=== PATIENT | male | born 1940 | race Caucasian/White ===

== ENCOUNTER 2024-12-21 12:54 | Inpatient (IN) | payer MEDICARE, OTHER, SELFPAY ==
[2024-12-21] VITALS (22 sets, daily range): BP systolic 89–130; BP diastolic 51–101; BMI 32.2
--- NOTE | 2024-12-21 08:53 | ED.GENMED ---
History of Present Illness
General
Chief Complaint: Abnormal Lab Value
Source: patient and ambulance crew
Time Seen by Provider: 12/21/24 08:51
History of Present Illness
History of Present Illness:
83yoM with a history of coronary artery disease, atrial fibrillation, CHF with last EF 45 to 50%, hypertension, hyperlipidemia, type 2 diabetes, dementia, and COPD presenting via EMS for evaluation of abnormal outpatient labs. Patient is a resident
at [facility] he had routine blood work done yesterday and was found to have a transaminitis. Labs revealed an AST of 528, ALT 373, alk phos 405, and total bilirubin of 2.36. There was also a leukocytosis present with a white count of 15.8.
Due to his lab abnormalities, he was sent to the emergency department. Patient has no complaints at this time and denies any abdominal pain. Remainder of history is limited due to underlying dementia. He was hospitalized in 2021 for a similar
issue. Ultrasound showed intrahepatic biliary dilatation at that time and he underwent EUS which was negative for choledocholithiasis. Transaminitis was thought to be due to a passed CBD stone.
Past History
Past History
ED Past Medical History: Arrthythmia (Atrial fib), CAD, HTN, Hypercholesterolemia, IDDM and Other (COVID positive 2 weeks ago, PVD,)
ED Past Surgical History: None
Social History
Tobacco: Former smoker
Alcohol: Occasional
Personal:
Living: halfway ([facility])
Phy Exam
General Physical Exam
General Presentation: well appearing and no apparent distress
General Skin: warm, dry and pale
General Habitus: elderly
General Mental: angry
ENT Exam
ENT Exam: normocephalic
Cardiovascular Exam
Cardiovascular Exam: tachycardia
Pulmonary Exam
Pulmonary Exam: no respiratory distress, no rales, no crackles, no wheezing and decreased breath sounds
Gastrointestinal Exam
Gastrointestinal Exam: non tender, soft and non distended
Neurological Exam
Neurological Exam: alert
Skin Exam
Skin Exam: warm/dry
Psychiatric Exam
Psychiatric Exam: agitated
Course
Orders/Labs/Results
Orders:
Orders
12/21/24 08:51
Cardiac Monitoring- Treatment ONCE
US Abdomen Complete/Upper Urgent
Comment:
Reason For Exam: transaminitis
12/21/24 08:52
Electrocardiogram (*1) Urgent
Reason for Study: Other
Other Reason for Exam: tachycardia
EKG- Treatment ONCE
12/21/24 08:58
Basic Metabolic Panel Urgent
COVID-19 Antigen Urgent
Source: Nasal Swab
Complete Blood Count/With Diff Urgent
Hepatitis A IgM Antibody Urgent
Hepatitis B Core Ab, IgM Urgent
Hepatitis B Surface Antibody Urgent
Hepatitis B Surface Antigen Urgent
Hepatitis C Antibody Urgent
LFT [Ckwig-Ubaj-Yypapdn] Urgent
Lipase Urgent
Monotest Urgent
Prothrombin Time Urgent
Tylenol [Acetaminophen] Urgent
Influenza A+B Rapid Molecular Urgent
JB Source: Nasal Swab
Specimen Description:
12/21/24 09:26
0.9% Sodium Chloride 500 ml [Nss] 500 ml IV BOLUS
12/21/24 09:28
CR Chest Portable - 1 View Urgent
Comment:
Reason For Exam: hypoxia
Reason Study Needs to be Portable: Unable to Transport
12/21/24 09:54
Lactate Level [Lactic Acid] Urgent
Blood Culture Q30M
JB Source: Blood/Venous
Specimen Description:
12/21/24 10:15
Piperacillin/Tazo 4.5 Gram [Zosyn] 4.5 gram in 100 ml IV NOW
12/21/24 10:29
Blood Culture Q30M
JB Source: Blood/Venous
Specimen Description:
12/21/24 12:10
GASTROINTESTINAL CONSULT Routine
Consulting Provider: Rafa Mark
Was physician already notified: Yes
Reason for consult: elevated LFT
12/21/24 12:11
MRI Abdomen [MR Abdomen With Contrast] Routine
Comment:
Reason For Exam: with MRCP, LFT elevation
Recent pill cam endoscopy?: No
0.9% Sodium Chloride 500 ml [Nss] 500 ml IV BOLUS
12/21/24 13:00
Lactic Acid Urgent
Abnormal Lab Results
12/21/24 12/21/24
08:58 09:54
WBC 22.9 H 10^3/uL
(4.8-10.8)
RBC 4.68 L 10^6/uL
(4.70-6.10)
MCHC 30.7 L g/dL
(33.0-37.0)
RDW 14.6 H %
(11.5-14.5)
MPV 10.6 H fL
(7.4-10.4)
Abs Immat Gran (auto) 0.2 H 10^3/uL
(0-0.05)
Absolute Neuts (auto) 20.8 H 10^3/uL
(1.4-6.5)
Absolute Lymphs (auto) 0.9 L 10^3/uL
(1.2-3.4)
Absolute Monos (auto) 0.9 H 10^3/uL
(0.1-0.6)
Immature Gran % 1.0 H %
(0-0.5)
Neutrophils % 90.7 H %
(42.2-75.2)
Lymphocytes % 4.0 L %
(20.5-51.1)
PT 16.1 H Sec
(11.4-14.6)
Sodium 147 H mmol/L
(135-145)
BUN 31 H mg/dl
(9-20)
Glucose 205 H mg/dl
(70-99)
Lactic Acid 2.2 H mmol/L
(0.7-2.0)
Total Bilirubin 4.6 H mg/dl
(0.2-1.3)
Direct Bilirubin 3.5 H mg/dl
(0.0-0.4)
AST 249 H U/L
(17-59)
ALT 342 H U/L
(0-50)
Alkaline Phosphatase 383 H U/L
(38-126)
Albumin 3.3 L g/dl
(3.5-5.0)
Acetaminophen < 10 L ug/ml
(10-30)
12/21/24 08:58
12/21/24 08:58
Vital Signs
Initial and Last Documented VS:
Initial Vital Signs
Pulse Resp Pulse Ox
138 20 95
12/21/24 08:47 12/21/24 08:47 12/21/24 08:47
Last Documented Vital Signs
Temp Pulse Resp BP Pulse Ox
98.2 F 108 27 113/62 95
12/21/24 08:53 12/21/24 10:30 12/21/24 10:30 12/21/24 10:30 12/21/24 10:15
MDM/Problems Addressed
Differential Diagnosis Includes:
83yoM here with elevated LFTs on outpatient labs. Hx of dementia so history is limited but he denies any complaints. Chart reviewed, patient admitted in 2021 for similar issue which was thought to be a passed CBD stone. HR in the 130s on arrival, BP
stable. Abdominal exam is limited due to patient cooperation but no obvious tenderness elicited. Differential diagnosis includes but is not limited to: cholelithiasis, choledocholithiasis, cholangitis, hepatitis
Initial ED plan: Check abdominal labs, coags, hepatitis panel, Tylenol level, monospot, EKG, and upper abdominal ultrasound.
*EKG
Interpreted by ED Provider?: Yes
EKG Intrepretation Date: 12/21/24
Heart Rate: 122
Rate: tachycardiac
Rhythm: a-fib
QRS Pattern: normal QRS
Ischemia: T-wave inversion (lateral leads)
*Critical Care Note
Total Time (30-74mins, 75-104mins- exclusive of procedures): Not Applicable
Update Note
Update Note:
Labs reveal a leukocytosis with a white count of 22 with a left shift. Lactate 2.2. AST 249, ALT 342, and total bilirubin 4.6. Lipase within normal limits. Patient became hypoxic to 88% during ED stay and was placed on 2 L nasal cannula. Upper
abdominal ultrasound shows fatty infiltration and cholelithiasis. No imaging findings of cholecystitis. Patient meeting SIRS criteria and IV Zosyn ordered. He was admitted for further evaluation and management.
ED Attending Note
-
Portions of this chart may have been created with voice recognition software.� Occasional wrong word or��sound alike� substitutions may have occurred due to the inherent limitations of voice recognition software.
Discharge Plan
Departure
Patient Disposition: Admit
Date of Disposition: 12/21/24
Time of Disposition: 11:27
Presentation/result/management discussed w/ accepting MD/DO: Hospitalist
Discharge Problem:
Transaminitis, SIRS (systemic inflammatory response syndrome)
Prescriptions:
No Action
metformin 1,000 MG tablet
1,000 mg PO QPM
docusate sodium 100 MG capsule
200 mg PO DAILY
acetaminophen 325 MG tablet
650 mg PO Q4HPRN PRN (Reason: mild pain/temp>100)
lovastatin 40 MG tablet
40 mg PO DAILY
tamsulosin 0.4 MG capsule
0.4 mg PO DAILY
gabapentin 300 MG capsule
300 mg PO DAILY
sertraline 50 MG tablet
100 mg PO DAILY
finasteride 5 MG tablet
5 mg PO DAILY
magnesium oxide 400 MG tablet
400 mg PO BID
dapagliflozin propanediol [Farxiga] 10 MG tablet
10 mg PO DAILY
bisacodyl [Dulcolax (bisacodyl)] 5 mg Tablet,Delayed Release (Dr/Ec)
5 mg PO DAILYPRN PRN (Reason: constipation)
glipizide 5 mg Tablet
15 mg PO DAILY
furosemide 40 mg Tablet
40 mg PO DAILY Qty: 30 0RF
lisinopril 5 mg Tablet
5 mg PO DAILY Qty: 30 0RF
apixaban 5 mg Tablet
5 mg PO BID
metoprolol tartrate 50 mg Tablet
50 mg PO BID
ondansetron HCl [Zofran] 4 mg Tablet
4 mg PO Q6HPRN PRN (Reason: nausea)
nystatin-triamcinolone 100,000-0.1 unit/g-% Cream
1 applic TOPICAL BID
insulin lispro [Admelog SoloStar U-100 Insulin] 100 unit/mL Insulin Pen
3 sliding scale dose SC AC
Rx Instructions:
201-250=5unit, 251-300=7unit
insulin glargine [Basaglar KwikPen U-100 Insulin] 100 unit/mL (3 mL) Insulin Pen
7 unit SC DAILY
insulin glargine [Basaglar KwikPen U-100 Insulin] 100 unit/mL (3 mL) Insulin Pen
20 unit SC HS
white petrolatum [Hydrophor] 42 % ointment
1 applic topical DAILY
Referrals:
Tl Purdy MD [Family Provider] -
Interventions
Interventions:
*Risk Screen - Suicide Last Done: 12/21/24 09:30
*General Assessment Last Done: 12/21/24 09:30
*Neglect/Abuse Screening Last Done: 12/21/24 09:30
*ED COVID-19 Vaccine History Last Done: 12/21/24 09:30
Discharge Date and Time
Print Language: MOHAWK
[2024-12-21 09:16] LABS: Hematocrit 42.7 % (39.0-52.0); Hemoglobin 13.1 g/dL (13.0-18.0); Mean Corp Hgb Conc. 30.7 g/dL (33.0-37.0); Mean Corpuscular Volume 91.2 fL (80.0-94.0); Mean Platelet Volume 10.6 fL (7.4-10.4); Platelet Count 227 10^3/uL (130-400); Red Blood Cell Count 4.68 10^6/uL (4.70-6.10); Red Cell Dist. Width 14.6 % (11.5-14.5); White Blood Cell Count 22.9 10^3/uL (4.8-10.8)
[2024-12-21 09:23] LABS: INR 1.26; PT 16.1 Sec (11.4-14.6)
[2024-12-21 09:26] LABS: AST (SGOT) 249 U/L (17-59); Acetaminophen < 10 ug/ml (10-30); Albumin 3.3 g/dl (3.5-5.0); Alkaline Phosphatase 383 U/L (38-126); Blood Urea Nitrogen 31 mg/dl (9-20); Calcium 9.5 mg/dl (8.4-10.2); Carbon Dioxide 27 mmol/L (22-30); Chloride 105 mmol/L (98-107); Direct Bilirubin 3.5 mg/dl (0.0-0.4); Glucose 205 mg/dl (70-99); Potassium 4.4 mmol/L (3.5-5.1); Sodium 147 mmol/L (135-145); Total Bilirubin 4.6 mg/dl (0.2-1.3); Total Protein 6.9 g/dl (6.3-8.2); eGFR 53.84
[2024-12-21 09:34] LABS: ALT (SGPT) 342 U/L (0-50)
[2024-12-21 09:39] LABS: COVID-19 Antigen Negative (Negative)
[2024-12-21 09:50] LABS: Monotest Negative (Negative)
[2024-12-21] MEDS: NSS 500 IV ×2 (09:55→13:26)
[2024-12-21 10:08] LABS: % Basophils 0.2 % (0-2); % Monocytes 4.1 % (1.7-9.3); % Neutrophils 90.7 % (42.2-75.2); Absolute Immature Granulocytes 0.2 10^3/uL (0-0.05); Absolute Lymphocytes 0.9 10^3/uL (1.2-3.4); Absolute Monocytes 0.9 10^3/uL (0.1-0.6); Absolute Neutrophils 20.8 10^3/uL (1.4-6.5); Nucleated Red Blood Cells % 0 % (-)
[2024-12-21 10:31] LABS: Lactic Acid 2.2 mmol/L (0.7-2.0)
[2024-12-21 11:03] LABS: Lipase 101 U/L (23-300)
[2024-12-21] MEDS: ZOSYN 100 IV (11:11)
[2024-12-21 12:07] LABS: Hepatitis B Surface Antigen Negative (Negative)
[2024-12-21 12:11] LABS: Hepatitis A IgM Antibody Negative (Negative); Hepatitis B Core Ab, IgM Negative (Negative)
[2024-12-21 12:24] LABS: Hepatitis B Surface Antibody Positive; Hepatitis C Antibody Negative (Negative)
--- NOTE | 2024-12-21 12:31 | CON.GI ---
Addendum entered and electronically signed by Rafa Mark DO 12/21/24 17:59:
I saw and examined the patient.
The RATTLING MACHINE TENDER's note was reviewed and I agree with the note.
Comment: Mr Viveros is an 83 y.o male with a past medical history as detailed below who presented to the ED with abnormal LFTs. Patient is a limited historian during my interview. Found to meet sepsis criteria and elevated LFTs with AST 249, ALT
342, alk phos 383 along with T Bili 4.6, D Bili 3.5 and lipase 101. Initial US was limited but was unrevealing for any intrahepatic or extrahepatic biliary ductal dilatation with CBD of [address] imaging later revealed concern for acute emphysematous
cholecystitis with gallbladder perforation with adjacent inflammatory stranding without any fluid collection. Otherwise, there was no biliary ductal dilatation. On exam patient has tenderness in the RUQ along with both guarding and rebound
tenderness concerning for perforated viscus. Suspect patient's elevated LFTs in setting of sepsis secondary from emphysematous cholecystitis with pneumoperitoneum around the liver concerning for a contained gallbladder perforation rather than
biliary obstruction based on his imaging. Would defer any further plans for an MRI/MRCP at this time especially based on his CT findings. Surgery previously evaluated and per extensive discussions with patient and family declining further surgical
intervention. At this juncture, patient remains at high risk for clinical decompensation as declining any further surgical intervention. In the meantime, would continue empiric IV antibiotics and would continue further GOC discussions with both
primary team and family along with potentially Palliative care this admission.
Discussed with both patient's family and primary internal medicine team.
Original Note:
Consultation
-
Date/Time Consultation Requested: 12/21/24 1215
Date/Time Consultation Performed: 12/21/24 1230
Requesting Provider: Yan Gonzales MD
Performing Provider: LENORA Lin, Rafa Mark DO
Reason for Consultation: increased LFT's
Medical History
Chief Complaint / HPI
Chief Complaint: Abnormal labs
History of Present Illness:
Pt is an 83yo with hx of A. fib on Eliquis, CHF EF 45-50 %, CAD, HTN, hyperlipidemia, PVD, COPD, NIDDM, likely vascular dementia bedbound, DVT, prior UTI, noted on routine labs completed and noted with abnormal LFT's and sent to ER. On admission
was noted with WBC 22,900, hbg 13, Na 147, creat 1.3, glucose 205, lactate 2.2, bili 4.6, D bili 3.5, AST 249, ALT 342, alk phos 383 and lipase 101. He completed US abdomen with Significantly limited results with cooperation. Increased hepatic
echogenicity most likely related to fatty infiltration. Cholelithiasis. No sonographic findings suspicious for acute cholecystitis. Pt was seen in 2021 with similar symptoms and elevated lipase at that time with possible passed stone. Patient is a
poor historian all history obtained from chart review and I did attempt to use [place] field service technician poultry with some confusion in responses.
In review with family pt was noted with a few day noted decreased appetite. He was taking his medication without difficulty which was abnormal for patient as he usually resists taking mediation. He was also complaining of right sided pain with
noted jaundice. He has some limited history but with field service technician poultry denies dysphagia, GERD, abdominal pain, nausea, vomiting, diarrhea, constipation or rectal bleeding. No hx EGD in past and last colonoscopy years ago daughter did not recall any
abnormal findings.
Past Medical History
Past Medical History: Arrhythmias (A. fib), CHF, COPD, HTN, Hypercholesterolemia, NIDDM, [place] and Other (DVT on Eliquis, collarbone fx with medical mangement )
Past Surgical History: Orthopedic (THR, ankle surgery)
Social History
Tobacco: Former Smoker (quit age 58 )
Alcohol: Former (social ETOH )
Drug: None
Living: Long-Term
Employment: Retired
Family History
Family History: Other (no family hx liver issues )
Allergies / Home Medications
Allergy/AdvReac Type Severity Reaction Status Date / Time
No Known Allergies Allergy Verified 12/21/24 08:50
�Medication �Instructions �Recorded
docusate sodium 100 mg capsule 200 mg PO DAILY Constipation 06/27/20
metformin 1,000 mg tablet 1,000 mg PO QPM Diabetes 06/27/20
acetaminophen 325 mg tablet 650 mg PO Q4HPRN PRN mild 09/08/20
pain/temp>100
finasteride 5 mg tablet 5 mg PO DAILY Urinary issue 09/08/20
gabapentin 300 mg capsule 300 mg PO DAILY Pain 09/08/20
lovastatin 40 mg tablet 40 mg PO DAILY High cholesterol 09/08/20
magnesium oxide 400 mg PO BID Supplement 09/08/20
sertraline 50 mg tablet 100 mg PO DAILY Mental 09/08/20
Health/Anxiety
tamsulosin 0.4 mg capsule 0.4 mg PO DAILY Urinary issue 09/08/20
dapagliflozin propanediol 10 mg 10 mg PO DAILY Diabetes/Heart 02/08/22
tablet (Farxiga) Failure
bisacodyl 5 mg tablet,delayed 5 mg PO DAILYPRN PRN constipation 07/27/22
release (Dulcolax (bisacodyl))
glipizide 5 mg tablet 15 mg PO DAILY Diabetes 07/27/22
furosemide 40 mg tablet 40 mg PO DAILY #30 tabs 08/05/22
lisinopril 5 mg tablet 5 mg PO DAILY #30 tabs 08/05/22
apixaban 5 mg tablet 5 mg PO BID Blood clot 08/26/22
prevention/tx
metoprolol tartrate 50 mg tablet 50 mg PO BID Blood Pressure 09/29/23
insulin glargine 100 unit/mL (3 7 unit SC DAILY 12/21/24
mL) subcutaneous pen (Basaglar
KwikPen U-100 Insulin)
insulin glargine 100 unit/mL (3 20 unit SC HS 12/21/24
mL) subcutaneous pen (Basaglar
KwikPen U-100 Insulin)
insulin lispro 100 unit/mL 3 sliding scale dose SC AC 12/21/24
subcutaneous pen (Admelog SoloStar
U-100 Insulin lispro)
nystatin-triamcinolone 100,000 1 applic topical BID groin,penis 12/21/24
unit/g-0.1 % topical cream
ondansetron HCl 4 mg tablet 4 mg PO Q6HPRN PRN nausea 12/21/24
white petrolatum 42 % topical 1 applic topical DAILY dry skin 12/21/24
ointment (Hydrophor)
Review of Systems
-
Unable to obtain full review of systems at this time due to: Language Barrier
History Source: Patient and Family
Constitutional: Reports No Symptoms
EENT: Reports No Symptoms
Respiratory: Reports No Symptoms
Cardiac: Reports No Symptoms
Abdomen/GI: Reports Abdominal Pain and Other (decreased appetite )
: Reports No Symptoms
Skin: Reports Other (change in skin color )
Neurological: Reports Weakness
Endocrine: Reports No Symptoms
Hematologic/Lymphatic: Reports No Symptoms
Vital Signs
Temp Pulse Resp BP Pulse Ox
98.2 F 108 27 113/62 95
12/21/24 08:53 12/21/24 10:30 12/21/24 10:30 12/21/24 10:30 12/21/24 10:15
Physical Exam
Exam
General: Well Developed, Well Nourished and Other (sleepy but arousable )
HEENT: Other (jaundice )
Respiratory: Clear
Cardiac: Other (tachy)
GI: Soft, Non Distended and Tender (diffuse mid abdomen )
Musculoskeletal: No Clubbing and No Cyanosis
Skin: Warm and Dry
Neuro: Other (awakens to voice -- confusion with use of field service technician poultry )
Psych: Calm
Results
WBC 22.9 10^3/uL (4.8-10.8) H 12/21/24 08:58
Hgb 13.1 g/dL (13.0-18.0) 04/18/25 08:58
Hct 42.7 % (39.0-52.0) 12/21/24 08:58
MCV 91.2 fL (80.0-94.0) 12/21/24 08:58
Plt Count 227 10^3/uL (130-400) 12/21/24 08:58
Absolute Neuts (auto) 20.8 10^3/uL (1.4-6.5) H 12/21/24 08:58
PT 16.1 Sec (11.4-14.6) H 12/21/24 08:58
INR 1.26 12/21/24 08:58
Sodium 147 mmol/L (135-145) H 12/21/24 08:58
Potassium 4.4 mmol/L (3.5-5.1) 12/21/24 08:58
Chloride 105 mmol/L (98-107) 12/21/24 08:58
Carbon Dioxide 27 mmol/L (22-30) 12/21/24 08:58
BUN 31 mg/dl (9-20) H 12/21/24 08:58
Creatinine 1.3 mg/dL (0.7-1.3) 12/21/24 08:58
Calcium 9.5 mg/dl (8.4-10.2) 12/21/24 08:58
Total Bilirubin 4.6 mg/dl (0.2-1.3) H 12/21/24 08:58
AST 249 U/L (17-59) H 12/21/24 08:58
ALT 342 U/L (0-50) H 12/21/24 08:58
Alkaline Phosphatase 383 U/L (38-126) H 12/21/24 08:58
Lipase 101 U/L (23-300) 12/21/24 08:58
Hepatitis A IgM Ab Negative (Negative) 12/21/24 08:58
Hep Bs Antibody Positive 12/21/24 08:58
Hep B Core IgM Ab Negative (Negative) 12/21/24 08:58
Hepatitis C Antibody Negative (Negative) 12/21/24 08:58
Diagnostic Image Results:
12/21/24 US Abdomen Complete/Upper
IMPRESSION: Significantly limited as above. Increased hepatic echogenicity most likely related to fatty infiltration. Cholelithiasis. No sonographic findings suspicious for acute cholecystitis.
12/21/24 CXR
IMPRESSION: Limited as above. Very low lung volumes. Left basilar opacification, probable combination of small effusion and adjacent atelectasis/consolidation.
Prior GI Procedures:
EGD: none per family
Colonoscopy: ? in past years ago
Assessment / Plan
-
Pt is an 83yo with hx of A. fib on Eliquis, CHF EF 45-50 %, CAD, HTN, hyperlipidemia, PVD, COPD, NIDDM, likely vascular dementia bedbound, DVT, prior UTI, noted on routine labs completed and noted with abnormal LFT's and sent to ER. On admission
was noted with WBC 22,900, hbg 13, Na 147, creat 1.3, glucose 205, lactate 2.2, bili 4.6, D bili 3.5, AST 249, ALT 342, alk phos 383 and lipase 101. He completed US abdomen with significantly limited results with cooperation. Increased hepatic
echogenicity most likely related to fatty infiltration. Cholelithiasis. No sonographic findings suspicious for acute cholecystitis. Pt was seen in 2021 with similar symptoms and elevated lipase at that time with possible passed stone. Patient is a
poor historian all history obtained from chart review and I did attempt to use [place] field service technician poultry with some confusion in responses. In review with family pt was noted with a few day noted decreased appetite. He was taking his medication without
difficulty which was abnormal for patient as he usually resists taking mediation. He was also complaining of right sided pain with noted jaundice. No hx EGD in past and last colonoscopy years ago daughter did not recall any abnormal findings.
-increased LFT's
-abdominal pain on exam with recent decreased appetite, jaundice prior to admission
-hypotension/tachycardia/leukocytosis with concern for sepsis
-hypernatremia
-hx UTI in 09/2023
-admission 2021 with pancreatitis ? gallstone related
-afib on Eliquis prior to admission
other med problems:
-CHF
-CAD
-HTN
-hyperlipidemia
-COPD
-NIDDM
-vascular dementia
-hx DVT
-fatty liver
-DNR
PLAN:
etiology of symptoms with concern for underlying infectious- biliary, urinary vs other as noted with hypotension/tachycardia/leukocytosis
agree with CT and MRI
cont abx
cont NPO for now
await cx data-- CXR stable -- urine and blood cx pending
trend LFTs
I updated daughter on plan
use of [place] field service technician poultry with some limited help with dementia
-
-
Thank you for consultation and allowing me to participate in the patient's care. Please call the concrete worker GI physician during the after hours with any questions or concerns.
--- NOTE | 2024-12-21 12:42 | HPS.HSE ---
Family Physician
-
Family Physician: Tl Purdy MD
Chief Complaint
-
abnormal LFT
History of Present Illness
83yo M albanian speaking, with PMHx of HFmrEF, DM, neuropathy, HTN, HLD, BPH, anxiety, dementia, chronic ambulatory deficiency brought from [facility] with abnormal labs, found leukocytosis with transaminitis and elevated direct bilirubinemia.
Himself has no complains, however has diffusely tender abdomen on bedside ssessmnt.
Similar presentation in 2021, at that time with neg EUS and contributed to passing the stone
Medical History
Past Medical History
Past Medical History: Reports Other
Additional Past Medical History:
See above
Past Surgical History: Reports None
Social History
Unable to obtain full social history at this time due to: Dementia
Tobacco: Former Smoker
Family History
Family History: Not pertinent
Allergies / Home Medications
Allergies reflects when Allergies were last updated in [facility].
Home Medications with original date entered in [facility]
Allergy/Medication List:
Allergies
Allergy/AdvReac Type Severity Reaction Status Date / Time
No Known Allergies Allergy Verified 12/21/24 08:50
Home Medications
docusate sodium 100 mg capsule 200 mg PO DAILY Constipation 06/27/20
metformin 1,000 mg tablet 1,000 mg PO QPM Diabetes 06/27/20
acetaminophen 325 mg tablet 650 mg PO Q4HPRN PRN mild pain/temp>100 09/08/20
finasteride 5 mg tablet 5 mg PO DAILY Urinary issue 09/08/20
gabapentin 300 mg capsule 300 mg PO DAILY Pain 09/08/20
lovastatin 40 mg tablet 40 mg PO DAILY High cholesterol 09/08/20
magnesium oxide 400 mg PO BID Supplement 09/08/20
sertraline 50 mg tablet 100 mg PO DAILY Mental Health/Anxiety 09/08/20
tamsulosin 0.4 mg capsule 0.4 mg PO DAILY Urinary issue 09/08/20
dapagliflozin propanediol 10 mg tablet (Farxiga) 10 mg PO DAILY Diabetes/Heart Failure 02/08/22
bisacodyl 5 mg tablet,delayed release (Dulcolax (bisacodyl)) 5 mg PO DAILYPRN PRN constipation 07/27/22
glipizide 5 mg tablet 15 mg PO DAILY Diabetes 07/27/22
furosemide 40 mg tablet 40 mg PO DAILY #30 tabs 08/05/22
lisinopril 5 mg tablet 5 mg PO DAILY #30 tabs 08/05/22
apixaban 5 mg tablet 5 mg PO BID Blood clot prevention/tx 08/26/22
metoprolol tartrate 50 mg tablet 50 mg PO BID Blood Pressure 09/29/23
insulin glargine 100 unit/mL (3 mL) subcutaneous pen (Basaglar KwikPen U-100 Insulin) 7 unit SC DAILY 12/21/24
insulin glargine 100 unit/mL (3 mL) subcutaneous pen (Basaglar KwikPen U-100 Insulin) 20 unit SC HS 12/21/24
insulin lispro 100 unit/mL subcutaneous pen (Admelog SoloStar U-100 Insulin lispro) 3 sliding scale dose SC AC 12/21/24
nystatin-triamcinolone 100,000 unit/g-0.1 % topical cream 1 applic topical BID groin,penis 12/21/24
ondansetron HCl 4 mg tablet 4 mg PO Q6HPRN PRN nausea 12/21/24
white petrolatum 42 % topical ointment (Hydrophor) 1 applic topical DAILY dry skin 12/21/24
Review of Systems
-
Unable to obtain full review of systems at this time due to: Dementia
History Source: Patient
A 12 point ROS was completed and negative except as noted: Yes
Physical Exam
Vital Signs
Vital Signs
Temp Pulse Resp BP Pulse Ox
98.2 F 108 27 113/62 95
12/21/24 08:53 12/21/24 10:30 12/21/24 10:30 12/21/24 10:30 12/21/24 10:15
Physical Exam
General: Comfortable and Conversant; No Respiratory Distress
HEENT: NormoCephalic, Anicteric and Moist mucous membranes
Respiratory: Clear; No Wheezes, Rhonchi or Crackles
Cardiac: S1/S2 and Regular Rhythm; No Peripheral Edema
GI: Soft, Non Distended and Tender
Musculoskeletal: No Clubbing, No Cyanosis and No Edema
Skin: Warm
Neuro: Awake and Alert; No AO x 3
Psych: Calm and Apparent Dementia
Laboratory Results
-
12/21/24 08:58
12/21/24 08:58
Laboratory Results
PT 16.1 Sec (11.4-14.6) H 12/21/24 08:58
INR 1.26 12/21/24 08:58
Lactic Acid 2.2 mmol/L (0.7-2.0) H 12/21/24 09:54
Total Bilirubin 4.6 mg/dl (0.2-1.3) H 12/21/24 08:58
AST 249 U/L (17-59) H 12/21/24 08:58
ALT 342 U/L (0-50) H 12/21/24 08:58
Alkaline Phosphatase 383 U/L (38-126) H 12/21/24 08:58
Lipase 101 U/L (23-300) 12/21/24 08:58
Impression/Plan
-
A/P:
#Transaminitis
#Direct bilirubinemia
#Leukocytosis
cannot exclude cholangitis
US RUQ without definite cholecystitis or choledocholithiasis sign
Chest XR without pneumonia
complete w/u with UA
BCx pending
Zosyn
Follow LFT
GI consult
CT and/pelvis and MRCP
Lipase WNL
#Hypernatremia
possible dehydration
IVF gentle to avoid fluid overload
hold Lasix
#DM type 2 with neuropathy
Insulin SS, Accuchecks, DM diet when able
Hold basal/bolus while NPO
#Chronic HFpEF
#Essential HTN
#BPH
#Anxiety
#Dementia, Unspecified
#HLD
#Afib, paroxysmal
cont home meds
Hold Eliquis in the case if procedure needed
#GOC
POLST form DNR/DNI with limited intervention, IVF and Abx acceptable
DVT ppx Lovenox
DNR/DNI as per POLST form
I have spent at least 78min reviewing chart, test results, communication with consultants and providing direct patient care
[2024-12-21] MEDS: MERREM 500 MG IV ×2 (15:59→23:01)
[2024-12-21] MEDS: STERILE WATER FOR INJECTION 10 ML IV ×2 (15:59→23:02)
--- NOTE | 2024-12-21 16:58 | CON.GS ---
Consultation
-
Date/Time Consultation Performed: 12/21/24 1630
Reason for Consultation: Cholecystitis
Medical History
-
Chief Complaint: Abnormal laboratory testing
History of Present Illness:
Patient is an 83-year-old male brought in from [facility] for emergency department evaluation secondary to abnormal liver function profile testing and laboratory values.
Patient has underlying dementia and does not provide accurate history. Appears as though he has had decreased appetite and change in typical behavior and right sided abdominal pain. His daughter is at bedside. Patient is a limited DNR with
request for no aggressive measures of care. Patient daughter states that he has essentially been bedbound since 2019 and living in every point since then. He is typically quite combative and resistant with this care.
During my evaluation patient seems to be oriented to being at the hospital. When I told him I was the surgeon he said go away. Anytime I began to mention surgery he adamantly said no and did not wish to speak further about it.
Past Medical History
Past Medical History: Other (His medical history is notable for A-fib on Eliquis, history of CHF with reduced ejection fraction, CAD, hypertension, hyperlipidemia, PVD, COPD, DM, DVT, prior UTI, dementia, ambulatory dysfunction.)
Past Surgical History: Orthopedic
Social History
Tobacco: Former Smoker
Alcohol: Former
Living: Custodial
Family History
Family History: Unable to Obtain
Allergies / Home Medications
Allergy/AdvReac Type Severity Reaction Status Date / Time
No Known Allergies Allergy Verified 12/21/24 08:50
�Medication �Instructions �Recorded �Confirmed �Type
docusate sodium 100 mg capsule 200 mg PO DAILY Constipation 06/27/20 12/21/24 History
metformin 1,000 mg tablet 1,000 mg PO QPM Diabetes 06/27/20 12/21/24 History
acetaminophen 325 mg tablet 650 mg PO Q4HPRN PRN mild 09/08/20 12/21/24 History
pain/temp>100
finasteride 5 mg tablet 5 mg PO DAILY Urinary issue 09/08/20 12/21/24 History
gabapentin 300 mg capsule 300 mg PO DAILY Pain 09/08/20 12/21/24 History
lovastatin 40 mg tablet 40 mg PO DAILY High cholesterol 09/08/20 12/21/24 History
magnesium oxide 400 mg PO BID Supplement 09/08/20 12/21/24 History
sertraline 50 mg tablet 100 mg PO DAILY Mental 09/08/20 12/21/24 History
Health/Anxiety
tamsulosin 0.4 mg capsule 0.4 mg PO DAILY Urinary issue 09/08/20 12/21/24 History
dapagliflozin propanediol 10 mg 10 mg PO DAILY Diabetes/Heart 02/08/22 12/21/24 History
tablet (Farxiga) Failure
bisacodyl 5 mg tablet,delayed 5 mg PO DAILYPRN PRN constipation 07/27/22 12/21/24 History
release (Dulcolax (bisacodyl))
glipizide 5 mg tablet 15 mg PO DAILY Diabetes 07/27/22 12/21/24 History
furosemide 40 mg tablet 40 mg PO DAILY #30 tabs 08/05/22 12/21/24 Rx
lisinopril 5 mg tablet 5 mg PO DAILY #30 tabs 08/05/22 12/21/24 Rx
apixaban 5 mg tablet 5 mg PO BID Blood clot 08/26/22 12/21/24 History
prevention/tx
metoprolol tartrate 50 mg tablet 50 mg PO BID Blood Pressure 09/29/23 12/21/24 History
insulin glargine 100 unit/mL (3 7 unit SC DAILY 12/21/24 12/21/24 History
mL) subcutaneous pen (Basaglar
KwikPen U-100 Insulin)
insulin glargine 100 unit/mL (3 20 unit SC HS 12/21/24 12/21/24 History
mL) subcutaneous pen (Basaglar
KwikPen U-100 Insulin)
insulin lispro 100 unit/mL 3 sliding scale dose SC AC 12/21/24 12/21/24 History
subcutaneous pen (Admelog SoloStar
U-100 Insulin lispro)
nystatin-triamcinolone 100,000 1 applic topical BID groin,penis 12/21/24 12/21/24 History
unit/g-0.1 % topical cream
ondansetron HCl 4 mg tablet 4 mg PO Q6HPRN PRN nausea 12/21/24 12/21/24 History
white petrolatum 42 % topical 1 applic topical DAILY dry skin 12/21/24 12/21/24 History
ointment (Hydrophor)
Review of Systems
-
Unable to obtain full review of systems at this time due to: Dementia
History Source: Patient
A 10 point review of systems was completed, and was negative except as per HPI.
Physical Exam
Vital Signs
Temp Pulse Resp BP Pulse Ox
98.2 F 128 22 89/56 96
12/21/24 08:53 12/21/24 15:45 12/21/24 15:30 12/21/24 15:45 12/21/24 15:45
12/20/24 12/21/24 12/22/24
06:59 06:59 06:59
Actual Weight 104.1 kg
Lab Results
12/21/24 08:58
12/21/24 08:58
WBC 22.9 10^3/uL (4.8-10.8) H 12/21/24 08:58
Hgb 13.1 g/dL (13.0-18.0) 12/21/24 08:58
Hct 42.7 % (39.0-52.0) 12/21/24 08:58
Plt Count 227 10^3/uL (130-400) 12/21/24 08:58
Abs Immat Gran (auto) 0.2 10^3/uL (0-0.05) H 12/21/24 08:58
Neutrophils % 90.7 % (42.2-75.2) H 12/21/24 08:58
Physical Exam
General: Other (Chronically ill-appearing, bedbound)
HEENT: Scleral Icterus
Respiratory: Non Labored Respirations
Cardiac: Irregular Rhythm
GI: Soft and Tender (Tenderness palpation localized in the right upper quadrant with rebound and guarding)
Neuro: Oriented (To self)
Psych: Agitated
Data Reviewed
-
CT Scan: Image Personally Visualized and interpreted, Report Reviewed by me, Discussed with Physician, Discussed with Patient and Discussed with Family
Assessment / Plan
-
Assessment/Plan: 83-year-old male with probable gangrenous/emphysematous calculus cholecystitis with resultant contained gallbladder perforation but some small areas of pneumoperitoneum around the liver capsule. Secondary sepsis, elevated LFTs and
leukocytosis
[employer] NSQUIP risk calculator for cholecystectomy performed.
Risk factors include age 83, male, dependent functional status, emergent surgery, ASA class IV, sepsis, diabetes, hypertension, BMI, immobility, cognitive status at baseline with dementia.
30-day mortality risk 24.2%
Serious complication 38.6%
Any complication 33.1%
Readmission 13.7%
Return to the OR 6.4%
Functional decline 97.5%
Postoperative delirium 53.2%
Predicted length of hospital stay 9 days
I reviewed with the patient's daughter as well as her friend via phone call who is a medical concrete pourer treatment options. I recommended either prompt surgical intervention for source control with a cholecystectomy the high probability of need for
open surgery with above outline complication risks versus the alternative being a palliative approach with antibiotics and understanding unlikelihood of complete response to therapy, subsequent recurrence risk of cholecystitis and transition to a
hospice care.
Recommended against percutaneous drainage as patient unlikely to tolerate drainage tube with his dementia and baseline behavior/combativeness and that this would also not be definitive care long-term therefore prolonging suffering. I also
recommended against initiating antibiotics and then deciding in a few days if/when there is further decline to proceed with surgery as the surgical risk for poor outcome would be even higher than the stated/reviewed risk factors above at this moment.
Although the patient does have dementia, patient clearly stated to myself on multiple occasions that he does not want surgery and he seems to be oriented to self, being in the hospital and in the presence of his daughter. Medical records from
[facility] states that he is a limited DNR and would not want heroic measures which given the high risk for complications, prolonged hospital stay and further functional decline I would consider surgery in this situation very high risk and more
heroic in nature.
Reviewed with patient's daughter on 2 separate occasions and with her friend the medical concrete pourer via phone call. Patient's daughter was in agreement with foregoing surgery but does want to continue with antibiotic therapy and medical care upon
admission.
Updated Dr. Gonzales who was also present at bedside during my second conversation with the patient's daughter.
--- NOTE | 2024-12-21 18:20 | PTCARENOTE ---
Pt arrived from ED, was a thread puller from stretcher to bed. While this RN was reviewing orders, this RN noticed the order for pt to be transferred to IVU from ED, not 3 west. This RN immediately notified charge nurse, reached out to wet room supervisor and on
call attending. Transfer to the IMU in progress. Pt placed on transfer monitor while awaiting bed in IMU. Bed currently being cleaned.
[2024-12-21] MEDS: LOVENOX 40 MG SC (20:49)
[2024-12-21] MEDS: LOPRESSOR 50 MG PO (20:58)
[2024-12-21] MEDS: D5LR 500 IV (21:08)
--- NOTE | 2024-12-21 22:43 | PTCARENOTE ---
Pt arrived to unit via bed. This RN received verbal report from ARMANDO Hurst. Pt aaox2 (oriented to self and place). Pt became agitated, combative and repeatedly attempted to remove telemetry leads and gown. BLU Felder notified and Rx received for
restraints. CHG wipe completed. afib on monitor. 97% on 2L NC. Pt now resting in bed with restraints intact, which pt is tolerating well, and bed alarm on.
[2024-12-21 23:04] LABS: Glucose - Point of Care 145 mg/dl (70-99)
[2024-12-22] VITALS (13 sets, daily range): BP systolic 97–157; BP diastolic 52–81; BMI 32.2
--- NOTE | 2024-12-22 01:24 | PTCARENOTE ---
No 1000 mL bags are available at this time for pt's rx'd D5Lr. Only 500 mL bags available. Notified BLU Felder and had Rx changed in NOV.
[2024-12-22 05:11] LABS: % Basophils 0.1 % (0-2); % Eosinophils 0.2 % (0-6); % Immature Granulocytes 0.5 % (0-0.5); % Monocytes 3.5 % (1.7-9.3); % Neutrophils 90.7 % (42.2-75.2); Absolute Immature Granulocytes 0.1 10^3/uL (0-0.05); Absolute Lymphocytes 0.8 10^3/uL (1.2-3.4); Absolute Monocytes 0.6 10^3/uL (0.1-0.6); Hematocrit 37.5 % (39.0-52.0); Hemoglobin 11.2 g/dL (13.0-18.0); Mean Corp Hgb Conc. 29.9 g/dL (33.0-37.0); Mean Corpuscular Hgb 27.3 pg (27.0-31.0); Mean Corpuscular Volume 91.2 fL (80.0-94.0); Mean Platelet Volume 10.4 fL (7.4-10.4); Nucleated Red Blood Cells % 0 % (-); Platelet Count 187 10^3/uL (130-400); Red Blood Cell Count 4.11 10^6/uL (4.70-6.10); Red Cell Dist. Width 14.7 % (11.5-14.5); White Blood Cell Count 16.5 10^3/uL (4.8-10.8)
[2024-12-22 05:50] LABS: ALT (SGPT) 177 U/L (0-50); AST (SGOT) 53 U/L (17-59); Albumin 2.8 g/dl (3.5-5.0); Alkaline Phosphatase 240 U/L (38-126); Blood Urea Nitrogen 31 mg/dl (9-20); Calcium 8.7 mg/dl (8.4-10.2); Carbon Dioxide 26 mmol/L (22-30); Chloride 111 mmol/L (98-107); Estimated Creatinine Clearance 59 ml/min; Glucose 155 mg/dl (70-99); Potassium 4.3 mmol/L (3.5-5.1); Sodium 148 mmol/L (135-145); Total Bilirubin 1.5 mg/dl (0.2-1.3); eGFR > 60.00
[2024-12-22] MEDS: D5LR 500 IV (05:50)
[2024-12-22 06:00] LABS: Glucose - Point of Care 121 mg/dl (70-99)
--- NOTE | 2024-12-22 07:30 | CON.ID ---
Consultation
-
Date/Time Consultation Requested: 12/22/2024 0638
Date/Time Consultation Performed: 12/22/2024 0731
Requesting Provider: Dr. Gonzales
Performing Provider: Dr. Yanez
Reason for Consultation: Emphysematous cholecystitis
Chief Complaint / Past History
Chief Complaint
Elevated white count
History of Present Illness
Ray Viveros is an 83-year-old man being evaluated in regards to leukocytosis and emphysematous cholecystitis. The vast majority of history is obtained from chart review as the patient could only provide limited information secondary to
dementia.
The patient is known to the Infectious Diseases service, having been seen in late September 2024 for group B strep bacteremia. According to reviewed notes, he was sent to the ER on 12/21 after outpatient labs were found to be abnormal, including
elevated LFTs and bilirubin, along with a leukocytosis of 15.8.
Workup in the ER revealed a leukocytosis of 22.9K. Abdominal ultrasound was limited and findings, but a CT of the abdomen revealed acute emphysematous cholecystitis with gallbladder rupture and small foci of gas within the anterior abdomen.
At the present time, the patient denies any fevers or chills. He denies any abdominal pain. No further history is available from him at this time.
Past History
Additional Past Medical History:
Diabetes mellitus
Dementia
Hypertension
A-fib
CAD
Heart failure with reduced EF
PVD
BPH
correction resident
Past Surgical History: None
Allergy History:
No Known Allergies Allergy (Verified 12/21/24 08:50)
Medications Reviewed: Yes
Current Antibiotics:
meropemem 500 mg iv q8h
Social History
Tobacco: Former Smoker
Alcohol: None
Drug: None
Personal:
Living: [facility]
Employment: Not Employed
Family History
Family History: Not Pertinent
Review of Systems
Vital Signs
Temp Pulse Resp BP Pulse Ox
97.6 F 79 24 111/66 96
12/22/24 02:33 12/22/24 06:00 12/22/24 06:00 12/22/24 06:00 12/22/24 06:00
Physical Exam
Physical Exam
Constitutional: No Acute Distress, Comfortable, Chronically Ill and Non-toxic
Head: Normocephalic
Eyes: Pupils Equal, Pupils Round, No Conjunctival Hemorrhage and Sclera Anicteric
Oral: No Thrush
Cardiovascular: Regular Rate and S1/S2; Negative S3/S4 or Murmur
Pulmonary: Clear; Negative Wheezes, Rales or Rhonchi
Gastrointestinal: Soft, Non Tender, Non Distended, Normal Bowel Sounds, No Rebound, No Guarding and Other (No appreciable Nascimento sign.)
Genito-Urinary: Negative Mcdonald, Suprapubic Tenderness or CVA Tenderness
Extremities: Venous Insufficiency (Bilateral lower extremities); Negative Edema, Cyanosis or Erythema
Neurological: Awake and Alert
Psychological: Calm
.
Lab / Diagnostic Study Results
12/22/24 04:56
12/22/24 04:56
Abs Immat Gran (auto) 0.1 10^3/uL (0-0.05) H 12/22/24 04:56
Absolute Neuts (auto) 15.0 10^3/uL (1.4-6.5) H 12/22/24 04:56
Absolute Lymphs (auto) 0.8 10^3/uL (1.2-3.4) L 12/22/24 04:56
Absolute Monos (auto) 0.6 10^3/uL (0.1-0.6) 12/22/24 04:56
Absolute Basos (auto) 0.0 10^3/uL (0-0.2) 12/22/24 04:56
Immature Gran % 0.5 % (0-0.5) 12/22/24 04:56
Neutrophils % 90.7 % (42.2-75.2) H 12/22/24 04:56
Lymphocytes % 5.0 % (20.5-51.1) L 12/22/24 04:56
Monocytes % 3.5 % (1.7-9.3) 12/22/24 04:56
Eosinophils % 0.2 % (0-6) 12/22/24 04:56
Basophils % 0.1 % (0-2) 12/22/24 04:56
PT 16.1 Sec (11.4-14.6) H 12/21/24 08:58
INR 1.26 12/21/24 08:58
Lactic Acid 1.0 mmol/L (0.7-2.0) 12/21/24 13:28
Microbiology Results
Micro:
12/21/24 23:00 MRSA Screen - Pending
Nose
12/21/24 10:29 Blood Culture - Pending
Blood/Venous
12/21/24 09:54 Blood Culture - Pending
Blood/Venous
12/21/24 08:58 Influenza Types A & B (CARRIE) - Final
Nasal Swab Negative for Influenza A & B, NAAT
Negative results must be combined with clinical observations
and patient history.
Nucleic Acid Amplification test (NAAT)performed on the
[employer] platform.
Imaging:
12/21/2024 CT abdomen/pelvis with IV contrast: Acute emphysematous cholecystitis with gallbladder rupture noted. Associated small foci of gas within the anterior abdomen. Trace bilateral pleural effusions noted. Splenomegaly seen. Marked urinary
bladder wall thickening suggesting neurogenic bladder. Please see full dictation for additional detail. Film personally viewed.
12/21/24 CXR (1 view): Low lung volumes noted. Left basilar opacification which may be a combination of small effusion and adjacent atelectasis.
12/21/2024 Abdominal ultrasound: Limited exam secondary to patient's inability to remain motionless and inability to cooperate with positioning. Liver is normal in size. No focal hepatic lesion. Gallbladder appears contracted with multiple
shadowing calculi and lumen. Please see full dictation for additional detail.
Assessment / Plan
Acute emphysematous cholecystitis with rupture
Leukocytosis
Hyponatremia
Hyperbilirubinemia
Transaminitis
Diabetes mellitus
Dementia
Hypertension
A-fib
CAD
Heart failure with reduced EF
PVD
BPH
Recommendations:
Continue with antibiotics, but would change meropenem to Zosyn as patient is without history more resistant bacteria.
Await further decisions regarding possible surgery versus a more palliative approach.
Follow white count and temperature curve.
Free water replacement.
Trend LFTs and bilirubin
Follow pending blood cultures.
--- NOTE | 2024-12-22 08:02 | W.PN.GI.CBS2 ---
Addendum entered and electronically signed by Rafa Mark DO 12/22/24 12:01:
I saw and examined the patient.
The ELECTROENCEPHALOGRAPHIC TECHNICIAN's note was reviewed and I agree with the note.
Comment: Patient remains on IV abx with improved leukocytosis and remains HD-stable without further episodes of hypotension. Repeat labs demonstrating improving LFTs and likely in setting of sepsis secondary from emphysematous cholecystitis with
gallbladder rupture along with concern for pneumoperitoneum around the liver concerning for a contained gallbladder perforation. No other concern for biliary obstruction based on his imaging. Would still defer any further plans for an MRI/MRCP at
this time especially based on his CT findings. Surgery previously evaluated and per extensive discussions with patient and family declining further surgical intervention. Patient still remains at high risk for clinical decompensation. In the
meantime, favor ongoing IV antibiotics as per ID and appreciate surgical recommendations. Recommend ongoing further GOC discussions with both primary team and family along with potentially Palliative care this admission. See rest of care as outlined
below.
GI team will sign-off. Please recontact with any questions or concerns.
Original Note:
Today's Communication / Plan
-
etiology of symptoms with concern for perforated GB with acute emphysematous cholecystitis
CT as noted
pt with some improvement today with improved WBC's, no further tachycardia or hypotension but still with abdominal pain on exam
s/p surgical eval appreciate input and review with family
cont abx
cont NPO for now - diet per surgery
await cx data-- CXR stable -- urine and blood cx pending
LFt's trending down
family updated 12/21 by GI and surgical team
Assessment / Plan
-
Pt is an 83yo with hx of A. fib on Eliquis, CHF EF 45-50 %, CAD, HTN, hyperlipidemia, PVD, COPD, NIDDM, likely vascular dementia bedbound, DVT, prior UTI, noted on routine labs completed and noted with abnormal LFT's and sent to ER. On admission
was noted with WBC 22,900, hbg 13, Na 147, creat 1.3, glucose 205, lactate 2.2, bili 4.6, D bili 3.5, AST 249, ALT 342, alk phos 383 and lipase 101. He completed US abdomen with significantly limited results with cooperation. Increased hepatic
echogenicity most likely related to fatty infiltration. Cholelithiasis. No sonographic findings suspicious for acute cholecystitis. Pt was seen in 2021 with similar symptoms and elevated lipase at that time with possible passed stone. Patient is a
poor historian all history obtained from chart review and I did attempt to use [place] Islander combination building inspector with some confusion in responses. In review with family pt was noted with a few day noted decreased appetite. He was taking his medication without
difficulty which was abnormal for patient as he usually resists taking mediation. He was also complaining of right sided pain with noted jaundice.
No hx EGD in past and last colonoscopy years ago daughter did not recall any abnormal findings.
12/21/24 CT A/p
1. Acute emphysematous cholecystitis with gallbladder rupture as detailed above. Associated small foci of gas within the anterior abdomen. No extraluminal fluid collection is identified.
2. Trace bilateral pleural effusions with adjacent atelectasis.
3. Splenomegaly.
4. Marked urinary bladder wall thickening suggesting neurogenic bladder or chronic outlet obstruction. As above, ovoid fluid-filled structure along the posterior wall of the urinary bladder measuring up to 4.6 cm in diameter, question large
diverticulum. Findings could be further evaluated with follow-up ultrasound
-CT concern for Acute emphysematous cholecystitis with gallbladder rupture
-abdominal pain on exam with recent decreased appetite, jaundice prior to admission
-hypotension/tachycardia/leukocytosis with concern for sepsis on admission
- Marked urinary bladder wall thickening suggesting neurogenic bladder or chronic outlet obstruction
-increased LFT's
-hypernatremia
-hx UTI in 09/2023
-admission 2021 with pancreatitis ? gallstone related
-afib on Eliquis prior to admission
other med problems:
-CHF
-CAD
-HTN
-hyperlipidemia
-COPD
-NIDDM
-vascular dementia
-hx DVT
-fatty liver
-DNR
PLAN:
etiology of symptoms with concern for perforated GB with acute emphysematous cholecystitis
CT as noted
pt with some improvement today with improved WBC's, no further tachycardia or hypotension but still with abdominal pain on exam
s/p surgical eval appreciate input and review with family
cont abx
cont NPO for now - diet per surgery
await cx data-- CXR stable -- urine and blood cx pending
LFt's trending down
family updated 12/21 by GI and surgical team
Subjective
Subjective
Date of Service: December 22, 2024
Pt remains confused with some indonesian and gabonese words, NPO no stools
Objective
Data Reviewed
Laboratory Data:
Laboratory Results
12/22/24 04:56
12/22/24 04:56
Laboratory Results
PT 16.1 Sec (11.4-14.6) H 12/21/24 08:58
INR 1.26 12/21/24 08:58
Total Bilirubin 1.5 mg/dl (0.2-1.3) H D 12/22/24 04:56
AST 53 U/L (17-59) 12/22/24 04:56
ALT 177 U/L (0-50) H 12/22/24 04:56
Alkaline Phosphatase 240 U/L (38-126) H 12/22/24 04:56
Lipase 101 U/L (23-300) 12/21/24 08:58
Vital Signs and I&O:
Vital Signs
Temp Pulse Resp BP Pulse Ox
97.6 F 79 24 111/66 96
12/22/24 02:33 12/22/24 06:00 12/22/24 06:00 12/22/24 06:00 12/22/24 06:00
I&O
12/21/24 12/22/24 12/23/24
06:59 06:59 06:59
Intake Total 600 / 600
Balance 600 / 600
Physical Exam
Physical Exam
HEENT: Other (minimal jaundice )
Cardiology: Normal Sinus Rhythm
Pulmonary: Clear
GI: Soft, Non Distended and Tender (mid abdominal pain)
Extremities: No Edema
Neuro: Other (confused with hx dementia )
[2024-12-22] MEDS: LOPRESSOR PO (08:26)
[2024-12-22] MEDS: ZESTRIL PO (08:26)
[2024-12-22] MEDS: MERREM IV (08:27)
[2024-12-22] MEDS: STERILE WATER FOR INJECTION IV (08:28)
--- NOTE | 2024-12-22 08:38 | PTCARENOTE ---
Pt extremely agitated and uncooperative with care. Pt screaming and fighting with staff. Refused all PO meds. B/L soft wrist restraints and bed alarm remain in place for safety.
[2024-12-22 09:03] LABS: Glycohemoglobin (HgbA1c) 6.6 % (4.0-5.6)
[2024-12-22] MEDS: ZOSYN 50 IV ×3 (11:12→23:18)
[2024-12-22 12:09] LABS: Glucose - Point of Care 111 mg/dl (70-99)
[2024-12-22] MEDS: NOVOLOG FLEXPEN SC ×2 (12:11→17:05)
--- NOTE | 2024-12-22 12:27 | PTCARENOTE ---
Pt's assessment as documented. Aox2, very agitated with care. Screaming when touched and attempting to hit and scratch staff. Pt much calmer when left alone. Restraints remain in place, see intervention. IVF infusing as ordered. Remains NPO.
Incontinent, bhakti care completed. Daughter updated via phone, safe environment maintained.
--- NOTE | 2024-12-22 12:40 | W.PN.HOSP.TC ---
Today's Communication/Plan
-
increase IVF
cont Abx as per ID and as per wishes from daughter
Assessment / Plan
Assessment / Plan
83yo M togolese speaking, with PMHx of HFmrEF, DM, neuropathy, HTN, HLD, BPH, anxiety, dementia, chronic ambulatory deficiency brought from [facility] with abnormal labs, found leukocytosis with transaminitis and elevated direct bilirubinemia.
Found emphysematous cholecystitis with gall bladder rupture. Due to high risk for open abdominal surgery - daughter declined surgical intervention. As per gen Sx - biliary drain will be futile and patient with dementia will not be compliant with it.
Recommended hospice care, but daughter still wants to continue medical mgmt with Abx
A/P:#
#gangrenous/emphysematous calculus cholecystitis with resultant contained gallbladder perforation
ID consult: Zosyn, however unclear endpoint without medical mgmt
Bcx NTD
GEnSx evaluated - family wants non-invasive mgmt
#Marked urinary bladder wall thickening suggesting neurogenic bladder or chronic outlet obstruction. As above, ovoid fluid-filled structure along the posterior wall of the urinary bladder measuring up to 4.6 cm in diameter, question large
diverticulum
watch for retention
Mcdonald as needed
#GOC
continue attempting to re-discuss that hospice appropriate: patient with significant dementia, comorbidities, SNF resident, high risk of readmission or due to current presentation, no clear endpoint for duration of Abx.
Palliative consult
POLST form DNR/DNI with limited intervention, IVF and Abx acceptable
#Hypernatremia
2/2 dehydration
IVF
hold Lasix
CLD
#DM type 2 with neuropathy
Insulin SS, Accuchecks, DM diet when able
Hold basal/bolus while NPO
#Chronic HFpEF
#Essential HTN
#BPH
#Anxiety
#Dementia, Unspecified
#HLD
#Afib, paroxysmal
cont home meds
Hold Eliquis
DVT ppx Lovenox
DNR/DNI as per POLST form
I have spent at least 58min reviewing chart, test results, communication with consultants, family and providing direct patient care
Anticipated Discharge: > 48 hours
Subjective/Interval History
-
Date of Service: December 22, 2024
Objective Data
-
Labs:
Laboratory Results
12/22/24
04:56
WBC 16.5 H
Hgb 11.2 L
Hct 37.5 L
Plt Count 187
Sodium 148 H
Potassium 4.3
Chloride 111 H
Carbon Dioxide 26
BUN 31 H
Creatinine 1.1
Glucose 155 H
Calcium 8.7
Total Bilirubin 1.5 H D
AST 53
ALT 177 H
Alkaline Phosphatase 240 H
Vital Signs:
Vital Signs
Temp Pulse Resp BP Pulse Ox
97.9 F 76 21 120/67 96
12/22/24 07:42 12/22/24 10:00 12/22/24 10:00 12/22/24 10:00 12/22/24 11:29
I&O
12/21/24 12/22/24 12/23/24
06:59 06:59 06:59
Intake Total 600 / 600
Balance 600 / 600
Review of Systems
-
Unable to obtain full review of systems at this time due to: Dementia
History Source: Patient
Physical Exam
-
General: No Apparent Distress
Respiratory: Clear to Auscultation
Cardiac: Regular Rhythm
GI: Tender
Musculoskeletal: No Clubbing, No Cyanosis and No Edema
Neuro: Awake and Alert; Negative AO x 3
Psych: Apparent Dementia
[2024-12-22] MEDS: D5W 1000 IV (12:57)
[2024-12-22] MEDS: D5LR IV (13:03)
--- NOTE | 2024-12-22 15:18 | CM ---
CM following re: discharge planning.
Reviewed pt's chart, met with pt.
Pt is an 83 year old male, admitted with primary dx of Transaminitis. PMH includes: HFmrEF, DM, neuropathy, HTN, HLD, BPH, anxiety, dementia, chronic ambulatory deficiency
Pt is not a great historian due to Dementia. Pt is a computer terminal operator care resident at [facility], has supportive daughter Sanjana. Pt requires total care at baseline at [facility]. On Medicaid 15 day bed hold.
D/C plan: return back to [facility] for a usp care when medically stable.
CM will follow with discharge plan updates as hospitalization progresses
[2024-12-22] MEDS: LOVENOX 40 MG SC (17:35)
[2024-12-22 18:38] LABS: Glucose - Point of Care 110 mg/dl (70-99)
[2024-12-22] MEDS: LOPRESSOR 50 MG PO (23:20)
[2024-12-22] MEDS: NOVOLOG FLEXPEN 3 UNITS SC (23:28)
[2024-12-22 23:29] LABS: Glucose - Point of Care 124 mg/dl (70-99)
[2024-12-23] VITALS (12 sets, daily range): BP systolic 103–140; BP diastolic 47–98; BMI 31.8
[2024-12-23] MEDS: D5W 1000 IV ×2 (01:48→15:07)
[2024-12-23] MEDS: ZOSYN 50 IV ×4 (03:34→21:21)
[2024-12-23 04:51] LABS: % Basophils 0.3 % (0-2); % Eosinophils 1.8 % (0-6); % Immature Granulocytes 0.4 % (0-0.5); % Lymphocytes 10.1 % (20.5-51.1); % Monocytes 5.4 % (1.7-9.3); Absolute Eosinophils 0.3 10^3/uL (0-0.7); Absolute Immature Granulocytes 0.1 10^3/uL (0-0.05); Absolute Lymphocytes 1.4 10^3/uL (1.2-3.4); Absolute Monocytes 0.7 10^3/uL (0.1-0.6); Absolute Neutrophils 11.1 10^3/uL (1.4-6.5); Hematocrit 36.8 % (39.0-52.0); Hemoglobin 10.9 g/dL (13.0-18.0); Mean Corp Hgb Conc. 29.6 g/dL (33.0-37.0); Mean Corpuscular Hgb 27.8 pg (27.0-31.0); Mean Corpuscular Volume 93.9 fL (80.0-94.0); Mean Platelet Volume 10.5 fL (7.4-10.4); Nucleated Red Blood Cells % 0 % (-); Platelet Count 183 10^3/uL (130-400); Red Blood Cell Count 3.92 10^6/uL (4.70-6.10); Red Cell Dist. Width 14.8 % (11.5-14.5); White Blood Cell Count 13.6 10^3/uL (4.8-10.8)
[2024-12-23 05:16] LABS: ALT (SGPT) 110 U/L (0-50); AST (SGOT) 23 U/L (17-59); Albumin 2.6 g/dl (3.5-5.0); Alkaline Phosphatase 207 U/L (38-126); Blood Urea Nitrogen 24 mg/dl (9-20); Calcium 8.9 mg/dl (8.4-10.2); Carbon Dioxide 28 mmol/L (22-30); Chloride 110 mmol/L (98-107); Estimated Creatinine Clearance 64 ml/min; Glucose 118 mg/dl (70-99); Potassium 4.3 mmol/L (3.5-5.1); Sodium 148 mmol/L (135-145); Total Protein 5.5 g/dl (6.3-8.2); eGFR > 60.00
[2024-12-23] MEDS: NOVOLOG FLEXPEN 3 UNITS SC ×2 (05:45→12:53)
[2024-12-23 05:58] LABS: Glucose - Point of Care 109 mg/dl (70-99)
--- NOTE | 2024-12-23 06:04 | PTCARENOTE ---
Pt aaox2. afib on monitor. 98% on 2L. D5W infusing @ 85 mL/hr. Restraints in place (see worklist). Pt aggressive overnight and repeatedly attempted to hit and kick staff during all care. When alone patient rests calmly in bed. Pt resting in bed with
bed alarm on.
[2024-12-23] MEDS: ZESTRIL PO ×2 (07:31→07:40)
[2024-12-23] MEDS: LOPRESSOR PO ×3 (07:32→19:32)
--- NOTE | 2024-12-23 08:35 | W.PN.ID1 ---
Date of Service
Date of Service: December 23, 2024
Today's Communication
Continue Zosyn.
Assessment / Plan
Acute emphysematous cholecystitis with rupture
Leukocytosis
Hyponatremia
Hyperbilirubinemia
Transaminitis
Diabetes mellitus
Dementia
Hypertension
A-fib
CAD
Heart failure with reduced EF
PVD
BPH
Recommendations:
Continue with Zosyn.
Family declining surgery at this time.
Follow white count and temperature curve.
Free water replacement.
Trend LFTs and bilirubin
Follow pending blood cultures.
Await further discussions with family regarding goals of care.
����������������������������������������������������������
Subjective / Review of Systems
Review of Systems: No Fever and No Chills
Vital Signs / Physical Exam
Vital Signs
Vital Signs
Temp Pulse Resp BP Pulse Ox
97.5 F 60 20 129/56 99
12/23/24 02:11 12/23/24 06:00 12/23/24 06:00 12/23/24 04:00 12/23/24 06:00
Physical Exam
Constitutional: No Acute Distress, Comfortable, Chronically Ill and Non-toxic
Cardiovascular: S1/S2; Negative S3/S4
Pulmonary: Non Labored
Gastrointestinal: Soft, Non Distended, Normal Bowel Sounds, No Rebound, No Guarding and Other (No Nascimento sign.)
Genito-Urinary: Negative Suprapubic Tenderness or CVA Tenderness
Extremities: Venous Insufficiency; Negative Edema, Cyanosis or Erythema
Skin: Warm and Dry; Negative Rash or Jaundice
Psychological: Calm
Objective Data
Lab Data
Lab Results
12/23/24 04:29
12/23/24 04:29
PT 16.1 Sec (11.4-14.6) H 12/21/24 08:58
INR 1.26 12/21/24 08:58
Estimated Creat Clear 64 ml/min 12/23/24 04:29
Lactic Acid 1.0 mmol/L (0.7-2.0) 12/21/24 13:28
Total Bilirubin 1.0 mg/dl (0.2-1.3) 12/23/24 04:29
AST 23 U/L (17-59) 12/23/24 04:29
ALT 110 U/L (0-50) H 12/23/24 04:29
Alkaline Phosphatase 207 U/L (38-126) H 12/23/24 04:29
Most recent labs reviewed.
Micro Results:
12/21/24 23:00 MRSA Screen - Final
Nose No Methicillin Resistant Staphylococcus aureus isolated.
12/21/24 10:29 Blood Culture - Preliminary
Blood/Venous No Growth in 24 hours- Final report to follow
12/21/24 09:54 Blood Culture - Preliminary
Blood/Venous No Growth in 24 hours- Final report to follow
12/21/24 08:58 Influenza Types A & B (CARRIE) - Final
Nasal Swab Negative for Influenza A & B, NAAT
Negative results must be combined with clinical observations
and patient history.
Nucleic Acid Amplification test (NAAT)performed on the
[employer] platform.
Imaging:
12/21/2024 CT abdomen/pelvis with IV contrast: Acute emphysematous cholecystitis with gallbladder rupture noted. Associated small foci of gas within the anterior abdomen. Trace bilateral pleural effusions noted. Splenomegaly seen. Marked urinary
bladder wall thickening suggesting neurogenic bladder. Please see full dictation for additional detail. Film personally viewed.
12/21/24 CXR (1 view): Low lung volumes noted. Left basilar opacification which may be a combination of small effusion and adjacent atelectasis.
12/21/2024 Abdominal ultrasound: Limited exam secondary to patient's inability to remain motionless and inability to cooperate with positioning. Liver is normal in size. No focal hepatic lesion. Gallbladder appears contracted with multiple
shadowing calculi and lumen. Please see full dictation for additional detail.
Care Review
Plan reviewed with: Physician (Hospitalist)
--- NOTE | 2024-12-23 08:47 | W.PN.HOSP.TC ---
Today's Communication/Plan
-
Increase IVF - D5W
follow labs
cont Zosyn
start Eliquis since daughter still confirms that she will decline surgery
Assessment / Plan
Assessment / Plan
83yo M bruneian speaking, with PMHx of HFmrEF, DM, neuropathy, HTN, HLD, BPH, anxiety, dementia, chronic ambulatory deficiency brought from [facility] with abnormal labs, found leukocytosis with transaminitis and elevated direct bilirubinemia.
Found emphysematous cholecystitis with gall bladder rupture. Due to high risk for open abdominal surgery - daughter declined surgical intervention. As per gen Sx - biliary drain will be futile and patient with dementia will not be compliant with it.
Recommended hospice care, but daughter still wants to continue medical mgmt with Abx
A/P:#
#gangrenous/emphysematous calculus cholecystitis with resultant contained gallbladder perforation
ID consult: Pete, however unclear endpoint without surgical mgmt. Will probably target 10 days of Abx therapy
Bcx NTD
GEnSx evaluated - family wants non-invasive mgmt
#Marked urinary bladder wall thickening suggesting neurogenic bladder or chronic outlet obstruction. As above, ovoid fluid-filled structure along the posterior wall of the urinary bladder measuring up to 4.6 cm in diameter, question large
diverticulum
watch for retention
Mcdonald as needed
#GOC
continue attempting to re-discuss that hospice appropriate: patient with significant dementia, comorbidities, SNF resident, high risk of readmission or due to current presentation, no clear endpoint for duration of Abx.
Palliative consult
POLST form DNR/DNI with limited intervention, IVF and Abx acceptable
#Hypernatremia
2/2 dehydration
IVF
hold Lasix
CLD
#DM type 2 with neuropathy
Insulin SS, Accuchecks, DM diet when able
Hold basal/bolus while NPO
#Chronic HFpEF
#Essential HTN
#BPH
#Anxiety
#Dementia, Unspecified
#HLD
#Afib, paroxysmal
cont home meds
DVT ppx Lovenox
DNR/DNI as per POLST form
I have spent at least 38min reviewing chart, test results, communication with consultants, family and providing direct patient care
Anticipated Discharge: > 48 hours
Subjective/Interval History
-
Date of Service: December 23, 2024
Objective Data
-
Labs:
Laboratory Results
12/23/24
04:29
WBC 13.6 H
Hgb 10.9 L
Hct 36.8 L
Plt Count 183
Sodium 148 H
Potassium 4.3
Chloride 110 H
Carbon Dioxide 28
BUN 24 H
Creatinine 1.0
Glucose 118 H
Calcium 8.9
Total Bilirubin 1.0
AST 23
ALT 110 H
Alkaline Phosphatase 207 H
Vital Signs:
Vital Signs
Temp Pulse Resp BP Pulse Ox
97.5 F 60 20 129/56 99
12/23/24 02:11 12/23/24 06:00 12/23/24 06:00 12/23/24 04:00 12/23/24 06:00
I&O
12/22/24 12/23/24 12/24/24
06:59 06:59 06:59
Intake Total 600 / 600 1070 / 1070
Balance 600 / 600 1070 / 1070
Review of Systems
-
Unable to obtain full review of systems at this time due to: Dementia
Physical Exam
-
General: No Apparent Distress
HEENT: Normocephalic
Respiratory: Clear to Auscultation
GI: Soft, Nondistended and Tender
Skin: Warm
Neuro: Awake and Alert; Negative Slurred Speech or Facial Droop
Psych: Calm and Apparent Dementia
--- NOTE | 2024-12-23 11:53 | PTOTSP ---
Speech Pathology Evaluation
83M, [place] Islander speaking, with admission from [facility] for abnormal labs - found leukocytosis with transaminitis and elevated direct bilirubinemia. Dementia hx.
Impression:
Mild to moderate oropharyngeal dysphagia characterized by slow mastication of regular solids (re: edentulous status) and SaO2 dropping to 88% w/ trials of regular solids.
Recommend:
1. Trial minced and moist (IDDSI 5), thin liquids (IDDSI 0) - if overt s/s of aspiration, make NPO and await speech re-evaluation
2. Meds whole vs crushed in puree
3. Strategies: Full feeding assistance and supervision, small bites, slow rate
4. LABORATORY WORKER service to follow closely re: to assess tolerance of current diet level and upgrade as able
[2024-12-23 12:03] LABS: Glucose - Point of Care 93 mg/dl (70-99)
[2024-12-23 17:28] LABS: Glucose - Point of Care 113 mg/dl (70-99)
[2024-12-23] MEDS: NOVOLOG FLEXPEN SC ×2 (17:33→19:42)
--- NOTE | 2024-12-23 17:53 | PTCARENOTE ---
assessment as charted. pt denies abd pain. tolerating po fluids. very agitated with physical care. heart rate up to 150 when very agitated but returns to normal rate when he calms down. refused all po meds.
[2024-12-23] MEDS: ELIQUIS 5 MG PO (19:41)
[2024-12-23 21:27] LABS: Glucose - Point of Care 109 mg/dl (70-99)
--- NOTE | 2024-12-23 22:20 | PTCARENOTE ---
Addendum entered by Laureen Lambert RN 12/23/24 22:23:
lamination technician provider ordered iv metoprolol dose.
Original Note:
Patient refusing PO metoprolol x 2 days per NOV and heart rate sustaining in the 140s. BP 106/64 map 76. call center nurse provider made aware.
[2024-12-23] MEDS: LOPRESSOR 5 MG IV (22:30)
[2024-12-24] VITALS (15 sets, daily range): BP systolic 90–135; BP diastolic 41–99; BMI 32.6
[2024-12-24] MEDS: ZOSYN 50 IV ×4 (03:24→21:01)
[2024-12-24 05:03] LABS: % Basophils 0.4 % (0-2); % Eosinophils 1.6 % (0-6); % Immature Granulocytes 0.6 % (0-0.5); % Lymphocytes 12.2 % (20.5-51.1); % Neutrophils 78.2 % (42.2-75.2); Absolute Eosinophils 0.2 10^3/uL (0-0.7); Absolute Immature Granulocytes 0.1 10^3/uL (0-0.05); Absolute Lymphocytes 1.4 10^3/uL (1.2-3.4); Absolute Monocytes 0.8 10^3/uL (0.1-0.6); Absolute Neutrophils 8.8 10^3/uL (1.4-6.5); Hematocrit 38.5 % (39.0-52.0); Hemoglobin 11.8 g/dL (13.0-18.0); Mean Corp Hgb Conc. 30.6 g/dL (33.0-37.0); Mean Corpuscular Hgb 27.8 pg (27.0-31.0); Mean Corpuscular Volume 90.6 fL (80.0-94.0); Mean Platelet Volume 10.1 fL (7.4-10.4); Nucleated Red Blood Cells % 0 % (-); Platelet Count 209 10^3/uL (130-400); Red Blood Cell Count 4.25 10^6/uL (4.70-6.10); Red Cell Dist. Width 14.6 % (11.5-14.5); White Blood Cell Count 11.3 10^3/uL (4.8-10.8)
--- NOTE | 2024-12-24 05:11 | PTCARENOTE ---
Patient agitated with any care overnight. Refuses turns and attempts to slap staff at times. Occasional soft BPs with patient laying on his side- refuses to reposition or lay on back to get more accurate BP.
[2024-12-24 05:29] LABS: ALT (SGPT) 69 U/L (0-50); AST (SGOT) 18 U/L (17-59); Albumin 2.8 g/dl (3.5-5.0); Alkaline Phosphatase 190 U/L (38-126); Blood Urea Nitrogen 20 mg/dl (9-20); Calcium 8.4 mg/dl (8.4-10.2); Carbon Dioxide 25 mmol/L (22-30); Chloride 103 mmol/L (98-107); Estimated Creatinine Clearance 71 ml/min; Glucose 179 mg/dl (70-99); Sodium 140 mmol/L (135-145); Total Bilirubin 1.1 mg/dl (0.2-1.3); Total Protein 5.9 g/dl (6.3-8.2); eGFR > 60.00
[2024-12-24 05:35] LABS: Potassium 3.8 mmol/L (3.5-5.1)
--- NOTE | 2024-12-24 07:59 | W.PN.HOSP.TC ---
Today's Communication/Plan
-
See plan
Assessment / Plan
Assessment / Plan
Physical Exam
General: No Apparent Distress
HEENT: Normocephalic
Respiratory: Clear to Auscultation Bilaterally
GI: Soft, Nondistended and Tender. Positive bowel sounds.
Skin: Warm. Dry.
Neuro: Awake and Alert
Psych: Calm and Apparent Dementia
Assessment/Plan
83yo M jamaican speaking, with PMHx of HFmrEF, DM, neuropathy, HTN, HLD, BPH, anxiety, dementia, chronic ambulatory deficiency brought from [facility] with abnormal labs, found leukocytosis with transaminitis and elevated direct bilirubinemia.
Found emphysematous cholecystitis with gall bladder rupture. Due to high risk for open abdominal surgery - daughter declined surgical intervention. As per gen Sx - biliary drain will be futile and patient with dementia will not be compliant with it.
Recommended hospice care, but daughter still wants to continue medical mgmt with Abx
#gangrenous/emphysematous calculus cholecystitis with resultant contained gallbladder perforation
ID consult: Jnenien, however unclear endpoint without surgical mgmt. Will probably target 10 to 14 days of Abx therapy
Bcx NTD
GEnSx evaluated - family wants non-invasive mgmt
#Marked urinary bladder wall thickening suggesting neurogenic bladder or chronic outlet obstruction. As above, ovoid fluid-filled structure along the posterior wall of the urinary bladder measuring up to 4.6 cm in diameter, question large
diverticulum
watch for retention
Mcdonald as needed
#GOC
continue attempting to re-discuss that hospice appropriate: patient with significant dementia, comorbidities, SNF resident, high risk of readmission or due to current presentation, no clear endpoint for duration of Abx.
Palliative consulted by previous hospitalist Dr. Gonzales
POLST form DNR/DNI with limited intervention, IVF and Abx acceptable
#Hypernatremia
2/2 dehydration
IVF with D5W previously given
hold Lasix
CLD
#DM type 2 with neuropathy
Insulin SS, Accuchecks, DM diet when able
Premeal Insilin
#Chronic HFpEF
#Essential HTN
#BPH
#Anxiety
#Dementia, Unspecified
#HLD
#Afib, paroxysmal
continue home medications
DVT ppx Lovenox
DNR/DNI as per POLST form
Anticipated Discharge: 24 - 48 hours
Subjective/Interval History
-
Date of Service: December 24, 2024
Patient was seen and examined. He denied feeling fever, chest pain, abdominal pain or any other symptoms or complaints.
Objective Data
-
Labs:
Laboratory Results
12/24/24
04:56
WBC 11.3 H
Hgb 11.8 L
Hct 38.5 L
Plt Count 209
Sodium 140 D
Potassium 3.8
Chloride 103
Carbon Dioxide 25
BUN 20
Creatinine 0.9
Glucose 179 H
Calcium 8.4
Total Bilirubin 1.1
AST 18
ALT 69 H
Alkaline Phosphatase 190 H
Vital Signs:
Vital Signs
Temp Pulse Resp BP Pulse Ox
98.6 F 100 24 113/90 95
12/24/24 03:36 12/24/24 05:06 12/24/24 05:06 12/24/24 05:06 12/24/24 05:06
I&O
12/23/24 12/24/24 12/25/24
06:59 06:59 06:59
Intake Total 1070 / 1070 1480 / 1480
Balance 1070 / 1070 1480 / 1480
--- NOTE | 2024-12-24 08:12 | PTCARENOTE ---
Patient received from shift stacker. Patient resting comfortably in bed. AAO, VSS. No events noted overnight. No complaints of pain at this time. Patient was in restraints this AM, patient did not seem agitated or aggressive and restraints were
removed. No fluids via IV. No testing scheduled at this time. Call north in reach.
[2024-12-24 08:23] LABS: Glucose - Point of Care 155 mg/dl (70-99)
[2024-12-24] MEDS: NOVOLOG FLEXPEN 3 UNITS SC ×3 (08:59→17:45)
[2024-12-24] MEDS: NOVOLOG FLEXPEN-LOW RESISTANCE 1 UNITS SC (09:00)
[2024-12-24] MEDS: LOPRESSOR PO ×2 (09:09→20:04)
[2024-12-24] MEDS: ELIQUIS PO ×2 (09:09→20:04)
[2024-12-24] MEDS: ZESTRIL PO (09:10)
--- NOTE | 2024-12-24 09:41 | W.PN.ID1 ---
Date of Service
Date of Service: December 24, 2024
Today's Communication
Continue antibiotics. See below�
Assessment / Plan
Acute emphysematous cholecystitis with rupture
Leukocytosis
Hyponatremia
Hyperbilirubinemia
Transaminitis
Diabetes mellitus
Dementia
Hypertension
A-fib
CAD
Heart failure with reduced EF
PVD
BPH
Recommendations:
Family declining surgery at this time.
Continue with Zosyn. Antibiotic course is somewhat unclear at this time, but would recommend a 10 to 14-day course.
Follow white count and temperature curve. White count noted to be improving.
Follow pending blood cultures; NGTD
����������������������������������������������������������
Chief Complaint
-: Leukocytosis and Other (Perforated gallbladder.)
Subjective / Review of Systems
Patient seen and examined. Denies abdominal discomfort. Denies nausea.
Review of Systems: No Fever and No Chills
Vital Signs / Physical Exam
Vital Signs
Vital Signs
Temp Pulse Resp BP Pulse Ox
98.1 F 100 24 113/90 95
12/24/24 08:07 12/24/24 05:06 12/24/24 05:06 12/24/24 05:06 12/24/24 05:06
Physical Exam
Constitutional: No Acute Distress, Comfortable, Chronically Ill and Non-toxic
Cardiovascular: S1/S2; Negative S3/S4
Pulmonary: Non Labored
Gastrointestinal: Soft, Non Distended, Normal Bowel Sounds, No Rebound, No Guarding and Other (No Nascimento sign.)
Genito-Urinary: Negative Suprapubic Tenderness or CVA Tenderness
Extremities: Venous Insufficiency; Negative Edema, Cyanosis or Erythema
Skin: Warm and Dry; Negative Rash or Jaundice
Neurological: Awake and Alert
Psychological: Calm
Objective Data
Lab Data
Lab Results
12/24/24 04:56
12/24/24 04:56
PT 16.1 Sec (11.4-14.6) H 12/21/24 08:58
INR 1.26 12/21/24 08:58
Estimated Creat Clear 71 ml/min 12/24/24 04:56
Lactic Acid 1.0 mmol/L (0.7-2.0) 12/21/24 13:28
Total Bilirubin 1.1 mg/dl (0.2-1.3) 12/24/24 04:56
AST 18 U/L (17-59) 12/24/24 04:56
ALT 69 U/L (0-50) H 12/24/24 04:56
Alkaline Phosphatase 190 U/L (38-126) H 12/24/24 04:56
Most recent labs reviewed.
Micro Results:
12/21/24 10:29 Blood Culture - Preliminary
Blood/Venous No Growth in 48 hours- Final report to follow
12/21/24 09:54 Blood Culture - Preliminary
Blood/Venous No Growth in 48 hours- Final report to follow
12/21/24 23:00 MRSA Screen - Final
Nose No Methicillin Resistant Staphylococcus aureus isolated.
12/21/24 08:58 Influenza Types A & B ([facility]) - Final
Nasal Swab Negative for Influenza A & B, NAAT
Negative results must be combined with clinical observations
and patient history.
Nucleic Acid Amplification test (NAAT)performed on the
[employer] platform.
Imaging:
12/21/2024 CT abdomen/pelvis with IV contrast: Acute emphysematous cholecystitis with gallbladder rupture noted. Associated small foci of gas within the anterior abdomen. Trace bilateral pleural effusions noted. Splenomegaly seen. Marked urinary
bladder wall thickening suggesting neurogenic bladder. Please see full dictation for additional detail. Film personally viewed.
12/21/24 CXR (1 view): Low lung volumes noted. Left basilar opacification which may be a combination of small effusion and adjacent atelectasis.
12/21/2024 Abdominal ultrasound: Limited exam secondary to patient's inability to remain motionless and inability to cooperate with positioning. Liver is normal in size. No focal hepatic lesion. Gallbladder appears contracted with multiple
shadowing calculi and lumen. Please see full dictation for additional detail.
[2024-12-24] MEDS: ELIQUIS 5 MG PO (10:39)
[2024-12-24] MEDS: ZESTRIL 5 MG PO (10:39)
[2024-12-24] MEDS: LOPRESSOR 50 MG PO (10:39)
[2024-12-24 12:00] LABS: Glucose - Point of Care 122 mg/dl (70-99)
[2024-12-24] MEDS: LOPRESSOR 5 MG IV ×2 (12:44→20:13)
[2024-12-24] MEDS: NOVOLOG FLEXPEN-LOW RESISTANCE SC ×2 (12:44→16:18)
--- NOTE | 2024-12-24 13:35 | W.CON.PAL ---
Consultation
-
Date/Time Consultation Requested: 12/23/24
Date/Time Consultation Performed: 12/24/24
Performing Provider: Dr. Harley
Reason for Consult: Goals of Care Discussion
Primary Diagnosis: Acute cholecystitis
Reason for Admission
Illness Course/HPI
Ray is a 83 y/o male with hx of vascular dementia, HFrEF, CAD, admitted to hospital with abnormal labs, concering for acute cholecystitis with perforation. family declined surgical intervention, patient currently being treated with antibioitics.
chart reviewed.
Over last 24 hours WBC has been improving, no fever today. he denies pain and is asking when he will get to go home.
Spoke with daughter. She affirmed code status of DNR, and declining surgery, but would want to give antibiotics time to work. at this time not interested in hospice care, however if deteriorates would want to discuss further at that time
Functional Status
Deepndant for all care, lives at SNF.
Goals of Care Discussion
Patient Goals
Patient's daughter is MDM. At this time goals are treatment oriented with conservative medical management. DNR. Take one day at a time.
Pain & Symptom Assessment
-
Patient denied all symptoms when asked. able to converse with me.
Objective Data
-
Objective Data:
Vital Signs
Temp Pulse Resp BP Pulse Ox
98.4 F 150 31 122/99 92
12/24/24 11:23 12/24/24 12:44 12/24/24 12:00 12/24/24 12:44 12/24/24 12:00
Laboratory Results
12/24/24 04:56
12/24/24 04:56
PT 16.1 Sec (11.4-14.6) H 12/21/24 08:58
INR 1.26 12/21/24 08:58
Hemoglobin A1c 6.6 % (4.0-5.6) H 12/21/24 08:58
Total Protein 5.9 g/dl (6.3-8.2) L 12/24/24 04:56
Albumin 2.8 g/dl (3.5-5.0) L 12/24/24 04:56
Palliative Performance Scale
Palliative Performance Scale:
PPS Level Ambulation Activity & Evidence of Disease Self Care Intake Conscious Level
100% Full Normal Activity & Work; Full Intake Full
No Evidence of Disease
90% Full Normal Activity & Work; Full Normal Full
Some Evidence of Disease
80% Full Normal Activity with Effort Full Normal or Full
Some Evidence of Disease Reduced
70% Reduced Unable Normal Job/Work Full Normal or Full
Significant Disease Reduced
60% Reduced Unable Hobby/Housework Occasional Normal or Full or Confusion
Significant Disease Assistance Reduced
50% Mainly Sit/Lie Unable to do Any Work Considerable Normal or Full or Confusion
Extensive Disease Assistance Req'd Reduced
40% Mainly in Bed Unable to do Most Activity Mainly Assistance Normal or Full or Drowsy;
Extensive Disease Reduced +/- Confusion
30% Totally Bed Unable to do Any Activity Total Care Normal or Full or Drowsy;
Bound Extensive Disease Reduced +/- Confusion
20% Totally Bed Bound Unable to do Any Activity Total Care Minimal to Full or Drowsy;
Extensive Disease Sips +/- Confusion
10% Totally Bed Bound Unable to do Any Activity Total Care Mouth Care Drowsy or Coma;
Extensive Disease Only +/- Confusion
0%
PPS Score Level:
Palliative Performance Score Response
Palliative Performance Score Response: 40%
Physical Exam
-
General: Well Developed, Well Nourished and No Apparent Distress
Neuro: Awake
Psych: Calm
Assessment / Plan
-
Assessment/Plan:
Goals of care: continue conservative medical management, as WBC improving. Reassess if worsening condition. code status dnr. .
total floor time chart review, discussion with patient, daughter 45 min
[2024-12-24 16:22] LABS: Glucose - Point of Care 133 mg/dl (70-99)
--- NOTE | 2024-12-24 19:36 | PTCARENOTE ---
Addendum entered by Lala Crain 12/24/24 20:19:
IV lopressor given per NOV.
Original Note:
Pt refused HS medications. Pt states that His doctor has not prescribed these medications. Education provided. Pt states that 'our' doctor prescribed these medications, not 'his' doctor. Education attempted on rationale for medication
administration, pt continues to politely decline. ANIMAL TRAINER notified.
[2024-12-24 22:43] LABS: Glucose - Point of Care 203 mg/dl (70-99)
[2024-12-25] VITALS (14 sets, daily range): BP systolic 96–139; BP diastolic 51–97; BMI 32.5
[2024-12-25] MEDS: LOPRESSOR 5 MG IV ×2 (01:45→20:33)
[2024-12-25] MEDS: ZOSYN 50 IV ×4 (03:29→21:09)
[2024-12-25 06:02] LABS: % Basophils 0.5 % (0-2); % Eosinophils 1.9 % (0-6); % Immature Granulocytes 0.5 % (0-0.5); % Monocytes 7.7 % (1.7-9.3); % Neutrophils 80.4 % (42.2-75.2); Absolute Basophils 0.1 10^3/uL (0-0.2); Absolute Eosinophils 0.2 10^3/uL (0-0.7); Absolute Immature Granulocytes 0.1 10^3/uL (0-0.05); Absolute Lymphocytes 0.9 10^3/uL (1.2-3.4); Absolute Monocytes 0.8 10^3/uL (0.1-0.6); Absolute Neutrophils 8.3 10^3/uL (1.4-6.5); Hematocrit 35.3 % (39.0-52.0); Hemoglobin 11.1 g/dL (13.0-18.0); Mean Corp Hgb Conc. 31.4 g/dL (33.0-37.0); Mean Corpuscular Volume 89.1 fL (80.0-94.0); Mean Platelet Volume 10.3 fL (7.4-10.4); Nucleated Red Blood Cells % 0 % (-); Platelet Count 206 10^3/uL (130-400); Red Blood Cell Count 3.96 10^6/uL (4.70-6.10); Red Cell Dist. Width 14.6 % (11.5-14.5); White Blood Cell Count 10.4 10^3/uL (4.8-10.8)
[2024-12-25 06:30] LABS: ALT (SGPT) 52 U/L (0-50); AST (SGOT) 18 U/L (17-59); Albumin 2.6 g/dl (3.5-5.0); Alkaline Phosphatase 150 U/L (38-126); Blood Urea Nitrogen 21 mg/dl (9-20); Calcium 8.1 mg/dl (8.4-10.2); Carbon Dioxide 25 mmol/L (22-30); Chloride 106 mmol/L (98-107); Estimated Creatinine Clearance 71 ml/min; Glucose 180 mg/dl (70-99); Magnesium 1.8 mg/dl (1.6-2.3); Sodium 140 mmol/L (135-145); Total Protein 5.6 g/dl (6.3-8.2); eGFR > 60.00
--- NOTE | 2024-12-25 07:55 | W.PN.HOSP.TC ---
Today's Communication/Plan
-
Continue to encourage patient to take his oral medications
Continue antibiotics
Assessment / Plan
Assessment / Plan
Physical Exam
General: No Apparent Distress
HEENT: Normocephalic
Respiratory: Clear to Auscultation Bilaterally
Cardio: S1 and S2. RRR.
GI: Soft, Nondistended and Tender. Positive bowel sounds.
Skin: Warm. Dry.
Neuro: Awake and Alert
Psych: Calm and Apparent Dementia
Assessment/Plan
83 y/o male, Eritrean speaking, with PMHx of HFmrEF, DM, neuropathy, HTN, HLD, BPH, anxiety, dementia, chronic ambulatory deficiency who was brought from [facility] with abnormal labs, found to have leukocytosis with transaminitis and elevated
direct bilirubinemia. Found to have emphysematous cholecystitis with gallbladder rupture. Due to high risk for open abdominal surgery - daughter declined surgical intervention. As per general surgery - biliary drain would be futile and patient with
dementia will not be compliant with the drain. Dr. Gonzales recommended hospice care, but patient's daughter still wants to continue medical mgmt with antibiotics.
#Gangrenous/emphysematous calculus cholecystitis with resultant contained gallbladder perforation
ID consult: Pete, however unclear endpoint without surgical mgmt. Will probably target 10 to 14 days of Abx therapy
Leukocytosis resolved which is reassuring
Bcx NTD
GEnSx evaluated - family wants non-invasive mgmt
#Marked urinary bladder wall thickening suggesting neurogenic bladder or chronic outlet obstruction. As above, ovoid fluid-filled structure along the posterior wall of the urinary bladder measuring up to 4.6 cm in diameter,
question large diverticulum
watch for retention
Bladder Scans protocol
Follow-up with urology outpatient
#Goals of Care Discussion
Continue attempting to re-discuss that hospice appropriate: patient with significant dementia, comorbidities, SNF resident, high risk of readmission or due to current presentation, no clear endpoint for duration of Abx.
Palliative on-call provider consulted by previous hospitalist Dr. Gonzales
POLST form DNR/DNI with limited intervention, IVF and Abx acceptable
#Hypernatremia - RESOLVED
2/2 dehydration
IVF with D5W previously given
hold Lasix
CLD
#DM type 2 with neuropathy
Insulin SS, Accuchecks, DM diet when able
Premeal Insilin
#Chronic HFpEF
#Essential HTN
#BPH
#Anxiety
#Dementia, Unspecified
#HLD
#Afib, paroxysmal
continue home medications
DVT ppx Eliquis
DNR/DNI as per POLST form
Anticipated Discharge: > 48 hours
Subjective/Interval History
-
Date of Service: December 25, 2024
Patient was seen and examined. Overnight, he was noted to have refused his Eliquis and PO Lopressor. He received as needed intravenous beta dora for tachycardia.
Objective Data
-
Labs:
Laboratory Results
12/25/24
05:50
WBC 10.4
Hgb 11.1 L
Hct 35.3 L
Plt Count 206
Sodium 140
Potassium 4.0
Chloride 106
Carbon Dioxide 25
BUN 21 H
Creatinine 0.9
Glucose 180 H
Calcium 8.1 L
Total Bilirubin 1.0
AST 18
ALT 52 H
Alkaline Phosphatase 150 H
Vital Signs:
Vital Signs
Temp Pulse Resp BP Pulse Ox
98.3 F 93 26 112/80 93
12/25/24 05:09 12/25/24 06:00 12/25/24 06:00 12/25/24 06:00 12/25/24 06:00
I&O
12/24/24 12/25/24 12/26/24
06:59 06:59 06:59
Intake Total 1480 / 1480
Balance 1480 / 1480
--- NOTE | 2024-12-25 08:52 | W.PN.ID1 ---
Date of Service
Date of Service: December 25, 2024
Today's Communication
Continue antibiotics. See below�
Assessment / Plan
Acute emphysematous cholecystitis with perforation
Leukocytosis
Hyponatremia
Hyperbilirubinemia
Transaminitis
Diabetes mellitus
Dementia
Hypertension
A-fib
CAD
Heart failure with reduced EF
PVD
BPH
Recommendations:
Patient and family previously declined surgery.
Blood cultures remain negative.
Continue with Zosyn. Antibiotic course is somewhat unclear at this time, but would recommend a 10 to 14-day course. Normalization of white count encouraging.
If continues to remain stable, may be able to transition to an oral regimen to complete course.
Follow white count and temperature curve.
����������������������������������������������������������
Chief Complaint
-: Leukocytosis and Other (Perforated gallbladder.)
Subjective / Review of Systems
Review of Systems: No Fever
Vital Signs / Physical Exam
Vital Signs
Vital Signs
Temp Pulse Resp BP Pulse Ox
98.3 F 93 26 112/80 93
12/25/24 05:09 12/25/24 06:00 12/25/24 06:00 12/25/24 06:00 12/25/24 06:00
Physical Exam
Constitutional: No Acute Distress, Comfortable, Chronically Ill and Non-toxic
Cardiovascular: Irregular Rate and S1/S2; Negative S3/S4
Pulmonary: Non Labored
Gastrointestinal: Soft, Non Distended, Normal Bowel Sounds and Other (No Nascimento sign.)
Extremities: Venous Insufficiency; Negative Edema, Cyanosis or Erythema
Skin: Warm and Dry; Negative Rash or Jaundice
Neurological: Other (Resting comfortably.)
Psychological: Calm
Objective Data
Lab Data
Lab Results
12/25/24 05:50
12/25/24 05:50
PT 16.1 Sec (11.4-14.6) H 12/21/24 08:58
INR 1.26 12/21/24 08:58
Estimated Creat Clear 71 ml/min 12/25/24 05:50
Lactic Acid 1.0 mmol/L (0.7-2.0) 12/21/24 13:28
Total Bilirubin 1.0 mg/dl (0.2-1.3) 12/25/24 05:50
AST 18 U/L (17-59) 12/25/24 05:50
ALT 52 U/L (0-50) H 12/25/24 05:50
Alkaline Phosphatase 150 U/L (38-126) H 12/25/24 05:50
Most recent labs reviewed.
Micro Results:
12/21/24 10:29 Blood Culture - Preliminary
Blood/Venous No Growth in 72 hours- Final report to follow
12/21/24 09:54 Blood Culture - Preliminary
Blood/Venous No Growth in 72 hours- Final report to follow
12/21/24 23:00 MRSA Screen - Final
Nose No Methicillin Resistant Staphylococcus aureus isolated.
12/21/24 08:58 Influenza Types A & B ([facility]) - Final
Nasal Swab Negative for Influenza A & B, NAAT
Negative results must be combined with clinical observations
and patient history.
Nucleic Acid Amplification test (NAAT)performed on the
[employer] / [employer] platform.
Imaging:
12/21/2024 CT abdomen/pelvis with IV contrast: Acute emphysematous cholecystitis with gallbladder rupture noted. Associated small foci of gas within the anterior abdomen. Trace bilateral pleural effusions noted. Splenomegaly seen. Marked urinary
bladder wall thickening suggesting neurogenic bladder. Please see full dictation for additional detail. Film personally viewed.
12/21/24 CXR (1 view): Low lung volumes noted. Left basilar opacification which may be a combination of small effusion and adjacent atelectasis.
12/21/2024 Abdominal ultrasound: Limited exam secondary to patient's inability to remain motionless and inability to cooperate with positioning. Liver is normal in size. No focal hepatic lesion. Gallbladder appears contracted with multiple
shadowing calculi and lumen. Please see full dictation for additional detail.
[2024-12-25 09:07] LABS: Glucose - Point of Care 174 mg/dl (70-99)
[2024-12-25] MEDS: NOVOLOG FLEXPEN 3 UNITS SC ×3 (10:20→18:01)
[2024-12-25] MEDS: NOVOLOG FLEXPEN-LOW RESISTANCE 1 UNITS SC ×3 (10:20→18:00)
[2024-12-25] MEDS: ELIQUIS PO ×3 (10:22→20:29)
[2024-12-25] MEDS: LOPRESSOR PO ×2 (10:33→20:29)
[2024-12-25] MEDS: ZESTRIL PO (10:34)
[2024-12-25 12:50] LABS: Glucose - Point of Care 174 mg/dl (70-99)
--- NOTE | 2024-12-25 13:33 | CM ---
Israeli speaking patient from [facility] with Hx dementia with Dx gangrenous/emphysematous calculus cholecystitis with resultant contained gallbladder perforation. Ongoing GOC discussion per MD. Palliative Care Consulted. Room air.
Receiving IV Abx. ST - Dysphagia diet.
CM continuing to follow.
Plan return to [facility] when medically ready.
[2024-12-25 18:11] LABS: Glucose - Point of Care 170 mg/dl (70-99)
--- NOTE | 2024-12-25 21:30 | PTCARENOTE ---
Pt continues to refuse oral medications. IV lopressor given per NOV. Unable to perform ordered bladder scan d/t pt refusal/combativeness. Pt calm at rest, but uncooperative/agitated with care. VSS at this time. Bed alarm in place for pt safety.
[2024-12-25 21:36] LABS: Glucose - Point of Care 169 mg/dl (70-99)
[2024-12-26] VITALS (12 sets, daily range): BP systolic 102–150; BP diastolic 60–99; BMI 33.0
[2024-12-26] MEDS: ZOSYN 50 IV ×4 (03:18→23:03)
[2024-12-26 08:37] LABS: Glucose - Point of Care 195 mg/dl (70-99)
[2024-12-26 08:57] LABS: % Basophils 0.4 % (0-2); % Eosinophils 2.5 % (0-6); % Immature Granulocytes 0.4 % (0-0.5); % Lymphocytes 13.9 % (20.5-51.1); % Monocytes 7.1 % (1.7-9.3); % Neutrophils 75.7 % (42.2-75.2); Absolute Eosinophils 0.2 10^3/uL (0-0.7); Absolute Lymphocytes 1.2 10^3/uL (1.2-3.4); Absolute Monocytes 0.6 10^3/uL (0.1-0.6); Absolute Neutrophils 6.8 10^3/uL (1.4-6.5); Hematocrit 37.8 % (39.0-52.0); Hemoglobin 11.5 g/dL (13.0-18.0); Mean Corp Hgb Conc. 30.4 g/dL (33.0-37.0); Mean Corpuscular Hgb 27.5 pg (27.0-31.0); Mean Corpuscular Volume 90.4 fL (80.0-94.0); Mean Platelet Volume 10.3 fL (7.4-10.4); Nucleated Red Blood Cells % 0 % (-); Platelet Count 193 10^3/uL (130-400); Red Blood Cell Count 4.18 10^6/uL (4.70-6.10); Red Cell Dist. Width 14.6 % (11.5-14.5); White Blood Cell Count 8.9 10^3/uL (4.8-10.8)
[2024-12-26] MEDS: LOPRESSOR PO (09:10)
[2024-12-26] MEDS: ELIQUIS PO (09:10)
[2024-12-26] MEDS: ZESTRIL PO (09:11)
[2024-12-26 09:14] LABS: ALT (SGPT) 44 U/L (0-50); AST (SGOT) 23 U/L (17-59); Albumin 2.6 g/dl (3.5-5.0); Alkaline Phosphatase 137 U/L (38-126); Blood Urea Nitrogen 19 mg/dl (9-20); Calcium 8.5 mg/dl (8.4-10.2); Carbon Dioxide 30 mmol/L (22-30); Chloride 105 mmol/L (98-107); Estimated Creatinine Clearance 71 ml/min; Glucose 166 mg/dl (70-99); Potassium 3.9 mmol/L (3.5-5.1); Sodium 142 mmol/L (135-145); Total Bilirubin 0.8 mg/dl (0.2-1.3); Total Protein 5.5 g/dl (6.3-8.2); eGFR > 60.00
[2024-12-26] MEDS: NOVOLOG FLEXPEN 3 UNITS SC ×3 (09:44→17:58)
[2024-12-26] MEDS: NOVOLOG FLEXPEN-LOW RESISTANCE 1 UNITS SC (09:44)
--- NOTE | 2024-12-26 10:14 | PN.CDI ---
CDI
- -
CDI:
Physician Documentation Request
Admit Date: 12/21/24 12:54
Dear Doctor Lurdes,
Please review the following and provide your response in the progress notes.
Clinical Indicators:
PN, 12/25
#Gangrenous/emphysematous calculus cholecystitis
#...with resultant contained gallbladder perforation
#ID consult: Pete, however unclear endpoint without surgical mgmt.
#...Will probably target 10 to 14 days of Abx therapy
Based on the above and your clinical assessment, please clarify the appropriate diagnosis, if significant, that supports the above abnormalities and additional evaluation, monitoring and/or treatment rendered:
Localized Peritonitis
Generalized Peritonitis
Perforated Peritonitis
Other(please specify)
Use of terms such as suspected, likely, concern for, or probable (associated with a specific diagnosis that is being evaluated, monitored, or treated as if it exists) are acceptable and can be coded in the inpatient setting, when documented at the
time of discharge.
Thank you,
Daphnie Schultz RN BSN CCDS
CDI Specialist
Please contact via tiger text
Please use your independent medical judgment in providing your response.
--- NOTE | 2024-12-26 10:23 | W.PN.ID1 ---
Date of Service
Date of Service: December 26, 2024
Today's Communication
Continue abx.
Assessment / Plan
Acute emphysematous cholecystitis with perforation
Leukocytosis
Hyponatremia
Hyperbilirubinemia
Transaminitis
Diabetes mellitus
Dementia
Hypertension
A-fib
CAD
Heart failure with reduced EF
PVD
BPH
Recommendations:
Patient and family previously declined surgery.
Blood cultures remain negative.
Continue with Zosyn (d#6). Antibiotic course is somewhat undefined, but would recommend a 10 to 14-day course. Normalization of white count encouraging.
If continues to remain stable, may be able to transition to an oral regimen to complete course.
Follow white count and temperature curve.
����������������������������������������������������������
Chief Complaint
-: Leukocytosis and Other (Perforated gallbladder.)
Subjective / Review of Systems
Review of Systems: No Fever and No Chills
Vital Signs / Physical Exam
Vital Signs
Vital Signs
Temp Pulse Resp BP Pulse Ox
98.2 F 75 19 122/72 94
12/26/24 07:50 12/26/24 08:00 12/26/24 08:00 12/26/24 08:00 12/26/24 09:28
Physical Exam
Constitutional: No Acute Distress, Comfortable, Chronically Ill and Non-toxic
Cardiovascular: Irregular Rate and S1/S2; Negative S3/S4
Pulmonary: Non Labored
Gastrointestinal: Soft, Non Distended, Normal Bowel Sounds and Other (No Nascimento sign.)
Extremities: Venous Insufficiency; Negative Edema, Cyanosis or Erythema
Skin: Warm and Dry; Negative Rash or Jaundice
Neurological: Other (Resting comfortably.)
Psychological: Calm
Objective Data
Lab Data
Lab Results
12/26/24 08:33
12/26/24 08:33
PT 16.1 Sec (11.4-14.6) H 12/21/24 08:58
INR 1.26 12/21/24 08:58
Estimated Creat Clear 71 ml/min 12/26/24 08:33
Lactic Acid 1.0 mmol/L (0.7-2.0) 12/21/24 13:28
Total Bilirubin 0.8 mg/dl (0.2-1.3) 12/26/24 08:33
AST 23 U/L (17-59) 12/26/24 08:33
ALT 44 U/L (0-50) 12/26/24 08:33
Alkaline Phosphatase 137 U/L (38-126) H 12/26/24 08:33
Most recent labs reviewed.
Micro Results:
12/21/24 09:54 Blood Culture - Final
Blood/Venous No Growth - Final Report
12/21/24 10:29 Blood Culture - Preliminary
Blood/Venous No Growth in 4 days- Final report to follow
12/21/24 23:00 MRSA Screen - Final
Nose No Methicillin Resistant Staphylococcus aureus isolated.
12/21/24 08:58 Influenza Types A & B ([facility]) - Final
Nasal Swab Negative for Influenza A & B, NAAT
Negative results must be combined with clinical observations
and patient history.
Nucleic Acid Amplification test (NAAT)performed on the
[employer] platform.
Imaging:
12/21/2024 CT abdomen/pelvis with IV contrast: Acute emphysematous cholecystitis with gallbladder rupture noted. Associated small foci of gas within the anterior abdomen. Trace bilateral pleural effusions noted. Splenomegaly seen. Marked urinary
bladder wall thickening suggesting neurogenic bladder. Please see full dictation for additional detail. Film personally viewed.
12/21/24 CXR (1 view): Low lung volumes noted. Left basilar opacification which may be a combination of small effusion and adjacent atelectasis.
12/21/2024 Abdominal ultrasound: Limited exam secondary to patient's inability to remain motionless and inability to cooperate with positioning. Liver is normal in size. No focal hepatic lesion. Gallbladder appears contracted with multiple
shadowing calculi and lumen. Please see full dictation for additional detail.
--- NOTE | 2024-12-26 11:11 | W.PN.HOSP.TC ---
Today's Communication/Plan
-
Today, I spoke to patient's daughter Sanjana multiple times, and answered all her questions and concerns. Sanjana said she understands the consequences (e.g. no antibiotics, no Lopressor) if patient does not agree to have another IV line placed.
Patient today was noted to be very aggressive towards IV nurse when attempt was made at IV line placement, but patient calmed down at rest/when alone. Patient's daughter Sanjana said she will come this evening to help with another attempt at IV line
insertion.
Assessment / Plan
Assessment / Plan
Physical Exam
General: No Apparent Distress
HEENT: Normocephalic
Respiratory: Clear to Auscultation Bilaterally
Cardio: S1 and S2. RRR.
GI: Soft, Nondistended and Tender. Positive bowel sounds.
Skin: Warm. Dry.
Neuro: Awake and Alert
Psych: Calm and Apparent Dementia
Assessment/Plan
83 y/o male, Maldivian speaking, with PMHx of HFmrEF, DM, neuropathy, HTN, HLD, BPH, anxiety, dementia, chronic ambulatory deficiency who was brought from [facility] with abnormal labs, found to have leukocytosis with transaminitis and elevated
direct bilirubinemia. Found to have emphysematous cholecystitis with gallbladder rupture. Due to high risk for open abdominal surgery - daughter declined surgical intervention. As per general surgery - biliary drain would be futile and patient with
dementia will not be compliant with the drain. Dr. Gonzales recommended hospice care, but patient's daughter still wants to continue medical mgmt with antibiotics.
#Gangrenous/emphysematous calculus cholecystitis with resultant contained gallbladder perforation
#Localized Peritonitis
ID consult: Pete, however unclear endpoint without surgical mgmt. Will probably target 10 to 14 days of Abx therapy
Leukocytosis resolved which is reassuring
Bcx NTD
GEnSx evaluated - family wants non-invasive mgmt
Patient's IV line infiltrated today -- and patient refused another IV line placement (see IV team nurse note) -- I discussed this extensively with patient's daughter Sanjana -- and she said she will come this evening to help with another attempt at
IV line insertion
#Marked urinary bladder wall thickening suggesting neurogenic bladder or chronic outlet obstruction. As above, ovoid fluid-filled structure along the posterior wall of the urinary bladder measuring up to 4.6 cm in diameter,
question large diverticulum
watch for retention
Bladder Scans protocol
Follow-up with urology outpatient
#Goals of Care Discussion
Continue attempting to re-discuss that hospice appropriate: patient with significant dementia, comorbidities, SNF resident, high risk of readmission or due to current presentation, no clear endpoint for duration of Abx.
Palliative on-call provider consulted by previous hospitalist Dr. Gonzales
POLST form DNR/DNI with limited intervention, IVF and Abx acceptable
#Hypernatremia - RESOLVED
2/2 dehydration
IVF with D5W previously given
hold Lasix
CLD
#DM type 2 with neuropathy
Insulin SS, Accuchecks, DM diet when able
Premeal Insilin
#Chronic HFpEF
#Essential HTN
#BPH
#Anxiety
#Dementia, Unspecified
#HLD
#Afib, paroxysmal
-Patient is refusing Eliquis (and refusing all PO medications). Given patient's agitation, Heparin Drip will be a significant issue, nurse confirmed this to me on 12/26/24. Started therapeutic Lovenox (okay to do this for A-Fib stroke prophylaxis --
I discussed this with cardiology, magazine writer and pharmacist as a curbside question)
-Patient is refusing IV so unable to give scheduled or PRN IV beta dora at this time. Patient also refusing his PO Lopressor.
DVT ppx Lovenox (patient refusing Eliquis)
DNR/DNI as per POLST form
Today, I spoke to patient's daughter Sanjana multiple times, and answered all her questions and concerns. Sanjana said she understands the consequences (e.g. no antibiotics, no Lopressor) if patient does not agree to have another IV line placed.
Patient noted to be aggressive towards IV nurse when attempt was made at IV line placement, but not aggressive at rest. Patient's daughter Sanjana said she will come this evening to help with another attempt at IV line insertion.
Total time spent today on patient's care including extensive discussions with nurse, IV nurse, patient's daughter, documentation, chart review and placing orders was greater than 75 minutes.
Anticipated Discharge: > 48 hours
Subjective/Interval History
-
Date of Service: December 26, 2024
Patient was seen and examined. He continued to refuse his oral medications, later in the day his IV line infiltrated, and he continued to refuse further IV line insertion.
Objective Data
-
Labs:
Laboratory Results
12/26/24
08:33
WBC 8.9
Hgb 11.5 L
Hct 37.8 L
Plt Count 193
Sodium 142
Potassium 3.9
Chloride 105
Carbon Dioxide 30
BUN 19
Creatinine 0.9
Glucose 166 H
Calcium 8.5
Total Bilirubin 0.8
AST 23
ALT 44
Alkaline Phosphatase 137 H
Vital Signs:
Vital Signs
Temp Pulse Resp BP Pulse Ox
98.2 F 75 19 122/72 94
12/26/24 07:50 12/26/24 08:00 12/26/24 08:00 12/26/24 08:00 12/26/24 09:28
I&O
12/25/24 12/26/24 12/27/24
06:59 06:59 06:59
Intake Total 280 / 280
Balance 280 / 280
--- NOTE | 2024-12-26 11:12 | PTCARENOTE ---
Assumed care of patient at beginning of this shift from previous RN. Patient awake and cooperative with accu check, blood drawn and insulin administration but refuses po meds. Ox1; confused. SR w/ 1st degree HB, PACs and pAfib. See worklist for full
assessment and vital signs.
--- NOTE | 2024-12-26 12:14 | PTCARENOTE ---
Patient ordered IV heparin infusion with PTT and CBC drawn first. Dr Chatman made aware CBC was already completed this morning. The one IV patient does have is now infiltrated. VAT RN notified that patient will now need Heparin infusion, IV
lopressor and IVAB. Patient incontinent of large amount of stool. He was very combative when cleaning him: attempted to hit, punch and grab staff's arms despite explaining steps prior to doing care. Unsuccessful at reorienting patient. Dr Chatman
made aware; will attempt new IV line placement when patient is calm.
[2024-12-26 12:19] LABS: Glucose - Point of Care 225 mg/dl (70-99)
--- NOTE | 2024-12-26 12:49 | VATNOTE ---
Called by PCN to assess IV site, pt states 'I don't want this' and pt made several attempts to hit this RN and successfully scratched this RN. Unable to assess for new IV site safely. Discussed with PCN, does not feel safe for RN or pt to start IV
in these conditions. PCN to contact MD, will continue to follow.
--- NOTE | 2024-12-26 13:05 | PTCARENOTE ---
VAT RN up to attempt IV placement and patient's R arm one leaking. Patient combative, hitting and scratched VAT RN. She was unable to place IV d/t patient's disposition. HR went to the 160s briefly then broke. Patient has no IV access at this time.
Dr Chatman made aware via TT. He stated he will be up to see patient.
[2024-12-26] MEDS: NOVOLOG FLEXPEN-LOW RESISTANCE 2 UNITS SC (13:29)
--- NOTE | 2024-12-26 13:49 | VATNOTE ---
Informed by PCN that MD had spoken with pt's daughter and pt had agreed to have an IV placed. Pt states he wants to get better but also states no blood and no needles. This RN educated pt about the need for an IV and pt seemed agreeable to IV start.
Attempted IV start but pt would stay still for procedure and grabbed this RN's arm. This RN attempted to educate patient about treatment and condition again, pt screams at this RN 'SHUT UP, JUST SHUT UP! I DON'T WANT TO HEAR YOUR VOICE!' Started
cleaning pt's hand to make a second attempt, pt dug his finger nail into this RN's finger IV start attempt aborted. PCN and notified.
[2024-12-26] MEDS: LOPRESSOR IV (14:02)
[2024-12-26] MEDS: LOVENOX 100 MG SC (15:48)
[2024-12-26] MEDS: ZOSYN IV (15:50)
--- NOTE | 2024-12-26 16:18 | PTCARENOTE ---
VAT RN notified that Dr Chatman spoke with patient at approx 13:19 and patient agreeable for IV insertion and that Dr Chatman would be in room during procedure and have daughter on speaker at that time. RAJAN RN went in room to do IV insertion but
Dr Chatman not in room at that time as he was on a phone call and this nurse was in another room assisting another nurse. RAJAN RN reported that patient yelled and attempted to hit/pinch her so she was unable to place IV. Dr Chatman was notifying
daughter that IV not able to be placed.
Patient's daughter called this RN approximately 20mins ago and stated she would be willing to come up to sit with patient while IV is placed, but it will take her 45mins to get here. This nurse spoke with VAT RN who stated to contact her when
daughter arrives and she will attempt another IV site. This nurse just spoke with daughter who stated it will take her about 1/2 hour to get here; will text VAT RN when she arrives.
[2024-12-26 17:57] LABS: Glucose - Point of Care 143 mg/dl (70-99)
[2024-12-26] MEDS: NOVOLOG FLEXPEN-LOW RESISTANCE SC (17:58)
[2024-12-26] MEDS: LOPRESSOR 2.5 MG IV ×2 (17:58→23:02)
--- NOTE | 2024-12-26 18:11 | PTCARENOTE ---
IV placed successfully by VAT RN. Patient given IV lopressor and IVAB as ordered. Daughter remains at bedside.
[2024-12-26 22:46] LABS: Glucose - Point of Care 185 mg/dl (70-99)
[2024-12-27] VITALS (12 sets, daily range): BP systolic 124–160; BP diastolic 75–119; BMI 33.4
--- NOTE | 2024-12-27 03:25 | DOWNTIME ---
There was a [employer] Client Frame Stripper Downtime on 12/27/2024 from 0200 to 12/28/2023 at 0318 . Downtime documentation of patient's care, including medication administrations, has been reconciled in the electronic record per guidelines. Refer to the
patient's paper chart under the miscellaneous tab to see printed paper medication records and downtime forms.
[2024-12-27] MEDS: LOVENOX SC ×2 (04:32→04:34)
[2024-12-27] MEDS: ZOSYN 50 IV ×4 (04:32→21:00)
[2024-12-27] MEDS: LOPRESSOR 2.5 MG IV ×4 (05:49→23:00)
[2024-12-27 06:02] LABS: % Basophils 0.5 % (0-2); % Eosinophils 2.8 % (0-6); % Immature Granulocytes 0.6 % (0-0.5); % Lymphocytes 16.1 % (20.5-51.1); % Monocytes 6.1 % (1.7-9.3); % Neutrophils 73.9 % (42.2-75.2); Absolute Eosinophils 0.2 10^3/uL (0-0.7); Absolute Immature Granulocytes 0.1 10^3/uL (0-0.05); Absolute Lymphocytes 1.4 10^3/uL (1.2-3.4); Absolute Monocytes 0.5 10^3/uL (0.1-0.6); Absolute Neutrophils 6.4 10^3/uL (1.4-6.5); Hematocrit 36.8 % (39.0-52.0); Hemoglobin 11.3 g/dL (13.0-18.0); Mean Corp Hgb Conc. 30.7 g/dL (33.0-37.0); Mean Corpuscular Hgb 27.8 pg (27.0-31.0); Mean Corpuscular Volume 90.4 fL (80.0-94.0); Mean Platelet Volume 10.3 fL (7.4-10.4); Nucleated Red Blood Cells % 0 % (-); Platelet Count 197 10^3/uL (130-400); Red Blood Cell Count 4.07 10^6/uL (4.70-6.10); Red Cell Dist. Width 14.6 % (11.5-14.5); White Blood Cell Count 8.7 10^3/uL (4.8-10.8)
[2024-12-27 06:14] LABS: ALT (SGPT) 42 U/L (0-50); AST (SGOT) 26 U/L (17-59); Albumin 2.8 g/dl (3.5-5.0); Alkaline Phosphatase 145 U/L (38-126); Blood Urea Nitrogen 17 mg/dl (9-20); Calcium 8.4 mg/dl (8.4-10.2); Carbon Dioxide 28 mmol/L (22-30); Chloride 107 mmol/L (98-107); Estimated Creatinine Clearance 72 ml/min; Glucose 187 mg/dl (70-99); Potassium 4.3 mmol/L (3.5-5.1); Sodium 144 mmol/L (135-145); Total Bilirubin 0.8 mg/dl (0.2-1.3); Total Protein 5.7 g/dl (6.3-8.2); eGFR > 60.00
--- NOTE | 2024-12-27 06:40 | PTCARENOTE ---
Received pt at change of shift. Pt only oriented to self; pleasant this shift. Refused SQ lovenox. No events noted overnight. Call north within reach.
--- NOTE | 2024-12-27 07:57 | PN.CDI ---
CDI
- -
CDI:
Physician Documentation Request
Admit Date: 12/21/24 12:54
Dear Doctor Lurdes,
Please review the following and provide your response in the progress notes.
The purpose of this query is to ensure the accuracy of the conditions reported for your patient.
Clinical Indicators:
Surgical consult, 12/21
#...probable gangrenous/emphysematous calculus cholecystitis
#...with resultant contained gallbladder perforation
#...but some small areas of pneumoperitoneum around the liver capsule.
#...Secondary sepsis, elevated LFTs and leukocytosis
GI Consult, 12/21
#HEENT: Other (jaundice )
#...-hypotension/tachycardia/leukocytosis with concern for sepsis
Laboratory Tests
12/21/24 12/22/24
08:58 04:56
WBC 22.9 H 16.5 H
Selected Entries
12/21/24
08:47 12/21/24
08:48 12/21/24
08:49
Pulse 138 132
Blood pressure 99/56
12/21/24
08:51
Pulse
Blood pressure 99/56
Laboratory Tests
12/21/24 12/21/24
08:58 09:54
Lactic Acid 2.2 H
Total Bilirubin 4.6 H
Direct Bilirubin 3.5 H
Based on the above information and the recognized standard SIRS criteria, please clarify if sepsis is still an accurate diagnosis, and reflective of the patient�s condition, to ensure quality of the medical record.
Please clarify in the Progress Notes:
Sepsis is/was present and is a clinical diagnosis based on (please include this additional support in the medical record)
After study sepsis has been ruled out
Localized Infection Only, Without Systemic Illness
- indicate the site/source, such as UTI, pneumonia etc.
Other(please specify)
Recognized standard criteria for this condition and other associated definitions:
Sepsis
-Systemic manifestations of infection, with 2 or more SIRS criteria which include:
-Fever > 100.9 F or hypothermia < 96.8��F
-Leukocytosis WBC > 12,000 or leukopenia, WBC < 4,000, or > 10% bands
-Tachycardia- > 90 beats/minute
-Tachypnea- RR > 20 breaths/minute or PaCO2 < 32mmHg
Source: Merck Manual 2013
-Documentation should include the known or suspected organism, and the underlying infection, such as UTI or pneumonia
Severe Sepsis
-Sepsis with associated acute organ dysfunction, such as renal or respiratory failure
-Documentation should indicate the association between the sepsis and the organ dysfunction
Use of terms such as suspected, likely, concern for, or probable (associated with a specific diagnosis that is being evaluated, monitored, or treated as if it exists) are acceptable and can be coded in the inpatient setting, when documented at the
time of discharge.
Thank you,
Daphnie Schultz RN BSN CCDS
CDI Specialist
Please contact via tiger text
Please use your independent medical judgment in providing your response.
[2024-12-27 08:15] LABS: Glucose - Point of Care 152 mg/dl (70-99)
[2024-12-27] MEDS: NOVOLOG FLEXPEN 3 UNITS SC ×3 (09:10→18:21)
[2024-12-27] MEDS: NOVOLOG FLEXPEN-LOW RESISTANCE 1 UNITS SC ×3 (09:11→18:21)
[2024-12-27] MEDS: ZESTRIL PO ×2 (09:12→10:02)
--- NOTE | 2024-12-27 10:30 | PTOTSP ---
Speech Language Pathology
Pt seen for dysphagia tx. Pt had just finished oatmeal from breakfast tray, but did not eat other minced/moist items on tray. Suspect dislike of modified diet. On regular solids/thin liquids at baseline. Seen with P.O. trials of regular solids
and thin liquids. Adequate mastication, bolus formation, and A-P transit noted with no oral residue. No overt signs of aspiration.
Recommend:
(1) Upgrade to regular solids/thin liquids (baseline diet)
(2) General aspiration precautions
(3) Meds as tolerated
(4) BOW TACKER to follow, likely briefly
--- NOTE | 2024-12-27 11:17 | W.PN.PAL2 ---
Today's Communication
-
Patient seen for follow up. appears comfortable. WBC has normalized. afebrile. he has been refusing oral medications - does have IV for antibiotics at this time. recent issues with agitation noted. diet liberalized today per RN, adn patient eating
food, this may improve compliance. At this time patient appears stable with respect to his acute infection.
Goals: conservative medical management. Family not yet in agreement in hospice philosophy and would want continuation of abx, no surgical intervention.
Objective Data
-
Objective Data:
Vital Signs
Temp Pulse Resp BP Pulse Ox
98.5 F 86 23 124/87 94
12/27/24 07:36 12/27/24 10:00 12/27/24 10:00 12/27/24 10:00 12/27/24 10:00
Laboratory Results
12/27/24 05:47
12/27/24 05:47
PT 16.1 Sec (11.4-14.6) H 12/21/24 08:58
INR 1.26 12/21/24 08:58
APTT Cancelled 12/26/24 11:26
Hemoglobin A1c 6.6 % (4.0-5.6) H 12/21/24 08:58
Total Protein 5.7 g/dl (6.3-8.2) L 12/27/24 05:47
Albumin 2.8 g/dl (3.5-5.0) L 12/27/24 05:47
Palliative Performance Scale
Palliative Performance Scale:
PPS Level Ambulation Activity & Evidence of Disease Self Care Intake Conscious Level
100% Full Normal Activity & Work; Full Intake Full
No Evidence of Disease
90% Full Normal Activity & Work; Full Normal Full
Some Evidence of Disease
80% Full Normal Activity with Effort Full Normal or Full
Some Evidence of Disease Reduced
70% Reduced Unable Normal Job/Work Full Normal or Full
Significant Disease Reduced
60% Reduced Unable Hobby/Housework Occasional Normal or Full or Confusion
Significant Disease Assistance Reduced
50% Mainly Sit/Lie Unable to do Any Work Considerable Normal or Full or Confusion
Extensive Disease Assistance Req'd Reduced
40% Mainly in Bed Unable to do Most Activity Mainly Assistance Normal or Full or Drowsy;
Extensive Disease Reduced +/- Confusion
30% Totally Bed Unable to do Any Activity Total Care Normal or Full or Drowsy;
Bound Extensive Disease Reduced +/- Confusion
20% Totally Bed Bound Unable to do Any Activity Total Care Minimal to Full or Drowsy;
Extensive Disease Sips +/- Confusion
10% Totally Bed Bound Unable to do Any Activity Total Care Mouth Care Drowsy or Coma;
Extensive Disease Only +/- Confusion
0%
PPS Score Level:
[2024-12-27 12:19] LABS: Glucose - Point of Care 183 mg/dl (70-99)
--- NOTE | 2024-12-27 13:25 | W.PN.ID1 ---
Date of Service
Date of Service: December 27, 2024
Today's Communication
Continue antibiotics. See below�
Assessment / Plan
Acute emphysematous cholecystitis with perforation
Leukocytosis
Hyponatremia
Hyperbilirubinemia
Transaminitis
Diabetes mellitus
Dementia
Hypertension
A-fib
CAD
Heart failure with reduced EF
PVD
BPH
Recommendations:
Patient and family previously declined surgery.
Blood cultures remain negative. Normalization of white count encouraging.
Continue with Zosyn (d#7). Antibiotic course is somewhat undefined, but would recommend a 10 to 14-day course. At discharge, can transition to oral Augmentin to complete a total of 14 days of antibiotics.
����������������������������������������������������������
Chief Complaint
-: Leukocytosis and Other (Perforated gallbladder.)
Subjective / Review of Systems
Review of Systems: No Fever, No Chills and No Abdominal Pain
Vital Signs / Physical Exam
Vital Signs
Vital Signs
Temp Pulse Resp BP Pulse Ox
97.8 F 86 23 124/87 94
12/27/24 11:30 12/27/24 10:00 12/27/24 10:00 12/27/24 10:00 12/27/24 10:00
Physical Exam
Constitutional: No Acute Distress, Comfortable, Chronically Ill and Non-toxic
Cardiovascular: Irregular Rate and S1/S2; Negative S3/S4
Pulmonary: Non Labored
Gastrointestinal: Soft, Non Distended, Normal Bowel Sounds, No Rebound and No Guarding
Extremities: Venous Insufficiency; Negative Edema, Cyanosis or Erythema
Skin: Warm and Dry; Negative Rash or Jaundice
Psychological: Calm
Objective Data
Lab Data
Lab Results
12/27/24 05:47
12/27/24 05:47
PT 16.1 Sec (11.4-14.6) H 12/21/24 08:58
INR 1.26 12/21/24 08:58
APTT Cancelled 12/26/24 11:26
Estimated Creat Clear 72 ml/min 12/27/24 05:47
Lactic Acid 1.0 mmol/L (0.7-2.0) 12/21/24 13:28
Total Bilirubin 0.8 mg/dl (0.2-1.3) 12/27/24 05:47
AST 26 U/L (17-59) 12/27/24 05:47
ALT 42 U/L (0-50) 12/27/24 05:47
Alkaline Phosphatase 145 U/L (38-126) H 12/27/24 05:47
Most recent labs reviewed.
Micro Results:
12/21/24 10:29 Blood Culture - Final
Blood/Venous No Growth - Final Report
12/21/24 09:54 Blood Culture - Final
Blood/Venous No Growth - Final Report
12/21/24 23:00 MRSA Screen - Final
Nose No Methicillin Resistant Staphylococcus aureus isolated.
12/21/24 08:58 Influenza Types A & B ([facility]) - Final
Nasal Swab Negative for Influenza A & B, NAAT
Negative results must be combined with clinical observations
and patient history.
Nucleic Acid Amplification test (NAAT)performed on the
[employer] platform.
Imaging:
12/21/2024 CT abdomen/pelvis with IV contrast: Acute emphysematous cholecystitis with gallbladder rupture noted. Associated small foci of gas within the anterior abdomen. Trace bilateral pleural effusions noted. Splenomegaly seen. Marked urinary
bladder wall thickening suggesting neurogenic bladder. Please see full dictation for additional detail. Film personally viewed.
12/21/24 CXR (1 view): Low lung volumes noted. Left basilar opacification which may be a combination of small effusion and adjacent atelectasis.
12/21/2024 Abdominal ultrasound: Limited exam secondary to patient's inability to remain motionless and inability to cooperate with positioning. Liver is normal in size. No focal hepatic lesion. Gallbladder appears contracted with multiple
shadowing calculi and lumen. Please see full dictation for additional detail.
--- NOTE | 2024-12-27 13:52 | W.PN.HOSP.TC ---
Today's Communication/Plan
-
Continue IV antibiotics
Patient refusing PO meds
Assessment / Plan
Assessment / Plan
Physical Exam
General: No Apparent Distress
HEENT: Normocephalic
Respiratory: Clear to Auscultation Bilaterally
Cardio: S1 and S2. RRR.
GI: Soft, Nondistended and Tender. Positive bowel sounds.
Skin: Warm. Dry.
Neuro: Awake and Alert
Psych: Calm and Apparent Dementia
Assessment/Plan
83 y/o male, [place]uran speaking, with PMHx of HFmrEF, DM, neuropathy, HTN, HLD, BPH, anxiety, dementia, chronic ambulatory deficiency who was brought from [facility] with abnormal labs, found to have leukocytosis with transaminitis and elevated
direct bilirubinemia. Found to have emphysematous cholecystitis with gallbladder rupture. Due to high risk for open abdominal surgery - daughter declined surgical intervention. As per general surgery - biliary drain would be futile and patient with
dementia will not be compliant with the drain. Dr. Gonzales recommended hospice care, but patient's daughter still wants to continue medical mgmt with antibiotics.
#Gangrenous/emphysematous calculus cholecystitis with resultant contained gallbladder perforation
#Localized Peritonitis
#Severe Sepsis, POA based on lactic acidosis (hypoperfusion, hypotension), leukocytosis, tachycardia
ID consult: Zosyn, however unclear endpoint without surgical mgmt. Will probably target 10 to 14 days of Abx therapy
Leukocytosis resolved which is reassuring
Bcx NTD
GEnSx evaluated - family wants non-invasive mgmt
Patient's IV line infiltrated on 12/26/24 -- he initially resisted to get another IV line but after his daughter Sanjana came in, he agreed to another IV line which was successfully placed on 12/27/24
Patient continues to refuse PO medications
#Marked urinary bladder wall thickening suggesting neurogenic bladder or chronic outlet obstruction. As above, ovoid fluid-filled structure along the posterior wall of the urinary bladder measuring up to 4.6 cm in diameter,
question large diverticulum
watch for retention
Bladder Scans protocol
Follow-up with urology outpatient
#Goals of Care Discussion
Continue attempting to re-discuss that hospice appropriate: patient with significant dementia, comorbidities, SNF resident, high risk of readmission or due to current presentation, no clear endpoint for duration of Abx.
Palliative on-call provider consulted by previous hospitalist Dr. Gonzales
POLST form DNR/DNI with limited intervention, IVF and Abx acceptable
#Hypernatremia - RESOLVED
2/2 dehydration
IVF with D5W previously given
hold Lasix
CLD
#DM type 2 with neuropathy
Insulin SS, Accuchecks, DM diet when able
Premeal Insilin
#Chronic HFpEF
#Essential HTN
#BPH
#Anxiety
#Dementia, Unspecified
#HLD
#Afib, paroxysmal
-Patient is refusing Eliquis (and refusing all PO medications). Given patient's agitation, Heparin Drip will be a significant issue, nurse confirmed this to me on 12/26/24. Started therapeutic Lovenox (okay to do this for A-Fib stroke prophylaxis --
on 12/26/24, I discussed this with cardiology, psychiatric technician and pharmacist as a curbside question, and they were all in agreement with therapeutic Lovenox for the purpose of A-Fib stroke prophylaxis)
-Patient refsuing PO Lopressor
-IV beta dora ordered
DVT ppx Lovenox (patient refusing Eliquis)
DNR/DNI as per POLST form
On 12/26/24, I spoke to patient's daughter Sanjana multiple times, and answered all her questions and concerns.
Anticipated Discharge: > 48 hours
Subjective/Interval History
-
Date of Service: December 27, 2024
Patient was seen and examined. He denied any symptoms or complaints.
Objective Data
-
Labs:
Laboratory Results
12/27/24
05:47
WBC 8.7
Hgb 11.3 L
Hct 36.8 L
Plt Count 197
Sodium 144
Potassium 4.3
Chloride 107
Carbon Dioxide 28
BUN 17
Creatinine 0.9
Glucose 187 H
Calcium 8.4
Total Bilirubin 0.8
AST 26
ALT 42
Alkaline Phosphatase 145 H
Vital Signs:
Vital Signs
Temp Pulse Resp BP Pulse Ox
97.8 F 86 23 124/87 94
12/27/24 11:30 12/27/24 10:00 12/27/24 10:00 12/27/24 10:00 12/27/24 10:00
I&O
12/26/24 12/27/24 12/28/24
06:59 06:59 06:59
Intake Total 280 / 280 820 / 820
Balance 280 / 280 820 / 820
--- NOTE | 2024-12-27 17:10 | PTCARENOTE ---
Patient oriented to self, requiring frequent reorienting. At times is uncooperative and combative. VSS. Patient happy to have advanced diet. Still refusing PO meds despite thorough explanation, MD aware. Update given to daughter Sanjana. Will
continue to closely monitor.
[2024-12-27] MEDS: LOVENOX 100 MG SC (17:25)
[2024-12-27 18:04] LABS: Glucose - Point of Care 168 mg/dl (70-99)
[2024-12-27 23:24] LABS: Glucose - Point of Care 144 mg/dl (70-99)
[2024-12-28] VITALS (15 sets, daily range): BP systolic 91–159; BP diastolic 54–143
--- NOTE | 2024-12-28 02:08 | PTCARENOTE ---
Pt continues with confusion, uncooperative with care and combative with any invasive care including hygiene. Refuses to be turned at times, favors L side, blanchable redness present on L hip. KVO maintained through R FA IV. Scheduled medications
given IV per NOV. Care ongoing, although limited by patient refusal and agitation.
[2024-12-28] MEDS: ZOSYN 50 IV ×4 (03:00→21:17)
[2024-12-28] MEDS: LOVENOX 100 MG SC ×2 (05:05→17:17)
[2024-12-28] MEDS: LOPRESSOR 2.5 MG IV ×4 (05:06→23:02)
--- NOTE | 2024-12-28 05:15 | PTCARENOTE ---
Pt agitated/combative with AM care, lab draw. Pt attempting to hit and kick staff. Incontinence care unable to be performed at this time. Will allow pt to calm down and reattempt care shortly.
[2024-12-28 05:29] LABS: % Basophils 0.7 % (0-2); % Eosinophils 2.8 % (0-6); % Immature Granulocytes 0.7 % (0-0.5); % Lymphocytes 21.5 % (20.5-51.1); % Monocytes 8.5 % (1.7-9.3); % Neutrophils 65.8 % (42.2-75.2); Absolute Basophils 0.1 10^3/uL (0-0.2); Absolute Eosinophils 0.2 10^3/uL (0-0.7); Absolute Immature Granulocytes 0.1 10^3/uL (0-0.05); Absolute Lymphocytes 1.6 10^3/uL (1.2-3.4); Absolute Monocytes 0.6 10^3/uL (0.1-0.6); Absolute Neutrophils 4.9 10^3/uL (1.4-6.5); Hematocrit 35.3 % (39.0-52.0); Mean Corp Hgb Conc. 31.2 g/dL (33.0-37.0); Mean Corpuscular Hgb 27.6 pg (27.0-31.0); Mean Corpuscular Volume 88.5 fL (80.0-94.0); Mean Platelet Volume 9.8 fL (7.4-10.4); Nucleated Red Blood Cells % 0 % (-); Platelet Count 191 10^3/uL (130-400); Red Blood Cell Count 3.99 10^6/uL (4.70-6.10); Red Cell Dist. Width 14.6 % (11.5-14.5); White Blood Cell Count 7.4 10^3/uL (4.8-10.8)
[2024-12-28 05:55] LABS: ALT (SGPT) 33 U/L (0-50); AST (SGOT) 23 U/L (17-59); Albumin 2.7 g/dl (3.5-5.0); Alkaline Phosphatase 123 U/L (38-126); Blood Urea Nitrogen 12 mg/dl (9-20); Calcium 8.8 mg/dl (8.4-10.2); Carbon Dioxide 28 mmol/L (22-30); Chloride 108 mmol/L (98-107); Estimated Creatinine Clearance 65 ml/min; Glucose 177 mg/dl (70-99); Potassium 4.8 mmol/L (3.5-5.1); Sodium 145 mmol/L (135-145); Total Bilirubin 0.7 mg/dl (0.2-1.3); Total Protein 5.4 g/dl (6.3-8.2); eGFR > 60.00
[2024-12-28 08:24] LABS: Glucose - Point of Care 155 mg/dl (70-99)
[2024-12-28] MEDS: NOVOLOG FLEXPEN 3 UNITS SC ×3 (08:56→17:41)
[2024-12-28] MEDS: NOVOLOG FLEXPEN-LOW RESISTANCE 1 UNITS SC (08:56)
[2024-12-28] MEDS: ZESTRIL PO (08:57)
--- NOTE | 2024-12-28 10:09 | CM ---
Patient still exhibiting agitation. Care is ongoing.
Plan: Case management will continue to follow and assist with discharge planning. Back to [facility] when patient is stable.
--- NOTE | 2024-12-28 10:26 | PTCARENOTE ---
Patient oriented to self, pleasant until needing to be changed or stuck. Reorientation and education on care plan ongoing. Tolerating advanced diet. VSS. Tachy at times but nonsustaining, aware. Patient still refusing PO meds but accepting SQ and
IV meds, MD aware. Daughter to visit today. Continuing to closely monitor.
--- NOTE | 2024-12-28 10:48 | W.PN.ID1 ---
Date of Service
Date of Service: December 28, 2024
Today's Communication
Continue abx.
Assessment / Plan
Acute emphysematous cholecystitis with perforation
Leukocytosis
- improved
Hyponatremia
Hyperbilirubinemia
Transaminitis
Diabetes mellitus
Dementia
Hypertension
A-fib
CAD
Heart failure with reduced EF
PVD
BPH
Recommendations:
Patient and family previously declined cholecystectomy.
Blood cultures remain negative. Normalization of white count encouraging.
Although antibiotic course is somewhat undefined, would recommend a 14-day course.
Continue with Zosyn (d#8).
At discharge, can transition to oral Augmentin to complete course.
����������������������������������������������������������
Chief Complaint
-: Leukocytosis and Other (Perforated gallbladder.)
Subjective / Review of Systems
Review of Systems: No Fever and No Chills
Vital Signs / Physical Exam
Vital Signs
Vital Signs
Temp Pulse Resp BP Pulse Ox
98.2 F 84 24 137/85 95
12/28/24 07:05 12/28/24 10:00 12/28/24 10:00 12/28/24 10:00 12/28/24 08:00
Physical Exam
Constitutional: No Acute Distress, Comfortable, Chronically Ill and Non-toxic
Cardiovascular: Irregular Rate and S1/S2; Negative S3/S4
Pulmonary: Non Labored
Gastrointestinal: Soft, Non Distended, Normal Bowel Sounds, No Rebound and No Guarding
Extremities: Venous Insufficiency; Negative Edema, Cyanosis or Erythema
Skin: Warm and Dry; Negative Rash or Jaundice
Psychological: Calm
Objective Data
Lab Data
Lab Results
12/28/24 05:08
12/28/24 05:08
PT 16.1 Sec (11.4-14.6) H 12/21/24 08:58
INR 1.26 12/21/24 08:58
APTT Cancelled 12/26/24 11:26
Estimated Creat Clear 65 ml/min 12/28/24 05:08
Lactic Acid 1.0 mmol/L (0.7-2.0) 12/21/24 13:28
Total Bilirubin 0.7 mg/dl (0.2-1.3) 12/28/24 05:08
AST 23 U/L (17-59) 12/28/24 05:08
ALT 33 U/L (0-50) 12/28/24 05:08
Alkaline Phosphatase 123 U/L (38-126) 12/28/24 05:08
Most recent labs reviewed.
Micro Results:
12/21/24 10:29 Blood Culture - Final
Blood/Venous No Growth - Final Report
12/21/24 09:54 Blood Culture - Final
Blood/Venous No Growth - Final Report
12/21/24 23:00 MRSA Screen - Final
Nose No Methicillin Resistant Staphylococcus aureus isolated.
12/21/24 08:58 Influenza Types A & B ([facility]) - Final
Nasal Swab Negative for Influenza A & B, NAAT
Negative results must be combined with clinical observations
and patient history.
Nucleic Acid Amplification test (NAAT)performed on the
[employer] platform.
Imaging:
12/21/2024 CT abdomen/pelvis with IV contrast: Acute emphysematous cholecystitis with gallbladder rupture noted. Associated small foci of gas within the anterior abdomen. Trace bilateral pleural effusions noted. Splenomegaly seen. Marked urinary
bladder wall thickening suggesting neurogenic bladder. Please see full dictation for additional detail. Film personally viewed.
12/21/24 CXR (1 view): Low lung volumes noted. Left basilar opacification which may be a combination of small effusion and adjacent atelectasis.
12/21/2024 Abdominal ultrasound: Limited exam secondary to patient's inability to remain motionless and inability to cooperate with positioning. Liver is normal in size. No focal hepatic lesion. Gallbladder appears contracted with multiple
shadowing calculi and lumen. Please see full dictation for additional detail.
[2024-12-28] MEDS: NOVOLOG FLEXPEN-LOW RESISTANCE 2 UNITS SC (12:36)
[2024-12-28 12:49] LABS: Glucose - Point of Care 223 mg/dl (70-99)
--- NOTE | 2024-12-28 15:03 | W.PN.HOSP.TC ---
Today's Communication/Plan
-
Patient refuses oral medications, this has been issue outpatient as well, therefore will need to continue IV Zosyn here for now
Transfer to tele
Assessment / Plan
Assessment / Plan
Physical Exam
General: No Apparent Distress
HEENT: Normocephalic
Respiratory: Clear to Auscultation Bilaterally
Cardio: S1 and S2. RRR.
GI: Soft, Nondistended and Tender. Positive bowel sounds.
Skin: Warm. Dry.
Neuro: Awake and Alert
Psych: Calm and Apparent Dementia
Assessment/Plan
83 y/o male, Cape Verdean speaking, with PMHx of HFmrEF, DM, neuropathy, HTN, HLD, BPH, anxiety, dementia, chronic ambulatory deficiency who was brought from [facility] with abnormal labs, found to have leukocytosis with transaminitis and elevated
direct bilirubinemia. Found to have emphysematous cholecystitis with gallbladder rupture. Due to high risk for open abdominal surgery - daughter declined surgical intervention. As per general surgery - biliary drain would be futile and patient with
dementia will not be compliant with the drain. Dr. Gonzales recommended hospice care, but patient's daughter still wants to continue medical mgmt with antibiotics.
#Gangrenous/emphysematous calculus cholecystitis with resultant contained gallbladder perforation
#Localized Peritonitis
#Severe Sepsis, POA based on lactic acidosis (hypoperfusion, hypotension), leukocytosis, tachycardia
ID consult: Zosyn, however unclear endpoint without surgical mgmt. Will probably target 10 to 14 days of Abx therapy
Leukocytosis resolved which is reassuring
Bcx NTD
GEnSx evaluated - family wants non-invasive mgmt
Patient's IV line infiltrated on 12/26/24 -- he initially resisted to get another IV line but after his daughter Sanjana came in, he agreed to another IV line which was successfully placed on 12/27/24
Patient continues to refuse PO medications (and this has also been an issue outpatient as well per patient's daughter Sanjana)
#Marked urinary bladder wall thickening suggesting neurogenic bladder or chronic outlet obstruction. As above, ovoid fluid-filled structure along the posterior wall of the urinary bladder measuring up to 4.6 cm in diameter,
question large diverticulum
watch for retention
Bladder Scans protocol
Follow-up with urology outpatient
#Goals of Care Discussion
Continue attempting to re-discuss that hospice appropriate: patient with significant dementia, comorbidities, SNF resident, high risk of readmission or due to current presentation, no clear endpoint for duration of Abx.
Palliative on-call provider consulted by previous hospitalist Dr. Gonzales
POLST form DNR/DNI with limited intervention, IVF and Abx acceptable
#Hypernatremia - RESOLVED
2/2 dehydration
IVF with D5W previously given
hold Lasix
CLD
#DM type 2 with neuropathy
Insulin SS, Accuchecks, DM diet when able
Premeal Insilin
#Chronic HFpEF
#Essential HTN
#BPH
#Anxiety
#Dementia, Unspecified
#HLD
#Afib, paroxysmal
-Patient is refusing Eliquis (and refusing all PO medications). Given patient's agitation, Heparin Drip will be a significant issue, nurse confirmed this to me on 12/26/24. Started therapeutic Lovenox (okay to do this for A-Fib
stroke prophylaxis -- on 12/26/24, I discussed this with cardiology, foam rubber fabricator and pharmacist as a curbside question, and they were all in agreement with therapeutic Lovenox for the purpose of A-Fib
stroke prophylaxis)
-Patient refusing PO Lopressor so scheduled intravenous Lopressor has been ordered
DVT Prophylaixs: Therapeutic Lovenox (patient refusing Eliquis, and Heparin Drip will be difficult to do in this patient with his behavior -- as discussed with patient's nurse)
DNR/DNI as per POLST form
On 12/26/24, I spoke to patient's daughter Sanjana multiple times, and answered all her questions and concerns.
Anticipated Discharge: > 48 hours
Subjective/Interval History
-
Date of Service: December 28, 2024
Patient was seen and examined. He was eating breakfast and denied any complaints.
Objective Data
-
Labs:
Laboratory Results
12/28/24
05:08
WBC 7.4
Hgb 11.0 L
Hct 35.3 L
Plt Count 191
Sodium 145
Potassium 4.8
Chloride 108 H
Carbon Dioxide 28
BUN 12
Creatinine 1.0
Glucose 177 H
Calcium 8.8
Total Bilirubin 0.7
AST 23
ALT 33
Alkaline Phosphatase 123
Vital Signs:
Vital Signs
Temp Pulse Resp BP Pulse Ox
98.4 F 95 20 91/54 95
12/28/24 11:05 12/28/24 14:00 12/28/24 14:00 12/28/24 14:00 12/28/24 08:00
I&O
12/27/24 12/28/24 12/29/24
06:59 06:59 06:59
Intake Total 820 / 820 480 / 480
Balance 820 / 820 480 / 480
[2024-12-28] MEDS: NOVOLOG FLEXPEN-LOW RESISTANCE 3 UNITS SC (17:41)
[2024-12-28 17:52] LABS: Glucose - Point of Care 258 mg/dl (70-99)
--- NOTE | 2024-12-28 22:19 | PTCARENOTE ---
assumed care of patient. pt is oriented to self only, agitated and combative with care. screaming at staff with any care. pt refusing all PO meds and q2 turns. four staff members needed to clean patient up. pt is incontinent of bowel and bladder.
sacrum blanchable red, foam intact. bed alarm on. pt refusing accucheck for the night. covering [employer] VICE PRESIDENT aware. care ongoing but limited from patient being uncooperative with care.
[2024-12-29] VITALS (9 sets, daily range): BP systolic 110–169; BP diastolic 71–90; BMI 32.5
[2024-12-29 01:58] LABS: % Basophils 0.5 % (0-2); % Eosinophils 2.8 % (0-6); % Immature Granulocytes 0.5 % (0-0.5); % Lymphocytes 21.4 % (20.5-51.1); % Monocytes 8.6 % (1.7-9.3); % Neutrophils 66.2 % (42.2-75.2); Absolute Eosinophils 0.2 10^3/uL (0-0.7); Absolute Lymphocytes 1.8 10^3/uL (1.2-3.4); Absolute Monocytes 0.7 10^3/uL (0.1-0.6); Absolute Neutrophils 5.4 10^3/uL (1.4-6.5); Hematocrit 37.1 % (39.0-52.0); Hemoglobin 11.6 g/dL (13.0-18.0); Mean Corp Hgb Conc. 31.3 g/dL (33.0-37.0); Mean Corpuscular Hgb 27.8 pg (27.0-31.0); Mean Platelet Volume 10.1 fL (7.4-10.4); Nucleated Red Blood Cells % 0 % (-); Platelet Count 195 10^3/uL (130-400); Red Blood Cell Count 4.17 10^6/uL (4.70-6.10); Red Cell Dist. Width 14.6 % (11.5-14.5); White Blood Cell Count 8.2 10^3/uL (4.8-10.8)
[2024-12-29 02:54] LABS: ALT (SGPT) 32 U/L (0-50); AST (SGOT) 22 U/L (17-59); Albumin 2.8 g/dl (3.5-5.0); Alkaline Phosphatase 124 U/L (38-126); Blood Urea Nitrogen 15 mg/dl (9-20); Calcium 8.5 mg/dl (8.4-10.2); Carbon Dioxide 29 mmol/L (22-30); Chloride 105 mmol/L (98-107); Estimated Creatinine Clearance 81 ml/min; Glucose 262 mg/dl (70-99); Magnesium 1.9 mg/dl (1.6-2.3); Potassium 4.2 mmol/L (3.5-5.1); Sodium 140 mmol/L (135-145); Total Bilirubin 0.6 mg/dl (0.2-1.3); Total Protein 5.7 g/dl (6.3-8.2); eGFR > 60.00
[2024-12-29] MEDS: ZOSYN 50 IV ×4 (03:27→21:44)
--- NOTE | 2024-12-29 03:32 | PTCARENOTE ---
pt cooperative with care at one time. letting staff clean him up because he had a BM. at this time pt agreeing to blood work. blood work drawn early due to patient cooperating and not being combative at that time. care ongoing.
[2024-12-29] MEDS: LOVENOX 100 MG SC ×2 (05:11→17:01)
[2024-12-29] MEDS: LOPRESSOR 2.5 MG IV ×4 (05:11→23:10)
--- NOTE | 2024-12-29 07:26 | W.PN.HOSP.TC ---
Today's Communication/Plan
-
Continue IV antibiotics
Continue to monitor on telemetry
Assessment / Plan
Assessment / Plan
Physical Exam
General: No Apparent Distress
HEENT: Normocephalic
Respiratory: Clear to Auscultation Bilaterally
Cardio: S1 and S2. RRR.
GI: Soft, Nondistended and Tender. Positive bowel sounds.
Skin: Warm. Dry.
Neuro: Awake and Alert
Psych: Calm and Apparent Dementia
Assessment/Plan
83 y/o male, Cambodian speaking, with PMHx of HFmrEF, DM, neuropathy, HTN, HLD, BPH, anxiety, dementia, chronic ambulatory deficiency who was brought from [facility] with abnormal labs, found to have leukocytosis with transaminitis and elevated
direct bilirubinemia. Found to have emphysematous cholecystitis with gallbladder rupture. Due to high risk for open abdominal surgery - daughter declined surgical intervention. As per general surgery - biliary drain would be futile and patient with
dementia will not be compliant with the drain. Dr. Gonzales recommended hospice care, but patient's daughter still wants to continue medical mgmt with antibiotics.
#Gangrenous/emphysematous calculus cholecystitis with resultant contained gallbladder perforation
#Localized Peritonitis
#Severe Sepsis, POA based on lactic acidosis (hypoperfusion, hypotension), leukocytosis, tachycardia
ID consult: Zosyn, however unclear endpoint without surgical mgmt. Will probably target 10 to 14 days of Abx therapy
Leukocytosis resolved which is reassuring
Bcx NTD
GEnSx evaluated - family wants non-invasive mgmt
Patient's IV line infiltrated on 12/26/24 -- he initially resisted to get another IV line but after his daughter Sanjana came in, he agreed to another IV line which was successfully placed on 12/27/24
Patient continues to refuse PO medications (and this has also been an issue outpatient as well per patient's daughter Sanjana)
#Marked urinary bladder wall thickening suggesting neurogenic bladder or chronic outlet obstruction. As above, ovoid fluid-filled structure along the posterior wall of the urinary bladder measuring up to 4.6 cm in diameter,
question large diverticulum
watch for retention
Bladder Scans protocol
Follow-up with urology outpatient
#Goals of Care Discussion
Continue attempting to re-discuss that hospice appropriate: patient with significant dementia, comorbidities, SNF resident, high risk of readmission or due to current presentation, no clear endpoint for duration of Abx.
Palliative on-call provider consulted by previous hospitalist Dr. Gonzales
POLST form DNR/DNI with limited intervention, IVF and Abx acceptable
#Hypernatremia - RESOLVED
2/2 dehydration
IVF with D5W previously given
hold Lasix
CLD
#DM type 2 with neuropathy
Insulin SS, Accuchecks, DM diet when able
Premeal Insilin
#Chronic HFpEF
#Essential HTN
#BPH
#Anxiety
#Dementia, Unspecified
#HLD
#Afib, paroxysmal
-Patient is refusing Eliquis (and refusing all PO medications). Given patient's agitation, Heparin Drip will be a significant issue, nurse confirmed this to me on 12/26/24. Started therapeutic Lovenox (okay to do this for A-Fib
stroke prophylaxis -- on 12/26/24, I discussed this with cardiology, medical pathologist and pharmacist as a curbside question, and they were all in agreement with therapeutic Lovenox for the purpose of A-Fib
stroke prophylaxis)
-Patient refusing PO Lopressor so scheduled intravenous Lopressor has been ordered
DVT Prophylaixs: Therapeutic Lovenox (patient refusing Eliquis, and Heparin Drip will be difficult to do in this patient with his behavior -- as discussed with patient's nurse)
DNR/DNI as per POLST form
On 12/26/24, I spoke to patient's daughter Sanjana multiple times, and answered all her questions and concerns.
Anticipated Discharge: > 48 hours
Subjective/Interval History
-
Date of Service: December 29, 2024
Patient was seen and examined. He denied any new symptoms, and said he is fine.
Objective Data
-
Labs:
Laboratory Results
12/29/24
01:48
WBC 8.2
Hgb 11.6 L
Hct 37.1 L
Plt Count 195
Sodium 140
Potassium 4.2
Chloride 105
Carbon Dioxide 29
BUN 15
Creatinine 0.8
Glucose 262 H
Calcium 8.5
Total Bilirubin 0.6
AST 22
ALT 32
Alkaline Phosphatase 124
Vital Signs:
Vital Signs
Temp Pulse Resp BP Pulse Ox
97.6 F 81 21 160/78 95
12/29/24 07:00 12/29/24 04:01 12/29/24 04:01 12/29/24 04:01 12/28/24 21:23
I&O
12/28/24 12/29/24 12/30/24
06:59 06:59 06:59
Intake Total 480 / 480 460 / 460
Balance 480 / 480 460 / 460
[2024-12-29 08:22] LABS: Glucose - Point of Care 227 mg/dl (70-99)
[2024-12-29] MEDS: NOVOLOG FLEXPEN-LOW RESISTANCE 2 UNITS SC (08:43)
[2024-12-29] MEDS: NOVOLOG FLEXPEN 3 UNITS SC ×3 (08:44→17:28)
[2024-12-29] MEDS: ZESTRIL PO (08:47)
--- NOTE | 2024-12-29 08:47 | PTCARENOTE ---
pt refusing all oral meds. Only agreed to insulin because he wants to eat breakfast. Educated on importance of taking medications as ordered. Pt continued to refuse
[2024-12-29] MEDS: NOVOLOG FLEXPEN-LOW RESISTANCE 3 UNITS SC ×2 (13:25→17:27)
[2024-12-29 13:35] LABS: Glucose - Point of Care 254 mg/dl (70-99)
[2024-12-29 17:34] LABS: Glucose - Point of Care 270 mg/dl (70-99)
--- NOTE | 2024-12-29 17:38 | PTCARENOTE ---
pt repeatedly yelling 'fuck you' then mumbling other things in rwandan to this RN. Pt attempting to hit this RN and PCT multiple times throughout shift despite being told that violence isn't tolerated. Pt only agreeable to being changed when inc of
bowel and bladder, however while cleaning pt multiple attempts made by pt to hit and scratch staff.
[2024-12-29 20:37] LABS: Glucose - Point of Care 218 mg/dl (70-99)
--- NOTE | 2024-12-29 22:08 | PTCARENOTE ---
assumed care of patient, pt is oriented to self only. VSS. pt is combative with care, hitting/kicking staff. cursing at staff in Khmer/Togolese. at times patient can be agreeable to care. refusing q2t. pt is incontinent of bowel and bladder. bed
alarm on. care ongoing.
[2024-12-30] VITALS (7 sets, daily range): BP systolic 130–164; BP diastolic 61–106; BMI 32.8
[2024-12-30] MEDS: ZOSYN 50 IV ×4 (03:19→21:03)
[2024-12-30 05:08] LABS: % Basophils 0.5 % (0-2); % Immature Granulocytes 0.5 % (0-0.5); % Lymphocytes 20.5 % (20.5-51.1); % Monocytes 7.3 % (1.7-9.3); % Neutrophils 68.2 % (42.2-75.2); Absolute Eosinophils 0.2 10^3/uL (0-0.7); Absolute Lymphocytes 1.5 10^3/uL (1.2-3.4); Absolute Monocytes 0.5 10^3/uL (0.1-0.6); Absolute Neutrophils 5.1 10^3/uL (1.4-6.5); Hemoglobin 11.3 g/dL (13.0-18.0); Mean Corp Hgb Conc. 30.5 g/dL (33.0-37.0); Mean Corpuscular Hgb 27.7 pg (27.0-31.0); Mean Corpuscular Volume 90.7 fL (80.0-94.0); Mean Platelet Volume 10.2 fL (7.4-10.4); Nucleated Red Blood Cells % 0 % (-); Platelet Count 193 10^3/uL (130-400); Red Blood Cell Count 4.08 10^6/uL (4.70-6.10); Red Cell Dist. Width 14.6 % (11.5-14.5); White Blood Cell Count 7.4 10^3/uL (4.8-10.8)
[2024-12-30] MEDS: LOPRESSOR 2.5 MG IV ×3 (05:13→17:23)
[2024-12-30] MEDS: LOVENOX 100 MG SC (05:13)
[2024-12-30 05:30] LABS: ALT (SGPT) 50 U/L (0-50); AST (SGOT) 48 U/L (17-59); Albumin 2.9 g/dl (3.5-5.0); Alkaline Phosphatase 124 U/L (38-126); Blood Urea Nitrogen 11 mg/dl (9-20); Calcium 8.4 mg/dl (8.4-10.2); Carbon Dioxide 29 mmol/L (22-30); Chloride 105 mmol/L (98-107); Estimated Creatinine Clearance 80 ml/min; Glucose 208 mg/dl (70-99); Potassium 4.3 mmol/L (3.5-5.1); Sodium 142 mmol/L (135-145); Total Bilirubin 0.7 mg/dl (0.2-1.3); Total Protein 5.9 g/dl (6.3-8.2); eGFR > 60.00
[2024-12-30] MEDS: ZESTRIL PO (07:31)
[2024-12-30 07:54] LABS: Glucose - Point of Care 186 mg/dl (70-99)
[2024-12-30] MEDS: NOVOLOG FLEXPEN 3 UNITS SC ×2 (08:54→12:54)
[2024-12-30] MEDS: NOVOLOG FLEXPEN-LOW RESISTANCE 1 UNITS SC ×2 (08:55→12:54)
[2024-12-30 12:49] LABS: Glucose - Point of Care 192 mg/dl (70-99)
[2024-12-30 17:26] LABS: Glucose - Point of Care 185 mg/dl (70-99)
[2024-12-30] MEDS: NOVOLOG FLEXPEN-LOW RESISTANCE SC (17:34)
[2024-12-30] MEDS: NOVOLOG FLEXPEN SC (17:34)
[2024-12-30] MEDS: LOVENOX SC (17:35)
--- NOTE | 2024-12-30 17:49 | W.PN.HOSP.TC ---
Today's Communication/Plan
-
Continue Zosyn
Assessment / Plan
Assessment / Plan
Physical Exam
General: No Apparent Distress
HEENT: Normocephalic
Respiratory: Clear to Auscultation Bilaterally
Cardio: S1 and S2. RRR.
GI: Soft, Nondistended and Tender. Positive bowel sounds.
Skin: Warm. Dry.
Neuro: Awake and Alert
Psych: Calm and Apparent Dementia
Assessment/Plan
83 y/o male, Czech speaking, with PMHx of HFmrEF, DM, neuropathy, HTN, HLD, BPH, anxiety, dementia, chronic ambulatory deficiency who was brought from [facility] with abnormal labs, found to have leukocytosis with transaminitis and elevated
direct bilirubinemia. Found to have emphysematous cholecystitis with gallbladder rupture. Due to high risk for open abdominal surgery - daughter declined surgical intervention. As per general surgery - biliary drain would be futile and patient with
dementia will not be compliant with the drain. Dr. Gonzales recommended hospice care, but patient's daughter still wants to continue medical mgmt with antibiotics.
#Gangrenous/emphysematous calculus cholecystitis with resultant contained gallbladder perforation
#Localized Peritonitis
#Severe Sepsis, POA based on lactic acidosis (hypoperfusion, hypotension), leukocytosis, tachycardia
ID consult: Zosyn, however unclear endpoint without surgical mgmt. Will probably target 10 to 14 days of Abx therapy
Leukocytosis resolved which is reassuring
Bcx NTD
GEnSx evaluated - family wants non-invasive mgmt
Patient's IV line infiltrated on 12/26/24 -- he initially resisted to get another IV line but after his daughter Sanjana came in, he agreed to another IV line which was successfully placed on 12/27/24
Patient continues to refuse PO medications (and this has also been an issue outpatient as well per patient's daughter Sanjana)
#Marked urinary bladder wall thickening suggesting neurogenic bladder or chronic outlet obstruction. As above, ovoid fluid-filled structure along the posterior wall of the urinary bladder measuring up to 4.6 cm in diameter,
question large diverticulum
watch for retention
Bladder Scans protocol
Follow-up with urology outpatient
#Goals of Care Discussion
Continue attempting to re-discuss that hospice appropriate: patient with significant dementia, comorbidities, SNF resident, high risk of readmission or due to current presentation, no clear endpoint for duration of Abx.
Palliative on-call provider consulted by previous hospitalist Dr. Gonzales
POLST form DNR/DNI with limited intervention, IVF and Abx acceptable
#Hypernatremia - RESOLVED
2/2 dehydration
IVF with D5W previously given
hold Lasix
CLD
#DM type 2 with neuropathy
Insulin SS, Accuchecks, DM diet when able
Premeal Insilin
#Chronic HFpEF
#Essential HTN
#BPH
#Anxiety
#Dementia, Unspecified
#HLD
#Afib, paroxysmal
-Patient is refusing Eliquis (and refusing all PO medications). Given patient's agitation, Heparin Drip will be a significant issue, nurse confirmed this to me on 12/26/24. Started therapeutic Lovenox (okay to do this for A-Fib
stroke prophylaxis -- on 12/26/24, I discussed this with cardiology, manager machine and pharmacist as a curbside question, and they were all in agreement with therapeutic Lovenox for the purpose of A-Fib
stroke prophylaxis)
-Patient refusing PO Lopressor so scheduled intravenous Lopressor has been ordered
DVT Prophylaixs: Therapeutic Lovenox (patient refusing Eliquis, and Heparin Drip will be difficult to do in this patient with his behavior -- as discussed with patient's nurse)
DNR/DNI as per POLST form
On 12/26/24, I spoke to patient's daughter Sanjana multiple times, and answered all her questions and concerns.
Anticipated Discharge: > 48 hours
Subjective/Interval History
-
Date of Service: December 30, 2024
Patient was seen and examined. He denied any new symptoms or complaints.
Objective Data
-
Vital Signs:
Vital Signs
Temp Pulse Resp BP Pulse Ox
98.2 F 76 24 140/71 95
12/30/24 16:00 12/30/24 12:00 12/30/24 12:00 12/30/24 12:00 12/29/24 19:36
I&O
12/29/24 12/30/24 12/31/24
06:59 06:59 06:59
Intake Total 460 / 460 530 / 530
Balance 460 / 460 530 / 530
[2024-12-30] MEDS: LOPRESSOR 5 MG IV (20:27)
[2024-12-30 22:25] LABS: Glucose - Point of Care 280 mg/dl (70-99)
--- NOTE | 2024-12-30 23:11 | PTCARENOTE ---
Pt needing PRN Lopressor (see MAR)Pt uncooperative with care, Pt getting agitated and aggressive with care. Pt refusing Q2T swatting and yelling. redirection and therapeutic communication attempted with minimal results. Pt bed alarm on [place] in lowest
position call north within reach.
[2024-12-31] VITALS (7 sets, daily range): BP systolic 95–147; BP diastolic 68–106; BMI 33.2
[2024-12-31] MEDS: LOPRESSOR IV (01:45)
[2024-12-31] MEDS: ZOSYN 50 IV ×4 (04:31→22:28)
[2024-12-31] MEDS: LOPRESSOR 2.5 MG IV ×3 (05:31→17:38)
[2024-12-31] MEDS: LOVENOX SC ×2 (05:32→17:47)
--- NOTE | 2024-12-31 05:35 | PTCARENOTE ---
Pt refusing labs work. Pt refusing Lovenox sq. Pt agitated pushing away yelling. Morning care able to be done, Pt adamantly refusing any needles.
[2024-12-31 08:36] LABS: Glucose - Point of Care 265 mg/dl (70-99)
[2024-12-31] MEDS: ZESTRIL PO (09:12)
--- NOTE | 2024-12-31 09:15 | PTCARENOTE ---
Pt refusing labs and medications at this time.
[2024-12-31] MEDS: NOVOLOG FLEXPEN-LOW RESISTANCE SC (09:20)
[2024-12-31] MEDS: NOVOLOG FLEXPEN SC (09:20)
--- NOTE | 2024-12-31 09:21 | PTCARENOTE ---
Pt refusing insulin coverage despite education. Becoming belligerent and yelling 'I don't need it!'.
--- NOTE | 2024-12-31 10:11 | W.PN.ID1 ---
Date of Service
Date of Service: December 31, 2024
Today's Communication
Continue current course of Zosyn.
Assessment / Plan
Acute emphysematous cholecystitis with perforation
Leukocytosis
- improved
Hyponatremia
Hyperbilirubinemia
Transaminitis
Diabetes mellitus
Dementia
Hypertension
A-fib
CAD
Heart failure with reduced EF
PVD
BPH
Recommendations:
Patient and family previously declined cholecystectomy.
Blood cultures negative. White count normal.
Although antibiotic course is somewhat undefined, would recommend a 14-day course. Pt refusing oral medications.
Continue with Zosyn (d#11) for 3 more days.
����������������������������������������������������������
Chief Complaint
-: Leukocytosis and Other (Perforated gallbladder.)
Subjective / Review of Systems
Review of Systems: No Fever and No Chills
Vital Signs / Physical Exam
Vital Signs
Vital Signs
Temp Pulse Resp BP Pulse Ox
98.9 F 82 22 139/78 93
12/31/24 07:34 12/31/24 08:01 12/31/24 08:01 12/31/24 08:01 12/31/24 08:36
Physical Exam
Constitutional: No Acute Distress, Comfortable, Chronically Ill and Non-toxic
Head: Normocephalic
Cardiovascular: Irregular Rate and S1/S2; Negative S3/S4
Pulmonary: Clear and Non Labored
Gastrointestinal: Soft, Non Distended, Normal Bowel Sounds, No Rebound and No Guarding
Extremities: Venous Insufficiency; Negative Edema, Cyanosis or Erythema
Skin: Warm and Dry; Negative Rash or Jaundice
Psychological: Calm
Objective Data
Lab Data
PT 16.1 Sec (11.4-14.6) H 12/21/24 08:58
INR 1.26 12/21/24 08:58
APTT Cancelled 12/26/24 11:26
Estimated Creat Clear 80 ml/min 12/30/24 04:49
Lactic Acid 1.0 mmol/L (0.7-2.0) 12/21/24 13:28
Total Bilirubin 0.7 mg/dl (0.2-1.3) 12/30/24 04:49
AST 48 U/L (17-59) 12/30/24 04:49
ALT 50 U/L (0-50) 12/30/24 04:49
Alkaline Phosphatase 124 U/L (38-126) 12/30/24 04:49
Most recent labs reviewed.
Micro Results:
12/21/24 10:29 Blood Culture - Final
Blood/Venous No Growth - Final Report
12/21/24 09:54 Blood Culture - Final
Blood/Venous No Growth - Final Report
12/21/24 23:00 MRSA Screen - Final
Nose No Methicillin Resistant Staphylococcus aureus isolated.
12/21/24 08:58 Influenza Types A & B ([facility]) - Final
Nasal Swab Negative for Influenza A & B, NAAT
Negative results must be combined with clinical observations
and patient history.
Nucleic Acid Amplification test (NAAT)performed on the
[employer] platform.
Imaging:
12/21/2024 CT abdomen/pelvis with IV contrast: Acute emphysematous cholecystitis with gallbladder rupture noted. Associated small foci of gas within the anterior abdomen. Trace bilateral pleural effusions noted. Splenomegaly seen. Marked urinary
bladder wall thickening suggesting neurogenic bladder. Please see full dictation for additional detail. Film personally viewed.
12/21/24 CXR (1 view): Low lung volumes noted. Left basilar opacification which may be a combination of small effusion and adjacent atelectasis.
12/21/2024 Abdominal ultrasound: Limited exam secondary to patient's inability to remain motionless and inability to cooperate with positioning. Liver is normal in size. No focal hepatic lesion. Gallbladder appears contracted with multiple
shadowing calculi and lumen. Please see full dictation for additional detail.
--- NOTE | 2024-12-31 10:12 | W.PN.HOSP.TC ---
Today's Communication/Plan
-
keeps declining meds, blood work and insulin
cont IV abx as per ID
Assessment / Plan
Assessment / Plan
83 y/o male, Gabonese speaking, with PMHx of HFmrEF, DM, neuropathy, HTN, HLD, BPH, anxiety, dementia, chronic ambulatory deficiency who was brought from [facility] with abnormal labs, found to have leukocytosis with transaminitis and elevated
direct bilirubinemia. Found to have emphysematous cholecystitis with gallbladder rupture. Due to high risk for open abdominal surgery - daughter declined surgical intervention. As per general surgery - biliary drain would be futile and patient with
dementia will not be compliant with the drain. Patient's daughter still wants to continue medical mgmt with antibiotics. Patient frequently declining medications, daughter aware.
A/P:
#Gangrenous/emphysematous calculus cholecystitis with resultant contained gallbladder perforation
#Localized Peritonitis
#Severe Sepsis, POA based on lactic acidosis (hypoperfusion, hypotension), leukocytosis, tachycardia
ID consult: Zosyn, however unclear endpoint without surgical mgmt. Will probably target 10 to 14 days of Abx therapy
Leukocytosis resolved which is reassuring
Bcx NTD
GEnSx evaluated - family wants non-invasive mgmt
Patient's IV line infiltrated on 12/26/24 -- he initially resisted to get another IV line but after his daughter Sanjana came in, he agreed to another IV line which was successfully placed on 12/27/24
#Marked urinary bladder wall thickening suggesting neurogenic bladder or chronic outlet obstruction. As above, ovoid fluid-filled structure along the posterior wall of the urinary bladder measuring up to 4.6 cm in diameter,
question large diverticulum
watch for retention
Bladder Scans protocol
Follow-up with urology outpatient
#Goals of Care Discussion
Continue attempting to re-discuss that hospice appropriate: patient with significant dementia, comorbidities, SNF resident, high risk of readmission or due to current presentation, no clear endpoint for duration of Abx.
Palliative consult
POLST form DNR/DNI with limited intervention, IVF and Abx acceptable
#Hypernatremia
resolved
#DM type 2 with neuropathy
Insulin SS, Accuchecks, DM diet when able
Premeal Insilin
#Chronic HFpEF
#Essential HTN
#BPH
#Anxiety
#Dementia, Unspecified
#HLD
#Afib, paroxysmal
Patient is refusing Eliquis (and refusing all PO medications).
Lovenox therapeutic
Patient refusing PO Lopressor so scheduled intravenous Lopressor has been ordered
DVT Prophylaixs: Therapeutic Lovenox
DNR/DNI as per POLST form
I have spent at least 38min reviewing chart, test results, communication with family and providing direct patient care
Anticipated Discharge: > 48 hours
Subjective/Interval History
-
Date of Service: December 31, 2024
Objective Data
-
Labs:
Laboratory Results
12/31/24
06:00
WBC Pending
Hgb Pending
Hct Pending
Plt Count Pending
Sodium Pending
Potassium Pending
Chloride Pending
Carbon Dioxide Pending
BUN Pending
Creatinine Pending
Glucose Pending
Calcium Pending
Vital Signs:
Vital Signs
Temp Pulse Resp BP Pulse Ox
98.9 F 82 22 139/78 93
12/31/24 07:34 12/31/24 08:01 12/31/24 08:01 12/31/24 08:01 12/31/24 08:36
I&O
12/30/24 12/31/24 01/01/25
06:59 06:59 06:59
Intake Total 530 / 530 340 / 340
Balance 530 / 530 340 / 340
Review of Systems
-
History Source: Patient
All other systems: Reviewed and negative
Physical Exam
-
General: Well Developed
HEENT: Normocephalic
Respiratory: Clear to Auscultation
Neuro: Awake, Alert and AO x 3
Psych: Apparent Dementia
[2024-12-31] MEDS: NOVOLOG FLEXPEN 3 UNITS SC ×2 (12:36→17:42)
[2024-12-31] MEDS: NOVOLOG FLEXPEN-LOW RESISTANCE 4 UNITS SC (12:37)
[2024-12-31 12:47] LABS: Glucose - Point of Care 323 mg/dl (70-99)
--- NOTE | 2024-12-31 16:33 | CM ---
Croatian speaking patient from [facility] with Hx dementia with Dx gangrenous/emphysematous calculus cholecystitis with resultant contained gallbladder perforation. Ongoing GOC discussion per MD. Palliative Care Consulted. Room air.
Receiving IV Abx. Per nurse; confused, agitated, combative, refusing labs and medications, yelling at times.
CM continuing to follow.
Plan return to [facility] when medically ready.
--- NOTE | 2024-12-31 16:36 | PTCARENOTE ---
Pt's assessment as documented. Aox1, very agitated and combative with care. Pt hitting this RN and PCT when providing care. Attempts at emotional support unsuccessful. Call north within reach. Bed alarm in place for safety.
[2024-12-31 17:40] LABS: Glucose - Point of Care 281 mg/dl (70-99)
[2024-12-31] MEDS: NOVOLOG FLEXPEN-LOW RESISTANCE 3 UNITS SC (17:41)
--- NOTE | 2024-12-31 17:44 | PTCARENOTE ---
Received call from lab re pending morning labs. Pt continues to refuse. Lab asking if orders can be canceled. Dr Gonzales notified via TT, no changes to orders received. Labs remain pending.
--- NOTE | 2024-12-31 17:47 | PTCARENOTE ---
Pt agreeable to insulin coverage but adamantly refusing Lovenox.
[2024-12-31 21:24] LABS: Glucose - Point of Care 307 mg/dl (70-99)
[2025-01-01] VITALS (7 sets, daily range): BP systolic 107–155; BP diastolic 72–106; BMI 33.2
[2025-01-01] MEDS: LOPRESSOR 2.5 MG IV ×4 (00:02→17:12)
[2025-01-01] MEDS: ZOSYN 50 IV ×4 (05:01→22:02)
[2025-01-01] MEDS: LOVENOX 100 MG SC ×2 (05:02→17:11)
[2025-01-01 08:19] LABS: Glucose - Point of Care 236 mg/dl (70-99)
[2025-01-01] MEDS: NOVOLOG FLEXPEN-LOW RESISTANCE 2 UNITS SC (09:28)
[2025-01-01] MEDS: ZESTRIL PO (09:31)
[2025-01-01] MEDS: NOVOLOG FLEXPEN 3 UNITS SC ×3 (09:35→17:31)
--- NOTE | 2025-01-01 12:18 | W.PN.HOSP.TC ---
Today's Communication/Plan
-
cont Abx as per ID
patient keeps declining meds - will re-discuss with daughter. Obviously risks of intermittently taking medications or declining them at all placing this patient as an appropriate candidate for hospice
Assessment / Plan
Assessment / Plan
83 y/o male, Micronesian speaking, with PMHx of HFmrEF, DM, neuropathy, HTN, HLD, BPH, anxiety, dementia, chronic ambulatory deficiency who was brought from [facility] with abnormal labs, found to have leukocytosis with transaminitis and elevated
direct bilirubinemia. Found to have emphysematous cholecystitis with gallbladder rupture. Due to high risk for open abdominal surgery - daughter declined surgical intervention. As per general surgery - biliary drain would be futile and patient with
dementia will not be compliant with the drain. Patient's daughter still wants to continue medical mgmt with antibiotics. Patient frequently declining medications, daughter aware.
A/P:
#Gangrenous/emphysematous calculus cholecystitis with resultant contained gallbladder perforation
#Localized Peritonitis
#Severe Sepsis, POA based on lactic acidosis (hypoperfusion, hypotension), leukocytosis, tachycardia
ID consult: Pete, however unclear endpoint without surgical mgmt. Will probably target 10 to 14 days of Abx therapy
Leukocytosis resolved which is reassuring
Bcx NTD
GEnSx evaluated - family wants non-invasive mgmt
Patient's IV line infiltrated on 12/26/24 -- he initially resisted to get another IV line but after his daughter Sanjana came in, he agreed to another IV line which was successfully placed on 12/27/24
#Marked urinary bladder wall thickening suggesting neurogenic bladder or chronic outlet obstruction. As above, ovoid fluid-filled structure along the posterior wall of the urinary bladder measuring up to 4.6 cm in diameter,
question large diverticulum
watch for retention
Bladder Scans protocol
Follow-up with urology outpatient
#Goals of Care Discussion
Continue attempting to re-discuss that hospice appropriate: patient with significant dementia, comorbidities, SNF resident, high risk of readmission or due to current presentation, no clear endpoint for duration of Abx.
Palliative consult
POLST form DNR/DNI with limited intervention, IVF and Abx acceptable
#Hypernatremia
resolved
#DM type 2 with neuropathy
Insulin SS, Accuchecks, DM diet when able
Premeal Insilin
#Chronic HFpEF
#Essential HTN
#BPH
#Anxiety
#Dementia, Unspecified
#HLD
#Afib, paroxysmal
Patient is refusing Eliquis (and refusing all PO medications).
Lovenox therapeutic
Patient refusing PO Lopressor so scheduled intravenous Lopressor has been ordered
DVT Prophylaixs: Therapeutic Lovenox
DNR/DNI as per POLST form
I have spent at least 38min reviewing chart, test results, communication with family and providing direct patient care
Anticipated Discharge: > 48 hours
Subjective/Interval History
-
Date of Service: January 01, 2025
Objective Data
-
Vital Signs:
Vital Signs
Temp Pulse Resp BP Pulse Ox
98.6 F 108 26 155/99 96
01/01/25 07:35 01/01/25 04:00 01/01/25 04:00 01/01/25 04:00 12/31/24 19:56
I&O
12/31/24 01/01/25 01/02/25
06:59 06:59 06:59
Intake Total 340 / 340 580 / 580
Balance 340 / 340 580 / 580
Review of Systems
-
Unable to obtain full review of systems at this time due to: Dementia
History Source: Patient
Physical Exam
-
General: No Apparent Distress
Respiratory: Clear to Auscultation
Cardiac: Regular Rhythm
GI: Soft, Nontender and Nondistended
Neuro: Awake and Alert
Psych: Calm and Apparent Dementia
[2025-01-01 12:27] LABS: Glucose - Point of Care 289 mg/dl (70-99)
--- NOTE | 2025-01-01 12:29 | W.PN.ID1 ---
Date of Service
Date of Service: January 01, 2025
Today's Communication
Continue antibiotics.
Assessment / Plan
Acute emphysematous cholecystitis with perforation
Leukocytosis
- improved
Hyponatremia
Hyperbilirubinemia
Transaminitis
Diabetes mellitus
Dementia
Hypertension
A-fib
CAD
Heart failure with reduced EF
PVD
BPH
Recommendations:
Patient and family previously declined cholecystectomy.
Blood cultures negative. White count normal.
Although antibiotic course is somewhat undefined, would recommend a 14-day course. Pt refusing oral medications.
Continue with Zosyn (d#12) for 2 more days.
����������������������������������������������������������
Chief Complaint
-: Leukocytosis and Other (Perforated gallbladder.)
Subjective / Review of Systems
Review of Systems: No Fever and No Chills
Vital Signs / Physical Exam
Vital Signs
Vital Signs
Temp Pulse Resp BP Pulse Ox
98.6 F 97 30 136/84 96
01/01/25 07:35 01/01/25 12:00 01/01/25 12:00 01/01/25 12:00 12/31/24 19:56
Physical Exam
Constitutional: No Acute Distress, Comfortable, Chronically Ill and Non-toxic
Head: Normocephalic
Cardiovascular: Irregular Rate and S1/S2; Negative S3/S4
Pulmonary: Clear and Non Labored
Gastrointestinal: Soft, Non Distended, Normal Bowel Sounds, No Rebound and No Guarding
Extremities: Edema (trace) and Venous Insufficiency (B/L LE's); Negative Cyanosis or Erythema
Skin: Warm and Dry; Negative Rash or Jaundice
Psychological: Calm
Objective Data
Lab Data
PT 16.1 Sec (11.4-14.6) H 12/21/24 08:58
INR 1.26 12/21/24 08:58
APTT Cancelled 12/26/24 11:26
Estimated Creat Clear Cancelled 12/31/24 06:00
Lactic Acid 1.0 mmol/L (0.7-2.0) 12/21/24 13:28
Total Bilirubin 0.7 mg/dl (0.2-1.3) 12/30/24 04:49
AST 48 U/L (17-59) 12/30/24 04:49
ALT 50 U/L (0-50) 12/30/24 04:49
Alkaline Phosphatase 124 U/L (38-126) 12/30/24 04:49
Most recent labs reviewed.
Micro Results:
12/21/24 10:29 Blood Culture - Final
Blood/Venous No Growth - Final Report
12/21/24 09:54 Blood Culture - Final
Blood/Venous No Growth - Final Report
12/21/24 23:00 MRSA Screen - Final
Nose No Methicillin Resistant Staphylococcus aureus isolated.
12/21/24 08:58 Influenza Types A & B ([facility]) - Final
Nasal Swab Negative for Influenza A & B, NAAT
Negative results must be combined with clinical observations
and patient history.
Nucleic Acid Amplification test (NAAT)performed on the
[employer] platform.
Imaging:
12/21/2024 CT abdomen/pelvis with IV contrast: Acute emphysematous cholecystitis with gallbladder rupture noted. Associated small foci of gas within the anterior abdomen. Trace bilateral pleural effusions noted. Splenomegaly seen. Marked urinary
bladder wall thickening suggesting neurogenic bladder. Please see full dictation for additional detail. Film personally viewed.
12/21/24 CXR (1 view): Low lung volumes noted. Left basilar opacification which may be a combination of small effusion and adjacent atelectasis.
12/21/2024 Abdominal ultrasound: Limited exam secondary to patient's inability to remain motionless and inability to cooperate with positioning. Liver is normal in size. No focal hepatic lesion. Gallbladder appears contracted with multiple
shadowing calculi and lumen. Please see full dictation for additional detail.
[2025-01-01] MEDS: NOVOLOG FLEXPEN-LOW RESISTANCE 3 UNITS SC (13:12)
[2025-01-01 17:19] LABS: Glucose - Point of Care 328 mg/dl (70-99)
[2025-01-01] MEDS: NOVOLOG FLEXPEN-LOW RESISTANCE 4 UNITS SC (17:31)
--- NOTE | 2025-01-01 18:00 | PTCARENOTE ---
Patient complete in care. Patient screams and yells when changing and repositioning. INC of bowel and bladder. MSAD on scrotum and sacrum. Yeast like rash in groin. Desenex powder and cream added to care plan. VS stable. Bed alarm on bed.
[2025-01-01] MEDS: DESENEX/MITRAZOL/ZEASORB 1 APPLIC TOPICAL (19:24)
[2025-01-01] MEDS: ANTIFUNGAL CLEAR 1 APPLIC TOPICAL (19:24)
[2025-01-01 22:15] LABS: Glucose - Point of Care 201 mg/dl (70-99)
--- NOTE | 2025-01-01 22:44 | PTCARENOTE ---
Caring for patient overnight. aaox1, forgetful & confused. SR/ST/1st degree heart block/afib on monitor. Remains RA. Q2T. IV abx. Will monitor.
[2025-01-02] VITALS (7 sets, daily range): BP systolic 116–138; BP diastolic 61–102; BMI 33.2
[2025-01-02] MEDS: LOPRESSOR 2.5 MG IV ×5 (00:22→23:34)
[2025-01-02] MEDS: ZOSYN 50 IV ×4 (05:04→21:14)
[2025-01-02] MEDS: LOVENOX 100 MG SC ×2 (05:05→17:12)
[2025-01-02 07:30] LABS: Glucose - Point of Care 245 mg/dl (70-99)
[2025-01-02] MEDS: NOVOLOG FLEXPEN-LOW RESISTANCE 2 UNITS SC (09:43)
[2025-01-02] MEDS: NOVOLOG FLEXPEN 3 UNITS SC ×3 (09:44→18:24)
--- NOTE | 2025-01-02 09:45 | W.PN.ID1 ---
Date of Service
Date of Service: January 02, 2025
Today's Communication
Continue current course of Zosyn.
Assessment / Plan
Acute emphysematous cholecystitis with perforation
Leukocytosis
- improved
Hyponatremia
Hyperbilirubinemia; improved
Transaminitis; resolved
Diabetes mellitus
Dementia
Hypertension
A-fib
CAD
Heart failure with reduced EF
PVD
BPH
Recommendations:
Patient and family previously declined cholecystectomy.
Blood cultures negative. White count normal.
Although antibiotic course is somewhat undefined, would recommend a 14-day course. Pt refused transition to oral medications.
Continue with Zosyn (d#13) for 1 more day.
����������������������������������������������������������
Chief Complaint
-: Leukocytosis and Other (Perforated gallbladder.)
Subjective / Review of Systems
Patient seen and examined. Denies specific complaints today. No fevers or chills. Denies pain.
Vital Signs / Physical Exam
Vital Signs
Vital Signs
Temp Pulse Resp BP Pulse Ox
97.8 F 131 24 138/80 94
01/02/25 07:15 01/02/25 04:00 01/02/25 04:00 01/02/25 04:00 01/01/25 12:35
Physical Exam
Constitutional: No Acute Distress, Comfortable, Chronically Ill and Non-toxic
Head: Normocephalic
Cardiovascular: Irregular Rate and S1/S2; Negative S3/S4
Pulmonary: Clear and Non Labored
Gastrointestinal: Soft, Non Distended, Normal Bowel Sounds, No Rebound and No Guarding
Extremities: Edema (trace) and Venous Insufficiency (B/L LE's); Negative Cyanosis or Erythema
Skin: Warm and Dry; Negative Rash or Jaundice
Psychological: Calm
Objective Data
Lab Data
Lab Results
01/01/25 06:00
01/01/25 06:00
PT 16.1 Sec (11.4-14.6) H 12/21/24 08:58
INR 1.26 12/21/24 08:58
APTT Cancelled 12/26/24 11:26
Estimated Creat Clear Cancelled 01/01/25 06:00
Lactic Acid 1.0 mmol/L (0.7-2.0) 12/21/24 13:28
Total Bilirubin 0.7 mg/dl (0.2-1.3) 12/30/24 04:49
AST 48 U/L (17-59) 12/30/24 04:49
ALT 50 U/L (0-50) 12/30/24 04:49
Alkaline Phosphatase 124 U/L (38-126) 12/30/24 04:49
Most recent labs reviewed.
Micro Results:
12/21/24 10:29 Blood Culture - Final
Blood/Venous No Growth - Final Report
12/21/24 09:54 Blood Culture - Final
Blood/Venous No Growth - Final Report
12/21/24 23:00 MRSA Screen - Final
Nose No Methicillin Resistant Staphylococcus aureus isolated.
12/21/24 08:58 Influenza Types A & B ([facility]) - Final
Nasal Swab Negative for Influenza A & B, NAAT
Negative results must be combined with clinical observations
and patient history.
Nucleic Acid Amplification test (NAAT)performed on the
[employer] platform.
Imaging:
12/21/2024 CT abdomen/pelvis with IV contrast: Acute emphysematous cholecystitis with gallbladder rupture noted. Associated small foci of gas within the anterior abdomen. Trace bilateral pleural effusions noted. Splenomegaly seen. Marked urinary
bladder wall thickening suggesting neurogenic bladder. Please see full dictation for additional detail. Film personally viewed.
12/21/24 CXR (1 view): Low lung volumes noted. Left basilar opacification which may be a combination of small effusion and adjacent atelectasis.
12/21/2024 Abdominal ultrasound: Limited exam secondary to patient's inability to remain motionless and inability to cooperate with positioning. Liver is normal in size. No focal hepatic lesion. Gallbladder appears contracted with multiple
shadowing calculi and lumen. Please see full dictation for additional detail.
[2025-01-02] MEDS: ZESTRIL PO (09:47)
[2025-01-02 11:59] LABS: Glucose - Point of Care 310 mg/dl (70-99)
[2025-01-02] MEDS: DESENEX/MITRAZOL/ZEASORB 1 APPLIC TOPICAL ×2 (12:11→21:14)
[2025-01-02] MEDS: ANTIFUNGAL CLEAR 1 APPLIC TOPICAL ×2 (12:11→21:14)
[2025-01-02] MEDS: NOVOLOG FLEXPEN-LOW RESISTANCE 4 UNITS SC (13:49)
[2025-01-02 17:38] LABS: Glucose - Point of Care 281 mg/dl (70-99)
[2025-01-02] MEDS: NOVOLOG FLEXPEN-LOW RESISTANCE 3 UNITS SC (18:23)
[2025-01-02 21:31] LABS: Glucose - Point of Care 170 mg/dl (70-99)
--- NOTE | 2025-01-02 22:15 | PTCARENOTE ---
Assumed care of pt from dayshift RN. Pt aaox1 to self. Pt rests calmly in bed, but quickly becomes agitated during conversation and aggressive during care. Pt incontinent of bowel and bladder, hygiene completed. antifungal cream and powder applied
to MASD on pt's groin. NSR with first degree and PACs on monitor. 94% on RA. Assessment as charted. Pt resting in bed with bed alarm on and call north in reach.
[2025-01-03] VITALS (9 sets, daily range): BP systolic 105–176; BP diastolic 56–115; BMI 32.8
[2025-01-03] MEDS: ZOSYN 50 IV ×4 (03:11→22:35)
[2025-01-03] MEDS: LOPRESSOR 2.5 MG IV ×3 (05:36→17:13)
[2025-01-03] MEDS: LOVENOX 100 MG SC ×2 (05:36→18:06)
[2025-01-03 08:07] LABS: Glucose - Point of Care 192 mg/dl (70-99)
[2025-01-03] MEDS: DESENEX/MITRAZOL/ZEASORB 1 APPLIC TOPICAL ×2 (08:23→20:25)
[2025-01-03] MEDS: ANTIFUNGAL CLEAR 1 APPLIC TOPICAL ×2 (08:23→20:25)
[2025-01-03] MEDS: NOVOLOG FLEXPEN 3 UNITS SC ×3 (08:24→18:01)
[2025-01-03] MEDS: NOVOLOG FLEXPEN-LOW RESISTANCE 1 UNITS SC (08:24)
[2025-01-03] MEDS: ZESTRIL PO (08:25)
--- NOTE | 2025-01-03 10:46 | PTCARENOTE ---
Report to receiving RN. Belongings collected from room. Transferred to [facility] via bed.
[2025-01-03 11:46] LABS: Glucose - Point of Care 277 mg/dl (70-99)
--- NOTE | 2025-01-03 12:27 | W.PN.HOSP.TC ---
Today's Communication/Plan
-
complete Abx as per ID
still will recommend hospice as patient morbidity and mortality high with recent gall bladder rupture and infection without surgical treatment
Assessment / Plan
Assessment / Plan
83 y/o male, Paraguayan speaking, with PMHx of HFmrEF, DM, neuropathy, HTN, HLD, BPH, anxiety, dementia, chronic ambulatory deficiency who was brought from [facility] with abnormal labs, found to have leukocytosis with transaminitis and elevated
direct bilirubinemia. Found to have emphysematous cholecystitis with gallbladder rupture. Due to high risk for open abdominal surgery - daughter declined surgical intervention. As per general surgery - biliary drain would be futile and patient with
dementia will not be compliant with the drain. Patient's daughter still wants to continue medical mgmt with antibiotics. Patient frequently declining medications, daughter aware.
A/P:
#Gangrenous/emphysematous calculus cholecystitis with resultant contained gallbladder perforation
#Localized Peritonitis
#Severe Sepsis, POA based on lactic acidosis (hypoperfusion, hypotension), leukocytosis, tachycardia
ID consult: Zosyn, however unclear endpoint without surgical mgmt. Will probably target 10 to 14 days of Abx therapy
Leukocytosis resolved which is reassuring
Bcx NTD
GEnSx evaluated - family wants non-invasive mgmt
Patient's IV line infiltrated on 12/26/24 -- he initially resisted to get another IV line but after his daughter Sanajna came in, he agreed to another IV line which was successfully placed on 12/27/24
#Marked urinary bladder wall thickening suggesting neurogenic bladder or chronic outlet obstruction. As above, ovoid fluid-filled structure along the posterior wall of the urinary bladder measuring up to 4.6 cm in diameter,
question large diverticulum
watch for retention
Bladder Scans protocol
Follow-up with urology outpatient
#Goals of Care Discussion
Continue attempting to re-discuss that hospice appropriate: patient with significant dementia, comorbidities, SNF resident, high risk of readmission or due to current presentation, no clear endpoint for duration of Abx.
Palliative consult
POLST form DNR/DNI with limited intervention, IVF and Abx acceptable
#Hypernatremia
resolved
#DM type 2 with neuropathy
Insulin SS, Accuchecks, DM diet when able
Premeal Insilin
#Chronic HFpEF
#Essential HTN
#BPH
#Anxiety
#Dementia, Unspecified
#HLD
#Afib, paroxysmal
Patient is refusing Eliquis (and refusing all PO medications).
Lovenox therapeutic
Patient refusing PO Lopressor so scheduled intravenous Lopressor has been ordered
DVT Prophylaixs: Therapeutic Lovenox
DNR/DNI as per POLST form
I have spent at least 38min reviewing chart, test results, communication with family and providing direct patient care
Anticipated Discharge: Within 24 hours
Subjective/Interval History
-
Date of Service: January 03, 2025
Objective Data
-
Vital Signs:
Vital Signs
Temp Pulse Resp BP Pulse Ox
98.1 F 104 16 145/86 91
01/03/25 11:12 01/03/25 11:39 01/03/25 11:12 01/03/25 11:39 01/03/25 11:12
I&O
01/02/25 01/03/25 01/04/25
06:59 06:59 06:59
Intake Total 1105 / 1105 1020 / 1020
Balance 1105 / 1105 1020 / 1020
Review of Systems
-
History Source: Patient
All other systems: Reviewed and negative
Physical Exam
-
General: No Apparent Distress
HEENT: Normocephalic
Respiratory: Clear to Auscultation
Cardiac: Regular Rhythm
GI: Soft, Nontender and Nondistended
Genito-urinary: No Costovertebral Tender
Musculoskeletal: No Clubbing, No Cyanosis and No Edema
Skin: Warm
Neuro: Awake, Alert, Oriented and AO x 3
Psych: Calm
[2025-01-03] MEDS: NOVOLOG FLEXPEN-LOW RESISTANCE 3 UNITS SC ×2 (12:47→18:02)
--- NOTE | 2025-01-03 16:21 | CM ---
Guinean speaking patient from [facility] with Hx dementia with Dx gangrenous/emphysematous calculus cholecystitis with resultant contained gallbladder perforation. Ongoing GOC discussion per MD. Palliative Care Consulted. Room air.
Receiving IV Abx. Per nurse; confused, uncooperative, combative.
Message from Dr Gonzales; patient will be medically ready for d/c tomorrow.
Spoke with Keesha, s [facility]; provided update that MD & Palliative Care have had multiple GOC discussions with family. They are able to accept the patient back tomorrow. The for report [phone], fax [phone].
Phone call to Sanjana, patient's daughter; left message requesting callback re; d/c tomorrow back to SNF.
Plan follow up with daughter tomorrow re; return to SNF.
Plan return to [facility] tomorrow by ambulance.
[2025-01-03 16:53] LABS: Glucose - Point of Care 299 mg/dl (70-99)
--- NOTE | 2025-01-03 16:57 | W.PN.ID1 ---
Date of Service
Date of Service: January 03, 2025
Today's Communication
Complete course of antibiotics today.
Assessment / Plan
Acute emphysematous cholecystitis with perforation
Leukocytosis
- improved
Hyponatremia
Hyperbilirubinemia; improved
Transaminitis; resolved
Diabetes mellitus
Dementia
Hypertension
A-fib
CAD
Heart failure with reduced EF
PVD
BPH
Recommendations:
Patient and family previously declined cholecystectomy.
Blood cultures negative. White count normal.
Completing course of Zosyn today. Thereafter, follow off of antibiotics.
����������������������������������������������������������
Chief Complaint
-: Leukocytosis and Other (Perforated gallbladder.)
Subjective / Review of Systems
Review of Systems: No Fever
Vital Signs / Physical Exam
Vital Signs
Vital Signs
Temp Pulse Resp BP Pulse Ox
98.7 F 124 18 133/68 92
01/03/25 15:43 01/03/25 15:43 01/03/25 15:43 01/03/25 15:43 01/03/25 15:43
Physical Exam
Constitutional: No Acute Distress, Comfortable, Chronically Ill and Non-toxic
Head: Normocephalic
Cardiovascular: Irregular Rate and S1/S2; Negative S3/S4
Pulmonary: Clear and Non Labored
Gastrointestinal: Soft, Non Distended, Normal Bowel Sounds, No Rebound and No Guarding
Extremities: Edema (trace) and Venous Insufficiency (B/L LE's); Negative Cyanosis or Erythema
Skin: Warm and Dry; Negative Rash or Jaundice
Psychological: Calm
Objective Data
Lab Data
Lab Results
01/01/25 06:00
01/01/25 06:00
PT 16.1 Sec (11.4-14.6) H 12/21/24 08:58
INR 1.26 12/21/24 08:58
APTT Cancelled 12/26/24 11:26
Estimated Creat Clear Cancelled 01/01/25 06:00
Lactic Acid 1.0 mmol/L (0.7-2.0) 12/21/24 13:28
Total Bilirubin 0.7 mg/dl (0.2-1.3) 12/30/24 04:49
AST 48 U/L (17-59) 12/30/24 04:49
ALT 50 U/L (0-50) 12/30/24 04:49
Alkaline Phosphatase 124 U/L (38-126) 12/30/24 04:49
Most recent labs reviewed.
Micro Results:
12/21/24 10:29 Blood Culture - Final
Blood/Venous No Growth - Final Report
12/21/24 09:54 Blood Culture - Final
Blood/Venous No Growth - Final Report
12/21/24 23:00 MRSA Screen - Final
Nose No Methicillin Resistant Staphylococcus aureus isolated.
12/21/24 08:58 Influenza Types A & B ([facility]) - Final
Nasal Swab Negative for Influenza A & B, NAAT
Negative results must be combined with clinical observations
and patient history.
Nucleic Acid Amplification test (NAAT)performed on the
[employer] platform.
Imaging:
12/21/2024 CT abdomen/pelvis with IV contrast: Acute emphysematous cholecystitis with gallbladder rupture noted. Associated small foci of gas within the anterior abdomen. Trace bilateral pleural effusions noted. Splenomegaly seen. Marked urinary
bladder wall thickening suggesting neurogenic bladder. Please see full dictation for additional detail. Film personally viewed.
12/21/24 CXR (1 view): Low lung volumes noted. Left basilar opacification which may be a combination of small effusion and adjacent atelectasis.
12/21/2024 Abdominal ultrasound: Limited exam secondary to patient's inability to remain motionless and inability to cooperate with positioning. Liver is normal in size. No focal hepatic lesion. Gallbladder appears contracted with multiple
shadowing calculi and lumen. Please see full dictation for additional detail.
[2025-01-03] MEDS: LOPRESSOR IV (18:05)
--- NOTE | 2025-01-03 20:20 | RR ---
A Rapid Response was called on this patient, please see Rapid Response form.
--- NOTE | 2025-01-03 20:20 | PTCARENOTE ---
Pt in Afib on the heart monitor HR alarming 170's-180's. Upon checking on pt, pt began dry heaving harshly. Pt carson, diaphoretic, POX 83% on RA. NRB mask applied. RT at bedside. BP high 199/126. While attempting to help pt, pt became combative,
hitting staff, pulling off oxygen mask, difficulty managing pt in this state. Rapid Response called. HR remains elevated despite 5mg IV Lopressor administration, 2nd dose 5mg IV Lopressor administered per order. VACUUM FILTER OPERATOR Arianna, able to speak fluent
Guamanian and able to effectively calm pt down enough to provide care. Pt upgraded to IMU level care. Verbal report given at bedside.
[2025-01-03] MEDS: LOPRESSOR 5 MG IV ×2 (20:23→20:53)
[2025-01-03 20:37] LABS: Glucose - Point of Care 386 mg/dl (70-99)
[2025-01-03 21:12] LABS: ALT (SGPT) 35 U/L (0-50); AST (SGOT) 17 U/L (17-59); Albumin 3.2 g/dl (3.5-5.0); Alkaline Phosphatase 107 U/L (38-126); Blood Urea Nitrogen 13 mg/dl (9-20); Calcium 9.4 mg/dl (8.4-10.2); Carbon Dioxide 25 mmol/L (22-30); Chloride 98 mmol/L (98-107); Estimated Creatinine Clearance 53 ml/min; Glucose 426 mg/dl (70-99); Sodium 137 mmol/L (135-145); Total Bilirubin 0.6 mg/dl (0.2-1.3); Total Protein 6.5 g/dl (6.3-8.2); eGFR 58.89
[2025-01-03 21:13] LABS: % Eosinophils 1.2 % (0-6); % Immature Granulocytes 0.5 % (0-0.5); % Lymphocytes 24.4 % (20.5-51.1); % Neutrophils 66.9 % (42.2-75.2); Absolute Basophils 0.2 10^3/uL (0-0.2); Absolute Eosinophils 0.2 10^3/uL (0-0.7); Absolute Immature Granulocytes 0.1 10^3/uL (0-0.05); Absolute Lymphocytes 4.4 10^3/uL (1.2-3.4); Absolute Monocytes 1.1 10^3/uL (0.1-0.6); Absolute Neutrophils 12.1 10^3/uL (1.4-6.5); Hematocrit 41.9 % (39.0-52.0); Hemoglobin 12.4 g/dL (13.0-18.0); Mean Corp Hgb Conc. 29.6 g/dL (33.0-37.0); Mean Corpuscular Hgb 27.8 pg (27.0-31.0); Mean Corpuscular Volume 93.9 fL (80.0-94.0); Nucleated Red Blood Cells % 0 % (-); Red Blood Cell Count 4.46 10^6/uL (4.70-6.10); Red Cell Dist. Width 15.9 % (11.5-14.5); White Blood Cell Count 18.1 10^3/uL (4.8-10.8)
[2025-01-03 21:18] LABS: Lactic Acid 7.2 mmol/L (0.7-2.0)
[2025-01-03 21:19] LABS: Mean Platelet Volume 10.6 fL (7.4-10.4); Platelet Count 338 10^3/uL (130-400)
[2025-01-03 21:24] LABS: Troponin I < 0.012 ng/ml
--- NOTE | 2025-01-03 21:25 | W.PN.UPDATE ---
Update Note
Progress Note Update
2029 LIABILITY CLAIMS EXAMINER called by nurse for episode of vomiting which resulted in hypoxia with pulse ox in 80s% (was on RA previously) and pt was carson colored per nurse. NRB placed on pt. Also HR to 180s and HTN 160s/110. Pt also agitated and fighting with staff
to keep oxygen on. Wrist restraints placed to prevent pulling off oxygen- which caused more agitation.
On the LIABILITY CLAIMS EXAMINER team there was a nurse who spoke bolivian and was able to converse with pt. He denied SOB or other breathing complaints. She was able to tell him that if he left oxygen alone we will take off restraints. Within a few min NRB was
transitioned to nasal cannula and pt was able to have restraints taken off. Additional iv lopressor 5mg ordered. Pt told bolivian speaking nurse he just wants to be left alone.
Due to new hypoxia and complexity of pt will transfer back to imu for closer monitoring .
[2025-01-03 21:28] LABS: NT-proBNP 13300 pg/ml
[2025-01-04] VITALS (12 sets, daily range): BP systolic 115–159; BP diastolic 61–132; BMI 33.3
[2025-01-04] MEDS: LOPRESSOR 5 MG IV ×5 (00:57→23:36)
[2025-01-04 02:46] LABS: Hematocrit 37.9 % (39.0-52.0); Hemoglobin 11.7 g/dL (13.0-18.0); Mean Corp Hgb Conc. 30.9 g/dL (33.0-37.0); Mean Corpuscular Hgb 27.5 pg (27.0-31.0); Mean Platelet Volume 10.6 fL (7.4-10.4); Platelet Count 199 10^3/uL (130-400); Red Blood Cell Count 4.26 10^6/uL (4.70-6.10); Red Cell Dist. Width 15.9 % (11.5-14.5); White Blood Cell Count 11.8 10^3/uL (4.8-10.8)
[2025-01-04 02:56] LABS: Lactic Acid 1.2 mmol/L (0.7-2.0)
--- NOTE | 2025-01-04 02:57 | PTCARENOTE ---
Pt transferred to IMU after SPRINKLER IRRIGATION EQUIPMENT MECHANIC called. Pt arrived alert & cooperative. Remained on 4LNC now weaned to 2LNC. Tried weaning to RA but sating 87% when sleeping. NSR/AFib/ST/PAC on monitor. HR jumps from 70-150's depending on activities/awake/sleeping.
BP's stable, diastolic in 100's. Afebrile. Pt remains very pale. Denies pain. Q2T when pt allows. Lopressor & ivabx given. New orders for covid/flu, awaiting results. WBC and lactic just drawn and are down compared to earlier results during rapid
response. PT sleeping comfortably. Will monitor.
[2025-01-04 02:59] LABS: COVID-19 Antigen Negative (Negative)
[2025-01-04 04:22] LABS: Glucose - Point of Care 349 mg/dl (70-99)
[2025-01-04] MEDS: LOVENOX 100 MG SC ×2 (05:26→18:31)
[2025-01-04 07:10] LABS: Glucose - Point of Care 267 mg/dl (70-99)
[2025-01-04] MEDS: NOVOLOG FLEXPEN-LOW RESISTANCE 3 UNITS SC (09:20)
[2025-01-04] MEDS: NOVOLOG FLEXPEN 3 UNITS SC ×3 (09:22→18:30)
[2025-01-04] MEDS: DESENEX/MITRAZOL/ZEASORB 1 APPLIC TOPICAL ×2 (09:23→20:34)
[2025-01-04] MEDS: ANTIFUNGAL CLEAR 1 APPLIC TOPICAL ×2 (09:23→20:33)
[2025-01-04] MEDS: LANTUS 0.07 UNITS SC (09:25)
[2025-01-04] MEDS: LASIX 40 MG IV ×2 (09:28→18:30)
[2025-01-04] MEDS: ZESTRIL PO (09:32)
--- NOTE | 2025-01-04 11:11 | W.PN.HOSP.TC ---
Today's Communication/Plan
-
Lasix and wean off O2
Assessment / Plan
Assessment / Plan
83 y/o male, Gambian speaking, with PMHx of HFmrEF, DM, neuropathy, HTN, HLD, BPH, anxiety, dementia, chronic ambulatory deficiency who was brought from [facility] with abnormal labs, found to have leukocytosis with transaminitis and elevated
direct bilirubinemia. Found to have emphysematous cholecystitis with gallbladder rupture. Due to high risk for open abdominal surgery - daughter declined surgical intervention. As per general surgery - biliary drain would be futile and patient with
dementia will not be compliant with the drain. Patient's daughter still wants to continue medical mgmt with antibiotics. Patient frequently declining medications, daughter aware.
A/P:
#Gangrenous/emphysematous calculus cholecystitis with resultant contained gallbladder perforation
#Localized Peritonitis
#Severe Sepsis, POA based on lactic acidosis (hypoperfusion, hypotension), leukocytosis, tachycardia
ID consult: Jennien, however unclear endpoint without surgical mgmt. Will probably target 10 to 14 days of Abx therapy
Leukocytosis resolved which is reassuring
Bcx NTD
GEnSx evaluated - family wants non-invasive mgmt
Patient's IV line infiltrated on 12/26/24 -- he initially resisted to get another IV line but after his daughter Sanjana came in, he agreed to another IV line which was successfully placed on 12/27/24
#Marked urinary bladder wall thickening suggesting neurogenic bladder or chronic outlet obstruction. As above, ovoid fluid-filled structure along the posterior wall of the urinary bladder measuring up to 4.6 cm in diameter,
question large diverticulum
watch for retention
Bladder Scans protocol
Follow-up with urology outpatient
#Goals of Care Discussion
Continue attempting to re-discuss that hospice appropriate: patient with significant dementia, comorbidities, SNF resident, high risk of readmission or due to current presentation, no clear endpoint for duration of Abx.
Palliative consult
POLST form DNR/DNI with limited intervention, IVF and Abx acceptable
#Hypernatremia
resolved
#DM type 2 with neuropathy
Insulin SS, Accuchecks, DM diet when able
Premeal Insulin
#acute hypoxic insufficiency 2/2 Acute on Chronic HFpEF
2/2 declining Lasix
IV lasix and wean off O2
#Essential HTN
#BPH
#Anxiety
#Dementia, Unspecified
#HLD
#Afib, paroxysmal
Patient is refusing Eliquis (and refusing all PO medications).
Lovenox therapeutic
Patient refusing PO Lopressor so scheduled intravenous Lopressor has been ordered
DVT Prophylaixs: Therapeutic Lovenox
DNR/DNI as per POLST form
I have spent at least 38min reviewing chart, test results, communication with family and providing direct patient care
Anticipated Discharge: Within 24 hours
Subjective/Interval History
-
Date of Service: January 04, 2025
Objective Data
-
Labs:
Laboratory Results
01/04/25
02:32
WBC 11.8 H
Hgb 11.7 L
Hct 37.9 L
Plt Count 199 D
Vital Signs:
Vital Signs
Temp Pulse Resp BP Pulse Ox
98.5 F 82 24 157/73 97
01/04/25 10:57 01/04/25 08:00 01/04/25 08:00 01/04/25 08:00 01/04/25 08:06
I&O
01/03/25 01/04/25 01/05/25
06:59 06:59 06:59
Intake Total 1020 / 1020 480 / 480
Balance 1020 / 1020 480 / 480
Review of Systems
-
Unable to obtain full review of systems at this time due to: Dementia
History Source: Patient
Physical Exam
-
General: No Apparent Distress
HEENT: Normocephalic
Respiratory: Clear to Auscultation
Cardiac: Regular Rhythm
GI: Soft, Nontender and Nondistended
Neuro: Awake, Alert and Oriented
Psych: Calm, Confused and Apparent Dementia
--- NOTE | 2025-01-04 11:18 | W.PN.ID1 ---
Date of Service
Date of Service: January 04, 2025
Today's Communication
Observe off antibiotics.
Assessment / Plan
Acute emphysematous cholecystitis with perforation
Leukocytosis
- improved
Hyponatremia
Hyperbilirubinemia; improved
Transaminitis; resolved
Diabetes mellitus
Dementia
Hypertension
A-fib
CAD
Heart failure with reduced EF
PVD
BPH
Recommendations:
Patient and family previously declined cholecystectomy.
Blood cultures negative. White count normal.
Patient completed 14-day course of Zosyn yesterday.
Continue to observe off antibiotics.
����������������������������������������������������������
Chief Complaint
-: Leukocytosis and Other (Perforated gallbladder.)
Subjective / Review of Systems
Patient seen and examined. Chart reviewed and events noted.
Vital Signs / Physical Exam
Vital Signs
Vital Signs
Temp Pulse Resp BP Pulse Ox
98.5 F 82 24 157/73 97
01/04/25 10:57 01/04/25 08:00 01/04/25 08:00 01/04/25 08:00 01/04/25 08:06
Physical Exam
Constitutional: No Acute Distress, Comfortable, Chronically Ill and Non-toxic
Head: Normocephalic
Cardiovascular: S1/S2; Negative S3/S4
Pulmonary: Non Labored
Gastrointestinal: Soft, Non Distended and Normal Bowel Sounds
Extremities: Edema (trace) and Venous Insufficiency (B/L LE's); Negative Cyanosis or Erythema
Skin: Warm and Dry; Negative Rash or Jaundice
Psychological: Calm
Objective Data
Lab Data
Lab Results
01/04/25 02:32
01/03/25 20:30
PT 16.1 Sec (11.4-14.6) H 12/21/24 08:58
INR 1.26 12/21/24 08:58
APTT Cancelled 12/26/24 11:26
Estimated Creat Clear 53 ml/min 01/03/25 20:30
Lactic Acid Cancelled 01/04/25 14:00
Total Bilirubin 0.6 mg/dl (0.2-1.3) 01/03/25 20:30
AST 17 U/L (17-59) 01/03/25 20:30
ALT 35 U/L (0-50) 01/03/25 20:30
Alkaline Phosphatase 107 U/L (38-126) 01/03/25 20:30
Most recent labs reviewed.
Micro Results:
01/04/25 02:32 Influenza Types A & B (CARRIE) - Final
Nasal Swab Negative for Influenza A & B, NAAT
Negative results must be combined with clinical observations
and patient history.
Nucleic Acid Amplification test (NAAT)performed on the
[employer] ID NOW platform.
12/21/24 10:29 Blood Culture - Final
Blood/Venous No Growth - Final Report
12/21/24 09:54 Blood Culture - Final
Blood/Venous No Growth - Final Report
12/21/24 23:00 MRSA Screen - Final
Nose No Methicillin Resistant Staphylococcus aureus isolated.
12/21/24 08:58 Influenza Types A & B (CARRIE) - Final
Nasal Swab Negative for Influenza A & B, NAAT
Negative results must be combined with clinical observations
and patient history.
Nucleic Acid Amplification test (NAAT)performed on the
[employer] ID NOW platform.
Imaging:
12/21/2024 CT abdomen/pelvis with IV contrast: Acute emphysematous cholecystitis with gallbladder rupture noted. Associated small foci of gas within the anterior abdomen. Trace bilateral pleural effusions noted. Splenomegaly seen. Marked urinary
bladder wall thickening suggesting neurogenic bladder. Please see full dictation for additional detail. Film personally viewed.
12/21/24 CXR (1 view): Low lung volumes noted. Left basilar opacification which may be a combination of small effusion and adjacent atelectasis.
12/21/2024 Abdominal ultrasound: Limited exam secondary to patient's inability to remain motionless and inability to cooperate with positioning. Liver is normal in size. No focal hepatic lesion. Gallbladder appears contracted with multiple
shadowing calculi and lumen. Please see full dictation for additional detail.
[2025-01-04 11:36] LABS: Glucose - Point of Care 348 mg/dl (70-99)
[2025-01-04] MEDS: NOVOLOG FLEXPEN-LOW RESISTANCE 4 UNITS SC (13:43)
[2025-01-04 17:25] LABS: Glucose - Point of Care 218 mg/dl (70-99)
[2025-01-04] MEDS: NOVOLOG FLEXPEN-HIGH RESISTANCE 4 UNITS SC (18:30)
[2025-01-04 20:46] LABS: Glucose - Point of Care 193 mg/dl (70-99)
[2025-01-04] MEDS: LANTUS 0.1 UNITS SC (22:39)
[2025-01-05] VITALS (9 sets, daily range): BP systolic 91–185; BP diastolic 50–128; BMI 32.3
--- NOTE | 2025-01-05 03:08 | PTCARENOTE ---
Received pt at change of shift. Pt oriented to self only. Remains on 1L NC with pulse ox 95-100%. Lungs diminished throughout. NSR on the monitor; ST only when being turned as pt gets agitated when being cleaned. Pt appears pale. Hygiene
provided. Refusing morning labs. Will attempt to get labs again. Resting in bed with call north in reach.
[2025-01-05] MEDS: LOPRESSOR 5 MG IV ×2 (05:35→11:47)
[2025-01-05] MEDS: LOVENOX SC ×3 (05:35→17:51)
[2025-01-05] MEDS: ZESTRIL PO (08:00)
--- NOTE | 2025-01-05 08:44 | W.PN.ID1 ---
Date of Service
Date of Service: January 05, 2025
Today's Communication
Observe off antibiotics.
Assessment / Plan
Acute emphysematous cholecystitis with perforation
- s/p 14 day course abx.
Leukocytosis
- improved
Hyponatremia
- resolved
Hyperbilirubinemia
- resolved
Transaminitis
- resolved
Diabetes mellitus
Dementia
Hypertension
A-fib
CAD
Heart failure with reduced EF
PVD
BPH
Recommendations:
Patient and family previously declined cholecystectomy.
Blood cultures negative.
Patient completed 14-day course of Zosyn.
Continue to observe off antibiotics.
����������������������������������������������������������
Chief Complaint
-: Leukocytosis and Other (Perforated gallbladder.)
Subjective / Review of Systems
Review of Systems: No Fever, No Chills and No Cough
Vital Signs / Physical Exam
Vital Signs
Vital Signs
Temp Pulse Resp BP Pulse Ox
97.6 F 85 20 172/126 96
01/05/25 07:05 01/05/25 05:35 01/05/25 02:14 01/05/25 05:35 01/04/25 23:35
Physical Exam
Constitutional: No Acute Distress, Comfortable, Chronically Ill and Non-toxic
Head: Normocephalic
Cardiovascular: S1/S2; Negative S3/S4
Pulmonary: Non Labored
Gastrointestinal: Soft, Non Distended and Normal Bowel Sounds
Extremities: Edema (trace) and Venous Insufficiency (B/L LE's); Negative Cyanosis or Erythema
Skin: Warm and Dry; Negative Rash or Jaundice
Psychological: Calm
Objective Data
Lab Data
PT 16.1 Sec (11.4-14.6) H 12/21/24 08:58
INR 1.26 12/21/24 08:58
APTT Cancelled 12/26/24 11:26
Estimated Creat Clear 53 ml/min 01/03/25 20:30
Lactic Acid Cancelled 01/04/25 14:00
Total Bilirubin 0.6 mg/dl (0.2-1.3) 01/03/25 20:30
AST 17 U/L (17-59) 01/03/25 20:30
ALT 35 U/L (0-50) 01/03/25 20:30
Alkaline Phosphatase 107 U/L (38-126) 01/03/25 20:30
Most recent labs reviewed.
Micro Results:
01/04/25 02:32 Influenza Types A & B (CARRIE) - Final
Nasal Swab Negative for Influenza A & B, NAAT
Negative results must be combined with clinical observations
and patient history.
Nucleic Acid Amplification test (NAAT)performed on the
[employer] ID NOW platform.
12/21/24 10:29 Blood Culture - Final
Blood/Venous No Growth - Final Report
12/21/24 09:54 Blood Culture - Final
Blood/Venous No Growth - Final Report
12/21/24 23:00 MRSA Screen - Final
Nose No Methicillin Resistant Staphylococcus aureus isolated.
12/21/24 08:58 Influenza Types A & B (CARRIE) - Final
Nasal Swab Negative for Influenza A & B, NAAT
Negative results must be combined with clinical observations
and patient history.
Nucleic Acid Amplification test (NAAT)performed on the
[employer] ID NOW platform.
Imaging:
12/21/2024 CT abdomen/pelvis with IV contrast: Acute emphysematous cholecystitis with gallbladder rupture noted. Associated small foci of gas within the anterior abdomen. Trace bilateral pleural effusions noted. Splenomegaly seen. Marked urinary
bladder wall thickening suggesting neurogenic bladder. Please see full dictation for additional detail. Film personally viewed.
12/21/24 CXR (1 view): Low lung volumes noted. Left basilar opacification which may be a combination of small effusion and adjacent atelectasis.
12/21/2024 Abdominal ultrasound: Limited exam secondary to patient's inability to remain motionless and inability to cooperate with positioning. Liver is normal in size. No focal hepatic lesion. Gallbladder appears contracted with multiple
shadowing calculi and lumen. Please see full dictation for additional detail.
[2025-01-05] MEDS: NOVOLOG FLEXPEN-HIGH RESISTANCE SC ×2 (09:01→17:40)
[2025-01-05] MEDS: LANTUS SC (09:01)
[2025-01-05] MEDS: NOVOLOG FLEXPEN SC ×2 (09:01→17:40)
[2025-01-05] MEDS: LASIX 40 MG IV (09:21)
[2025-01-05] MEDS: DESENEX/MITRAZOL/ZEASORB 1 APPLIC TOPICAL (09:22)
[2025-01-05] MEDS: ANTIFUNGAL CLEAR 1 APPLIC TOPICAL (09:22)
--- NOTE | 2025-01-05 09:45 | PTCARENOTE ---
pt refusing accuchecks and insulin despite being 'bribed' as pt is very food motivated. Pt attempting to hit staff when completing care that he doesn't agree with.
--- NOTE | 2025-01-05 11:31 | CM ---
Addendum entered by Cyndy Sanchez 01/05/25 13:20:
1730 transport set - updated [facility] liaison
Addendum entered by Cyndy Sanchez 01/05/25 12:45:
Left message with daughter Sanjana
Addendum entered by Cyndy Sanchez 01/05/25 12:44:
IMM explained & in chart
tt from hospitalist discharge today.
Notified [facility] liaison
transportation forms on chart
Original Note:
patient seen at bedside
[facility] referral added in [facility]
spoke with [facility] liaison
PLAN: [facility]
for report [phone]
fax [phone]
[2025-01-05] MEDS: NOVOLOG FLEXPEN-HIGH RESISTANCE 7 UNITS SC (12:00)
[2025-01-05] MEDS: NOVOLOG FLEXPEN 3 UNITS SC (12:00)
[2025-01-05 12:13] LABS: Glucose - Point of Care 263 mg/dl (70-99)
--- NOTE | 2025-01-05 12:14 | W.PN.HOSP.TC ---
Today's Communication/Plan
-
dc
Assessment / Plan
Assessment / Plan
83 y/o male, Malawian speaking, with PMHx of HFmrEF, DM, neuropathy, HTN, HLD, BPH, anxiety, dementia, chronic ambulatory deficiency who was brought from [facility] with abnormal labs, found to have leukocytosis with transaminitis and elevated
direct bilirubinemia. Found to have emphysematous cholecystitis with gallbladder rupture. Due to high risk for open abdominal surgery - daughter declined surgical intervention. As per general surgery - biliary drain would be futile and patient with
dementia will not be compliant with the drain. Patient's daughter still wants to continue medical mgmt with antibiotics. Patient frequently declining medications, daughter aware but stated that in SNF they able to persuade him to take his pills. Due
to declining of Furosemide - developed transient hypoxia resolved rapidly with IV Lasix. Medcially stable for d/c to SNF, not in distress. Due to occadsional bursts of tachycardia- reasonable to increase Metoprolol. Remains high risk for
deterioration and readmission for recurrence of gall bladder infection or complications from gall bladder rupture. Daughter agreeable with current non-invasive approach. Completed 14days Zosyn as per ID. Medicvally stable for transportation to SNF
A/P:
#Gangrenous/emphysematous calculus cholecystitis with resultant contained gallbladder perforation
#Localized Peritonitis
#Severe Sepsis, POA based on lactic acidosis (hypoperfusion, hypotension), leukocytosis, tachycardia
ID consult: Zosyn, however unclear endpoint without surgical mgmt. Will probably target 10 to 14 days of Abx therapy
Leukocytosis resolved which is reassuring
Bcx NTD
GEnSx evaluated - family wants non-invasive mgmt
Patient's IV line infiltrated on 12/26/24 -- he initially resisted to get another IV line but after his daughter Sanjana came in, he agreed to another IV line which was successfully placed on 12/27/24
#Marked urinary bladder wall thickening suggesting neurogenic bladder or chronic outlet obstruction. As above, ovoid fluid-filled structure along the posterior wall of the urinary bladder measuring up to 4.6 cm in diameter,
question large diverticulum
watch for retention
Bladder Scans protocol
Follow-up with urology outpatient
#Goals of Care Discussion
Continue attempting to re-discuss that hospice appropriate: patient with significant dementia, comorbidities, SNF resident, high risk of readmission or due to current presentation, no clear endpoint for duration of Abx.
Palliative consult
POLST form DNR/DNI with limited intervention, IVF and Abx acceptable
#Hypernatremia
resolved
#DM type 2 with neuropathy
Insulin SS, Accuchecks, DM diet when able
Premeal Insulin
#acute hypoxic insufficiency 2/2 Acute on Chronic HFpEF
2/2 declining Lasix
IV lasix and wean off O2
#Essential HTN
#BPH
#Anxiety
#Dementia, Unspecified
#HLD
#Afib, paroxysmal
Patient is refusing Eliquis (and refusing all PO medications).
Lovenox therapeutic
Patient refusing PO Lopressor so scheduled intravenous Lopressor has been ordered
DVT Prophylaixs: Therapeutic Lovenox
DNR/DNI as per POLST form
I have spent at least 38min reviewing chart, test results, communication with family and providing direct patient care
Anticipated Discharge: Today
Subjective/Interval History
-
Date of Service: January 05, 2025
Objective Data
-
Vital Signs:
Vital Signs
Temp Pulse Resp BP Pulse Ox
98.2 F 105 20 136/105 94
01/05/25 11:07 01/05/25 11:47 01/05/25 02:14 01/05/25 11:47 01/05/25 09:58
I&O
01/04/25 01/05/25 01/06/25
06:59 06:59 06:59
Intake Total 480 / 480 960 / 960
Balance 480 / 480 960 / 960
Review of Systems
-
Unable to obtain full review of systems at this time due to: Dementia
History Source: Patient
All other systems: Reviewed and negative
Physical Exam
-
General: No Apparent Distress
HEENT: Normocephalic
GI: Soft, Nontender and Nondistended
Neuro: Awake and Alert
Psych: Apparent Dementia
--- NOTE | 2025-01-05 12:20 | W.DCSUMMARY ---
Discharge Summary
Discharge Data
Date of Admission: 12/21/24
Date of Discharge: 01/05/25
-
Pending Results: No
Hospital Course
83 y/o male, Venezuelan speaking, with PMHx of HFmrEF, DM, neuropathy, HTN, HLD, BPH, anxiety, dementia, chronic ambulatory deficiency who was brought from [facility] with abnormal labs, found to have leukocytosis with transaminitis and elevated
direct bilirubinemia. Found to have emphysematous cholecystitis with gallbladder rupture. Due to high risk for open abdominal surgery - daughter declined surgical intervention. As per general surgery - biliary drain would be futile and patient with
dementia will not be compliant with the drain. Patient's daughter still wants to continue medical mgmt with antibiotics. Patient frequently declining medications abd tests, daughter aware but stated that in SNF they able to persuade him to take his
pills. Due to declining of Furosemide - developed transient hypoxia resolved rapidly with IV Lasix. Medcially stable for d/c to SNF, not in distress. Due to occadsional bursts of tachycardia- reasonable to increase Metoprolol. Remains high risk for
deterioration and readmission for recurrence of gall bladder infection or complications from gall bladder rupture. Daughter agreeable with current non-invasive approach. Completed 14days Zosyn as per ID. Medicvally stable for transportation to SNF
I have spent at least 38min reviewing chart, test results, communication with family and providing direct patient care
Patient was managed for:
#Gangrenous/emphysematous calculus cholecystitis with resultant contained gallbladder perforation
#Localized Peritonitis
#Severe Sepsis, POA based on lactic acidosis (hypoperfusion, hypotension), leukocytosis, tachycardia
#Marked urinary bladder wall thickening suggesting neurogenic bladder or chronic outlet obstruction. As above, ovoid fluid-filled structure along the posterior wall of the urinary bladder measuring up to 4.6 cm in diameter
#Goals of Care Discussion
#Hypernatremia
#DM type 2 with neuropathy
#acute hypoxic insufficiency 2/2 Acute on Chronic HFpEF
#Essential HTN
#BPH
#Anxiety
#Dementia, Unspecified
#HLD
#Afib, paroxysmal
Discharge Plan
-
Patient Disposition: Jail/SNF
Discharge Diagnosis/Procedures: Cholecystitis
Diet: Diabetic, Carb Controlled
Referrals:
Elieser Rutherford MD [Active] - in four to six weeks (ovoid fluid-filled structure along the posterior wall of the urinary bladder measuring up to 4.6 cm in diameter)
Tl Purdy MD [Family Provider] -
Prescriptions:
Continued
metformin 1,000 MG tablet
1,000 mg PO QPM
docusate sodium 100 MG capsule
200 mg PO DAILY
acetaminophen 325 MG tablet
650 mg PO Q4HPRN PRN (Reason: mild pain/temp>100)
lovastatin 40 MG tablet
40 mg PO DAILY
tamsulosin 0.4 MG capsule
0.4 mg PO DAILY
gabapentin 300 MG capsule
300 mg PO DAILY
sertraline 50 MG tablet
100 mg PO DAILY
finasteride 5 MG tablet
5 mg PO DAILY
magnesium oxide 400 MG tablet
400 mg PO BID
dapagliflozin propanediol [Farxiga] 10 MG tablet
10 mg PO DAILY
bisacodyl [Dulcolax (bisacodyl)] 5 mg Tablet,Delayed Release (Dr/Ec)
5 mg PO DAILYPRN PRN (Reason: constipation)
glipizide 5 mg Tablet
15 mg PO DAILY
lisinopril 5 mg Tablet
5 mg PO DAILY Qty: 30 0RF
apixaban 5 mg Tablet
5 mg PO BID
ondansetron HCl 4 mg Tablet
4 mg PO Q6HPRN PRN (Reason: nausea)
nystatin-triamcinolone 100,000-0.1 unit/g-% Cream
1 applic TOPICAL BID
insulin lispro [Admelog SoloStar U-100 Insulin] 100 unit/mL Insulin Pen
3 sliding scale dose SC AC
Rx Instructions:
201-250=5unit, 251-300=7unit
insulin glargine [Basaglar KwikPen U-100 Insulin] 100 unit/mL (3 mL) Insulin Pen
7 unit SC DAILY
insulin glargine [Basaglar KwikPen U-100 Insulin] 100 unit/mL (3 mL) Insulin Pen
20 unit SC HS
white petrolatum [Hydrophor] 42 % ointment
1 applic topical DAILY
furosemide 40 mg tablet
40 mg PO DAILY
Changed
metoprolol tartrate 50 mg Tablet
100 mg PO BID Qty: 0 0RF
Discharge Orders:
Discharge Patient (As Directed); Ordered 01/05/25
Ordered By: Yan Gonzales
Discharge Date and Time
Print Language: BURKINAN
[2025-01-05] MEDS: LOPRESSOR IV (17:49)
--- NOTE | 2025-01-05 18:10 | PTCARENOTE ---
attempted to give report x2 to RN at [facility]. No answer, diagram clerk attempted multiple transfers to floor RN and school crossing guard supervisor with no answer. LP school crossing guard supervisor said she would give a call back.
== END 2025-01-05 18:33 | DRG 871 ==
LOC: IMU 12:54
PROVIDERS: Hospitalist; Nurse Practitioner Family; Physician Assistant; ADMITTING PHYSICIAN Internal Medicine; CONSULT PHYSICIAN Internal Medicine Hospice and Palliative Medicine; CONSULT PHYSICIAN Internal Medicine Infectious Disease; CONSULT PHYSICIAN Student in an Organized Health Care Education/Training Program; CONSULT PHYSICIAN Surgery; EMERGENCY PHYSICIAN Emergency Medicine; FAMILY PHYSICIAN Internal Medicine
DX: A41.9 Sepsis, unspecified organism (principal); I50.33 Acute on chronic diastolic (congestive) heart failure; K65.9 Peritonitis, unspecified; E11.52 Type 2 diabetes mellitus with diabetic peripheral angiopathy with gangrene; F01.54 Vascular dementia, unspecified severity, with anxiety; E87.0 Hyperosmolality and hypernatremia; K82.A2 Perforation of gallbladder in cholecystitis; K80.00 Calculus of gallbladder with acute cholecystitis without obstruction; J98.11 Atelectasis; E87.20 Acidosis, unspecified; I11.0 Hypertensive heart disease with heart failure; E11.40 Type 2 diabetes mellitus with diabetic neuropathy, unspecified; I25.10 Atherosclerotic heart disease of native coronary artery without angina pectoris; J44.9 Chronic obstructive pulmonary disease, unspecified; E78.00 Pure hypercholesterolemia, unspecified; N40.0 Benign prostatic hyperplasia without lower urinary tract symptoms; I48.0 Paroxysmal atrial fibrillation; E86.0 Dehydration; E80.6 Other disorders of bilirubin metabolism; R09.02 Hypoxemia; R06.89 Other abnormalities of breathing; K76.0 Fatty (change of) liver, not elsewhere classified; Z66 Do not resuscitate; I25.2 Old myocardial infarction; Z87.891 Personal history of nicotine dependence; Z79.84 Long term (current) use of oral hypoglycemic drugs; Z79.01 Long term (current) use of anticoagulants; Z79.4 Long term (current) use of insulin; Z87.440 Personal history of urinary (tract) infections; Z74.01 Bed confinement status; Z86.718 Personal history of other venous thrombosis and embolism; Z11.52 Encounter for screening for COVID-19; R65.20 Severe sepsis without septic shock
CPT/HCPCS: 71045; 74177; 76700; 80048; 80053; 80076; 80143; 82962; 83036; 83605; 83690; 83735; 83880; 84484; 85025; 85027; 85610; 86308; 86705; 86706; 86709; 86803; 87040; 87070; 87340; 87502; 87811; 92526; 92610; 93005; 96361; 96365; 99285; J2358; Q9967

== ENCOUNTER 2025-06-08 11:25 | Inpatient (IN) | payer MEDICARE, OTHER, SELFPAY ==
[2025-06-08] VITALS (15 sets, daily range): BP systolic 92–152; BP diastolic 38–82
[2025-06-08 06:54] LABS: Glucose - Point of Care 142 mg/dl (70-99)
--- NOTE | 2025-06-08 07:15 | ED.GENMED ---
History of Present Illness
<Jamilah Klein PA-C - Last Filed: 06/08/25 12:53>
General
Chief Complaint: Blood Sugar Problem
Source: patient and ambulance crew
Exam Limitations: dementia
Time Seen by Provider: 06/08/25 07:11
Nursing documentation reviewed up to this point in time: agreed with
History of Present Illness
History of Present Illness:
pt is a 84 y/o M from [facility]
h/o IDDM on metformin and glipizide and lispro prn
chf on lasix
af on eliquis
copd
primarily botswanan speaking
here with ams
was unresponsive this am and accucheck for NH was 57
for EMS pt's accuchck was 39
given d10 and now pt is apparently at his baseline, yelling out but understands liberian
Past History
<Jamilah Klein PA-C - Last Filed: 06/08/25 12:53>
Past History
ED Past Medical History: Arrthythmia (Atrial fib), CAD, HTN, Hypercholesterolemia, IDDM and Other (COVID positive 2 weeks ago, PVD,)
ED Past Surgical History: None
Social History
Tobacco: Former smoker
Alcohol: Occasional
Personal:
Living: correction ([facility])
Phy Exam
<Jamilah Klein PA-C - Last Filed: 06/08/25 12:53>
Physical Exam
Physical Exam:
GENERAL: Alert , agitated, dementia, unkept
EYE: pupils equal and reactive
NECK: Supple
ENT: o/p clr, mmm.
CARDIAC: Regular rate and rhythm .
LUNGS: Clear breath sounds bilaterally, no acute respiratory distress, no wheezes/rales/rhonchi
ABDOMEN: Soft, without focal tenderness, no r/g, no cvat, normal bowel sounds
NEUROLOGICAL: Alert and oriented x 1, no focal neuro deficits, moving extremities; demenita
SKIN: Warm and dry, redness, blisters lower extremities; pulses intact
MUSCULOSKELETAL:b/l LE edema, erythema, bullae RLE; venous stasis dermatitis
PSYCH: agitated at times;
Course
<Jamilah Klein PA-C - Last Filed: 06/08/25 12:53>
Orders/Labs/Results
Orders:
Orders
06/08/25 07:07
Comprehensive Metabolic Panel Urgent
06/08/25 07:09
Complete Blood Count/With Diff Urgent
06/08/25 07:18
Electrocardiogram (*1) Urgent
Reason for Study: Other
Other Reason for Exam: ams
EKG- Treatment ONCE
06/08/25 07:36
Portable Chest Xray [CR Chest Portable - 1 View] Urgent
Comment:
Reason For Exam: unresponsive.
Reason Study Needs to be Portable: Unable to Transport
06/08/25 07:54
Nichols Placement- Treatment ONCE
Reason for insertion: Acute Kidney Injury
0.9% Sodium Chloride 500 ml [Nss] 500 ml IV BOLUS
06/08/25 07:55
CT Abd/pel Without Iv Or Oral Urgent
Comment:
Reason For Exam: acute renal failure
06/08/25 08:21
Midazolam HCl [Versed] 2 mg .ROUTE .STK-MED ONE
06/08/25 08:25
Midazolam HCl [Versed] 2 mg IV NOW STA
06/08/25 08:36
Lactic Acid Urgent
Osmolality, Random Urine Urgent
Date Specimen was Collected: 06/08/25
Time Specimen was Collected: 08:35
Comment: ADD ON
Urinalysis Reflex To Culture Urgent
Date Specimen was Collected: 06/08/25
Time Specimen was Collected: 08:35
Urine Creatinine Urgent
Date Specimen was Collected: 06/08/25
Time Specimen was Collected: 08:35
Comment: ADD ON
Urine Microscopic Reflex Cult Urgent
Urine Sodium Urgent
Date Specimen was Collected: 06/08/25
Time Specimen was Collected: 08:35
Comment: ADD ON
Urine Culture Urgent
JB Source: U
Specimen Description:
Date Specimen was Collected: 06/08/25
Time Specimen was Collected: 08:35
06/08/25 09:15
Blood Culture Q30M
JB Source: Blood/Venous
Specimen Description:
Blood Culture Q30M
JB Source: Blood/Venous
Specimen Description:
06/08/25 09:31
CefTRIAXone [Rocephin] 2,000 mg IV NOW STA
06/08/25 11:00
Admit/Transfer Patient As Directed
Co-Sign Provider:
Level of Care: Inpatient admission
Assign to:: Medical/Surgical
Physician / Group: Christian
Diagnosis: TAO, retention, UTI
Reason for Hospitalization: TAO, retention, UTI
Expected length of stay greater than two midnights?: Yes
ELOS- Estimated Length of Stay in days: 4
I certify the patient meets the requirements for IP care: Yes
Dextrose 5%/0.9%Sodchl 1000 ml [D5/0.9% Sodium Chloride] 1,000 ml IV 75 mls/hr
06/08/25 11:01
PRN Pain Medication Management As Directed
May give lesser potent ordered pain med per pt: Yes
preference::
Protocol:: Medication orders for pain may be administered in a
manner that supports deferring to patient preference
when the pt is:
- Requesting an ordered lesser potent pain medication.
Least to most potent pain medications are defined
as: acetaminophen < NSAID < tramadol < opioids
(morphine, oxycodone, hydromorphone).
- Requesting a lesser dose of the same medication IF
ORDERED.
- Requesting a less intrusive route of administration
if both routes are prescribed by the provider (PO <
IV).
06/08/25 11:04
Code Status As Directed
Resuscitation Status: Do not resuscitate
Based on pt advanced directive or healthcare POA form: Yes
06/08/25 11:07
DNR Bracelet Application ONCE
06/08/25 11:08
Add On- LAB Urgent
Tests Added?: urine osmol, urine sr solutions consultant, urine na
06/09/25 10:00
CefTRIAXone [Rocephin] 1,000 mg IV Q24H
Abnormal Lab Results
06/08/25 06/08/25 06/08/25
06:53 07:07 07:09
RBC 3.72 L 10^6/uL
(4.70-6.10)
Hgb 10.8 L g/dL
(13.0-18.0)
Hct 33.5 L %
(39.0-52.0)
MCHC 32.2 L g/dL
(33.0-37.0)
RDW 17.1 H %
(11.5-14.5)
MPV 11.2 H fL
(7.4-10.4)
Abs Immat Gran (auto) 0.1 H 10^3/uL
(0-0.05)
Absolute Neuts (auto) 8.7 H 10^3/uL
(1.4-6.5)
Absolute Lymphs (auto) 0.5 L 10^3/uL
(1.2-3.4)
Neutrophils % 88.3 H %
(42.2-75.2)
Lymphocytes % 5.3 L %
(20.5-51.1)
Chloride 116 H mmol/L
(98-107)
Carbon Dioxide 14 L* mmol/L
(22-30)
BUN 121 H* mg/dl
(9-20)
Creatinine 5.2 H* mg/dL
(0.7-1.3)
Glucose 179 H mg/dl
(70-99)
Ur Occult Blood Reflex
Leukocyte Esterase Rfl
Urine RBC
Urine WBC (Reflex)
Urine Bacteria (Reflex)
Urine Yeast
Urine Osmolality
Urine Glucose
Urine Albumin (Reflex)
POC Glucose 142 H mg/dl
(70-99)
06/08/25
08:36
RBC
Hgb
Hct
MCHC
RDW
MPV
Abs Immat Gran (auto)
Absolute Neuts (auto)
Absolute Lymphs (auto)
Neutrophils %
Lymphocytes %
Chloride
Carbon Dioxide
BUN
Creatinine
Glucose
Ur Occult Blood Reflex 4+ A
(Negative)
Leukocyte Esterase Rfl 3+ A
(Negative)
Urine RBC 7-10 A /HPF
(0-2)
Urine WBC (Reflex) 70-80 A /HPF
(0-5)
Urine Bacteria (Reflex) Many A
(Negative)
Urine Yeast Few A
(Negative)
Urine Osmolality 273 L mOsm/kg
(300-900)
Urine Glucose 2+ A
(Negative)
Urine Albumin (Reflex) 2+ A
(Neg - Trace)
POC Glucose
06/08/25 07:09
06/08/25 07:07
Vital Signs
Initial and Last Documented VS:
Initial Vital Signs
Pulse Resp BP Pulse Ox
70 18 92/74 90
06/08/25 06:52 06/08/25 06:52 06/08/25 06:52 06/08/25 06:52
Last Documented Vital Signs
Temp Pulse Resp BP Pulse Ox
36.4 C 59 18 133/70 98
06/08/25 07:00 06/08/25 12:15 06/08/25 06:52 06/08/25 12:00 06/08/25 12:15
<Cricket Echavarria, DO - Last Filed: 06/08/25 08:22>
Orders/Labs/Results
Orders:
Orders
06/08/25 07:07
Comprehensive Metabolic Panel Urgent
06/08/25 07:09
Complete Blood Count/With Diff Urgent
06/08/25 07:18
Electrocardiogram (*1) Urgent
Reason for Study: Other
Other Reason for Exam: ams
EKG- Treatment ONCE
06/08/25 07:36
Portable Chest Xray [CR Chest Portable - 1 View] Urgent
Comment:
Reason For Exam: unresponsive.
Reason Study Needs to be Portable: Unable to Transport
06/08/25 07:54
Nichols Placement- Treatment ONCE
Reason for insertion: Acute Kidney Injury
0.9% Sodium Chloride 500 ml [Nss] 500 ml IV BOLUS
06/08/25 07:55
CT Abd/pel Without Iv Or Oral Urgent
Comment:
Reason For Exam: acute renal failure
06/08/25 08:21
Midazolam HCl [Versed] 2 mg .ROUTE .STK-MED ONE
06/08/25 08:25
Midazolam HCl [Versed] 2 mg IV NOW STA
06/08/25 08:36
Lactic Acid Urgent
Osmolality, Random Urine Urgent
Date Specimen was Collected: 06/08/25
Time Specimen was Collected: 08:35
Comment: ADD ON
Urinalysis Reflex To Culture Urgent
Date Specimen was Collected: 06/08/25
Time Specimen was Collected: 08:35
Urine Creatinine Urgent
Date Specimen was Collected: 06/08/25
Time Specimen was Collected: 08:35
Comment: ADD ON
Urine Microscopic Reflex Cult Urgent
Urine Sodium Urgent
Date Specimen was Collected: 06/08/25
Time Specimen was Collected: 08:35
Comment: ADD ON
Urine Culture Urgent
JB Source: U
Specimen Description:
Date Specimen was Collected: 06/08/25
Time Specimen was Collected: 08:35
06/08/25 09:15
Blood Culture Q30M
JB Source: Blood/Venous
Specimen Description:
Blood Culture Q30M
JB Source: Blood/Venous
Specimen Description:
06/08/25 09:31
CefTRIAXone [Rocephin] 2,000 mg IV NOW STA
06/08/25 11:00
Admit/Transfer Patient As Directed
Co-Sign Provider:
Level of Care: Inpatient admission
Assign to:: Medical/Surgical
Physician / Group: Christian
Diagnosis: TAO, retention, UTI
Reason for Hospitalization: TAO, retention, UTI
Expected length of stay greater than two midnights?: Yes
ELOS- Estimated Length of Stay in days: 4
I certify the patient meets the requirements for IP care: Yes
Dextrose 5%/0.9%Sodchl 1000 ml [D5/0.9% Sodium Chloride] 1,000 ml IV 75 mls/hr
06/08/25 11:01
PRN Pain Medication Management As Directed
May give lesser potent ordered pain med per pt: Yes
preference::
Protocol:: Medication orders for pain may be administered in a
manner that supports deferring to patient preference
when the pt is:
- Requesting an ordered lesser potent pain medication.
Least to most potent pain medications are defined
as: acetaminophen < NSAID < tramadol < opioids
(morphine, oxycodone, hydromorphone).
- Requesting a lesser dose of the same medication IF
ORDERED.
- Requesting a less intrusive route of administration
if both routes are prescribed by the provider (PO <
IV).
06/08/25 11:04
Code Status As Directed
Resuscitation Status: Do not resuscitate
Based on pt advanced directive or healthcare POA form: Yes
06/08/25 11:07
DNR Bracelet Application ONCE
06/08/25 11:08
Add On- LAB Urgent
Tests Added?: urine osmol, urine sr solutions consultant, urine na
06/09/25 10:00
CefTRIAXone [Rocephin] 1,000 mg IV Q24H
Abnormal Lab Results
06/08/25 06/08/25 06/08/25
06:53 07:07 07:09
RBC 3.72 L 10^6/uL
(4.70-6.10)
Hgb 10.8 L g/dL
(13.0-18.0)
Hct 33.5 L %
(39.0-52.0)
MCHC 32.2 L g/dL
(33.0-37.0)
RDW 17.1 H %
(11.5-14.5)
MPV 11.2 H fL
(7.4-10.4)
Abs Immat Gran (auto) 0.1 H 10^3/uL
(0-0.05)
Absolute Neuts (auto) 8.7 H 10^3/uL
(1.4-6.5)
Absolute Lymphs (auto) 0.5 L 10^3/uL
(1.2-3.4)
Neutrophils % 88.3 H %
(42.2-75.2)
Lymphocytes % 5.3 L %
(20.5-51.1)
Chloride 116 H mmol/L
(98-107)
Carbon Dioxide 14 L* mmol/L
(22-30)
BUN 121 H* mg/dl
(9-20)
Creatinine 5.2 H* mg/dL
(0.7-1.3)
Glucose 179 H mg/dl
(70-99)
Ur Occult Blood Reflex
Leukocyte Esterase Rfl
Urine RBC
Urine WBC (Reflex)
Urine Bacteria (Reflex)
Urine Yeast
Urine Osmolality
Urine Glucose
Urine Albumin (Reflex)
POC Glucose 142 H mg/dl
(70-99)
06/08/25
08:36
RBC
Hgb
Hct
MCHC
RDW
MPV
Abs Immat Gran (auto)
Absolute Neuts (auto)
Absolute Lymphs (auto)
Neutrophils %
Lymphocytes %
Chloride
Carbon Dioxide
BUN
Creatinine
Glucose
Ur Occult Blood Reflex 4+ A
(Negative)
Leukocyte Esterase Rfl 3+ A
(Negative)
Urine RBC 7-10 A /HPF
(0-2)
Urine WBC (Reflex) 70-80 A /HPF
(0-5)
Urine Bacteria (Reflex) Many A
(Negative)
Urine Yeast Few A
(Negative)
Urine Osmolality 273 L mOsm/kg
(300-900)
Urine Glucose 2+ A
(Negative)
Urine Albumin (Reflex) 2+ A
(Neg - Trace)
POC Glucose
06/08/25 07:09
06/08/25 07:07
Vital Signs
Initial and Last Documented VS:
Initial Vital Signs
Pulse Resp BP Pulse Ox
70 18 92/74 90
06/08/25 06:52 06/08/25 06:52 06/08/25 06:52 06/08/25 06:52
Last Documented Vital Signs
Temp Pulse Resp BP Pulse Ox
36.4 C 59 18 133/70 98
06/08/25 07:00 06/08/25 12:15 06/08/25 06:52 06/08/25 12:00 06/08/25 12:15
<Jamilah Klein PA-C - Last Filed: 06/08/25 12:53>
MDM/Problems Addressed
Differential Diagnosis Includes:
dehydration, hypoglycemia, sepsis,
MDM/Problems Addressed:
84-year-old male from [facility], significant dementia, South African-speaking making it challenging to get a history for the patient presents for altered mental status this morning by staff they are with a sugar 50, for EMS it was 39. He was given
dextrose and now his sugar is normal. He is more awake and alert. He appears dehydrated, and unkept, he is got blisters on his skin, foul-smelling urine in his diaper. Patient was slightly hypotensive and afebrile. He was found to be in acute
renal failure with a creatinine of 5 up from 1.2. He has no history of kidney disease. His BUN is quite high as well. He could be prerenal although we did place a Nichols catheter, he did have a significant amount of penile discharge within the
urethra but the urine looks less cloudy. It is foul-smelling. Pending CT abdomen pelvis for obstructive uropathy. Will give IV fluids. Anion gap of 13
CT shows b/l hydro, cystitis but no stone
nichols draining
abx ordered
<Jamilah Klein PA-C - Last Filed: 06/08/25 12:53>
*Pulse Oximetry
SaO2: 90
Oxygen Mode of Delivery: Room air
Patient hypoxic: yes (90 on ra; ho COPD but then up to 98% on RA)
<Cricket Echavarria DO - Last Filed: 06/08/25 08:22>
*Critical Care Note
Total Time (30-74mins, 75-104mins- exclusive of procedures): 30 minutes
ED Attending Note
<Jamilah Klein PA-C - Last Filed: 06/08/25 12:53>
-
Portions of this chart may have been created with voice recognition software.� Occasional wrong word or��sound alike� substitutions may have occurred due to the inherent limitations of voice recognition software.
<Cricket Echavarria DO - Last Filed: 06/08/25 08:22>
ED Attending Note
Patient seen and examined by attending physician: Yes
I performed the substantive portion of visit, reviewed & personally made and approve the management plan that is documented in note by myself or UTE.: Yes
ED Attending Note:
84-year-old male who presents after he was found to be hypoglycemic. Labs unfortunately reveal acute renal failure. Patient is certainly vigorous. No respiratory distress. Assessment plan: Labs reveal acute renal failure. Please Nichols catheter.
Check CT to rule out obstruction. Potassium okay. May benefit from gentle fluids. Admit
Discharge Plan
Departure
Patient Disposition: Admit
Date of Disposition: 06/08/25
Time of Disposition: 08:06
Admit to: IMU
Presentation/result/management discussed w/ accepting MD/DO: Hospitalist
Condition: Fair
Covid-19: Not Applicable
Discharge Problem:
Acute renal failure, Hypoglycemia, AMS (altered mental status)
Interventions
Interventions:
*Risk Screen - Suicide Last Done: 06/08/25 06:52
*General Assessment Last Done: 06/08/25 06:52
*Neglect/Abuse Screening Last Done: 06/08/25 06:52
*ED- Fall Risk Assessment Last Done: 06/08/25 12:40
*ED COVID-19 Vaccine History Last Done: 06/08/25 06:52
*ED Influenza Vaccine History Last Done: 06/08/25 06:52
*Nursing Disposition Last Done: 06/08/25 12:40
ED- Neurological Assessment Last Done: 06/08/25 07:18
Discharge Date and Time
Discharge Date/Time: 06/08/25 12:41
[2025-06-08 07:34] LABS: Hematocrit 33.5 % (39.0-52.0); Hemoglobin 10.8 g/dL (13.0-18.0); Mean Corp Hgb Conc. 32.2 g/dL (33.0-37.0); Mean Corpuscular Volume 90.1 fL (80.0-94.0); Nucleated Red Blood Cells % 0 % (-); Platelet Count 136 10^3/uL (130-400); Red Cell Dist. Width 17.1 % (11.5-14.5)
[2025-06-08 07:50] LABS: ALT (SGPT) 23 U/L (0-50); AST (SGOT) 25 U/L (17-59); Albumin 3.5 g/dl (3.5-5.0); Alkaline Phosphatase 63 U/L (38-126); Calcium 8.5 mg/dl (8.4-10.2); Carbon Dioxide 14 mmol/L (22-30); Chloride 116 mmol/L (98-107); Glucose 179 mg/dl (70-99); Potassium 4.7 mmol/L (3.5-5.1); Sodium 143 mmol/L (135-145); Total Protein 6.7 g/dl (6.3-8.2); eGFR 10.14
[2025-06-08 07:57] LABS: Blood Urea Nitrogen 121 mg/dl (9-20)
[2025-06-08] MEDS: VERSED 2 MG IV (08:26)
[2025-06-08] MEDS: NSS 500 IV (08:35)
[2025-06-08 09:26] LABS: Urine Character Slightly Cloudy (Clear)
[2025-06-08 09:42] LABS: Urine Squamous Cell 0-2 /LPF (Few)
[2025-06-08] MEDS: ROCEPHIN 2000 MG IV (09:42)
[2025-06-08 09:43] LABS: Urine White Cell 70-80 /HPF (0-5)
[2025-06-08] MEDS: D5/0.9% SODIUM CHLORIDE 1000 IV (11:07)
--- NOTE | 2025-06-08 11:09 | HPS.HSE ---
Family Physician
-
Family Physician: Tl Purdy MD
Chief Complaint
-
lethargy
History of Present Illness
83 y/o male, Mexican speaking, with PMHx of HFmrEF, DM, neuropathy, HTN, HLD, BPH, anxiety, dementia, chronic ambulatory deficiency who was brought from [facility] with lethargy and hypoglycemia. Patient is on Metformin, Farxiga, Basalgar 7units
AM, 20units HS and and GLipizide. In ED found TAO with urinary retention so Schwartz was placed. UA concering for infection. Patient is a poor historian due to significant dementia, whenseen in ED his mentation is on the baseline if compared with January
2024.
Medical History
Past Medical History
Past Medical History: Reports Other
Additional Past Medical History:
See above
Past Surgical History: Reports None
Social History
Unable to obtain full social history at this time due to: Dementia
Tobacco: Non-smoker
Alcohol: None
Drug: None
Family History
Family History: Not pertinent
Allergies / Home Medications
Allergies reflects when Allergies were last updated in [employer].
Home Medications with original date entered in [employer]
Allergy/Medication List:
Allergies
Allergy/AdvReac Type Severity Reaction Status Date / Time
No Known Allergies Allergy Verified 12/21/24 08:50
Home Medications
docusate sodium 100 mg capsule 200 mg PO DAILY Constipation 06/27/20
metformin 1,000 mg tablet 1,000 mg PO QPM Diabetes 06/27/20
acetaminophen 325 mg tablet 650 mg PO Q4HPRN PRN mild pain/temp>100 09/08/20
finasteride 5 mg tablet 5 mg PO DAILY Urinary issue 09/08/20
gabapentin 300 mg capsule 300 mg PO DAILY Pain 09/08/20
lovastatin 40 mg tablet 40 mg PO DAILY High cholesterol 09/08/20
magnesium oxide 400 mg PO BID Supplement 09/08/20
sertraline 50 mg tablet 100 mg PO DAILY Mental Health/Anxiety 09/08/20
tamsulosin 0.4 mg capsule 0.4 mg PO DAILY Urinary issue 09/08/20
dapagliflozin propanediol 10 mg tablet (Farxiga) 10 mg PO DAILY Diabetes/Heart Failure 02/08/22
bisacodyl 5 mg tablet,delayed release (Dulcolax (bisacodyl)) 5 mg PO DAILYPRN PRN constipation 07/27/22
glipizide 5 mg tablet 15 mg PO DAILY Diabetes 07/27/22
lisinopril 5 mg tablet 5 mg PO DAILY #30 tabs 08/05/22
apixaban 5 mg tablet 5 mg PO BID Blood clot prevention/tx 08/26/22
insulin glargine 100 unit/mL (3 mL) subcutaneous pen (Basaglar KwikPen U-100 Insulin) 7 unit SC DAILY Diabetes 12/21/24
insulin glargine 100 unit/mL (3 mL) subcutaneous pen (Basaglar KwikPen U-100 Insulin) 20 unit SC HS Diabetes 12/21/24
insulin lispro 100 unit/mL subcutaneous pen (Admelog SoloStar U-100 Insulin lispro) 3 sliding scale dose SC AC Diabetes 12/21/24
nystatin-triamcinolone 100,000 unit/g-0.1 % topical cream 1 applic topical BID groin,penis 12/21/24
ondansetron HCl 4 mg tablet 4 mg PO Q6HPRN PRN nausea 12/21/24
white petrolatum 42 % topical ointment (Hydrophor) 1 applic topical DAILY dry skin 12/21/24
furosemide 40 mg tablet 40 mg PO DAILY Fluid Retention/Swelling 12/23/24
metoprolol tartrate 50 mg tablet 100 mg (2 x 50 mg) PO BID Blood Pressure #0 tabs 01/05/25
Review of Systems
-
Unable to obtain full review of systems at this time due to: Dementia
Physical Exam
Vital Signs
Vital Signs
Temp Pulse Resp BP Pulse Ox
97.5 F 56 18 111/56 98
06/08/25 07:00 06/08/25 10:15 06/08/25 06:52 06/08/25 10:00 06/08/25 10:15
Physical Exam
General: No Apparent Distress, Comfortable and Conversant
HEENT: NormoCephalic, Anicteric and Moist mucous membranes
Respiratory: Clear; No Wheezes or Crackles
Cardiac: S1/S2 and Regular Rhythm
GI: Soft, Non Tender and Non Distended
Genito-urinary: Turbid Urine and Schwartz
Musculoskeletal: No Clubbing, No Cyanosis, Edema, Left Lower Extremity and Edema, Right Lower Extremity
Neuro: Awake, Alert and Oriented (to himself only); No Slurred Speech or Facial Droop
Psych: Calm and Apparent Dementia
Laboratory Results
-
06/08/25 07:09
06/08/25 07:07
Laboratory Results
Lactic Acid 1.9 mmol/L (0.7-2.0) 06/08/25 08:36
Total Bilirubin 0.4 mg/dl (0.2-1.3) 06/08/25 07:07
AST 25 U/L (17-59) 06/08/25 07:07
ALT 23 U/L (0-50) 06/08/25 07:07
Alkaline Phosphatase 63 U/L (38-126) 06/08/25 07:07
Data Reviewed
-
CT Scan: Report Reviewed by me
Lab Data: Labs Reviewed by me
Impression/Plan
-
A/P:
#TAO 2/2 urinary retention and HAGMA
#Marked urinary bladder wall thickening suggesting neurogenic bladder or chronic outlet obstruction.
#Acute metabolic encephalopathy, most liekly 2/2 TAO and UTI
question large diverticulum
Schwartz
IVF
follow Cr, consider nephro if not improving as curtrently clear reason for TAO would be retention
Urine studies
Was previously recommended outpatient Urologist
Ceftriaxone pending Ucx
CT abd repeated: cholelithiasis with signs of chronic outlet obstruction with mild bilateral hydroureteronephrosis
hold diuretics and Lisinopril
#B/L LE cellulitis
abx as above
#Chronic anemia
follow CBC
anemia w/u
check FOBT
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
Insulin SS only, Accuchecks q2h for 24h, DM diet when able
Stop oral hypoglycemics
Hold Basal/bolus
#acute hypoxic insufficiency 2/2 Acute on Chronic HFpEF
2/2 declining Lasix
IV lasix and wean off O2
#Constipation
Laxatives
#Essential HTN
#BPH
#Anxiety
#Dementia, Unspecified
#HLD
#Afib, paroxysmal
Patient with known HX to refuse drugs
Eliquis 2.5mg as per Age and Cr adjustment
cotn rest of meds
#Goals of Care Discussion
POLST form DNR/DNI with limited intervention, IVF and Abx acceptable
DVT Prophylaixs: eliquis
DNR/DNI as per POLST form
Barber joshkadie spent at least 78min reviewing chart, test resutls, and providing direct patient care. Could not reach daughter over the phone
--- NOTE | 2025-06-08 11:26 | EDCM ---
CM reviewed chart. Pt resides at [facility]. Requires total care at baseline, is Filipino speaking.
PCP: Tl Purdy
Pharmacy: [facility]
Anticipate return to [facility], CM will continue to follow for any discharge planning needs.
[2025-06-08 13:32] LABS: Glucose - Point of Care 36 mg/dl (70-99)
[2025-06-08 13:58] LABS: Glucose - Point of Care 55 mg/dl (70-99)
[2025-06-08] MEDS: MIRALAX 17 GRAMS PO (14:06)
[2025-06-08] MEDS: SENOKOT-S 1 TABLET PO (14:07)
[2025-06-08] MEDS: NOVOLOG FLEXPEN-MODERATE RESISTANCE SC (14:07)
[2025-06-08 14:22] LABS: Glucose - Point of Care 64 mg/dl (70-99)
[2025-06-08] MEDS: DEXTROSE 50% SYRINGE 12.5 GRAMS IV (14:38)
[2025-06-08] MEDS: FLUSH (NSS) 2 FLUSH IV (14:41)
[2025-06-08 15:11] LABS: Glucose - Point of Care 134 mg/dl (70-99)
[2025-06-08] MEDS: D10W 1000 IV (15:12)
--- NOTE | 2025-06-08 15:21 | PTCARENOTE ---
BS 36 at 1328, juice given, recheck after 15 min was 55, juice given, recheck after 15 min was 64, notified , gave dextrose 50% 12.5 g, recheck after 15min was 134. Will recheck in 1 hr
[2025-06-08 16:21] LABS: Glucose - Point of Care 152 mg/dl (70-99)
[2025-06-08] MEDS: NOVOLOG FLEXPEN-MODERATE RESISTANCE 1 UNITS SC (17:22)
[2025-06-08 20:46] LABS: Glucose - Point of Care 163 mg/dl (70-99)
[2025-06-08] MEDS: ELIQUIS 2.5 MG PO (22:22)
[2025-06-08] MEDS: SENOKOT-S PO ×2 (22:22→22:57)
[2025-06-08] MEDS: LOPRESSOR 100 MG PO (22:25)
[2025-06-08 22:56] LABS: Glucose - Point of Care 180 mg/dl (70-99)
[2025-06-09] MEDS: D5W 1000 IV (01:03)
[2025-06-09 01:13] LABS: Glucose - Point of Care 140 mg/dl (70-99)
[2025-06-09 03:40] LABS: Glucose - Point of Care 160 mg/dl (70-99)
[2025-06-09 03:51] LABS: Hematocrit 32.2 % (39.0-52.0); Hemoglobin 10.3 g/dL (13.0-18.0); Mean Corp Hgb Conc. 32.0 g/dL (33.0-37.0); Mean Corpuscular Volume 91.0 fL (80.0-94.0); Nucleated Red Blood Cells % 0 % (-); Platelet Count 131 10^3/uL (130-400); Red Cell Dist. Width 17.4 % (11.5-14.5)
--- NOTE | 2025-06-09 03:59 | W.PN.UPDATE ---
Addendum entered and electronically signed by LENORA Liu 06/09/25 05:59:
Mcdonald draining well pink to red color urine now
patient without any symptoms
156/64 HR 59
will check H&H AM
consult Urologist for hematuria
on Eliquis 2.5 BID for Afib
Hx Marked urinary bladder wall thickening suggesting neurogenic bladder or chronic outlet obstruction
Original Note:
Update Note
Progress Note Update
RN states she is noticing pink color urine. Patient seen, without any complaints.
noted pink urine, Mcdonald was placed in the ER for urinary retention,
stable VS, hgb 10.3
[2025-06-09 05:16] VITALS: BP 156/64
[2025-06-09 05:58] LABS: Glucose - Point of Care 103 mg/dl (70-99)
[2025-06-09 06:45] LABS: Hematocrit 33.7 % (39.0-52.0); Hemoglobin 11.4 g/dL (13.0-18.0)
[2025-06-09 07:30] VITALS: BP 132/98
[2025-06-09 07:41] LABS: Blood Urea Nitrogen 104 mg/dl (9-20); Calcium 8.6 mg/dl (8.4-10.2); Carbon Dioxide 13 mmol/L (22-30); Chloride 121 mmol/L (98-107); Glucose 109 mg/dl (70-99); Magnesium 2.3 mg/dl (1.6-2.3); Potassium 4.5 mmol/L (3.5-5.1); Sodium 147 mmol/L (135-145); eGFR 12.06
--- NOTE | 2025-06-09 08:01 | PTCARENOTE ---
provider notified of critical labs, confirmed receipt, no new orders at this time
[2025-06-09 09:14] LABS: Glucose - Point of Care 88 mg/dl (70-99)
[2025-06-09] MEDS: NEURONTIN 300 MG PO (09:37)
[2025-06-09] MEDS: NOVOLOG FLEXPEN-MODERATE RESISTANCE SC (09:37)
[2025-06-09] MEDS: PROSCAR 5 MG PO (09:38)
[2025-06-09] MEDS: SENOKOT-S 1 TABLET PO (09:38)
[2025-06-09] MEDS: LOPRESSOR 100 MG PO ×2 (09:38→20:34)
[2025-06-09] MEDS: FLOMAX 0.4 MG PO (09:38)
[2025-06-09] MEDS: ZOLOFT 100 MG PO (09:38)
[2025-06-09] MEDS: LIPITOR 10 MG PO (09:38)
[2025-06-09] MEDS: MIRALAX 17 GRAMS PO (09:39)
--- NOTE | 2025-06-09 10:34 | W.PN.HOSP.TC ---
Addendum entered and electronically signed by Yan Gonzales MD 06/09/25 15:50:
Discussed with daughter over the phone in details
Addendum entered and electronically signed by Yan Gonzales MD 06/09/25 11:22:
Attempted to call daughter - reached VM only
Original Note:
Today's Communication/Plan
-
Cr and BUN improving - switch to bicarb to improve acidosis - with positive dynamic on Schwartz and IVF, will defer nephro consult unless worsening
Restart eliquis as no overt gross bleeding seen
Assessment / Plan
Assessment / Plan
83 y/o male, Yemeni speaking, with PMHx of HFmrEF, DM, neuropathy, HTN, HLD, BPH, anxiety, dementia, chronic ambulatory deficiency, Hx of gangrenous cholecystitis in January 2025 who was brought from [facility] with lethargy and hypoglycemia.
Patient is on Metformin, Farxiga, Basalgar 7units AM, 20units HS and and GLipizide. In ED found TAO with urinary retention so Schwartz was placed. UA concering for infection. Patient is a poor historian due to significant dementia, when seen in ED his
mentation is on the baseline if compared with January 2025. Had episode of hematuria after attempting to pull the Schwartz, however that is resolving.
A/P:
#TAO 2/2 urinary retention and HAGMA
#Marked urinary bladder wall thickening suggesting neurogenic bladder or chronic outlet obstruction.
#Acute metabolic encephalopathy, most liekly 2/2 TAO and UTI
question large diverticulum
Schwartz
IVF - switched to Bicarb on 06/09/25
follow Cr, consider nephro if not improving as curtrently clear reason for TAO would be retention
Urine studies
Was previously recommended outpatient Urologist
Ceftriaxone pending Ucx
CT abd repeated: cholelithiasis with signs of chronic outlet obstruction with mild bilateral hydroureteronephrosis
hold diuretics and Lisinopril
#Hematuria
traumatic 2/2 pulling the Schwartz
minimal pink urine
Urology consult placed by overnight team
With minimal hematuria - cont Eliquis
#B/L LE cellulitis
Improving on Ceftriaxone
abx as above
#Chronic anemia
follow CBC
anemia w/u
check FOBT
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
Insulin SS only, Accuchecks q2h for 24h, DM diet when able
Stop oral hypoglycemics
Hold Basal/bolus
#acute hypoxic insufficiency 2/2 Acute on Chronic HFpEF
2/2 declining Lasix
IV lasix and wean off O2
#Constipation
Laxatives
#Essential HTN
#BPH
#Anxiety
#Dementia, Unspecified
#HLD
#Afib, paroxysmal
Patient with known HX to refuse drugs
Eliquis 2.5mg as per Age and Cr adjustment
cotn rest of meds
#Goals of Care Discussion
POLST form DNR/DNI with limited intervention, IVF and Abx acceptable
DVT Prophylaixs: eliquis
DNR/DNI as per POLST form
I have spent at least 58min reviewing chart, test resutls, and providing direct patient care.
Anticipated Discharge: > 48 hours
Subjective/Interval History
-
Date of Service: June 09, 2025
Objective Data
-
Labs:
Laboratory Results
06/09/25 06/09/25 06/09/25
03:40 06:29 12:15
WBC 6.7
Hgb 10.3 L 11.4 L Cancelled
Hct 32.2 L 33.7 L Cancelled
Plt Count 131
Sodium Cancelled 147 H
Potassium Cancelled 4.5
Chloride Cancelled 121 H
Carbon Dioxide Cancelled 13 L*
BUN Cancelled 104 H*
Creatinine Cancelled 4.5 H*
Glucose Cancelled 109 H
Calcium Cancelled 8.6
06/09/25 06/09/25
18:00 18:15
WBC
Hgb Cancelled
Hct Cancelled
Plt Count
Sodium Pending
Potassium Pending
Chloride Pending
Carbon Dioxide Pending
BUN Pending
Creatinine Pending
Glucose Pending
Calcium Pending
Vital Signs:
Vital Signs
Temp Pulse Resp BP Pulse Ox
97.8 F 63 18 132/98 93
06/09/25 07:30 06/09/25 09:38 06/09/25 07:30 06/09/25 09:38 06/09/25 07:30
I&O
06/08/25 06/09/25 06/10/25
06:59 06:59 06:59
Output Total 4600 / 4600
Balance -4600 / -4600
Review of Systems
-
Unable to obtain full review of systems at this time due to: Dementia
Physical Exam
-
General: No Apparent Distress
Respiratory: Clear to Auscultation
GI: Soft, Nontender and Nondistended
Genito-urinary: Schwartz and Other (pink urine)
Neuro: Awake and Alert
Psych: Calm and Apparent Dementia
[2025-06-09 10:56] LABS: Glucose - Point of Care 191 mg/dl (70-99)
[2025-06-09] MEDS: ROCEPHIN 1000 MG IV (11:05)
[2025-06-09] MEDS: STERILE WATER FOR INJECTION 10 ML IV (11:07)
[2025-06-09 12:09] LABS: Glycohemoglobin (HgbA1c) 6.6 % (4.0-5.6)
--- NOTE | 2025-06-09 12:30 | CONS.URO ---
Consultation
-
Date/Time Consultation Performed: 06/09/25 1220
Performing Provider: Peffer
Reason for Consultation: Hematuria
Medical History
History of Present Illness
83 y/o male PMHx of HFmrEF, DM, neuropathy, HTN, HLD, BPH, anxiety, dementia, chronic ambulatory deficiency
Presented from [place] with lethargy and hypoglycemia.
In ED found to have TAO with urinary retention so Nichols was placed.
UA concering for infection.
Patient unable to provide any history due to dementia
Patient noted to have some hematuria after nichols placement so urology consulted
Social History
Unable to obtain full social history at this time due to: Dementia
Family History
Family History: Reviewed & Not Pertinent
Allergies/Home Medications
Allergies
Allergy/AdvReac Type Severity Reaction Status Date / Time
No Known Allergies Allergy Verified 12/21/24 08:50
Home Medications
�Medication �Instructions �Recorded �Confirmed �Type
docusate sodium 100 mg capsule 200 mg PO DAILY Constipation 06/27/20 12/21/24 History
metformin 1,000 mg tablet 1,000 mg PO QPM Diabetes 06/27/20 12/21/24 History
acetaminophen 325 mg tablet 650 mg PO Q4HPRN PRN mild 09/08/20 12/21/24 History
pain/temp>100
finasteride 5 mg tablet 5 mg PO DAILY Urinary issue 09/08/20 12/21/24 History
gabapentin 300 mg capsule 300 mg PO DAILY Pain 09/08/20 12/21/24 History
lovastatin 40 mg tablet 40 mg PO DAILY High cholesterol 09/08/20 12/21/24 History
magnesium oxide 400 mg PO BID Supplement 09/08/20 12/21/24 History
sertraline 50 mg tablet 100 mg PO DAILY Mental 09/08/20 12/21/24 History
Health/Anxiety
tamsulosin 0.4 mg capsule 0.4 mg PO DAILY Urinary issue 09/08/20 12/21/24 History
dapagliflozin propanediol 10 mg 10 mg PO DAILY Diabetes/Heart 02/08/22 12/21/24 History
tablet (Farxiga) Failure
bisacodyl 5 mg tablet,delayed 5 mg PO DAILYPRN PRN constipation 07/27/22 12/21/24 History
release (Dulcolax (bisacodyl))
glipizide 5 mg tablet 15 mg PO DAILY Diabetes 07/27/22 12/21/24 History
apixaban 5 mg tablet 5 mg PO BID Blood clot 08/26/22 12/21/24 History
prevention/tx
insulin glargine 100 unit/mL (3 7 unit SC DAILY Diabetes 12/21/24 12/21/24 History
mL) subcutaneous pen (Basaglar
KwikPen U-100 Insulin)
insulin glargine 100 unit/mL (3 20 unit SC HS Diabetes 12/21/24 12/21/24 History
mL) subcutaneous pen (Basaglar
KwikPen U-100 Insulin)
insulin lispro 100 unit/mL 3 sliding scale dose SC AC Diabetes 12/21/24 12/21/24 History
subcutaneous pen (Admelog SoloStar
U-100 Insulin lispro)
nystatin-triamcinolone 100,000 1 applic topical BID groin,penis 12/21/24 12/21/24 History
unit/g-0.1 % topical cream
ondansetron HCl 4 mg tablet 4 mg PO Q6HPRN PRN nausea 12/21/24 12/21/24 History
white petrolatum 42 % topical 1 applic topical DAILY dry skin 12/21/24 12/21/24 History
ointment (Hydrophor)
furosemide 40 mg tablet 40 mg PO DAILY Fluid 12/23/24 12/21/24 History
Retention/Swelling
metoprolol tartrate 50 mg tablet 100 mg (2 x 50 mg) PO BID Blood 01/05/25 12/21/24 Rx
Pressure #0 tabs
lisinopril 5 mg tablet 5 mg PO DAILY Blood Clot 06/09/25 History
Prevention/Tx
Physical Exam
Vital Signs
Vital Signs
Temp Pulse Resp BP Pulse Ox
97.8 F 63 18 132/98 93
06/09/25 07:30 06/09/25 09:38 06/09/25 07:30 06/09/25 09:38 06/09/25 07:30
Lab / Testing Results
Laboratory Results
06/09/25 18:15
Physical Exam
General: Well Developed, Well Nourished and No Apparent Distress
Respiratory: Non Labored Respirations
GI: Soft and Non Tender
Genito-urinary: Clear Urine and Nichols Catheter
Psych: Confused, Anxious and Apparent Dementia
Assessment / Plan
-
84M with acute metabolic encephalopathy, TAO, urinary retention with associated suspected UTI
Some self limited hematuria after nichols placement
- Hematuria resolved, okay to continue anticoagulation
- Some degree of chronic urinary retention is likely with thickened bladder wall and large diverticulum, which can contribute to infections and acute admissions like this
- Recommend discharge with nichlos catheter in place if patient can tolerate it - as of today he is pulling at the stat lock and would consider him high risk for catheter trauma if mental status doesn't improve
- UTI management per hospitalist
--- NOTE | 2025-06-09 12:48 | PTCARENOTE ---
Updated daughter Sanjana regarding pt current status per updated notes
[2025-06-09] MEDS: NOVOLOG FLEXPEN-MODERATE RESISTANCE 1 UNITS SC (13:04)
[2025-06-09 13:17] LABS: Glucose - Point of Care 273 mg/dl (70-99)
[2025-06-09 15:41] LABS: Glucose - Point of Care 231 mg/dl (70-99)
[2025-06-09 16:00] VITALS: BP 124/60
--- NOTE | 2025-06-09 17:00 | W.PN.UPDATE ---
Update Note
Progress Note Update
Pulled out nichols - restrains ordered. Questionable if patient will be able to comply with Nichols upon d/c - will have to be discussed as GOC with daughter
Hold Eliquis
Folay to be placed back
[2025-06-09 17:56] LABS: Glucose - Point of Care 222 mg/dl (70-99)
[2025-06-09] MEDS: SODIUM BICARBONATE 1150 MEQ IV (18:01)
[2025-06-09] MEDS: NOVOLOG FLEXPEN-MODERATE RESISTANCE 3 UNITS SC (18:05)
[2025-06-09] MEDS: SENOKOT-S PO (20:27)
[2025-06-09 22:07] LABS: Glucose - Point of Care 281 mg/dl (70-99)
[2025-06-09 23:27] LABS: Blood Urea Nitrogen 89 mg/dl (9-20); Calcium 8.2 mg/dl (8.4-10.2); Carbon Dioxide 15 mmol/L (22-30); Chloride 116 mmol/L (98-107); Glucose 262 mg/dl (70-99); Potassium 3.8 mmol/L (3.5-5.1); Sodium 143 mmol/L (135-145); eGFR 14.77
[2025-06-09 23:47] VITALS: BP 118/72
--- NOTE | 2025-06-10 00:15 | PTCARENOTE ---
Pt confused, unable to reorient. PT pulling on nichols and ripped out IV site. PT became aggressive towards staff when being repositioned. Jenni COOLEY notified, BL MITT restraints ordered. bed alarm in place. new iv site palced, IVF infusing as
ordered.
[2025-06-10 05:50] LABS: Hematocrit 35.2 % (39.0-52.0); Hemoglobin 11.2 g/dL (13.0-18.0); Mean Corp Hgb Conc. 31.8 g/dL (33.0-37.0); Mean Corpuscular Volume 91.2 fL (80.0-94.0); Nucleated Red Blood Cells % 0 % (-); Platelet Count 132 10^3/uL (130-400); Red Cell Dist. Width 17.2 % (11.5-14.5)
[2025-06-10] MEDS: SODIUM BICARBONATE 1150 MEQ IV ×2 (05:55→16:22)
[2025-06-10 06:13] LABS: Blood Urea Nitrogen 84 mg/dl (9-20); Calcium 8.6 mg/dl (8.4-10.2); Carbon Dioxide 20 mmol/L (22-30); Chloride 116 mmol/L (98-107); Glucose 255 mg/dl (70-99); Potassium 3.6 mmol/L (3.5-5.1); Sodium 149 mmol/L (135-145); eGFR 14.32
[2025-06-10 07:30] VITALS: BP 145/83
[2025-06-10 07:42] LABS: Glucose - Point of Care 235 mg/dl (70-99)
[2025-06-10 07:46] VITALS: BP 96/63
--- NOTE | 2025-06-10 07:53 | W.PN.URO.CBU ---
Today's Communication / Plan
-
Maintain nichols x3 days
Can remove prior to discharge for trial of void
Few additional options for improving emptying without a nichols unless family wants surgery
Assessment / Plan
-
84M with acute metabolic encephalopathy, TAO, urinary retention with associated suspected UTI
Some self limited hematuria after nichols placement
Traumatic nichols catheter removal by patient 06/09 and replaced, patient with restraints
- Hematuria resolved, okay to continue anticoagulation
- Some degree of chronic urinary retention is likely with thickened bladder wall and large diverticulum, which can contribute to infections and acute admissions like this
- Ideally recommend discharge with nichols catheter in place if patient can tolerate, however he forcibly removed the catheter requiring restraints and unlikely to tolerate
- UTI management per hospitalist
- Maintain nichols for now after traumatic removed to tamponade bleeding
- Can remove catheter for trial of void before discharge to assess emptying
Diagnosis
-
Date of Service: June 10, 2025
-
Patient Diagnosis:
urinary retention
UTI
Post Op Day:
Subjective
-
Traumatic nichols removed yesterday
Requiring restraints
Objective
-
Vital Signs
Temp Pulse Resp BP Pulse Ox
97.7 F 70 16 96/63 88
06/10/25 07:46 06/10/25 07:46 06/10/25 07:46 06/10/25 07:46 06/10/25 07:46
Intake and Output
06/09/25 06/10/25 06/11/25
06:59 06:59 06:59
Intake Total 1680 / 1680
Output Total 4600 / 4600 4900 / 4900
Balance -4600 / -4600 -3220 / -3220
Intake:
Oral fluids 480 / 480
IV fluids (Total) 1200 / 1200
Output:
Urine, Nichols 4600 / 4600 4900 / 4900
Laboratory Results
06/10/25 05:23
Physical Exam
-
General - well developed, well nourished, no acute distress
Confused/dementia
Nichols in place clear urine
[2025-06-10 07:54] VITALS: BP 145/83
[2025-06-10] MEDS: NOVOLOG FLEXPEN-MODERATE RESISTANCE 3 UNITS SC ×3 (08:08→18:03)
[2025-06-10] MEDS: MIRALAX 17 GRAMS PO (08:09)
[2025-06-10] MEDS: SENOKOT-S 1 TABLET PO ×2 (08:10→19:28)
[2025-06-10] MEDS: NEURONTIN 300 MG PO (08:10)
[2025-06-10] MEDS: LIPITOR 10 MG PO (08:10)
[2025-06-10] MEDS: PROSCAR 5 MG PO (08:12)
[2025-06-10] MEDS: FLOMAX 0.4 MG PO (08:12)
[2025-06-10] MEDS: ZOLOFT 100 MG PO (08:28)
[2025-06-10] MEDS: LOPRESSOR 100 MG PO ×2 (08:28→21:10)
[2025-06-10] MEDS: STERILE WATER FOR INJECTION 20 ML IV (09:45)
[2025-06-10] MEDS: ROCEPHIN 2000 MG IV (09:45)
--- NOTE | 2025-06-10 09:51 | WOUNDNOTE ---
RLE (ANTERIOR);R GREAT TOE
--- NOTE | 2025-06-10 09:51 | WOUNDNOTE ---
R GREAT TOE TIP
--- NOTE | 2025-06-10 09:52 | WOUNDNOTE ---
PERINEUM (L UPPER POSTERIOR THIGH)
--- NOTE | 2025-06-10 09:55 | WOUNDNOTE ---
[employer] [employer] RN note: Patient admitted with TAO, urinary retention, LE cellulitis, LE edema. Patient resides at [facility].
See H&P for complete history.
PMH: DM, HF, neuropathy, BPH, anxiety, dementia, ambulation dysfunction, constipation, HTN, obesity.
Wound Location and type/assessment: Patient admitted with: L medial ankle scabbed abrasion. R nguyen healing broken blister. R great toe tip blood blister, no erythema. Trace LE edema. +Pedal pulses easily heard via portable Doppler. L upper
posterior thigh raised red abraded skin suspect r/t chronic pressure. +MASD groin, penis, scrotal skin. L arm bruise. R upper arm fading rash. Heels blanchable red.
Appetite: good.
Pressure redistribution devices in place: [employer] Accumax. Patient cannot turn self in bed. RN Kendrick to coordinate switching bed to an air bed.
Plan: Betadine applied to R great toe blister. Patient incontinent of small soft brown stool. Guerita care given. Patient turned with help from RN student Merly and RN Student instructor Lorenzo. Heels off bed with air chair cushion. TruVue lite boots
and foam turning wedge left in room.
Will confirm orders with Dr. Ferguson and updated RN.
Care plan to be updated and will follow as needed.
Note to case management of equipment requested for discharge: Air mattress at SNF if not already in place.
Recommend follow up with material control supervisor.
--- NOTE | 2025-06-10 12:00 | WOUNDNOTE ---
Spoke with ARMANDO Marks who stated she switched patient's bed to an air bed.
[2025-06-10 12:06] LABS: Glucose - Point of Care 239 mg/dl (70-99)
--- NOTE | 2025-06-10 14:31 | W.PN.HOSP.TC ---
Today's Communication/Plan
-
Cont Nichols
Change ceftriaxone to 2gm
repeat blood cultures
f/u bmp for bicarb solution
Assessment / Plan
Assessment / Plan
83 y/o male, Jordanian speaking, with PMHx of HFmrEF, DM, neuropathy, HTN, HLD, BPH, anxiety, dementia, chronic ambulatory deficiency, Hx of gangrenous cholecystitis in January 2025 who was brought from [facility] with lethargy and hypoglycemia.
Patient is on Metformin, Farxiga, Basalgar 7units AM, 20units HS and and GLipizide. In ED found TAO with urinary retention so Nichols was placed. UA concering for infection. Patient is a poor historian due to significant dementia, when seen in ED his
mentation is on the baseline if compared with January 2025. Had episode of hematuria after attempting to pull the Nichols, however that is resolving.
A/P:
#TAO 2/2 urinary retention and HAGMA
#Marked urinary bladder wall thickening suggesting neurogenic bladder or chronic outlet obstruction.
#Acute metabolic encephalopathy, most liekly 2/2 TAO and UTI along with dementia
question large diverticulum
Patient pulled on Nichols catheter causing hematuria and eventually needed tamponade
� Plan for maintaining Nichols at least 3 days, although ideally should be discharged on this but patient is high risk for pulling forcibly
� Trial of void prior to discharge
� Urology consulted
-IVF - switched to Bicarb on 06/09/25
-CT abd repeated: cholelithiasis with signs of chronic outlet obstruction with mild bilateral hydroureteronephrosis
-hold diuretics and Lisinopril
UA negative
#Hematuria
traumatic 2/2 pulling the Nichols
Improved
Urology consult placed by overnight team
can resume Eliquis
#Bacteremia
-F/u cultures
-repeat cultures
-Switch Ceftriaxone to 2gm daily
#B/L LE cellulitis
Improving on Ceftriaxone
abx as above
#Chronic anemia
follow CBC
-no acute blood loss anemia
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
Insulin SS only, Accuchecks q2h for 24h, DM diet when able
Stop oral hypoglycemics
Hold Basal/bolus
#acute hypoxic insufficiency 2/2 Acute on Chronic HFpEF
2/2 declining Lasix
IV lasix and wean off O2
-weaned off o2
#Constipation
Laxatives
#Essential HTN
#BPH
#Anxiety
#Dementia, Unspecified
#HLD
#Afib, paroxysmal
Patient with known HX to refuse drugs
Eliquis 2.5mg as per Age and Cr adjustment
cont rest of meds
#Goals of Care Discussion
POLST form DNR/DNI with limited intervention, IVF and Abx acceptable
DVT Prophylaixs: eliquis
DNR/DNI as per POLST form
Total time spent on today's encounter was 51 minutes which included time spent in counseling the patient/family regarding diagnosis and treatment plan as listed above, goals of care, and symptom management. Case was discussed with nursing staff,
specialists, and care coordinators/case management. All labs and imaging personally reviewed by me. Remainder the time spent in detailed review of previous records, lab data, imaging, and other medical provider documentation.
Anticipated Discharge: > 48 hours
Subjective/Interval History
-
Date of Service: June 10, [address], hematuria resolved
Objective Data
-
Labs:
Laboratory Results
06/10/25
05:23
WBC 7.5
Hgb 11.2 L
Hct 35.2 L
Plt Count 132
Sodium 149 H
Potassium 3.6
Chloride 116 H
Carbon Dioxide 20 L
BUN 84 H
Creatinine 3.9 H
Glucose 255 H
Calcium 8.6
Vital Signs:
Vital Signs
Temp Pulse Resp BP Pulse Ox
97.7 F 70 16 96/63 88
06/10/25 07:46 06/10/25 07:46 06/10/25 07:46 06/10/25 07:46 06/10/25 07:46
I&O
06/09/25 06/10/25 06/11/25
06:59 06:59 06:59
Intake Total 1680 / 1680
Output Total 4600 / 4600 4900 / 4900
Balance -4600 / -4600 -3220 / -3220
Review of Systems
-
Unable to obtain full review of systems at this time due to: Dementia
Data Reviewed
-
Total Time Spent with Patient (in minutes): 40
Diagnostic Radiology: Report Reviewed by me
CT Scan: Report Reviewed by me
Labs: Labs Reviewed by me
[2025-06-10 15:26] VITALS: BP 103/46
--- NOTE | 2025-06-10 16:46 | CM ---
Pt remains hospitalized at this time. 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
Plan: CM will continue to follow to coordinate pt's return to [facility] when medically ready.
[facility] Report:
[facility] Fax:
[2025-06-10 16:48] LABS: Glucose - Point of Care 239 mg/dl (70-99)
[2025-06-10 17:03] LABS: Blood Urea Nitrogen 82 mg/dl (9-20); Calcium 8.5 mg/dl (8.4-10.2); Carbon Dioxide 26 mmol/L (22-30); Chloride 113 mmol/L (98-107); Glucose 240 mg/dl (70-99); Potassium 3.8 mmol/L (3.5-5.1); Sodium 147 mmol/L (135-145); eGFR 17.49
[2025-06-10 17:08] LABS: Blood Urea Nitrogen 81 mg/dl (9-20); Calcium 8.6 mg/dl (8.4-10.2); Carbon Dioxide 26 mmol/L (22-30); Chloride 113 mmol/L (98-107); Glucose 239 mg/dl (70-99); Potassium 3.8 mmol/L (3.5-5.1); Sodium 146 mmol/L (135-145); eGFR 17.49
[2025-06-10] MEDS: DESENEX/MITRAZOL/ZEASORB 1 APPLIC TOPICAL (19:26)
[2025-06-10] MEDS: ELIQUIS 2.5 MG PO (19:28)
[2025-06-10] MEDS: SODIUM BICARBONATE IV (19:40)
[2025-06-10 21:45] LABS: Glucose - Point of Care 246 mg/dl (70-99)
[2025-06-10 23:26] VITALS: BP 113/44
[2025-06-11 07:30] VITALS: BP 145/83
[2025-06-11 07:43] LABS: Glucose - Point of Care 222 mg/dl (70-99)
[2025-06-11] MEDS: FLOMAX 0.4 MG PO (07:53)
[2025-06-11] MEDS: LIPITOR PO ×2 (07:53→08:18)
[2025-06-11] MEDS: LOPRESSOR 100 MG PO ×2 (07:53→20:10)
[2025-06-11] MEDS: ZOLOFT 100 MG PO (07:53)
[2025-06-11] MEDS: PROSCAR 5 MG PO (07:53)
[2025-06-11] MEDS: SENOKOT-S 1 TABLET PO ×2 (07:54→20:06)
[2025-06-11] MEDS: NEURONTIN PO ×2 (07:54→08:20)
[2025-06-11] MEDS: ELIQUIS 2.5 MG PO ×2 (07:54→20:06)
[2025-06-11] MEDS: HYDROPHOR 1 APPLIC TOPICAL (07:54)
[2025-06-11] MEDS: DESENEX/MITRAZOL/ZEASORB 1 APPLIC TOPICAL ×2 (07:55→20:06)
[2025-06-11] MEDS: MIRALAX 17 GRAMS PO (07:56)
[2025-06-11] MEDS: NOVOLOG FLEXPEN-MODERATE RESISTANCE 3 UNITS SC (08:11)
[2025-06-11] MEDS: STERILE WATER FOR INJECTION 20 ML IV (09:43)
[2025-06-11] MEDS: ROCEPHIN 2000 MG IV (09:44)
[2025-06-11] MEDS: SODIUM BICARBONATE IV (10:19)
[2025-06-11 11:47] LABS: Glucose - Point of Care 198 mg/dl (70-99)
[2025-06-11] MEDS: NOVOLOG FLEXPEN-MODERATE RESISTANCE 1 UNITS SC ×2 (11:57→18:09)
[2025-06-11 12:29] LABS: Hematocrit 30.7 % (39.0-52.0); Hemoglobin 10.1 g/dL (13.0-18.0); Mean Corp Hgb Conc. 32.9 g/dL (33.0-37.0); Mean Corpuscular Volume 89.0 fL (80.0-94.0); Platelet Count 142 10^3/uL (130-400); Red Cell Dist. Width 16.9 % (11.5-14.5)
[2025-06-11 12:57] LABS: Blood Urea Nitrogen 68 mg/dl (9-20); Calcium 8.3 mg/dl (8.4-10.2); Carbon Dioxide 31 mmol/L (22-30); Chloride 109 mmol/L (98-107); Glucose 210 mg/dl (70-99); Potassium 3.3 mmol/L (3.5-5.1); Sodium 147 mmol/L (135-145); eGFR 19.61
--- NOTE | 2025-06-11 13:33 | W.PN.HOSP.TC ---
Today's Communication/Plan
-
F/u blood cultures
cont abx
top bicarb
monitor renal function/bicarb
Assessment / Plan
Assessment / Plan
83 y/o male, Central African speaking, with PMHx of HFmrEF, DM, neuropathy, HTN, HLD, BPH, anxiety, dementia, chronic ambulatory deficiency, Hx of gangrenous cholecystitis in January 2025 who was brought from [facility] with lethargy and hypoglycemia.
Patient is on Metformin, Farxiga, Basalgar 7units AM, 20units HS and and GLipizide. In ED found TAO with urinary retention so Mcdonald was placed. UA concering for infection. Patient is a poor historian due to significant dementia, when seen in ED his
mentation is on the baseline if compared with January 2025. Had episode of hematuria after attempting to pull the Mcdonald, however that is resolving.
A/P:
#TAO 2/2 urinary retention and HAGMA
#Marked urinary bladder wall thickening suggesting neurogenic bladder or chronic outlet obstruction.
#Acute metabolic encephalopathy, most liekly 2/2 TAO and UTI along with dementia
question large diverticulum
Patient pulled on Mcdonald catheter causing hematuria and eventually needed tamponade
� Plan for maintaining Mcdonald at least 3 days, although ideally should be discharged on this but patient is high risk for pulling forcibly
� Trial of void prior to discharge
� Urology consulted
-IVF - switched to Bicarb on 06/09/25 - Can dc
-monitor bmp
-CT abd repeated: cholelithiasis with signs of chronic outlet obstruction with mild bilateral hydroureteronephrosis
-hold diuretics and Lisinopril
UA negative
#Hypernatremia
-monitor off bicarb solution
#Hematuria
traumatic 2/2 pulling the Mcdonald
Improved
Urology consul
can resume Eliquis
#Bacteremia
-F/u cultures
-repeat cultures
-Switch Ceftriaxone to 2gm daily
#B/L LE cellulitis
Improving on Ceftriaxone
abx as above
#Chronic anemia
follow CBC
-no acute blood loss anemia
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
Insulin SS only, Accuchecks q2h for 24h, DM diet when able
Stop oral hypoglycemics
Hold Basal/bolus
#acute hypoxic insufficiency 2/2 Acute on Chronic HFpEF
2/2 declining Lasix
IV lasix and wean off O2
-weaned off o2
#Constipation
Laxatives
#Essential HTN
#BPH
#Anxiety
#Dementia, Unspecified
#HLD
#Afib, paroxysmal
Patient with known HX to refuse drugs
Eliquis 2.5mg as per Age and Cr adjustment
cont rest of meds
#Goals of Care Discussion
POLST form DNR/DNI with limited intervention, IVF and Abx acceptable
DVT Prophylaixs: eliquis
DNR/DNI as per POLST form
Total time spent on today's encounter was 53 minutes which included time spent in counseling the patient/family regarding diagnosis and treatment plan as listed above, goals of care, and symptom management. Case was discussed with nursing staff,
specialists, and care coordinators/case management. All labs and imaging personally reviewed by me. Remainder the time spent in detailed review of previous records, lab data, imaging, and other medical provider documentation.
Anticipated Discharge: > 48 hours
Subjective/Interval History
-
Date of Service: June 11, 2025
No acute events overnight
Objective Data
-
Labs:
Laboratory Results
06/11/25
12:08
WBC 7.3
Hgb 10.1 L
Hct 30.7 L
Plt Count 142
Sodium 147 H
Potassium 3.3 L
Chloride 109 H
Carbon Dioxide 31 H
BUN 68 H
Creatinine 3.0 H
Glucose 210 H
Calcium 8.3 L
Vital Signs:
Vital Signs
Temp Pulse Resp BP Pulse Ox
98.1 F 74 16 145/83 93
06/11/25 07:30 06/11/25 07:30 06/11/25 07:30 06/11/25 07:30 06/11/25 07:30
I&O
06/10/25 06/11/25 06/12/25
06:59 06:59 06:59
Intake Total 1680 / 1680 2820 / 2820
Output Total 4900 / 4900 3250 / 3250
Balance -3220 / -3220 -430 / -430
Review of Systems
-
Unable to obtain full review of systems at this time due to: Dementia
Data Reviewed
-
Total Time Spent with Patient (in minutes): 40
Diagnostic Radiology: Report Reviewed by me
CT Scan: Report Reviewed by me
Labs: Labs Reviewed by me
[2025-06-11 15:31] VITALS: BP 113/53
[2025-06-11 16:53] LABS: Glucose - Point of Care 194 mg/dl (70-99)
[2025-06-11 21:18] LABS: Glucose - Point of Care 203 mg/dl (70-99)
[2025-06-11 23:00] VITALS: BP 89/53
[2025-06-12 01:02] VITALS: BP 115/68
--- NOTE | 2025-06-12 06:21 | PTCARENOTE ---
Perineal care refused.
[2025-06-12 07:30] VITALS: BP 131/62
[2025-06-12] MEDS: MIRALAX 17 GRAMS PO (08:59)
[2025-06-12] MEDS: LOPRESSOR PO ×2 (08:59→09:15)
[2025-06-12] MEDS: PROSCAR PO ×2 (09:00→09:15)
[2025-06-12] MEDS: FLOMAX PO ×2 (09:00→09:15)
[2025-06-12] MEDS: ELIQUIS PO ×3 (09:00→22:41)
[2025-06-12] MEDS: NEURONTIN PO ×2 (09:00→09:15)
[2025-06-12] MEDS: SENOKOT-S PO ×3 (09:00→22:41)
[2025-06-12] MEDS: ZOLOFT PO ×2 (09:00→09:15)
[2025-06-12] MEDS: LIPITOR PO ×2 (09:00→09:15)
[2025-06-12 09:02] LABS: Glucose - Point of Care 176 mg/dl (70-99)
[2025-06-12] MEDS: NOVOLOG FLEXPEN-MODERATE RESISTANCE 1 UNITS SC (09:03)
[2025-06-12] MEDS: HYDROPHOR 1 APPLIC TOPICAL (09:04)
[2025-06-12] MEDS: DESENEX/MITRAZOL/ZEASORB 1 APPLIC TOPICAL ×2 (09:04→22:28)
--- NOTE | 2025-06-12 09:21 | PTCARENOTE ---
pt refused all morning oral meds, except Miralax in his water. He also refused morning labs, provider notified of both issues
[2025-06-12] MEDS: ROCEPHIN 2000 MG IV (10:00)
[2025-06-12] MEDS: STERILE WATER FOR INJECTION 20 ML IV (10:01)
--- NOTE | 2025-06-12 10:39 | PN.CDI ---
CDI
- -
CDI:
Physician Documentation Request
Admit Date: 06/08/25 11:25
Dear Doctor Marty,
Please review the following and provide your response in the progress notes.
Clinical Indicators:
- Patient admit with TAO
- FENa 5.5%
- 06/11 PN 'TAO 2/2 urinary retention'
- 'Marked urinary bladder wall thickening suggesting neurogenic bladder or chronic outlet obstruction'
- Creatinine levels > 72 hours
Laboratory Tests
06/08/25 06/09/25 06/09/25
07:07 06:29 22:52
Creatinine 5.2 H* 4.5 H* 3.8 H
06/10/25 06/10/25 06/11/25
05:23 16:32 12:08
Creatinine 3.9 H 3.3 H 3.0 H
Please clarify which of the following accurately represents the patient's renal status:
Acute renal failure with ATN
TAO only
Other (please specify)
Use of terms such as suspected, likely, concern for, or probable (associated with a specific diagnosis that is being evaluated, monitored, or treated as if it exists) are acceptable and can be coded in the inpatient setting, when documented at the
time of discharge.
Thank you,
Maci Moeller RN
CDI Specialist
Please use your independent medical judgment in providing your response.
*Source: Kidney Disease: Improving Global Outcomes (KDIGO) 2012
[2025-06-12 11:53] LABS: Hematocrit 37.9 % (39.0-52.0); Hemoglobin 12.1 g/dL (13.0-18.0); Mean Corp Hgb Conc. 31.9 g/dL (33.0-37.0); Mean Corpuscular Volume 91.3 fL (80.0-94.0); Platelet Count 161 10^3/uL (130-400); Red Cell Dist. Width 16.7 % (11.5-14.5)
[2025-06-12 11:54] LABS: Glucose - Point of Care 202 mg/dl (70-99)
[2025-06-12 12:30] LABS: Blood Urea Nitrogen 56 mg/dl (9-20); Calcium 9.1 mg/dl (8.4-10.2); Carbon Dioxide 24 mmol/L (22-30); Chloride 113 mmol/L (98-107); Glucose 205 mg/dl (70-99); Potassium 3.7 mmol/L (3.5-5.1); Sodium 155 mmol/L (135-145); eGFR 20.43
--- NOTE | 2025-06-12 13:21 | W.PN.HOSP.TC ---
Today's Communication/Plan
-
Cont abx, narrow depending on ID recs
Start D5W and monitor bmp closely
Assessment / Plan
Assessment / Plan
83 y/o male, Singaporean speaking, with PMHx of HFmrEF, DM, neuropathy, HTN, HLD, BPH, anxiety, dementia, chronic ambulatory deficiency, Hx of gangrenous cholecystitis in January 2025 who was brought from [facility] with lethargy and hypoglycemia.
Patient is on Metformin, Farxiga, Basalgar 7units AM, 20units HS and and GLipizide. In ED found TAO with urinary retention so Mcdonald was placed. UA concering for infection. Patient is a poor historian due to significant dementia, when seen in ED his
mentation is on the baseline if compared with January 2025. Had episode of hematuria after attempting to pull the Mcdonald, however that is resolving.
A/P:
#TAO 2/2 urinary retention and HAGMA
#Marked urinary bladder wall thickening suggesting neurogenic bladder or chronic outlet obstruction.
#Acute metabolic encephalopathy, most liekly 2/2 TAO and UTI along with dementia
question large diverticulum
Patient pulled on Mcdonald catheter causing hematuria and eventually needed tamponade
� Plan for maintaining Mcdonald at least 3 days, although ideally should be discharged on this but patient is high risk for pulling forcibly
� Trial of void prior to discharge
� Urology consulted
-IVF - switched to Bicarb on 06/09/25 - Can dc
-monitor bmp
-CT abd repeated: cholelithiasis with signs of chronic outlet obstruction with mild bilateral hydroureteronephrosis
-hold diuretics and Lisinopril
UA negative
#Hypernatremia
-monitor off bicarb solution
#Hematuria
traumatic 2/2 pulling the Mcdonald
Improved
Urology consul
can resume Eliquis
#Hypernatremia
-5.1L FWR
-Initiate D5W 100cc/hr
-F/u BMP today
-Nephro consulted if no change in Na
#Bacteremia
-F/u cultures - prelim anaerobic gram neg bacilli
-repeat cultures
-Switch Ceftriaxone to 2gm daily
-ID consulted
#B/L LE cellulitis
Improving on Ceftriaxone
abx as above
#Chronic anemia
follow CBC
-no acute blood loss anemia
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
Insulin SS only, Accuchecks q2h for 24h, DM diet when able
Stop oral hypoglycemics
Hold Basal/bolus
#acute hypoxic insufficiency 2/2 Acute on Chronic HFpEF
2/2 declining Lasix
IV lasix and wean off O2
-weaned off o2
#Constipation
Laxatives
#Essential HTN
#BPH
#Anxiety
#Dementia, Unspecified
#HLD
#Afib, paroxysmal
Patient with known HX to refuse drugs
Eliquis 2.5mg as per Age and Cr adjustment
cont rest of meds
#Goals of Care Discussion
POLST form DNR/DNI with limited intervention, IVF and Abx acceptable
DVT Prophylaixs: eliquis
DNR/DNI as per POLST form
Total time spent on today's encounter was 55 minutes which included time spent in counseling the patient/family regarding diagnosis and treatment plan as listed above, goals of care, and symptom management. Case was discussed with nursing staff,
specialists, and care coordinators/case management. All labs and imaging personally reviewed by me. Remainder the time spent in detailed review of previous records, lab data, imaging, and other medical provider documentation.
Anticipated Discharge: 24 - 48 hours
Subjective/Interval History
-
Date of Service: June 12, 2025
no acute events
Objective Data
-
Labs:
Laboratory Results
06/12/25 06/12/25
11:34 13:05
WBC 7.6
Hgb 12.1 L
Hct 37.9 L
Plt Count 161
Sodium 155 H D Pending
Potassium 3.7 Pending
Chloride 113 H Pending
Carbon Dioxide 24 Pending
BUN 56 H Pending
Creatinine 2.9 H Pending
Glucose 205 H Pending
Calcium 9.1 Pending
Vital Signs:
Vital Signs
Temp Pulse Resp BP Pulse Ox
98.1 F 100 18 131/62 94
06/12/25 07:30 06/12/25 07:30 06/12/25 07:30 06/12/25 07:30 06/12/25 07:30
I&O
06/11/25 06/12/25 06/13/25
06:59 06:59 06:59
Intake Total 2820 / 2820 1680 / 1680
Output Total 3250 / 3250 2925 / 2925
Balance -430 / -430 -1245 / -1245
Review of Systems
-
History Source: Patient
All other systems: Not reviewed unless documented
Physical Exam
-
General: No Apparent Distress
Respiratory: Clear to Auscultation
GI: Soft, Nontender and Nondistended
Genito-urinary: Mcdonald and Other (pink urine)
Neuro: Awake and Alert
Psych: Calm and Apparent Dementia
Data Reviewed
-
Total Time Spent with Patient (in minutes): 40
Diagnostic Radiology: Report Reviewed by me
CT Scan: Report Reviewed by me
Labs: Labs Reviewed by me
--- NOTE | 2025-06-12 13:34 | CON.ID ---
Consultation
-
Date/Time Consultation Requested: 06/12/25 13:34
Date/Time Consultation Performed: 06/12/25 13:35
Requesting Provider: Dr Ferguson
Performing Provider: Dr Gandhi
Reason for Consultation: anaerobic gram negative bacteremia
Chief Complaint / Past History
Chief Complaint
lethargy
History of Present Illness
Mr Viveros is an 84 year old male, iraqi speaking who presented here for altered mental status he has a history notable for dementia, ambulatory dysfunction brought here for lethargy and hypoglycemia. In the ER he was found to have urinary
outlet obstruction and so he had a nichols placed. He has had blood cultures become positive for anaerobic gram negative rods and ID is consulted for assistance with management.
Since arrival here his wbc has been 9.9, hbg 10.8, plt 136, L shift was noted, cr on arrivl 3.8 now 2.8, na 152, ua 70-80 wbc/hpf, A CT a/p without IV contrast was done and did not show any lesions, there was cholelithiasis and mild constipation, a
CXR showed left basilar pneumonia without effusion,10/ blood cultures x2 at the same time both grew anaerobic gram negative rods. A repeat blood cultures is in progress. ID is consulted for assistance with management.
Past History
Additional Past Medical History:
HFmrEF, DM, neuropathy, HTN, HLD, BPH, anxiety, dementia, chronic ambulatory deficiency
Past Surgical History: None
Allergy History:
No Known Allergies Allergy (Verified 12/21/24 08:50)
Medications Reviewed: Yes
Social History
Alcohol: None
Drug: None
Personal: Single
Family History
Family History: Not Pertinent
Review of Systems
Review of Systems
General: Negative Fever or Chills
All systems: All other systems were reviewed and were negative
Vital Signs
Temp Pulse Resp BP Pulse Ox
98.1 F 100 18 131/62 94
10/08/25 07:30 06/12/25 07:30 06/12/25 07:30 06/12/25 07:30 06/12/25 07:30
Physical Exam
Physical Exam
Constitutional: No Acute Distress
Head: Other (edentulous)
Cardiovascular: Regular Rate and S1/S2; Negative Murmur or Rub
Pulmonary: Clear and Symmetric; Negative Wheezes, Rales or Rhonchi
Gastrointestinal: Soft, Non Tender, Non Distended and Normal Bowel Sounds
Skin: Warm and Dry; Negative Rash or Jaundice
Wound: Other (superficial abrasion without evidence of necrotic tissue of the lower extremity)
patient screams whereever I touch him, does endorse some pain over the sinuses
Lab / Diagnostic Study Results
06/12/25 11:34
Abs Immat Gran (auto) 0.0 10^3/uL (0-0.05) 06/10/25 05:23
Absolute Neuts (auto) 5.6 10^3/uL (1.4-6.5) 06/10/25 05:23
Absolute Lymphs (auto) 1.1 10^3/uL (1.2-3.4) L 06/10/25 05:23
Absolute Monos (auto) 0.6 10^3/uL (0.1-0.6) 06/10/25 05:23
Absolute Basos (auto) 0.0 10^3/uL (0-0.2) 06/10/25 05:23
Immature Gran % 0.4 % (0-0.5) 06/10/25 05:23
Neutrophils % 74.9 % (42.2-75.2) 06/10/25 05:23
Lymphocytes % 15.2 % (20.5-51.1) L 06/10/25 05:23
Monocytes % 7.5 % (1.7-9.3) 06/10/25 05:23
Eosinophils % 1.5 % (0-6) 06/10/25 05:23
Basophils % 0.5 % (0-2) 06/10/25 05:23
Lactic Acid 1.9 mmol/L (0.7-2.0) 06/08/25 08:36
Ur Squamous Epith Cells 0-2 /LPF (Few) 06/08/25 08:36
Microbiology Results
Micro:
06/08/25 09:15 Blood Culture - Preliminary
Blood/Venous Anaerobic gram neg bacilli
Gram Stain - Preliminary
06/08/25 09:15 Blood Culture - Preliminary
Blood/Venous Anaerobic gram neg bacilli
Gram Stain - Preliminary
06/10/25 16:32 Blood Culture - Preliminary
Blood/Venous No Growth in 24 hours- Final report to follow
06/09/25 15:49 MRSA Screen - Final
Nose No Methicillin Resistant Staphylococcus aureus isolated.
06/08/25 08:36 Urine Culture - Final
Urine NO GROWTH
Assessment / Plan
Anaerobic Bacteremia
CKD
- CT a/p without culprit lesions, note cholelithiasis without evidence of cholecystitis
- CT chest - assess for pleuropulmonary infection
- CT head and neck
- patient is edentulous, screams whenever I touch him anywhere - question sinus tenderness - chronic sinusitis?
- continue ceftriaxone, add metronidazole - IV as he is unwilling to take oral pills
- question translocation as a possible cause
[2025-06-12 13:43] LABS: Blood Urea Nitrogen 56 mg/dl (9-20); Calcium 9.0 mg/dl (8.4-10.2); Carbon Dioxide 23 mmol/L (22-30); Chloride 114 mmol/L (98-107); Glucose 208 mg/dl (70-99); Potassium 3.5 mmol/L (3.5-5.1); Sodium 152 mmol/L (135-145); eGFR 21.31
[2025-06-12] MEDS: D5W 1000 IV (13:56)
[2025-06-12] MEDS: NOVOLOG FLEXPEN-MODERATE RESISTANCE SC (14:01)
[2025-06-12] MEDS: MYCOSTATIN ORAL SUSPENSION 5 ML PO (14:41)
--- NOTE | 2025-06-12 16:15 | CM ---
Pt remains hospitalized at this time. 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
Plan: CM will continue to follow to coordinate pt's return to [facility] when medically ready.
[facility] Report: [phone]
[facility]
[2025-06-12] MEDS: FLAGYL 500 MG 100 IV (17:05)
[2025-06-12 17:08] LABS: Glucose - Point of Care 219 mg/dl (70-99)
[2025-06-12 17:22] VITALS: BP 171/106
[2025-06-12] MEDS: LOPRESSOR 100 MG PO (17:40)
[2025-06-12] MEDS: NOVOLOG FLEXPEN-MODERATE RESISTANCE 3 UNITS SC (17:54)
[2025-06-12] MEDS: MYCOSTATIN ORAL SUSPENSION PO ×2 (17:55→22:41)
--- NOTE | 2025-06-12 18:06 | PTCARENOTE ---
BP 171/106, HR 114, provider notified, verbal order to try 20:00 dose of oral lopressor 100mg crushed. Pt spit most of it out. Provider aware, no new orders at this time.
[2025-06-12 20:44] LABS: Glucose - Point of Care 196 mg/dl (70-99)
[2025-06-12 21:17] LABS: Blood Urea Nitrogen 54 mg/dl (9-20); Calcium 9.4 mg/dl (8.4-10.2); Carbon Dioxide 26 mmol/L (22-30); Chloride 112 mmol/L (98-107); Glucose 229 mg/dl (70-99); Potassium 3.6 mmol/L (3.5-5.1); Sodium 152 mmol/L (135-145); eGFR 22.26
[2025-06-12 23:00] VITALS: BP 134/87
[2025-06-13] MEDS: FLAGYL 500 MG 100 IV ×2 (04:10→17:32)
[2025-06-13 07:22] LABS: Glucose - Point of Care 245 mg/dl (70-99)
[2025-06-13 07:46] VITALS: BP 170/88
[2025-06-13] MEDS: ELIQUIS PO ×3 (09:00→21:48)
[2025-06-13] MEDS: LIPITOR PO (09:00)
[2025-06-13] MEDS: LOPRESSOR PO ×3 (09:00→21:49)
[2025-06-13] MEDS: FLOMAX PO (09:00)
[2025-06-13] MEDS: NEURONTIN PO (09:01)
[2025-06-13] MEDS: PROSCAR PO (09:01)
[2025-06-13] MEDS: SENOKOT-S PO ×3 (09:01→21:49)
[2025-06-13] MEDS: MYCOSTATIN ORAL SUSPENSION PO ×4 (09:01→21:48)
[2025-06-13] MEDS: ZOLOFT PO (09:01)
[2025-06-13] MEDS: MIRALAX PO (09:01)
[2025-06-13] MEDS: NOVOLOG FLEXPEN-MODERATE RESISTANCE 3 UNITS SC (09:02)
[2025-06-13] MEDS: D5W 1000 IV (09:06)
[2025-06-13] MEDS: DESENEX/MITRAZOL/ZEASORB 1 APPLIC TOPICAL ×2 (09:07→21:40)
[2025-06-13] MEDS: HYDROPHOR 1 APPLIC TOPICAL (09:07)
[2025-06-13 10:05] LABS: Hematocrit 39.5 % (39.0-52.0); Hemoglobin 11.9 g/dL (13.0-18.0); Mean Corp Hgb Conc. 30.1 g/dL (33.0-37.0); Mean Corpuscular Volume 96.1 fL (80.0-94.0); Platelet Count 171 10^3/uL (130-400); Red Cell Dist. Width 16.4 % (11.5-14.5)
[2025-06-13 10:22] LABS: Blood Urea Nitrogen 48 mg/dl (9-20); Calcium 9.3 mg/dl (8.4-10.2); Carbon Dioxide 25 mmol/L (22-30); Chloride 113 mmol/L (98-107); Glucose 270 mg/dl (70-99); Potassium 3.9 mmol/L (3.5-5.1); Sodium 151 mmol/L (135-145); eGFR 24.41
--- NOTE | 2025-06-13 10:55 | W.PN.ID1 ---
Date of Service
Date of Service: June 13, 2025
Today's Communication
plan 2 week course of empiric metronidazole
Assessment / Plan
Anaerobic Bacteremia
CKD
- CT a/p, chest, head and neck without culprit lesions, note cholelithiasis without evidence of cholecystitis
- patient is edentulous no evidence of oral cavity lesion
- c/w metronidazole - IV as he is unwilling to take oral pills
- will plan a two week empiric course of metronidazole, could be oral if he will take it
while he has chronic venous stasis changes of the bilateral legs, I do not appreciate any evidence of cellulitis at this time, stopped ceftriaxone
Chief Complaint
-: Bacteremia
Subjective / Review of Systems
afebrile
bp stable
Vital Signs / Physical Exam
Vital Signs
Vital Signs
Temp Pulse Resp BP Pulse Ox
98.2 F 91 18 170/88 94
06/13/25 07:46 06/13/25 07:46 06/13/25 07:46 06/13/25 07:46 06/13/25 07:46
Physical Exam
Constitutional: No Acute Distress
Cardiovascular: Regular Rate and S1/S2; Negative Murmur or Rub
Pulmonary: Clear and Symmetric; Negative Wheezes or Rales
Gastrointestinal: Soft, Non Tender, Non Distended and Normal Bowel Sounds
Skin: Warm, Dry and Other (venous stasis changes bilaterally); Negative Rash or Jaundice
Objective Data
Lab Data
Lab Results
06/13/25 09:18
Estimated Creat Clear Cancelled 06/11/25 22:36
Lactic Acid 1.9 mmol/L (0.7-2.0) 06/08/25 08:36
Total Bilirubin 0.4 mg/dl (0.2-1.3) 06/08/25 07:07
AST 25 U/L (17-59) 06/08/25 07:07
ALT 23 U/L (0-50) 06/08/25 07:07
Alkaline Phosphatase 63 U/L (38-126) 06/08/25 07:07
Most recent labs reviewed.
Micro Results:
06/08/25 09:15 Blood Culture - Preliminary
Blood/Venous Anaerobic gram neg bacilli
Gram Stain - Preliminary
06/08/25 09:15 Blood Culture - Preliminary
Blood/Venous Anaerobic gram neg bacilli
Gram Stain - Preliminary
06/10/25 16:32 Blood Culture - Preliminary
Blood/Venous No Growth in 48 hours- Final report to follow
06/12/25 14:51 Blood Culture - Pending
Blood/Venous
06/09/25 15:49 MRSA Screen - Final
Nose No Methicillin Resistant Staphylococcus aureus isolated.
06/08/25 08:36 Urine Culture - Final
Urine NO GROWTH
[2025-06-13] MEDS: ROCEPHIN 2000 MG IV (12:12)
[2025-06-13] MEDS: STERILE WATER FOR INJECTION 20 ML IV (12:12)
[2025-06-13 12:51] LABS: Glucose - Point of Care 266 mg/dl (70-99)
[2025-06-13] MEDS: NOVOLOG FLEXPEN-MODERATE RESISTANCE 5 UNITS SC (12:52)
--- NOTE | 2025-06-13 13:29 | W.PN.HOSP.TC ---
Addendum entered and electronically signed by Jasbir Ferguson MD 06/13/25 17:15:
Spoke to daughter extensively regarding patient's clinical status as well as refusal of medications. Patient's daughter understands the clinical condition. Patient has critical issues including hypernatremia, bacteremia, poor p.o. intake as well
as underlying dementia that likely exacerbated these factors. Patient remains critical with guarded prognosis. Daughter is aware of this. [facility] as she believes that patient's mental status will
improve there. Educated on patient not being medically cleared at this time.
Addendum entered and electronically signed by Jasbir Ferguson MD 06/13/25 16:31:
Acute renal failure with ATN
Original Note:
Today's Communication/Plan
-
Cont D5
Cont abx
monitor Na and Scr closely
Assessment / Plan
Assessment / Plan
83 y/o male, Indonesian speaking, with PMHx of HFmrEF, DM, neuropathy, HTN, HLD, BPH, anxiety, dementia, chronic ambulatory deficiency, Hx of gangrenous cholecystitis in January 2025 who was brought from [facility] with lethargy and hypoglycemia.
Patient is on Metformin, Farxiga, Basalgar 7units AM, 20units HS and and GLipizide. In ED found TAO with urinary retention so Mcdonald was placed. UA concering for infection. Patient is a poor historian due to significant dementia, when seen in ED his
mentation is on the baseline if compared with January 2025. Had episode of hematuria after attempting to pull the Mcdonald, however that is resolving.
A/P:
#TAO 2/2 urinary retention and HAGMA
#Marked urinary bladder wall thickening suggesting neurogenic bladder or chronic outlet obstruction.
#Acute metabolic encephalopathy, most liekly 2/2 TAO and UTI along with dementia
question large diverticulum
Patient pulled on Mcdonald catheter causing hematuria and eventually needed tamponade -
� Plan for maintaining Mcdonald at least 3 days, although ideally should be discharged on this but patient is high risk for pulling forcibly (D3)
� Trial of void prior to discharge
� Urology consulted
-IVF - switched to Bicarb on 06/09/25 - Can dc
-monitor bmp
-CT abd repeated: cholelithiasis with signs of chronic outlet obstruction with mild bilateral hydroureteronephrosis
-hold diuretics and Lisinopril
UA negative
#Hypernatremia
-monitor off bicarb solution
#Hematuria
traumatic 2/2 pulling the Mcdonald
Improved
Urology consul
can resume Eliquis
#Hypernatremia
-likely post ATN diuresis
-5.1L FWR
-Continue D5W 100cc/hr
-F/u BMP today
-Nephro consulted if no change in Na
#Bacteremia
-F/u cultures - prelim anaerobic gram neg bacilli
-repeat cultures
-Switch Ceftriaxone to 2gm daily
-ID consulted
-Add flagyl IV
#B/L Chronic venous statis
-no evidence of cellulitis
#Chronic anemia
follow CBC
-no acute blood loss anemia
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
Insulin SS only, Accuchecks q2h for 24h, DM diet when able
Stop oral hypoglycemics
Hold Basal/bolus
#acute hypoxic insufficiency 2/2 Acute on Chronic HFpEF
2/2 declining Lasix
holding due to declining along with getting fluids for hypernatremia
-weaned off o2
#Constipation
Laxatives
#Essential HTN
#BPH
#Anxiety
#Dementia, Unspecified
#HLD
#Afib, paroxysmal
Patient with known HX to refuse drugs
Eliquis 2.5mg as per Age and Cr adjustment
cont rest of meds
#Goals of Care Discussion
POLST form DNR/DNI with limited intervention, IVF and Abx acceptable
DVT Prophylaixs: eliquis
DNR/DNI as per POLST form
Total time spent on today's encounter was 53 minutes which included time spent in counseling the patient/family regarding diagnosis and treatment plan as listed above, goals of care, and symptom management. Case was discussed with nursing staff,
specialists, and care coordinators/case management. All labs and imaging personally reviewed by me. Remainder the time spent in detailed review of previous records, lab data, imaging, and other medical provider documentation.
Anticipated Discharge: > 48 hours
Subjective/Interval History
-
Date of Service: June 13, 2025
refusing labs and meals intermittently
Objective Data
-
Labs:
Laboratory Results
06/13/25
09:18
WBC 7.9
Hgb 11.9 L
Hct 39.5
Plt Count 171
Sodium 151 H
Potassium 3.9
Chloride 113 H
Carbon Dioxide 25
BUN 48 H
Creatinine 2.5 H
Glucose 270 H
Calcium 9.3
Vital Signs:
Vital Signs
Temp Pulse Resp BP Pulse Ox
98.2 F 91 18 170/88 94
06/13/25 07:46 06/13/25 07:46 06/13/25 07:46 06/13/25 07:46 06/13/25 07:46
I&O
06/12/25 06/13/25 06/14/25
06:59 06:59 06:59
Intake Total 1680 / 1680
Output Total 2925 / 2925 215 / 2149
Balance -1245 / -1245 -215 / -2149
Review of Systems
-
History Source: Patient
All other systems: Not reviewed unless documented
Data Reviewed
-
Total Time Spent with Patient (in minutes): 40
Diagnostic Radiology: Report Reviewed by me
CT Scan: Report Reviewed by me
Labs: Labs Reviewed by me
[2025-06-13 15:19] VITALS: BP 109/64
[2025-06-13 15:22] VITALS: BP 140/68
[2025-06-13 16:24] VITALS: BMI 30.2
[2025-06-13 16:54] LABS: Glucose - Point of Care 180 mg/dl (70-99)
--- NOTE | 2025-06-13 17:16 | PTCARENOTE ---
patient refusing to eat and lab work and care intermittently. encouraged PO and care. 4 staff members need to hold patient to prevent him trying to hit staff during phlebotomy draw this am. turns self in bed. vss, will continue to monitor.
[2025-06-13] MEDS: NOVOLOG FLEXPEN-MODERATE RESISTANCE 1 UNITS SC (17:48)
[2025-06-13 21:14] LABS: Blood Urea Nitrogen 42 mg/dl (9-20); Calcium 9.0 mg/dl (8.4-10.2); Carbon Dioxide 25 mmol/L (22-30); Chloride 113 mmol/L (98-107); Glucose 218 mg/dl (70-99); Potassium 3.3 mmol/L (3.5-5.1); Sodium 151 mmol/L (135-145); eGFR 26.98
[2025-06-13 21:27] LABS: Glucose - Point of Care 230 mg/dl (70-99)
[2025-06-13] MEDS: D5W IV (21:40)
[2025-06-13 23:00] VITALS: BP 144/66
[2025-06-14] MEDS: D5W 1000 IV (00:13)
[2025-06-14] MEDS: FLAGYL 500 MG 100 IV ×2 (04:01→15:06)
[2025-06-14 07:14] VITALS: BP 172/94
[2025-06-14 07:19] LABS: Glucose - Point of Care 219 mg/dl (70-99)
[2025-06-14] MEDS: MIRALAX 17 GRAMS PO (09:19)
[2025-06-14] MEDS: DESENEX/MITRAZOL/ZEASORB 1 APPLIC TOPICAL ×2 (09:20→22:17)
[2025-06-14] MEDS: HYDROPHOR 1 APPLIC TOPICAL (09:20)
[2025-06-14] MEDS: ROCEPHIN 2000 MG IV (09:20)
[2025-06-14] MEDS: STERILE WATER FOR INJECTION 20 ML IV (09:20)
[2025-06-14] MEDS: NOVOLOG FLEXPEN-MODERATE RESISTANCE 3 UNITS SC ×2 (09:22→17:09)
[2025-06-14] MEDS: ELIQUIS PO ×2 (09:44→22:01)
[2025-06-14] MEDS: LIPITOR PO (09:44)
[2025-06-14] MEDS: LOPRESSOR PO (09:44)
[2025-06-14] MEDS: FLOMAX PO (09:44)
[2025-06-14] MEDS: SENOKOT-S PO ×2 (09:45→22:01)
[2025-06-14] MEDS: PROSCAR PO (09:45)
[2025-06-14] MEDS: MYCOSTATIN ORAL SUSPENSION PO ×4 (09:45→23:25)
[2025-06-14] MEDS: ZOLOFT PO (09:45)
[2025-06-14] MEDS: NEURONTIN PO (09:45)
[2025-06-14 11:17] LABS: Hematocrit 38.2 % (39.0-52.0); Hemoglobin 12.1 g/dL (13.0-18.0); Mean Corp Hgb Conc. 31.7 g/dL (33.0-37.0); Mean Corpuscular Volume 92.7 fL (80.0-94.0); Red Cell Dist. Width 16.2 % (11.5-14.5)
[2025-06-14 11:52] LABS: Blood Urea Nitrogen 34 mg/dl (9-20); Calcium 8.9 mg/dl (8.4-10.2); Carbon Dioxide 22 mmol/L (22-30); Chloride 105 mmol/L (98-107); Glucose 267 mg/dl (70-99); Potassium 3.3 mmol/L (3.5-5.1); Sodium 143 mmol/L (135-145); eGFR 31.90
--- NOTE | 2025-06-14 12:00 | PTCARENOTE ---
Pt confused and refusing morning PO medications, spitting them out when crushed in applesauce. BP 172/94 HR 92. MD made aware. R arm IV infiltrated. +2 edema in R upper arm above infiltration site. IV team made aware. New IV placed and IVF running
through new IV in L forearm. Poc ongoing.
[2025-06-14 12:46] LABS: Glucose - Point of Care 269 mg/dl (70-99)
[2025-06-14] MEDS: NOVOLOG FLEXPEN-MODERATE RESISTANCE 5 UNITS SC (13:34)
--- NOTE | 2025-06-14 14:24 | W.PN.HOSP.TC ---
Today's Communication/Plan
-
Monitor Na off D5W
Abx
Assessment / Plan
Assessment / Plan
83 y/o male, Kuwaiti speaking, with PMHx of HFmrEF, DM, neuropathy, HTN, HLD, BPH, anxiety, dementia, chronic ambulatory deficiency, Hx of gangrenous cholecystitis in January 2025 who was brought from [facility] with lethargy and hypoglycemia.
Patient is on Metformin, Farxiga, Basalgar 7units AM, 20units HS and and GLipizide. In ED found TAO with urinary retention so Mcdonald was placed. UA concering for infection. Patient is a poor historian due to significant dementia, when seen in ED his
mentation is on the baseline if compared with January 2025. Had episode of hematuria after attempting to pull the Mcdonald, however that is resolving.
A/P:
#TAO 2/2 urinary retention and HAGMA
#Marked urinary bladder wall thickening suggesting neurogenic bladder or chronic outlet obstruction.
#Acute metabolic encephalopathy, most liekly 2/2 TAO and UTI along with dementia
question large diverticulum
Patient pulled on Mcdonald catheter causing hematuria and eventually needed tamponade -
� Plan for maintaining Mcdonald at least 3 days, although ideally should be discharged on this but patient is high risk for pulling forcibly (D3) - Trial of Void today 06/14
� Trial of void prior to discharge
� Urology consulted
-IVF - switched to Bicarb on 06/09/25 - Can dc
-monitor bmp
-CT abd repeated: cholelithiasis with signs of chronic outlet obstruction with mild bilateral hydroureteronephrosis
-hold diuretics and Lisinopril
UA negative
#Hematuria
traumatic 2/2 pulling the Mcdonald
Improved
Urology consul
can resume Eliquis
#Hypernatremia, improved
-likely post ATN diuresis
-Stop D5w and monitor
-F/u BMP today
#Bacteremia
-F/u cultures - prelim anaerobic gram neg bacilli
-repeat cultures
-stopped Ceftriaxone to 2gm daily
-ID consulted
-Add flagyl IV - 2 week empiric course
#B/L Chronic venous statis
-no evidence of cellulitis
#Chronic anemia
follow CBC
-no acute blood loss anemia
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
Insulin SS only, Accuchecks q2h for 24h, DM diet when able
Stop oral hypoglycemics
Hold Basal/bolus
#Hypokalemia
-monitor and replete
#acute hypoxic insufficiency 2/2 Acute on Chronic HFpEF
2/2 declining Lasix
holding due to declining along with getting fluids for hypernatremia
-weaned off o2
#Constipation
Laxatives
#Essential HTN
#BPH
#Anxiety
#Dementia, Unspecified
#HLD
#Afib, paroxysmal
Patient with known HX to refuse drugs
Eliquis 2.5mg as per Age and Cr adjustment
cont rest of meds
#Goals of Care Discussion
POLST form DNR/DNI with limited intervention, IVF and Abx acceptable
DVT Prophylaixs: eliquis
DNR/DNI as per POLST form
Anticipated Discharge: 24 - 48 hours
Subjective/Interval History
-
Date of Service: June 14, 2025
no acute events
Objective Data
-
Labs:
Laboratory Results
06/14/25
10:59
WBC 10.0
Hgb 12.1 L
Hct 38.2 L
Plt Count
Sodium 143 D
Potassium 3.3 L
Chloride 105
Carbon Dioxide 22
BUN 34 H
Creatinine 2.0 H
Glucose 267 H
Calcium 8.9
Vital Signs:
Vital Signs
Temp Pulse Resp BP Pulse Ox
98.1 F 92 18 172/94 99
06/14/25 07:14 06/14/25 07:14 06/14/25 07:14 06/14/25 07:14 06/14/25 07:14
I&O
06/13/25 06/14/25 06/15/25
06:59 06:59 06:59
Intake Total 0 / 0
Output Total 2149 / 2149
Balance -2150 / -2150 150 / 150
Review of Systems
-
History Source: Patient
All other systems: Not reviewed unless documented
Data Reviewed
-
Total Time Spent with Patient (in minutes): 40
Diagnostic Radiology: Report Reviewed by me
CT Scan: Report Reviewed by me
Labs: Labs Reviewed by me
[2025-06-14 14:50] VITALS: BP 131/75
[2025-06-14] MEDS: KCL ELIXIR 40 MEQ PO (15:06)
[2025-06-14] MEDS: D5W IV (15:06)
--- NOTE | 2025-06-14 15:18 | CM ---
Pt remains hospitalized at this time. 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
Plan: CM will continue to follow to coordinate pt's return to [facility] when medically ready.
[facility] Report: [phone]
[facility]
[2025-06-14 16:30] LABS: Glucose - Point of Care 249 mg/dl (70-99)
[2025-06-14] MEDS: LOPRESSOR 55 MG IV (17:07)
[2025-06-14 17:55] VITALS: BP 134/66
--- NOTE | 2025-06-14 17:55 | PTCARENOTE ---
Pt requiring multiple staff members to obtain new IV access. Pt had an episode of coughing and dry heaving while repositioning after IV insertion. After episode, pt looked pale and zoned out. BP 143/90 HR 136. ECG obtained. BG 249. IV lopressor
ordered and administered. Labs drawn. BP now 134/66 hr 70 following lopressor administration. pt in afib on the monitor. Will continue to monitor.
[2025-06-14 18:13] LABS: Blood Urea Nitrogen 33 mg/dl (9-20); Calcium 8.7 mg/dl (8.4-10.2); Carbon Dioxide 26 mmol/L (22-30); Chloride 104 mmol/L (98-107); Glucose 240 mg/dl (70-99); Potassium 3.5 mmol/L (3.5-5.1); Sodium 139 mmol/L (135-145); eGFR 36.21
[2025-06-14 19:00] VITALS: BP 135/57
[2025-06-14 21:56] LABS: Glucose - Point of Care 172 mg/dl (70-99)
[2025-06-14] MEDS: LANTUS 0.1 UNITS SC (22:15)
[2025-06-14 23:00] VITALS: BP 142/85
[2025-06-15] VITALS (11 sets, daily range): BP systolic 72–185; BP diastolic 45–108
[2025-06-15] MEDS: LOPRESSOR 55 MG IV ×2 (01:26→06:32)
[2025-06-15] MEDS: LOPRESSOR 2.5 MG IV (02:56)
--- NOTE | 2025-06-15 03:24 | W.PN.UPDATE ---
Update Note
Progress Note Update
Per nursing patient has acute urinary retention. Patient has history of pulling out nichols catheters.
Rx Nichols catheter, nonviolent restraints.
Per nursing patient's HR has been fluctuating 70s-140s SR. Was started on 5mg IV lopressor piggyback.
Rx 2.5mg Lopressor IV push.
[2025-06-15] MEDS: FLAGYL 500 MG 100 IV (03:25)
--- NOTE | 2025-06-15 03:45 | PTCARENOTE ---
Pt combative with staff during care and interventions. Per day shift report, pt ripped his nichols catheter out. Bladder scan performed showing 801 ml. MATERIAL SCHEDULER made aware, restraints applied per order, and nichols catheter inserted. Will continue plan of
care.
--- NOTE | 2025-06-15 03:53 | PTCARENOTE ---
Pts tele monitor showed fluctuating heart rate from 80s- 130s/140s, SR. STENO POOL SUPERVISOR notified. Pt on 5 mg IV Lopressor. STENO POOL SUPERVISOR placed an order for 2.5 mg Lopressor IV push. Pt remains asymptomatic, vital signs obtained and within normal limits (see MAR). Will
continue plan of care.
[2025-06-15] MEDS: LOPRESSOR 5 MG IV ×2 (04:59→11:55)
[2025-06-15 08:03] LABS: Glucose - Point of Care 130 mg/dl (70-99)
[2025-06-15] MEDS: ZOLOFT 100 MG PO (09:17)
[2025-06-15] MEDS: DESENEX/MITRAZOL/ZEASORB 1 APPLIC TOPICAL ×2 (09:17→21:53)
[2025-06-15] MEDS: NOVOLOG FLEXPEN-MODERATE RESISTANCE SC ×3 (09:17→17:27)
[2025-06-15] MEDS: FLOMAX 0.4 MG PO (09:18)
[2025-06-15] MEDS: LIPITOR 10 MG PO (09:18)
[2025-06-15] MEDS: PROSCAR 5 MG PO (09:18)
[2025-06-15] MEDS: ELIQUIS PO ×2 (09:18→09:41)
[2025-06-15] MEDS: SENOKOT-S PO ×2 (09:18→09:41)
[2025-06-15] MEDS: NEURONTIN 300 MG PO (09:19)
[2025-06-15] MEDS: MIRALAX 17 GRAMS PO (09:20)
[2025-06-15] MEDS: MYCOSTATIN ORAL SUSPENSION PO ×4 (09:20→21:52)
[2025-06-15] MEDS: HYDROPHOR 1 APPLIC TOPICAL (09:20)
--- NOTE | 2025-06-15 10:04 | W.PN.URO.CBU ---
Today's Communication / Plan
-
keep foleyfor now
Assessment / Plan
-
84M with acute metabolic encephalopathy, TAO, urinary retention with associated suspected UTI
Some self limited hematuria after nichols placement
Traumatic nichols catheter removal by patient 06/09 and replaced, patient with restraints
- Hematuria resolved, okay to continue anticoagulation
- Some degree of chronic urinary retention is likely with thickened bladder wall and large diverticulum, which can contribute to infections and acute admissions like this
- Ideally recommend discharge with nichols catheter in place if patient can tolerate, however he forcibly removed the catheter requiring restraints and unlikely to tolerate
- UTI management per hospitalist
- Maintain nichols for now after traumatic removed to tamponade bleeding
- Can remove catheter for trial of void before discharge to assess emptyingpt with 800cc pvr unlikely to void but at risk for pulling nichols dilemma as to how to proceed even for nhp may have yoi pull nichols just to see if voids at all
Diagnosis
-
Date of Service: June 15, 2025
-
Patient Diagnosis:
Post Op Day:
Patient Diagnosis:
urinary retention
UTI
Post Op Day:
Subjective
-
non verbal
Objective
-
Vital Signs
Temp Pulse Resp BP Pulse Ox
97.9 F 137 18 101/64 97
06/15/25 09:30 06/15/25 09:30 06/15/25 09:30 06/15/25 09:30 06/15/25 09:30
Intake and Output
06/14/25 06/15/25 06/16/25
06:59 06:59 06:59
Intake Total 0 / 2200 1380 / 1380
Output Total 2049 220 / 220
Balance 150 / 150 -820 / -820
Intake:
Oral fluids 1380 / 1380
IV fluids (Total) 1100 / 1099
IV piggybacks 1100 / 1099
Output:
Urine, Nichols 2049 500 / 500
Urine, Voided 1699 / 1699
Review of Systems
-
: Difficulty Voiding
Physical Exam
-
General - non verbal in restarints
Chest - clear bilaterally
Abdomen - soft, non-tender, positive bowel sounds, no CVAT, no incisional pain or distention
Genitalia - normal
Rectal - normal
Skin - warm & dry with no rash
Neuro - AOx3, no motor deficits
Extremities - no clubbing, no cyanosis, no edema
Incision - clean, dry
Dressing - clean, dry, intact
Care Review
Data Reviewed
Discussed with: Nursing
--- NOTE | 2025-06-15 12:05 | CM ---
Patient LTC from [facility]
chart reviewed
maintain nichols cath
soft limb restraints
PLAN: return to [facility] when stable
[facility] Report: [phone]
[facility]
--- NOTE | 2025-06-15 12:10 | W.PN.ID1 ---
Date of Service
Date of Service: June 15, 2025
Today's Communication
Replace metronidazole with Unasyn 3g IV q8h through 06/24/25.
Assessment / Plan
TAO on CKD
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
-Possible contaminants- both sets of bcx's drawn at the same time.
- Extensive work-up without finding of source:
CT a/p, chest, head and neck without culprit lesions, note cholelithiasis without evidence of cholecystitis
patient is edentulous no evidence of oral cavity lesion
- Treat empirically with IV antibiotic as he is unwilling to take oral pills. Of note pt with dementia.
- DC metronidazole as not effective against Bifidobacterium
- Start Unasyn 3g IV q8h through 06/24/25. Renally adjust dose prn.
Chief Complaint
-: Bacteremia
Subjective / Review of Systems
On soft restraints.
Vital Signs / Physical Exam
Vital Signs
Vital Signs
Temp Pulse Resp BP Pulse Ox
97.9 F 137 18 101/64 97
06/15/25 09:30 06/15/25 09:30 06/15/25 09:30 06/15/25 09:30 06/15/25 09:30
Physical Exam
Constitutional: Chronically Ill
Cardiovascular: Regular Rate and S1/S2; Negative Murmur or Rub
Pulmonary: Clear (anteriorly)
Gastrointestinal: Soft, Non Tender, Non Distended and Normal Bowel Sounds
Genito-Urinary: Mcdonald
Extremities: Venous Insufficiency
Skin: Other (venous stasis changes bilaterally)
Psychological: Confused
Objective Data
Lab Data
Estimated Creat Clear Cancelled 06/13/25 18:00
Lactic Acid 1.9 mmol/L (0.7-2.0) 06/08/25 08:36
Total Bilirubin 0.4 mg/dl (0.2-1.3) 06/08/25 07:07
AST 25 U/L (17-59) 06/08/25 07:07
ALT 23 U/L (0-50) 06/08/25 07:07
Alkaline Phosphatase 63 U/L (38-126) 06/08/25 07:07
Most recent labs reviewed.
Micro Results:
06/10/25 16:32 Blood Culture - Preliminary
Blood/Venous No Growth in 4 days- Final report to follow
06/12/25 14:51 Blood Culture - Preliminary
Blood/Venous No Growth in 48 hours- Final report to follow
06/08/25 09:15 Blood Culture - Final
Blood/Venous Bifidobacterium species
Anaerobic gram neg bacilli
Gram Stain - Final
06/08/25 09:15 Blood Culture - Final
Blood/Venous Bifidobacterium species
Anaerobic gram neg bacilli
Gram Stain - Final
06/09/25 15:49 MRSA Screen - Final
Nose No Methicillin Resistant Staphylococcus aureus isolated.
06/08/25 08:36 Urine Culture - Final
Urine NO GROWTH
Care Review
Plan reviewed with: Physician (Dr. Ferguson)
[2025-06-15 12:30] LABS: Glucose - Point of Care 136 mg/dl (70-99)
[2025-06-15 12:59] LABS: Hematocrit 35.3 % (39.0-52.0); Hemoglobin 11.8 g/dL (13.0-18.0); Mean Corp Hgb Conc. 33.4 g/dL (33.0-37.0); Mean Corpuscular Volume 89.1 fL (80.0-94.0); Platelet Count 178 10^3/uL (130-400); Red Cell Dist. Width 16.0 % (11.5-14.5)
[2025-06-15] MEDS: LOPRESSOR 10 MG IV ×2 (13:14→17:27)
[2025-06-15] MEDS: MYCOSTATIN ORAL SUSPENSION 5 ML PO (13:15)
[2025-06-15 13:31] LABS: Blood Urea Nitrogen 30 mg/dl (9-20); Calcium 9.1 mg/dl (8.4-10.2); Carbon Dioxide 21 mmol/L (22-30); Chloride 111 mmol/L (98-107); Estimated Creatinine Clearance 31 ml/min; Glucose 128 mg/dl (70-99); Potassium 3.3 mmol/L (3.5-5.1); Sodium 143 mmol/L (135-145); eGFR 31.90
--- NOTE | 2025-06-15 13:32 | W.PN.HOSP.TC ---
Today's Communication/Plan
-
Lopressor titration
Switch to Unasyn
GOC
F/u labs
Assessment / Plan
Assessment / Plan
83 y/o male, Surinamese speaking, with PMHx of HFmrEF, DM, neuropathy, HTN, HLD, BPH, anxiety, dementia, chronic ambulatory deficiency, Hx of gangrenous cholecystitis in January 2025 who was brought from [facility] with lethargy and hypoglycemia.
Patient is on Metformin, Farxiga, Basalgar 7units AM, 20units HS and and GLipizide. In ED found TAO with urinary retention so Mcdonald was placed. UA concering for infection. Patient is a poor historian due to significant dementia, when seen in ED his
mentation is on the baseline if compared with January 2025. Had episode of hematuria after attempting to pull the Mcdonald, however that is resolving.
A/P:
#TAO 2/2 urinary retention and HAGMA
#Marked urinary bladder wall thickening suggesting neurogenic bladder or chronic outlet obstruction.
#Acute metabolic encephalopathy, most liekly 2/2 TAO and UTI along with dementia
question large diverticulum
Patient pulled on Mcdonald catheter causing hematuria and eventually needed tamponade -
� Plan for maintaining Mcdonald at least 3 days, although ideally should be discharged on this but patient is high risk for pulling forcibly (D3) - Trial of Void today 06/14
� Trial of void prior to discharge
� Urology consulted
-IVF - switched to Bicarb on 06/09/25 - Can dc
-monitor bmp
-CT abd repeated: cholelithiasis with signs of chronic outlet obstruction with mild bilateral hydroureteronephrosis
-hold diuretics and Lisinopril
UA negative
#Hematuria
traumatic 2/2 pulling the Mcdonald
Improved
Urology consul
can resume Eliquis
#Hypernatremia, improved
-likely post ATN diuresis
-Stop D5w and monitor
-F/u BMP
#Bacteremia
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
-repeat cultures
-no obvious source despite vast imaging
-ID consulted
- Empiric IV abx with Unasyn through 06/24 as patient refusing PO meds
-DC metronidazole
#B/L Chronic venous stasis
-no evidence of cellulitis
#Chronic anemia
follow CBC
-no acute blood loss anemia
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
Insulin SS only, Accuchecks q2h for 24h, DM diet when able
Stop oral hypoglycemics
Hold Basal/bolus
#Hypokalemia
-monitor and replete
#acute hypoxic insufficiency 2/2 Acute on Chronic HFpEF
2/2 declining Lasix
holding due to declining along with getting fluids for hypernatremia
-weaned off o2
#Constipation
Laxatives
#Essential HTN
#BPH
#Anxiety
#Dementia, Unspecified
#HLD
#Afib, paroxysmal
Patient with known HX to refuse drugs
Eliquis 2.5mg as per Age and Cr adjustment
-Increase Lopressor to 10mg q6h as patient refusing PO regimen and HR elevated
cont rest of meds
#Goals of Care Discussion
POLST form DNR/DNI with limited intervention, IVF and Abx acceptable; Patient hospice appropriate;
DVT Prophylaixs: eliquis
DNR/DNI as per POLST form
Total time spent on today's encounter was 51 minutes which included time spent in counseling the patient/family regarding diagnosis and treatment plan as listed above, goals of care, and symptom management. Case was discussed with nursing staff,
specialists, and care coordinators/case management. All labs and imaging personally reviewed by me. Remainder the time spent in detailed review of previous records, lab data, imaging, and other medical provider documentation.
Anticipated Discharge: > 48 hours
Subjective/Interval History
-
Date of Service: June 15, 2025
still refusing medications
Objective Data
-
Labs:
Laboratory Results
06/15/25
12:49
WBC 11.1 H
Hgb 11.8 L
Hct 35.3 L
Plt Count 178
Sodium 143
Potassium 3.3 L
Chloride 111 H
Carbon Dioxide 21 L
BUN 30 H
Creatinine 2.0 H
Glucose 128 H
Calcium 9.1
Vital Signs:
Vital Signs
Temp Pulse Resp BP Pulse Ox
97.9 F 162 18 124/71 97
06/15/25 09:30 06/15/25 12:00 06/15/25 09:30 06/15/25 13:12 06/15/25 09:30
I&O
06/14/25 06/15/25 06/16/25
06:59 06:59 06:59
Intake Total 2200 / 2200 1380 / 1380
Output Total 2049 / 2049 2200 / 220
Balance 150 / 150 -820 / -820
Review of Systems
-
History Source: Patient
All other systems: Not reviewed unless documented
Data Reviewed
-
Total Time Spent with Patient (in minutes): 40
Diagnostic Radiology: Report Reviewed by me
CT Scan: Report Reviewed by me
Labs: Labs Reviewed by me
[2025-06-15] MEDS: UNASYN IV ×2 (14:47→21:53)
--- NOTE | 2025-06-15 17:40 | PTCARENOTE ---
PT HR went up to > 160 sustained > 140. PT asymptomatic no CP Sob or palpitations noted. MD aware. extras IV metoprolol 10 mg given. and pt changed from q 6 metoprolol infusion to IVP q 6. HR currently 70
[2025-06-15 18:30] LABS: Blood Urea Nitrogen 31 mg/dl (9-20); Calcium 8.7 mg/dl (8.4-10.2); Carbon Dioxide 24 mmol/L (22-30); Chloride 110 mmol/L (98-107); Estimated Creatinine Clearance 29 ml/min; Glucose 126 mg/dl (70-99); Potassium 3.3 mmol/L (3.5-5.1); Sodium 144 mmol/L (135-145); eGFR 30.09
[2025-06-15] MEDS: KCL 40 MEQ PO (18:31)
[2025-06-15 21:45] LABS: Glucose - Point of Care 119 mg/dl (70-99)
[2025-06-15] MEDS: ELIQUIS 2.5 MG PO (21:51)
[2025-06-15] MEDS: SENOKOT-S 1 TABLET PO (21:51)
[2025-06-15] MEDS: LANTUS 0.1 UNITS SC (21:52)
[2025-06-15] MEDS: NSS 250 IV (23:23)
--- NOTE | 2025-06-15 23:30 | PTCARENOTE ---
Addendum entered by Zohreh Jones RN 06/16/25 04:22:
Pt asymptomatic. Stat BMP and mag ordered.
Original Note:
Pt with HR ranging from 70s-140s throughout shift. 10 mg IV lopressor scheduled to be given. Pt with BP of 72/45. Pt drowsy but arousable to verbal and tactile stimuli. Dose held. LENORA Brasher notified. 250 ml bolus ordered. Refer to MAR.
Plan of care ongoing.
[2025-06-16] VITALS (8 sets, daily range): BP systolic 95–158; BP diastolic 57–77
[2025-06-16] MEDS: LOPRESSOR 2.5 MG IV (00:27)
--- NOTE | 2025-06-16 00:30 | PTCARENOTE ---
Pt with BP of 96/47 after bolus. Pt less drowsy. HR still in 140s. Pt remains asymptomatic. 2.5 mg IV lopressor ordered. Refer to MAR. Plan of care ongoing.
[2025-06-16] MEDS: LOPRESSOR IV ×2 (00:33→13:42)
[2025-06-16 00:48] LABS: Blood Urea Nitrogen 32 mg/dl (9-20); Calcium 8.4 mg/dl (8.4-10.2); Carbon Dioxide 22 mmol/L (22-30); Chloride 110 mmol/L (98-107); Estimated Creatinine Clearance 28 ml/min; Glucose 126 mg/dl (70-99); Magnesium 1.5 mg/dl (1.6-2.3); Potassium 3.7 mmol/L (3.5-5.1); Sodium 143 mmol/L (135-145); eGFR 28.46
[2025-06-16] MEDS: LOPRESSOR 10 MG IV (05:27)
[2025-06-16] MEDS: UNASYN IV ×2 (05:56→18:11)
[2025-06-16 07:04] LABS: Hematocrit 36.7 % (39.0-52.0); Hemoglobin 11.5 g/dL (13.0-18.0); Mean Corp Hgb Conc. 31.3 g/dL (33.0-37.0); Mean Corpuscular Volume 94.6 fL (80.0-94.0); Red Cell Dist. Width 16.6 % (11.5-14.5)
[2025-06-16 07:19] LABS: Platelet Count 121 10^3/uL (130-400)
[2025-06-16 08:08] LABS: Glucose - Point of Care 99 mg/dl (70-99)
[2025-06-16] MEDS: SENOKOT-S 1 TABLET PO (08:32)
[2025-06-16] MEDS: NEURONTIN 300 MG PO (08:32)
[2025-06-16] MEDS: FLOMAX 0.4 MG PO (08:32)
[2025-06-16] MEDS: PROSCAR 5 MG PO (08:32)
[2025-06-16] MEDS: NOVOLOG FLEXPEN-MODERATE RESISTANCE SC ×2 (08:32→12:14)
[2025-06-16] MEDS: DESENEX/MITRAZOL/ZEASORB 1 APPLIC TOPICAL ×2 (08:32→21:04)
[2025-06-16] MEDS: MYCOSTATIN ORAL SUSPENSION 5 ML PO ×2 (08:33→12:14)
[2025-06-16] MEDS: HYDROPHOR 1 APPLIC TOPICAL (08:33)
[2025-06-16] MEDS: ZOLOFT 100 MG PO (08:33)
[2025-06-16] MEDS: LIPITOR 10 MG PO (08:33)
[2025-06-16] MEDS: MIRALAX PO (08:33)
[2025-06-16] MEDS: ELIQUIS 2.5 MG PO ×2 (08:35→21:04)
[2025-06-16] MEDS: MAGNESIUM SULFATE 100 IV (08:35)
[2025-06-16 12:13] LABS: Glucose - Point of Care 87 mg/dl (70-99)
[2025-06-16] MEDS: LOPRESSOR 100 MG PO ×2 (12:14→21:05)
--- NOTE | 2025-06-16 12:46 | W.PN.URO.CBU ---
Today's Communication / Plan
-
keep nichols
Assessment / Plan
-
84M with acute metabolic encephalopathy, TAO, urinary retention with associated suspected UTI
Some self limited hematuria after nichols placement
Traumatic nichols catheter removal by patient 06/09 and replaced, patient with restraints
- Hematuria resolved, okay to continue anticoagulation
- Some degree of chronic urinary retention is likely with thickened bladder wall and large diverticulum, which can contribute to infections and acute admissions like this
- Ideally recommend discharge with nichols catheter in place if patient can tolerate, however he forcibly removed the catheter requiring restraints and unlikely to tolerate
- UTI management per hospitalist
- Maintain nichols for now after traumatic removed to tamponade bleeding
- Can remove catheter for trial of void before discharge to assess emptyingpt with 800cc pvr unlikely to void but at risk for pulling nichols dilemma as to how to proceed even for nhp may have yoi pull nichols just to see if voids at all
Diagnosis
-
Date of Service: June 16, 2025
-
Patient Diagnosis:
Post Op Day:
Patient Diagnosis:
Post Op Day:
Patient Diagnosis:
urinary retention
UTI
Post Op Day:
Subjective
-
dementia
Objective
-
Vital Signs
Temp Pulse Resp BP Pulse Ox
97.4 F 82 18 134/67 97
06/16/25 10:59 06/16/25 10:59 06/16/25 10:59 06/16/25 10:59 06/16/25 10:59
Intake and Output
06/15/25 06/16/25 06/17/25
06:59 06:59 06:59
Intake Total 1380 / 1380 480 / 480
Output Total 2200 / 2200 750 / 750
Balance -820 / -820 -270 / -270
Intake:
Oral fluids 1380 / 1380 480 / 480
Output:
Urine, Nichols 500 / 500 750 / 750
Urine, Voided 1700 / 1700
Laboratory Results
06/16/25 06:09
06/16/25 00:16
Review of Systems
-
: Difficulty Voiding
Physical Exam
-
General - well developed, well nourished, no acute distress
Chest - clear bilaterally
Abdomen - soft, non-tender, positive bowel sounds, no CVAT, no incisional pain or distention
Genitalia - normal
Rectal - normal
Skin - warm & dry with no rash
Neuro - AOx3, no motor deficits
Extremities - no clubbing, no cyanosis, no edema
Incision - clean, dry
Dressing - clean, dry, intact
Counseling
-
keep nichols
--- NOTE | 2025-06-16 13:07 | W.PN.HOSP.TC ---
Today's Communication/Plan
-
trial PO lopressor - if tolerating - can plan for disposition efforts
abx
monitor Na, K, mag
Assessment / Plan
Assessment / Plan
83 y/o male, Kenyan speaking, with PMHx of HFmrEF, DM, neuropathy, HTN, HLD, BPH, anxiety, dementia, chronic ambulatory deficiency, Hx of gangrenous cholecystitis in January 2025 who was brought from [facility] with lethargy and hypoglycemia.
Patient is on Metformin, Farxiga, Basalgar 7units AM, 20units HS and and GLipizide. In ED found TAO with urinary retention so Mcdonald was placed. UA concering for infection. Patient is a poor historian due to significant dementia, when seen in ED his
mentation is on the baseline if compared with January 2025. Had episode of hematuria after attempting to pull the Mcdonald, however that is resolving.
A/P:
#TAO 2/2 urinary retention and HAGMA
#Marked urinary bladder wall thickening suggesting neurogenic bladder or chronic outlet obstruction.
#Acute metabolic encephalopathy, most liekly 2/2 TAO and UTI along with dementia
question large diverticulum
Patient pulled on Mcdonald catheter causing hematuria and eventually needed tamponade -
� Plan for maintaining Mcdonald at least 3 days, although ideally should be discharged on this but patient is high risk for pulling forcibly (D3) - Trial of Void today 06/14
� Trial of void prior to discharge
� Urology consulted
-IVF - switched to Bicarb on 06/09/25 - Can dc
-monitor bmp
-CT abd repeated: cholelithiasis with signs of chronic outlet obstruction with mild bilateral hydroureteronephrosis
-hold diuretics and Lisinopril
UA negative
#Hematuria
traumatic 2/2 pulling the Mcdonald
Improved
Urology consul
can resume Eliquis
#Hypernatremia, improved
-likely post ATN diuresis
-Stopped D5w and monitor - improved
-F/u BMP
#Hypomagnesemia
-monitor and replete
#Bacteremia
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
-repeat cultures
-no obvious source despite vast imaging
-ID consulted
- Empiric IV abx with Unasyn through 06/24 as patient refusing PO meds - switch to PO once consistently taking po meds
-DC metronidazole
#B/L Chronic venous stasis
-no evidence of cellulitis
#Chronic anemia
follow CBC
-no acute blood loss anemia
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
Insulin SS only, Accuchecks q2h for 24h, DM diet when able
Stop oral hypoglycemics
Hold Basal/bolus
#Hypokalemia
-monitor and replete
#acute hypoxic insufficiency 2/2 Acute on Chronic HFpEF
2/2 declining Lasix
holding due to declining along with getting fluids for hypernatremia
-weaned off o2
#Constipation
Laxatives
#Essential HTN
#BPH
#Anxiety
#Dementia, Unspecified
#HLD
#Afib, paroxysmal
Patient with known HX to refuse drugs
Eliquis 2.5mg as per Age and Cr adjustment
Stop IV lopressor if tolerating back on PO regimen
cont rest of meds
#Goals of Care Discussion
POLST form DNR/DNI with limited intervention, IVF and Abx acceptable; Patient hospice appropriate;
DVT Prophylaixs: eliquis
DNR/DNI as per POLST form
Anticipated Discharge: Within 24 hours
Subjective/Interval History
-
Date of Service: June 16, 2025
tolerated po regimen today, tria PO Lopressor
Objective Data
-
Labs:
Laboratory Results
06/16/25
06:09
WBC 9.8
Hgb 11.5 L
Hct 36.7 L
Plt Count 121 L D
Vital Signs:
Vital Signs
Temp Pulse Resp BP Pulse Ox
97.4 F 82 18 134/67 97
06/16/25 10:59 06/16/25 10:59 06/16/25 10:59 06/16/25 10:59 06/16/25 10:59
I&O
06/15/25 06/16/25 06/17/25
06:59 06:59 06:59
Intake Total 1380 / 1380 480 / 480
Output Total 2200 / 2200 750 / 750
Balance -820 / -820 -270 / -270
Review of Systems
-
History Source: Patient
All other systems: Not reviewed unless documented
Physical Exam
-
General: No Apparent Distress
Respiratory: Clear to Auscultation
GI: Soft, Nontender and Nondistended
Neuro: Awake and Alert
Psych: Calm and Apparent Dementia
Data Reviewed
-
Total Time Spent with Patient (in minutes): 40
Diagnostic Radiology: Report Reviewed by me
CT Scan: Report Reviewed by me
Labs: Labs Reviewed by me
--- NOTE | 2025-06-16 14:51 | W.PN.ID1 ---
Date of Service
Date of Service: June 16, 2025
Today's Communication
Continue Unasyn 3g IV q12h through 06/24/25
Assessment / Plan
TAO on CKD
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
-Possible contaminants- both sets of bcx's drawn at the same time.
- Extensive work-up without finding of source:
CT a/p, chest, head and neck without culprit lesions, note cholelithiasis without evidence of cholecystitis
patient is edentulous no evidence of oral cavity lesion
- Treat empirically with IV antibiotic as he is unwilling to take oral pills. Of note pt with dementia.
- DC'd metronidazole as not effective against Bifidobacterium
- Continue Unasyn 3g IV q12h through 06/24/25. Renally adjust dose prn.
Chief Complaint
-: Bacteremia
Vital Signs / Physical Exam
Vital Signs
Vital Signs
Temp Pulse Resp BP Pulse Ox
97.4 F 82 18 134/67 97
06/16/25 10:59 06/16/25 10:59 06/16/25 10:59 06/16/25 10:59 06/16/25 10:59
Physical Exam
Constitutional: Chronically Ill
Cardiovascular: Regular Rate and S1/S2
Pulmonary: Clear (anteriorly)
Gastrointestinal: Soft, Non Tender, Non Distended and Normal Bowel Sounds
Genito-Urinary: Mcdonald
Extremities: Venous Insufficiency
Neurological: Awake
Objective Data
Lab Data
Lab Results
06/16/25 06:09
06/16/25 00:16
Estimated Creat Clear 28 ml/min 06/16/25 00:16
Lactic Acid 1.9 mmol/L (0.7-2.0) 06/08/25 08:36
Total Bilirubin 0.4 mg/dl (0.2-1.3) 06/08/25 07:07
AST 25 U/L (17-59) 06/08/25 07:07
ALT 23 U/L (0-50) 06/08/25 07:07
Alkaline Phosphatase 63 U/L (38-126) 06/08/25 07:07
Most recent labs reviewed.
Micro Results:
06/10/25 16:32 Blood Culture - Final
Blood/Venous No Growth - Final Report
06/12/25 14:51 Blood Culture - Preliminary
Blood/Venous No Growth in 72 hours- Final report to follow
06/08/25 09:15 Blood Culture - Final
Blood/Venous Bifidobacterium species
Anaerobic gram neg bacilli
Gram Stain - Final
06/08/25 09:15 Blood Culture - Final
Blood/Venous Bifidobacterium species
Anaerobic gram neg bacilli
Gram Stain - Final
06/09/25 15:49 MRSA Screen - Final
Nose No Methicillin Resistant Staphylococcus aureus isolated.
06/08/25 08:36 Urine Culture - Final
Urine NO GROWTH
[2025-06-16 17:32] LABS: Glucose - Point of Care 234 mg/dl (70-99)
[2025-06-16] MEDS: MYCOSTATIN ORAL SUSPENSION PO ×2 (18:10→22:24)
[2025-06-16] MEDS: NOVOLOG FLEXPEN-MODERATE RESISTANCE 5 UNITS SC (18:11)
[2025-06-16] MEDS: SENOKOT-S PO (20:58)
[2025-06-16 21:22] LABS: Glucose - Point of Care 240 mg/dl (70-99)
[2025-06-16] MEDS: LANTUS 0.1 UNITS SC (21:40)
[2025-06-17 03:00] VITALS: BP 147/77
[2025-06-17 04:16] VITALS: BMI 30.2
[2025-06-17] MEDS: UNASYN IV ×2 (05:08→18:25)
[2025-06-17 05:25] VITALS: BMI 30.1
[2025-06-17 07:46] LABS: Glucose - Point of Care 149 mg/dl (70-99)
[2025-06-17 07:47] VITALS: BP 135/71
--- NOTE | 2025-06-17 07:56 | W.PN.HOSP.TC ---
Today's Communication/Plan
-
failed TOV, Mcdonald resumed
Cont abx
Assessment / Plan
Assessment / Plan
Physical Exam
General: No Apparent Distress, appears comfortable at this time
Respiratory: Clear to Auscultation
Cardio: S1/S2 no murmurs rubs or gallops
GI: Soft, Nontender and Nondistended
Neuro: Awake and Alert conversant to an extent
Psych: Calm and Apparent Dementia
83 y/o male, Ethiopian speaking, with PMHx of HFmrEF, DM, neuropathy, HTN, HLD, BPH, anxiety, dementia, chronic ambulatory deficiency, Hx of gangrenous cholecystitis in January 2025 who was brought from [facility] with lethargy and hypoglycemia.
Patient is on Metformin, Farxiga, Basalgar 7units AM, 20units HS and and GLipizide. In ED found TAO with urinary retention so Mcdonald was placed. UA concering for infection. Patient is a poor historian due to significant dementia, when seen in ED his
mentation is on the baseline if compared with January 2025. Had episode of hematuria after attempting to pull the Mcdonald, however that is resolving.
A/P:
#TAO 2/2 urinary retention and HAGMA
#Marked urinary bladder wall thickening suggesting neurogenic bladder or chronic outlet obstruction.
#Acute metabolic encephalopathy, most liekly 2/2 TAO and UTI along with dementia
question large diverticulum
Patient pulled on Mcdonald catheter causing hematuria and eventually needed tamponade -
� Plan for maintaining Mcdonald at least 3 days, although ideally should be discharged on this but patient is high risk for pulling forcibly (D3) - Failed Trial of Void 06/14 06/17
� Trial of void prior to discharge
� Urology consult appreciated
-Bicarb supplementation completed
-CT abd repeated: cholelithiasis with signs of chronic outlet obstruction with mild bilateral hydroureteronephrosis
-hold diuretics and Lisinopril
UA negative
#Hematuria
traumatic 2/2 pulling the Mcdonald
Improved
Urology consult appreciated
can resume Eliquis
#Hypernatremia, improved
-likely post ATN diuresis
-IVF completed
-monitor BMP
#Hypomagnesemia
-monitor and replete
#Bacteremia
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
-repeat cultures
-no obvious source despite vast imaging
-ID consult appreciated
- Empiric IV abx with Unasyn through 06/24 as patient refusing PO meds - switch to PO once consistently taking po meds
- metronidazole completed
#B/L Chronic venous stasis
-no evidence of cellulitis
#Chronic anemia
follow CBC
-no acute blood loss anemia
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
Insulin sliding scale
Lantus 10U HS
#Hypokalemia
-monitor and replete as necessary
#acute hypoxic insufficiency 2/2 Acute on Chronic HFpEF
2/2 declining Lasix
holding due to declining along with getting fluids for hypernatremia
-weaned off o2
-remains off Lasix
#Constipation
Laxatives
#Essential HTN
#BPH
#Anxiety
#Dementia, Unspecified
#HLD
#Afib, paroxysmal
Patient with known HX to refuse drugs
Eliquis 2.5mg as per Age and Cr adjustment
IV lopressor stopped, PO metoprolol resumed, tolerating
cont rest of meds
#Goals of Care Discussion
POLST form DNR/DNI with limited intervention, IVF and Abx acceptable; Patient hospice appropriate;
DVT Prophylaixs: eliquis
DNR/DNI
Daughter Sanjana updated.
I spent a total of 40 minutes with the patient or on the floor. More than 50% of this time involved counseling and coordination of care.
Anticipated Discharge: 24 - 48 hours
Subjective/Interval History
-
Date of Service: June 17, 2025
No acute distress, appears comfortable at this time. Noted intermittent fluent Moroccan. Patient declines to speak with Ethiopian lead assistant manager service.
Objective Data
-
Labs:
Laboratory Results
06/17/25
06:00
WBC Pending
Hgb Pending
Hct Pending
Plt Count Pending
Sodium Pending
Potassium Pending
Chloride Pending
Carbon Dioxide Pending
BUN Pending
Creatinine Pending
Glucose Pending
Calcium Pending
Vital Signs:
Vital Signs
Temp Pulse Resp BP Pulse Ox
98.4 F 60 16 135/71 98
06/17/25 07:47 06/17/25 07:47 06/17/25 07:47 06/17/25 07:47 06/17/25 07:47
I&O
06/16/25 06/17/25 06/18/25
06:59 06:59 06:59
Intake Total 480 / 480 1620 / 1620
Output Total 750 / 750 1800 / 1800
Balance -270 / -270 -180 / -180
[2025-06-17] MEDS: NOVOLOG FLEXPEN-MODERATE RESISTANCE SC (08:55)
[2025-06-17] MEDS: DESENEX/MITRAZOL/ZEASORB 1 APPLIC TOPICAL ×2 (09:05→22:07)
[2025-06-17] MEDS: NEURONTIN 300 MG PO (09:05)
[2025-06-17] MEDS: MYCOSTATIN ORAL SUSPENSION 5 ML PO (09:05)
[2025-06-17] MEDS: HYDROPHOR 1 APPLIC TOPICAL (09:05)
[2025-06-17] MEDS: PROSCAR 5 MG PO (09:06)
[2025-06-17] MEDS: LOPRESSOR 100 MG PO ×2 (09:06→22:08)
[2025-06-17] MEDS: ELIQUIS 2.5 MG PO ×2 (09:06→22:08)
[2025-06-17] MEDS: SENOKOT-S 1 TABLET PO ×2 (09:06→22:09)
[2025-06-17] MEDS: ZOLOFT 100 MG PO (09:06)
[2025-06-17] MEDS: MIRALAX 17 GRAMS PO (09:06)
[2025-06-17] MEDS: LIPITOR 10 MG PO (09:06)
[2025-06-17] MEDS: FLOMAX 0.4 MG PO (09:06)
--- NOTE | 2025-06-17 10:06 | CM ---
CM following for discharge/return to [facility], likely today pending medical clearance.
PLAN: return to [facility] Report: [phone]
[facility]
--- NOTE | 2025-06-17 10:18 | W.PN.ID1 ---
Date of Service
Date of Service: June 17, 2025
Today's Communication
- Continue Unasyn 3g IV q12h through 06/24/25. Renally adjust dose prn. Could transition to oral if patient willing to take pills
Assessment / Plan
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
TAO on CKD
-Possible contaminant- both sets of bcx's drawn at the same time.
- Extensive work-up without finding of source:
CT a/p, chest, head and neck without culprit lesions, note cholelithiasis without evidence of cholecystitis
patient is edentulous no evidence of oral cavity lesion
- Treat empirically with IV antibiotic as he is unwilling to take oral pills. Of note pt with dementia.
- DC'd metronidazole as not effective against Bifidobacterium
- Continue Unasyn 3g IV q12h through 06/24/25. Renally adjust dose prn. Could transition to oral if patient willing to take pills
Chief Complaint
-: Bacteremia
Subjective / Review of Systems
afebrile
bp stable
tolerating current therapies
Vital Signs / Physical Exam
Vital Signs
Vital Signs
Temp Pulse Resp BP Pulse Ox
98.4 F 60 16 135/71 98
06/17/25 07:47 06/17/25 07:47 06/17/25 07:47 06/17/25 07:47 06/17/25 07:47
Physical Exam
Constitutional: No Acute Distress
Cardiovascular: Regular Rate and S1/S2; Negative Murmur or Rub
Pulmonary: Clear and Symmetric; Negative Wheezes or Rales
Gastrointestinal: Soft, Non Tender, Non Distended and Normal Bowel Sounds
Skin: Warm and Dry; Negative Rash or Jaundice
Objective Data
Lab Data
Estimated Creat Clear 28 ml/min 06/16/25 00:16
Lactic Acid 1.9 mmol/L (0.7-2.0) 06/08/25 08:36
Total Bilirubin 0.4 mg/dl (0.2-1.3) 06/08/25 07:07
AST 25 U/L (17-59) 06/08/25 07:07
ALT 23 U/L (0-50) 06/08/25 07:07
Alkaline Phosphatase 63 U/L (38-126) 06/08/25 07:07
Most recent labs reviewed.
Micro Results:
06/12/25 14:51 Blood Culture - Preliminary
Blood/Venous No Growth in 4 days- Final report to follow
06/10/25 16:32 Blood Culture - Final
Blood/Venous No Growth - Final Report
06/08/25 09:15 Blood Culture - Final
Blood/Venous Bifidobacterium species
Anaerobic gram neg bacilli
Gram Stain - Final
06/08/25 09:15 Blood Culture - Final
Blood/Venous Bifidobacterium species
Anaerobic gram neg bacilli
Gram Stain - Final
06/09/25 15:49 MRSA Screen - Final
Nose No Methicillin Resistant Staphylococcus aureus isolated.
06/08/25 08:36 Urine Culture - Final
Urine NO GROWTH
[2025-06-17 11:17] VITALS: BP 163/74
[2025-06-17 11:52] LABS: Glucose - Point of Care 252 mg/dl (70-99)
[2025-06-17] MEDS: MYCOSTATIN ORAL SUSPENSION PO ×4 (12:35→22:15)
[2025-06-17] MEDS: NOVOLOG FLEXPEN-MODERATE RESISTANCE 5 UNITS SC (12:36)
--- NOTE | 2025-06-17 12:43 | W.PN.URO.CBU ---
Today's Communication / Plan
-
no gu s=changes
Assessment / Plan
-
84M with acute metabolic encephalopathy, TAO, urinary retention with associated suspected UTI
Some self limited hematuria after nichols placement
Traumatic nichols catheter removal by patient 10/ and replaced, patient with restraints
- Hematuria resolved, okay to continue anticoagulation
- Some degree of chronic urinary retention is likely with thickened bladder wall and large diverticulum, which can contribute to infections and acute admissions like this
- Ideally recommend discharge with nichols catheter in place if patient can tolerate, however he forcibly removed the catheter requiring restraints and unlikely to tolerate
- UTI management per hospitalist
- Maintain nichols for now after traumatic removed to tamponade bleeding
- Can remove catheter for trial of void before discharge to assess emptyingpt with 800cc pvr unlikely to void but at risk for pulling nichols dilemma as to how to proceed even for nhp may have yoi pull nichols just to see if voids at all
Diagnosis
-
Date of Service: June 17, 2025
-
Patient Diagnosis:
Post Op Day:
Patient Diagnosis:
Post Op Day:
Patient Diagnosis:
Post Op Day:
Patient Diagnosis:
urinary retention
UTI
Post Op Day:
Subjective
-
non verbal
Objective
-
Vital Signs
Temp Pulse Resp BP Pulse Ox
98.2 F 70 16 163/74 97
06/17/25 11:17 06/17/25 11:17 06/17/25 11:17 06/17/25 11:17 06/17/25 11:17
Intake and Output
06/16/25 06/17/25 06/18/25
06:59 06:59 06:59
Intake Total 480 / 480 1620 / 1620
Output Total 750 / 750 1800 / 1800
Balance -270 / -270 -180 / -180
Intake:
Oral fluids 480 / 480 1500 / 1500
IV piggybacks 120 / 120
Output:
Urine, Nichols 750 / 750 800 / 800
Urine, Voided 1000 / 1000
Other:
Number of unmeasured liquid
stools
Rectum 1
Review of Systems
-
: Difficulty Voiding
Physical Exam
-
General - well developed, well nourished, no acute distress
Chest - clear bilaterally
Abdomen - soft, non-tender, positive bowel sounds, no CVAT, no incisional pain or distention
Genitalia - normal
Rectal - normal
Skin - warm & dry with no rash
Neuro - AOx3, no motor deficits
Extremities - no clubbing, no cyanosis, no edema
Incision - clean, dry
Dressing - clean, dry, intact
Counseling
-
no gu changes
[2025-06-17 15:35] VITALS: BP 104/83
[2025-06-17] MEDS: NOVOLOG FLEXPEN-MODERATE RESISTANCE 1 UNITS SC (18:30)
[2025-06-17 18:31] LABS: Glucose - Point of Care 153 mg/dl (70-99)
[2025-06-17 19:00] VITALS: BP 135/73
[2025-06-17 21:02] LABS: Glucose - Point of Care 145 mg/dl (70-99)
[2025-06-17] MEDS: LANTUS 0.1 UNITS SC (22:09)
[2025-06-17 23:00] VITALS: BP 135/70
[2025-06-18 03:00] VITALS: BP 139/76
[2025-06-18 04:06] VITALS: BMI 30.4
[2025-06-18] MEDS: UNASYN IV ×4 (06:15→23:09)
--- NOTE | 2025-06-18 07:47 | W.PN.HOSP.TC ---
Today's Communication/Plan
-
cont abx
maintain Mcdonald
Glycemic control
Assessment / Plan
Assessment / Plan
Physical Exam
General: No Apparent Distress, appears comfortable at this time
Respiratory: Clear to Auscultation
Cardio: S1/S2 no murmurs rubs or gallops
GI: Soft, Nontender and Nondistended
Neuro: Awake and Alert conversant to an extent
Psych: Calm and Apparent Dementia
83 y/o male, Portuguese speaking, with PMHx of HFmrEF, DM, neuropathy, HTN, HLD, BPH, anxiety, dementia, chronic ambulatory deficiency, Hx of gangrenous cholecystitis in January 2025 who was brought from [facility] with lethargy and hypoglycemia.
Patient is on Metformin, Farxiga, Basalgar 7units AM, 20units HS and and GLipizide. In ED found TAO with urinary retention so Mcdonald was placed. UA concering for infection. Patient is a poor historian due to significant dementia, when seen in ED his
mentation is on the baseline if compared with January 2025. Had episode of hematuria after attempting to pull the Mcdonald, however that is resolving.
A/P:
#TAO 2/2 urinary retention and HAGMA
#Marked urinary bladder wall thickening suggesting neurogenic bladder or chronic outlet obstruction.
#Acute metabolic encephalopathy, most liekly 2/2 TAO and UTI along with dementia
question large diverticulum
Patient pulled on Mcdonald catheter causing hematuria and eventually needed tamponade -
� Plan for maintaining Mcdonald at least 3 days, although ideally should be discharged on this but patient is high risk for pulling forcibly (D3) - Failed Trial of Void 06/14 06/17
� Trial of void prior to discharge
� Urology consult appreciated
-Bicarb supplementation completed
-CT abd repeated: cholelithiasis with signs of chronic outlet obstruction with mild bilateral hydroureteronephrosis
-hold diuretics and Lisinopril
UA negative
#Hematuria
traumatic 2/2 pulling the Mcdonald
Improved
Urology consult appreciated
can resume Eliquis
#Hypernatremia, improved
-likely post ATN diuresis
-IVF completed
-monitor BMP
#Hypomagnesemia
-monitor and replete
#Bacteremia
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
-repeat cultures
-no obvious source despite vast imaging
-ID consult appreciated
- Empiric IV abx with Unasyn through 06/24 as patient refusing PO meds - switch to PO once consistently taking po meds
- metronidazole completed
#B/L Chronic venous stasis
-no evidence of cellulitis
#Chronic anemia
follow CBC
-no acute blood loss anemia
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
Insulin sliding scale
Lantus 10U HS
#Hypokalemia
-monitor and replete as necessary
#acute hypoxic insufficiency possibly 2/2 Acute on Chronic HFpEF
2/2 declining Lasix
holding due to declining along with getting fluids for hypernatremia
-weaned off o2
-remains off Lasix
#Constipation
Laxatives
#Essential HTN
#BPH
#Anxiety
#Dementia, Unspecified
#HLD
#Afib, paroxysmal
Patient with known HX to refuse drugs
Eliquis 2.5mg as per Age and Cr adjustment
IV lopressor stopped, PO metoprolol resumed, tolerating
cont rest of meds
#Goals of Care Discussion
POLST form DNR/DNI with limited intervention, IVF and Abx acceptable; Patient hospice appropriate;
DVT Prophylaixs: eliquis
DNR/DNI
Daughter Sanjana updated.
I spent a total of 40 minutes with the patient or on the floor. More than 50% of this time involved counseling and coordination of care.
Anticipated Discharge: 24 - 48 hours
Subjective/Interval History
-
Date of Service: June 18, 2025
No acute distress, appears comfortable at this time. intermittently refusing oral meds.
Objective Data
-
Labs:
Laboratory Results
06/18/25
07:28
WBC Pending
Hgb Pending
Hct Pending
Plt Count Pending
Sodium Pending
Potassium Pending
Chloride Pending
Carbon Dioxide Pending
BUN Pending
Creatinine Pending
Glucose Pending
Calcium Pending
Vital Signs:
Vital Signs
Temp Pulse Resp BP Pulse Ox
97.9 F 67 15 139/76 100
06/18/25 03:00 06/18/25 03:00 06/18/25 03:00 06/18/25 03:00 06/18/25 03:00
I&O
06/17/25 06/18/25 06/19/25
06:59 06:59 06:59
Intake Total 1620 / 1620 240 / 240
Output Total 1800 / 1800 2405 / 2405
Balance -180 / -180 -2165 / -2165
[2025-06-18 08:16] LABS: Glucose - Point of Care 147 mg/dl (70-99)
[2025-06-18 08:42] LABS: Hematocrit 38.5 % (39.0-52.0); Hemoglobin 11.5 g/dL (13.0-18.0); Mean Corp Hgb Conc. 29.9 g/dL (33.0-37.0); Mean Corpuscular Volume 98.0 fL (80.0-94.0); Red Cell Dist. Width 16.4 % (11.5-14.5)
[2025-06-18 08:48] LABS: Blood Urea Nitrogen 25 mg/dl (9-20); Calcium 8.4 mg/dl (8.4-10.2); Carbon Dioxide 25 mmol/L (22-30); Chloride 113 mmol/L (98-107); Estimated Creatinine Clearance 36 ml/min; Glucose 152 mg/dl (70-99); Magnesium 2.3 mg/dl (1.6-2.3); Potassium 3.9 mmol/L (3.5-5.1); Sodium 146 mmol/L (135-145); eGFR 38.78
[2025-06-18 09:24] LABS: Platelet Count 111 10^3/uL (130-400)
[2025-06-18] MEDS: LIPITOR PO ×2 (09:46→16:06)
[2025-06-18] MEDS: MIRALAX PO ×2 (09:46→16:06)
[2025-06-18] MEDS: NOVOLOG FLEXPEN-MODERATE RESISTANCE SC ×3 (09:46→17:19)
[2025-06-18] MEDS: ELIQUIS PO ×3 (09:46→21:09)
[2025-06-18] MEDS: FLOMAX PO ×2 (09:46→16:06)
[2025-06-18] MEDS: PROSCAR PO ×2 (09:46→16:05)
[2025-06-18] MEDS: SENOKOT-S PO ×3 (09:46→21:10)
[2025-06-18] MEDS: NEURONTIN PO ×2 (09:46→16:05)
[2025-06-18] MEDS: HYDROPHOR 1 APPLIC TOPICAL (09:47)
[2025-06-18] MEDS: ZOLOFT PO ×2 (09:47→16:05)
[2025-06-18] MEDS: LOPRESSOR PO ×3 (09:47→21:09)
[2025-06-18] MEDS: MYCOSTATIN ORAL SUSPENSION 5 ML PO (09:47)
[2025-06-18] MEDS: DESENEX/MITRAZOL/ZEASORB 1 APPLIC TOPICAL ×2 (10:05→21:09)
--- NOTE | 2025-06-18 10:50 | W.PN.ID1 ---
Date of Service
Date of Service: June 18, 2025
Today's Communication
- Continue Unasyn 3g IV q6h through 06/24/25. Renally adjust dose prn. Could transition to oral if patient willing to take pills
Assessment / Plan
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
- Possible contaminant- both sets of bcx's drawn at the same time.
- Extensive work-up without finding of source:
CT a/p, chest, head and neck without culprit lesions, note cholelithiasis without evidence of cholecystitis
patient is edentulous no evidence of oral cavity lesion
- Treat empirically with IV antibiotic as he is unwilling to take oral pills. Of note pt with dementia.
- DC'd metronidazole as not effective against Bifidobacterium
- Continue Unasyn 3g IV q6h through 06/24/25. Renally adjust dose prn. Could transition to oral if patient willing to take pills
Chief Complaint
-: Bacteremia
Subjective / Review of Systems
afebrile
bp stable
Vital Signs / Physical Exam
Vital Signs
Vital Signs
Temp Pulse Resp BP Pulse Ox
97.1 F 52 14 139/76 96
06/18/25 07:48 06/18/25 07:48 06/18/25 07:48 06/18/25 03:00 06/18/25 07:48
Physical Exam
Constitutional: No Acute Distress
Cardiovascular: Regular Rate
Pulmonary: Symmetric
Skin: Warm and Dry; Negative Rash or Jaundice
Neurological: Negative Awake
Objective Data
Lab Data
Lab Results
06/18/25 07:28
06/18/25 07:28
Estimated Creat Clear 36 ml/min 06/18/25 07:28
Lactic Acid 1.9 mmol/L (0.7-2.0) 06/08/25 08:36
Total Bilirubin 0.4 mg/dl (0.2-1.3) 06/08/25 07:07
AST 25 U/L (17-59) 06/08/25 07:07
ALT 23 U/L (0-50) 06/08/25 07:07
Alkaline Phosphatase 63 U/L (38-126) 06/08/25 07:07
Most recent labs reviewed.
Micro Results:
06/12/25 14:51 Blood Culture - Final
Blood/Venous No Growth - Final Report
06/10/25 16:32 Blood Culture - Final
Blood/Venous No Growth - Final Report
06/08/25 09:15 Blood Culture - Final
Blood/Venous Bifidobacterium species
Anaerobic gram neg bacilli
Gram Stain - Final
06/08/25 09:15 Blood Culture - Final
Blood/Venous Bifidobacterium species
Anaerobic gram neg bacilli
Gram Stain - Final
06/09/25 15:49 MRSA Screen - Final
Nose No Methicillin Resistant Staphylococcus aureus isolated.
06/08/25 08:36 Urine Culture - Final
Urine NO GROWTH
[2025-06-18 11:21] VITALS: BP 138/57
[2025-06-18 11:55] LABS: Glucose - Point of Care 145 mg/dl (70-99)
[2025-06-18] MEDS: MYCOSTATIN ORAL SUSPENSION PO ×3 (13:32→21:10)
[2025-06-18 15:13] VITALS: BP 137/82
[2025-06-18 16:37] LABS: Glucose - Point of Care 139 mg/dl (70-99)
--- NOTE | 2025-06-18 18:34 | W.PN.URO.CBU ---
Today's Communication / Plan
-
keep nichols
Assessment / Plan
-
84M with acute metabolic encephalopathy, TAO, urinary retention with associated suspected UTI
Some self limited hematuria after nichols placement
Traumatic nichols catheter removal by patient 06/09 and replaced, patient with restraints
- Hematuria resolved, okay to continue anticoagulation
- Some degree of chronic urinary retention is likely with thickened bladder wall and large diverticulum, which can contribute to infections and acute admissions like this
- Ideally recommend discharge with nichols catheter in place if patient can tolerate, however he forcibly removed the catheter requiring restraints and unlikely to tolerate
- UTI management per hospitalist
- Maintain nichols for now after traumatic removed to tamponade bleeding
- Can remove catheter for trial of void before discharge to assess emptyingpt with 800cc pvr unlikely to void but at risk for pulling nichols dilemma as to how to proceed even for nhp may have yoi pull nichols just to see if voids at all
Diagnosis
-
Date of Service: June 18, 2025
-
Patient Diagnosis:
Post Op Day:
Patient Diagnosis:
Post Op Day:
Patient Diagnosis:
Post Op Day:
Patient Diagnosis:
Post Op Day:
Patient Diagnosis:
urinary retention
UTI
Post Op Day:
Subjective
-
pullig nichols urine clear
Objective
-
Vital Signs
Temp Pulse Resp BP Pulse Ox
97.6 F 69 15 137/82 95
06/18/25 15:13 06/18/25 15:13 06/18/25 15:13 06/18/25 15:13 06/18/25 15:13
Intake and Output
06/17/25 06/18/25 06/19/25
06:59 06:59 06:59
Intake Total 1620 / 1620 240 / 240 480 / 480
Output Total 1800 / 1800 2405 / 2405
Balance -180 / -180 -2165 / -2165 480 / 480
Intake:
Oral fluids 1500 / 1500 240 / 240 480 / 480
IV piggybacks 120 / 120
Output:
Urine, Nichols 800 / 800 900 / 900
Urine, Voided 1000 / 1000 1505 / 1505
Other:
Number of unmeasured liquid
stools
Rectum 1
Laboratory Results
06/18/25 07:28
06/18/25 07:28
Review of Systems
-
: Difficulty Voiding
Physical Exam
-
General - well developed, well nourished, no acute distress
Chest - clear bilaterally
Abdomen - soft, non-tender, positive bowel sounds, no CVAT, no incisional pain or distention
Genitalia - normal
Rectal - normal
Skin - warm & dry with no rash
Neuro - AOx3, no motor deficits
Extremities - no clubbing, no cyanosis, no edema
Incision - clean, dry
Dressing - clean, dry, intact
Counseling
-
keep nichols
[2025-06-18 19:40] VITALS: BP 144/72
--- NOTE | 2025-06-18 21:26 | PTCARENOTE ---
pt refusing all care at this time. pt refusing to take medications, Pt refusing to allow staff to obtain bedside glucose. Pt yells at staff ' Im sleeping', becomes aggressive and attempts to hit when attempting to provide care. Pt calm when left
alone. Pt repositioning self in bed. Mcdonald in place. Heel relief boots in place. House PIERCER OPERATOR notified. No further orders at this time. Bed alarm in place. Will continue to monitor.
[2025-06-18] MEDS: LANTUS SC (23:08)
--- NOTE | 2025-06-18 23:32 | PTCARENOTE ---
Pt continues to refuse care and gets agitated and combative when attempting. Unable to obtain vital signs at this time. Pt was able to receive IV abx as scheduled with Nono in place to protect IV. HR in the 60's on the heart monitor. Will continue
to monitor.
--- NOTE | 2025-06-19 00:33 | PTCARENOTE ---
Pt refusing midnight dose of Unasyn. Pt becomes combative whenever the RN or PCT tries to do any care. Would not let this RN anywhere near his IV. Also refusing nichols care. House provider TT and notified.
[2025-06-19] MEDS: UNASYN IV ×3 (05:10→17:43)
--- NOTE | 2025-06-19 05:58 | PTCARENOTE ---
Attempted to perform hygiene, was able to clean backside before pt became agitated and attempting to hit. Unable to provide Mcdonald care. Pt unwilling to cooperate with any type of care. New pad placed under pt despite fighting and new sheet on top,
Pt just wants to be left alone. Will continue to monitor.
[2025-06-19 06:00] VITALS: BMI 29.5
[2025-06-19] MEDS: NOVOLOG FLEXPEN-MODERATE RESISTANCE SC ×3 (08:13→17:44)
[2025-06-19 08:14] LABS: Glucose - Point of Care 104 mg/dl (70-99)
[2025-06-19] MEDS: DESENEX/MITRAZOL/ZEASORB 1 APPLIC TOPICAL (08:14)
[2025-06-19] MEDS: HYDROPHOR 1 APPLIC TOPICAL (08:15)
[2025-06-19] MEDS: FLOMAX PO (08:33)
[2025-06-19] MEDS: MIRALAX PO (08:33)
[2025-06-19] MEDS: LOPRESSOR PO ×2 (08:33→20:34)
[2025-06-19] MEDS: PROSCAR PO (08:33)
[2025-06-19] MEDS: ZOLOFT PO (08:33)
[2025-06-19] MEDS: SENOKOT-S PO ×2 (08:33→20:34)
[2025-06-19] MEDS: LIPITOR PO (08:33)
[2025-06-19] MEDS: ELIQUIS PO ×2 (08:33→20:34)
[2025-06-19] MEDS: NEURONTIN PO (08:33)
[2025-06-19] MEDS: MYCOSTATIN ORAL SUSPENSION PO ×4 (08:33→22:18)
--- NOTE | 2025-06-19 08:59 | W.PN.HOSP.TC ---
Today's Communication/Plan
-
cont abx
refusing meds, labs, not eating/drinking
ongoing goals of care discussion
Assessment / Plan
Assessment / Plan
Physical Exam
General: No Apparent Distress, appears comfortable at this time
Respiratory: Clear to Auscultation
Cardio: S1/S2 no murmurs rubs or gallops
GI: Soft, Nontender and Nondistended
Neuro: Awake and Alert conversant to an extent
Psych: Calm and Apparent Dementia
83 y/o male, [place] speaking, with PMHx of HFmrEF, DM, neuropathy, HTN, HLD, BPH, anxiety, dementia, chronic ambulatory deficiency, Hx of gangrenous cholecystitis in January 2025 who was brought from [facility] with lethargy and hypoglycemia.
Patient is on Metformin, Farxiga, Basalgar 7units AM, 20units HS and and GLipizide. In ED found TAO with urinary retention so Mcdonald was placed. UA concering for infection. Patient is a poor historian due to significant dementia, when seen in ED his
mentation is on the baseline if compared with January 2025. Had episode of hematuria after attempting to pull the Mcdonald, however that is resolving.
A/P:
#TAO 2/2 urinary retention and HAGMA
#Marked urinary bladder wall thickening suggesting neurogenic bladder or chronic outlet obstruction.
#Acute metabolic encephalopathy, most liekly 2/2 TAO and UTI along with dementia
question large diverticulum
Patient pulled on Mcdonald catheter causing hematuria and eventually needed tamponade -
� Plan for maintaining Mcdonald at least 3 days, although ideally should be discharged on this but patient is high risk for pulling forcibly (D3) - Failed Trial of Void 06/14 06/17
� Trial of void prior to discharge
� Urology consult appreciated
-Bicarb supplementation completed
-CT abd repeated: cholelithiasis with signs of chronic outlet obstruction with mild bilateral hydroureteronephrosis
-hold diuretics and Lisinopril
UA negative
#Hematuria
traumatic 2/2 pulling the Mcdonald
Improved
Urology consult appreciated
can resume Eliquis
#Hypernatremia, improved
-likely post ATN diuresis
-IVF completed
-monitor BMP
#Hypomagnesemia
-monitor and replete
#Bacteremia
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
-repeat cultures
-no obvious source despite vast imaging
-ID consult appreciated
- Empiric IV abx with Unasyn through 06/24 as patient refusing PO meds - switch to PO once consistently taking po meds
- metronidazole completed
#B/L Chronic venous stasis
-no evidence of cellulitis
#Chronic anemia
follow CBC
-no acute blood loss anemia
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
Insulin sliding scale
Lantus 10U HS
#Hypokalemia
-monitor and replete as necessary
#acute hypoxic insufficiency possibly 2/2 Acute on Chronic HFpEF
2/2 declining Lasix
holding due to declining along with getting fluids for hypernatremia
-weaned off o2
-remains off Lasix
#Constipation
Laxatives
#Essential HTN
#BPH
#Anxiety
#Dementia, Unspecified
#HLD
#Afib, paroxysmal
Patient with known HX to refuse drugs
Eliquis 2.5mg as per Age and Cr adjustment
IV lopressor stopped, PO metoprolol resumed, tolerating
cont rest of meds
#Goals of Care Discussion
POLST form DNR/DNI with limited intervention, IVF and Abx acceptable; Patient hospice appropriate;
DVT Prophylaixs: eliquis
DNR/DNI
Daughter Sanjana updated.
I spent a total of 40 minutes with the patient or on the floor. More than 50% of this time involved counseling and coordination of care.
Anticipated Discharge: > 48 hours
Subjective/Interval History
-
Date of Service: June 19, 2025
Refusing meds labs
Objective Data
-
Labs:
Laboratory Results
06/19/25
06:00
WBC Pending
Hgb Pending
Hct Pending
Plt Count Pending
Sodium Pending
Potassium Pending
Chloride Pending
Carbon Dioxide Pending
BUN Pending
Creatinine Pending
Glucose Pending
Calcium Pending
Vital Signs:
Vital Signs
Temp Pulse Resp BP Pulse Ox
98.3 F 80 14 144/72 100
06/18/25 19:40 06/18/25 19:40 06/18/25 19:40 06/18/25 19:40 06/18/25 22:00
I&O
06/18/25 06/19/25 06/20/25
06:59 06:59 06:59
Intake Total 240 / 240 720 / 720
Output Total 2405 / 2405 500 / 500
Balance -2165 / -2165 220 / 220
--- NOTE | 2025-06-19 11:08 | W.PN.URO.CBU ---
Today's Communication / Plan
-
KEEP NICHOLS
Assessment / Plan
-
84M with acute metabolic encephalopathy, TAO, urinary retention with associated suspected UTI
Some self limited hematuria after nichols placement
Traumatic nichols catheter removal by patient 06/09 and replaced, patient with restraints
- Hematuria resolved, okay to continue anticoagulation
- Some degree of chronic urinary retention is likely with thickened bladder wall and large diverticulum, which can contribute to infections and acute admissions like this
- Ideally recommend discharge with nichols catheter in place if patient can tolerate, however he forcibly removed the catheter requiring restraints and unlikely to tolerate
- UTI management per hospitalist
- Maintain nichols for now after traumatic removed to tamponade bleeding
- Can remove catheter for trial of void before discharge to assess emptyingpt with 800cc pvr unlikely to void but at risk for pulling nichols dilemma as to how to proceed even for nhp may have yoi pull nichols just to see if voids at all
Diagnosis
-
Date of Service: June 19, 2025
-
Patient Diagnosis:
Post Op Day:
Patient Diagnosis:
Post Op Day:
Patient Diagnosis:
Post Op Day:
Patient Diagnosis:
Post Op Day:
Patient Diagnosis:
Post Op Day:
Patient Diagnosis:
urinary retention
UTI
Post Op Day:
Subjective
-
NON VERBAL
Objective
-
Vital Signs
Temp Pulse Resp BP Pulse Ox
98.3 F 80 14 144/72 100
06/18/25 19:40 06/18/25 19:40 06/18/25 19:40 06/18/25 19:40 06/18/25 22:00
Intake and Output
06/18/25 06/19/25 06/20/25
06:59 06:59 06:59
Intake Total 240 / 240 720 / 720
Output Total 2405 / 2405 500 / 500
Balance -2165 / -2165 220 / 220
Intake:
Oral fluids 240 / 240 480 / 480
IV piggybacks 240 / 240
Output:
Urine, Nichols 900 / 900 500 / 500
Urine, Voided 1505 / 1505
Review of Systems
-
: Difficulty Voiding
Physical Exam
-
General - well developed, well nourished, no acute distress
Chest - clear bilaterally
Abdomen - soft, non-tender, positive bowel sounds, no CVAT, no incisional pain or distention
Genitalia - normal
Rectal - normal
Skin - warm & dry with no rash
Neuro - AOx3, no motor deficits
Extremities - no clubbing, no cyanosis, no edema
Incision - clean, dry
Dressing - clean, dry, intact
Counseling
-
KEEPFOLEY
[2025-06-19 13:10] LABS: Glucose - Point of Care 105 mg/dl (70-99)
--- NOTE | 2025-06-19 13:38 | W.PN.ID1 ---
Date of Service
Date of Service: June 19, 2025
Today's Communication
- Continue Unasyn 3g IV q6h through 06/24/25. Renally adjust dose prn. Could transition to oral if patient willing to take pills
Assessment / Plan
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
TAO on CKD
- Possible contaminant- both sets of bcx's drawn at the same time.
- Extensive work-up without finding of source:
CT a/p, chest, head and neck without culprit lesions, note cholelithiasis without evidence of cholecystitis
patient is edentulous no evidence of oral cavity lesion
- Treat empirically with IV antibiotic as he is unwilling to take oral pills. Of note pt with dementia.
- DC'd metronidazole as not effective against Bifidobacterium
- Continue Unasyn 3g IV q6h through 06/24/25. Renally adjust dose prn. Could transition to oral if patient willing to take pills
Chief Complaint
-: Bacteremia
Subjective / Review of Systems
afebrile
bp stable
Vital Signs / Physical Exam
Vital Signs
Vital Signs
Temp Pulse Resp BP Pulse Ox
98.5 F 66 16 144/72 100
06/19/25 12:00 06/19/25 12:00 06/19/25 12:00 06/18/25 19:40 06/19/25 12:00
Physical Exam
Constitutional: No Acute Distress
Cardiovascular: Regular Rate
Pulmonary: Symmetric and Non Labored
Gastrointestinal: Non Distended
Skin: Dry; Negative Rash or Jaundice
Neurological: Negative Awake
Objective Data
Lab Data
Estimated Creat Clear 36 ml/min 06/18/25 07:28
Lactic Acid 1.9 mmol/L (0.7-2.0) 06/08/25 08:36
Total Bilirubin 0.4 mg/dl (0.2-1.3) 06/08/25 07:07
AST 25 U/L (17-59) 06/08/25 07:07
ALT 23 U/L (0-50) 06/08/25 07:07
Alkaline Phosphatase 63 U/L (38-126) 06/08/25 07:07
Most recent labs reviewed.
Micro Results:
06/12/25 14:51 Blood Culture - Final
Blood/Venous No Growth - Final Report
06/10/25 16:32 Blood Culture - Final
Blood/Venous No Growth - Final Report
06/08/25 09:15 Blood Culture - Final
Blood/Venous Bifidobacterium species
Anaerobic gram neg bacilli
Gram Stain - Final
06/08/25 09:15 Blood Culture - Final
Blood/Venous Bifidobacterium species
Anaerobic gram neg bacilli
Gram Stain - Final
06/09/25 15:49 MRSA Screen - Final
Nose No Methicillin Resistant Staphylococcus aureus isolated.
06/08/25 08:36 Urine Culture - Final
Urine NO GROWTH
[2025-06-19 16:46] LABS: Glucose - Point of Care 103 mg/dl (70-99)
[2025-06-19] MEDS: DESENEX/MITRAZOL/ZEASORB TOPICAL (20:34)
--- NOTE | 2025-06-19 21:23 | PTCARENOTE ---
Pt is refusing for vitals to be taken and to take any meds that are ordered. Pt was ordered an abdomen xray but refused. House provider TT and aware. Xray ordered cancelled.
--- NOTE | 2025-06-19 21:27 | W.PN.UPDATE ---
Addendum entered and electronically signed by LENORA Marino 06/20/25 00:46:
Pt continued to refuse any medication (including eliquis and zosyn) and vital signs. Will become extremly agitated when anyone tries to touch him.
Original Note:
Update Note
Progress Note Update
pt refusing abd xray. xray cancelled for now.
[2025-06-19] MEDS: LANTUS SC (22:18)
[2025-06-20] MEDS: UNASYN IV ×4 (01:03→17:18)
--- NOTE | 2025-06-20 03:15 | PTCARENOTE ---
Order placed by hospitalist to remove nichols 06/20 @ 0600. Per Urology notes, the nichols is to be kept. Nichols not removed. Will pass onto dayshift to clarify the order with urology.
--- NOTE | 2025-06-20 05:22 | PTCARENOTE ---
Pt ordered 0600 dose of Unasyn. IV is in Right AC, with a nono. This RN went to hang Unasyn and start medication, pt refusing to move arm. Screaming that he is sleeping and swinging his arm at staff. Unasyn is hanging at bedside in hopes that
dayshift will be successful. House provider notified.
[2025-06-20 06:00] VITALS: BMI 29.5
--- NOTE | 2025-06-20 08:02 | W.PN.HOSP.TC ---
Today's Communication/Plan
-
Discussed with Daughter Sanjana DELATORRE, fluctuating compliance throughout stay (daughter present evening 06/20 was able to help encourage patient to comply with medications and treatment). Patient has known hx improved compliance at [facility]
where staff knows him well and has various strategies to encourage compliance (reference Hospitalization here Sep 2023). Overall clinically stable/improved, plan to discharge patient back to [facility] tomorrow 06/21 with oral abx
recommendations (cont IV abx while here), daughter JUAN RAMON in agreement with plan
Assessment / Plan
Assessment / Plan
Physical Exam
General: No Apparent Distress, appears comfortable at this time
Respiratory: Clear to Auscultation
Cardio: S1/S2 no murmurs rubs or gallops
GI: Soft, Nontender and Nondistended
Neuro: Awake and Alert conversant to an extent
Psych: Calm and Apparent Dementia
83 y/o male, Brazilian speaking, with PMHx of HFmrEF, DM, neuropathy, HTN, HLD, BPH, anxiety, dementia, chronic ambulatory deficiency, Hx of gangrenous cholecystitis in January 2025 who was brought from [facility] with lethargy and hypoglycemia.
Patient is on Metformin, Farxiga, Basalgar 7units AM, 20units HS and and GLipizide. In ED found TAO with urinary retention so Mcdonald was placed. UA concering for infection. Patient is a poor historian due to significant dementia, when seen in ED his
mentation is on the baseline if compared with January 2025. Had episode of hematuria after attempting to pull the Mcdonald, however that is resolving.
A/P:
#TAO 2/2 urinary retention and HAGMA
#Marked urinary bladder wall thickening suggesting neurogenic bladder or chronic outlet obstruction.
#Acute metabolic encephalopathy, most liekly 2/2 TAO and UTI along with dementia
question large diverticulum
Patient pulled on Mcdonald catheter causing hematuria and eventually needed tamponade -
� Plan for maintaining Mcdonald at least 3 days, although ideally should be discharged on this but patient is high risk for pulling forcibly (D3) - Failed Trial of Void 06/14 06/17
� Patient so far tolerating Mcdonald at this time, Kidney function significantly improved, would recommend keeping Mcdonald at this time with outpt follow w/ Urology for possible TOV
� Urology consult appreciated
-Bicarb supplementation completed
-CT abd repeated: cholelithiasis with signs of chronic outlet obstruction with mild bilateral hydroureteronephrosis
-hold diuretics and Lisinopril
UA negative
#Hematuria
traumatic 2/2 pulling the Mcdonald
Improved
Urology consult appreciated
can resume Eliquis
#Hypernatremia, improved
-likely post ATN diuresis
-IVF completed
-monitor BMP
#Hypomagnesemia
-monitor and replete
#Bacteremia
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
-repeat cultures
-no obvious source despite vast imaging
-ID consult appreciated
- Empiric IV abx with Unasyn through 06/24 as patient refusing PO meds - switch to PO once consistently taking po meds
- metronidazole completed
#B/L Chronic venous stasis
-no evidence of cellulitis
#Chronic anemia
follow CBC
-no acute blood loss anemia
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
Insulin sliding scale
Lantus 10U HS
#Hypokalemia
-monitor and replete as necessary
#acute hypoxic insufficiency possibly 2/2 Acute on Chronic HFpEF
2/2 declining Lasix
holding due to declining along with getting fluids for hypernatremia
-weaned off o2
-remains off Lasix
#Constipation
Laxatives
#Essential HTN
#BPH
#Anxiety
#Dementia, Unspecified
#HLD
#Afib, paroxysmal
Patient with known HX to refuse drugs
Eliquis 2.5mg as per Age and Cr adjustment
IV lopressor stopped, PO metoprolol resumed, tolerating
cont rest of meds
DVT Prophylaixs: eliquis
DNR/DNI
Discussed with Daughter Sanjana DELATORRE, fluctuating compliance throughout stay (daughter present evening 06/20 was able to help encourage patient to comply with medications and treatment). Patient has known hx improved compliance at [facility]
where staff knows him well and has various strategies to encourage compliance (reference Hospitalization here Sep 2023). Overall clinically stable/improved, plan to discharge patient back to [facility] tomorrow 06/21 with oral abx
recommendations (cont IV abx while here), daughter JUAN RAMON in agreement with plan
I spent a total of 40 minutes with the patient or on the floor. More than 50% of this time involved counseling and coordination of care.
Anticipated Discharge: Within 24 hours
Subjective/Interval History
-
Date of Service: June 20, 2025
No acute distress, resting comfortably in bed, fluctuating levels of compliance, daughter was present later in evening and was able to help encourage patient to comply with medications/treatment.
Objective Data
-
Labs:
Laboratory Results
06/20/25
06:00
WBC Pending
Hgb Pending
Hct Pending
Plt Count Pending
Sodium Pending
Potassium Pending
Chloride Pending
Carbon Dioxide Pending
BUN Pending
Creatinine Pending
Glucose Pending
Calcium Pending
Vital Signs:
Vital Signs
Temp Pulse Resp BP Pulse Ox
98.5 F 66 16 144/72 100
06/19/25 12:00 06/19/25 12:00 06/19/25 12:00 06/18/25 19:40 06/19/25 20:30
I&O
06/19/25 06/20/25 06/21/25
06:59 06:59 06:59
Intake Total 720 / 720 240 / 240
Output Total 500 / 500 850 / 850
Balance 220 / 220 -610 / -610
[2025-06-20 08:08] VITALS: BP 152/96
[2025-06-20 08:10] LABS: Glucose - Point of Care 107 mg/dl (70-99)
[2025-06-20] MEDS: NOVOLOG FLEXPEN-MODERATE RESISTANCE SC ×3 (08:32→17:06)
--- NOTE | 2025-06-20 09:08 | W.PN.ID1 ---
Date of Service
Date of Service: June 20, 2025
Today's Communication
Continue Unasyn 3g IV q6h through 06/24/25.
Assessment / Plan
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
TAO on CKD
- Possible contaminant- both sets of bcx's drawn at the same time.
- Extensive work-up without finding of source:
CT a/p, chest, head and neck without culprit lesions, note cholelithiasis without evidence of cholecystitis
patient is edentulous no evidence of oral cavity lesion
- Treat empirically with IV antibiotic as he is unwilling to take oral pills. Of note pt with dementia.
- DC'd metronidazole as not effective against Bifidobacterium
- Continue Unasyn 3g IV q6h through 06/24/25. Renally adjust dose prn. Could transition to oral if patient willing to take pills
Chief Complaint
-: Bacteremia
Subjective / Review of Systems
afebrile
bp stable
has been refusing all therapies, for goals of care disucssion with family
Vital Signs / Physical Exam
Vital Signs
Vital Signs
Temp Pulse Resp BP Pulse Ox
97.3 F 107 18 152/96 99
06/20/25 08:08 06/20/25 08:08 06/20/25 08:08 06/20/25 08:08 06/20/25 08:08
Physical Exam
Constitutional: No Acute Distress
Cardiovascular: Regular Rate
Pulmonary: Symmetric
Gastrointestinal: Non Distended
Skin: Dry; Negative Rash or Jaundice
Objective Data
Lab Data
Estimated Creat Clear Cancelled 06/19/25 14:42
Lactic Acid 1.9 mmol/L (0.7-2.0) 06/08/25 08:36
Total Bilirubin 0.4 mg/dl (0.2-1.3) 06/08/25 07:07
AST 25 U/L (17-59) 06/08/25 07:07
ALT 23 U/L (0-50) 06/08/25 07:07
Alkaline Phosphatase 63 U/L (38-126) 06/08/25 07:07
Most recent labs reviewed.
Micro Results:
06/12/25 14:51 Blood Culture - Final
Blood/Venous No Growth - Final Report
06/10/25 16:32 Blood Culture - Final
Blood/Venous No Growth - Final Report
06/08/25 09:15 Blood Culture - Final
Blood/Venous Bifidobacterium species
Anaerobic gram neg bacilli
Gram Stain - Final
06/08/25 09:15 Blood Culture - Final
Blood/Venous Bifidobacterium species
Anaerobic gram neg bacilli
Gram Stain - Final
06/09/25 15:49 MRSA Screen - Final
Nose No Methicillin Resistant Staphylococcus aureus isolated.
06/08/25 08:36 Urine Culture - Final
Urine NO GROWTH
[2025-06-20] MEDS: MIRALAX 17 GRAMS PO (09:35)
[2025-06-20] MEDS: FLOMAX PO (09:36)
[2025-06-20] MEDS: HYDROPHOR TOPICAL (09:36)
[2025-06-20] MEDS: DESENEX/MITRAZOL/ZEASORB TOPICAL (09:36)
[2025-06-20] MEDS: ELIQUIS PO (09:36)
[2025-06-20] MEDS: LIPITOR PO (09:37)
[2025-06-20] MEDS: SENOKOT-S PO (09:37)
[2025-06-20] MEDS: PROSCAR PO (09:37)
[2025-06-20] MEDS: MYCOSTATIN ORAL SUSPENSION PO ×4 (09:37→20:57)
[2025-06-20] MEDS: NEURONTIN PO (09:37)
[2025-06-20] MEDS: LOPRESSOR PO (09:37)
[2025-06-20] MEDS: ZOLOFT PO (09:37)
[2025-06-20 10:55] VITALS: BP 118/83
[2025-06-20 11:56] LABS: Glucose - Point of Care 111 mg/dl (70-99)
[2025-06-20 13:19] LABS: Blood Urea Nitrogen 20 mg/dl (9-20); Calcium 8.6 mg/dl (8.4-10.2); Carbon Dioxide 22 mmol/L (22-30); Chloride 113 mmol/L (98-107); Estimated Creatinine Clearance 32 ml/min; Glucose 118 mg/dl (70-99); Magnesium 1.9 mg/dl (1.6-2.3); Potassium 4.0 mmol/L (3.5-5.1); Sodium 148 mmol/L (135-145); eGFR 38.78
[2025-06-20 14:06] LABS: Hematocrit 37.6 % (39.0-52.0); Hemoglobin 11.9 g/dL (13.0-18.0); Mean Corp Hgb Conc. 31.6 g/dL (33.0-37.0); Mean Corpuscular Volume 93.1 fL (80.0-94.0); Platelet Count 129 10^3/uL (130-400); Red Cell Dist. Width 16.5 % (11.5-14.5)
[2025-06-20 15:06] VITALS: BP 150/85
--- NOTE | 2025-06-20 16:28 | CM ---
Addendum entered by Joceline Guardado 06/21/25 14:54:
Pt has been cleared for discharge back to [facility] today. Ambulance transport requested and form are on the chart.
CM called pt's daughter, Sanjana, to make her aware of her father's discharge today. She is familiar with the [facility] and provided verbal consent. Sanjana was updated by MD yesterday with anticipated discharge today.
Plan: Discharge to [facility] today via ambulance.
Original Note:
CM following for discharge/return to [facility] pending medical clearance.
PLAN: return to [facility] Report: [phone]
[facility]
[2025-06-20 16:34] LABS: Glucose - Point of Care 91 mg/dl (70-99)
[2025-06-20] MEDS: ELIQUIS 2.5 MG PO (19:36)
[2025-06-20] MEDS: SENOKOT-S 1 TABLET PO (19:36)
[2025-06-20] MEDS: LOPRESSOR 100 MG PO (19:40)
[2025-06-20] MEDS: DESENEX/MITRAZOL/ZEASORB 1 APPLIC TOPICAL (19:40)
[2025-06-20 22:45] LABS: Glucose - Point of Care 132 mg/dl (70-99)
[2025-06-20] MEDS: LANTUS 0.1 UNITS SC (22:46)
[2025-06-21] MEDS: UNASYN IV ×3 (01:04→12:17)
[2025-06-21 03:00] VITALS: BP 175/73
[2025-06-21 06:48] LABS: Blood Urea Nitrogen 21 mg/dl (9-20); Calcium 8.7 mg/dl (8.4-10.2); Carbon Dioxide 24 mmol/L (22-30); Chloride 112 mmol/L (98-107); Estimated Creatinine Clearance 34 ml/min; Glucose 111 mg/dl (70-99); Potassium 4.2 mmol/L (3.5-5.1); Sodium 148 mmol/L (135-145); eGFR 41.70
[2025-06-21 07:00] VITALS: BP 163/82
--- NOTE | 2025-06-21 07:57 | W.PN.HOSP.TC ---
Today's Communication/Plan
-
discharge
Assessment / Plan
Assessment / Plan
Physical Exam
General: No Apparent Distress, appears comfortable at this time
Respiratory: Clear to Auscultation
Cardio: S1/S2 no murmurs rubs or gallops
GI: Soft, Nontender and Nondistended
Neuro: Awake and Alert conversant to an extent
Psych: Calm and Apparent Dementia
83 y/o male, Belarusian speaking, with PMHx of HFmrEF, DM, neuropathy, HTN, HLD, BPH, anxiety, dementia, chronic ambulatory deficiency, Hx of gangrenous cholecystitis in January 2025 who was brought from [facility] with lethargy and hypoglycemia.
Patient is on Metformin, Farxiga, Basalgar 7units AM, 20units HS and and GLipizide. In ED found TAO with urinary retention so Mcdonald was placed. UA concering for infection. Patient is a poor historian due to significant dementia, when seen in ED his
mentation is on the baseline if compared with January 2025. Had episode of hematuria after attempting to pull the Mcdonald, however that is resolving.
A/P:
#TAO 2/2 urinary retention and HAGMA
#Marked urinary bladder wall thickening suggesting neurogenic bladder or chronic outlet obstruction.
#Acute metabolic encephalopathy, most liekly 2/2 TAO and UTI along with dementia
question large diverticulum
Patient pulled on Mcdonald catheter causing hematuria since resolved
� Failed Trial of Void 06/14 06/17
� Patient so far tolerating Mcdonald at this time, Kidney function significantly improved, would recommend keeping Mcdonald at this time with outpt follow w/ Urology for possible TOV
� Urology consult appreciated
-Bicarb supplementation completed
-CT abd repeated: cholelithiasis with signs of chronic outlet obstruction with mild bilateral hydroureteronephrosis
-diuretics and Lisinopril held d/t TAO since resolved, ok to resume on discharge
UA negative
#Hematuria
traumatic 2/2 pulling the Mcdonald
Improved
Urology consult appreciated
can resume Eliquis
#Hypernatremia, improved
-likely post ATN diuresis
-IVF completed
-monitor BMP
#Hypomagnesemia
-monitor and replete
#Bacteremia
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
-repeat cultures
-no obvious source despite vast imaging
-ID consult appreciated
- Empiric IV abx with Unasyn switching to Augmentin on discharge to continue through 06/24
- metronidazole completed
#B/L Chronic venous stasis
-no evidence of cellulitis
#Chronic anemia
H&H stable
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
Insulin sliding scale
Lantus 10U HS
#Hypokalemia
-monitor and replete as necessary
#acute hypoxic insufficiency unclear etiology since resolved
stable respiratory status room air
#Constipation
Laxatives
#Essential HTN
#BPH
#Anxiety
#Dementia, Unspecified
#HLD
#Afib, paroxysmal
Patient with known HX to refuse drugs
Eliquis 2.5mg as per Age and Cr adjustment
IV lopressor stopped, PO metoprolol resumed, tolerating
cont rest of meds
DVT Prophylaixs: eliquis
DNR/DNI
Discussed with Daughter Sanjana DELATORRE, fluctuating compliance throughout stay (daughter present evening 06/20 was able to help encourage patient to comply with medications and treatment). Patient has known hx improved compliance at [facility]
where staff knows him well and have various strategies to encourage compliance (reference Hospitalization here Sep 2023). Overall clinically stable/improved, plan to discharge patient back to [facility] today 06/21 with oral abx
recommendations (cont IV abx while here), daughter JUAN RAMON in agreement with plan
Total Time Preparing Discharge __40 minutes including examination of the patient, summary of the hospital stay, instructions for continuing care to all relevant caregivers; and preparation of discharge records, prescriptions, and referral
forms if necessary.
Anticipated Discharge: Today
Subjective/Interval History
-
Date of Service: June 21, 2025
Seen and examined at bedside in no acute distress resting comfortable in bed. Calm conversant though confused.
Objective Data
-
Labs:
Laboratory Results
06/21/25
05:51
Sodium 148 H
Potassium 4.2
Chloride 112 H
Carbon Dioxide 24
BUN 21 H
Creatinine 1.6 H
Glucose 111 H
Calcium 8.7
Vital Signs:
Vital Signs
Temp Pulse Resp BP Pulse Ox
98.2 F 63 19 163/82 99
06/21/25 07:00 06/21/25 07:00 06/21/25 07:00 06/21/25 07:00 06/21/25 07:00
I&O
06/20/25 06/21/25 06/22/25
06:59 06:59 06:59
Intake Total 240 / 240 600 / 600
Output Total 850 / 850 1050 / 1050
Balance -610 / -610 -450 / -450
[2025-06-21 08:22] LABS: Glucose - Point of Care 79 mg/dl (70-99)
[2025-06-21] MEDS: NOVOLOG FLEXPEN-MODERATE RESISTANCE SC ×2 (10:13→12:40)
[2025-06-21] MEDS: ELIQUIS PO (10:13)
[2025-06-21] MEDS: FLOMAX PO (10:13)
[2025-06-21] MEDS: HYDROPHOR 1 APPLIC TOPICAL (10:13)
[2025-06-21] MEDS: DESENEX/MITRAZOL/ZEASORB 1 APPLIC TOPICAL (10:13)
[2025-06-21] MEDS: LOPRESSOR PO (10:14)
[2025-06-21] MEDS: LIPITOR PO (10:14)
[2025-06-21] MEDS: NEURONTIN PO (10:14)
[2025-06-21] MEDS: MIRALAX 17 GRAMS PO (10:15)
[2025-06-21] MEDS: ZOLOFT PO (10:15)
[2025-06-21] MEDS: PROSCAR PO (10:15)
[2025-06-21] MEDS: SENOKOT-S PO (10:15)
--- NOTE | 2025-06-21 10:41 | W.PN.ID1 ---
Date of Service
Date of Service: June 21, 2025
Today's Communication
- Continue Unasyn 3g IV q6h through 06/24/25. Renally adjust dose prn. Could transition to oral at dc
Assessment / Plan
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
TAO on CKD
- Possible contaminant- both sets of bcx's drawn at the same time.
- Extensive work-up without finding of source:
CT a/p, chest, head and neck without culprit lesions, note cholelithiasis without evidence of cholecystitis
patient is edentulous no evidence of oral cavity lesion
- Treat empirically with IV antibiotic as he is unwilling to take oral pills. Of note pt with dementia.
- DC'd metronidazole as not effective against Bifidobacterium
- Continue Unasyn 3g IV q6h through 06/24/25. Renally adjust dose prn. Could transition to oral at dc
Chief Complaint
-: Bacteremia
Subjective / Review of Systems
afebrile
bp stable
Vital Signs / Physical Exam
Vital Signs
Vital Signs
Temp Pulse Resp BP Pulse Ox
98.2 F 63 19 163/82 99
06/21/25 07:00 06/21/25 07:00 06/21/25 07:00 06/21/25 07:00 06/21/25 07:00
Physical Exam
Constitutional: No Acute Distress
Cardiovascular: Regular Rate
Pulmonary: Symmetric
Gastrointestinal: Non Distended
Skin: Dry; Negative Rash or Jaundice
Objective Data
Lab Data
Lab Results
06/20/25 12:33
06/21/25 05:51
Estimated Creat Clear 34 ml/min 06/21/25 05:51
Lactic Acid 1.9 mmol/L (0.7-2.0) 06/08/25 08:36
Total Bilirubin 0.4 mg/dl (0.2-1.3) 06/08/25 07:07
AST 25 U/L (17-59) 06/08/25 07:07
ALT 23 U/L (0-50) 06/08/25 07:07
Alkaline Phosphatase 63 U/L (38-126) 06/08/25 07:07
Most recent labs reviewed.
Micro Results:
06/12/25 14:51 Blood Culture - Final
Blood/Venous No Growth - Final Report
06/10/25 16:32 Blood Culture - Final
Blood/Venous No Growth - Final Report
06/08/25 09:15 Blood Culture - Final
Blood/Venous Bifidobacterium species
Anaerobic gram neg bacilli
Gram Stain - Final
06/08/25 09:15 Blood Culture - Final
Blood/Venous Bifidobacterium species
Anaerobic gram neg bacilli
Gram Stain - Final
06/09/25 15:49 MRSA Screen - Final
Nose No Methicillin Resistant Staphylococcus aureus isolated.
06/08/25 08:36 Urine Culture - Final
Urine NO GROWTH
[2025-06-21 11:00] VITALS: BP 140/72
[2025-06-21 12:26] LABS: Glucose - Point of Care 148 mg/dl (70-99)
--- NOTE | 2025-06-21 12:39 | W.PN.URO.CBU ---
Today's Communication / Plan
-
will see if want to remove nichols
Assessment / Plan
-
84M with acute metabolic encephalopathy, TAO, urinary retention with associated suspected UTI
Some self limited hematuria after nichols placement
Traumatic nichols catheter removal by patient 10/ and replaced, patient with restraints
- Hematuria resolved, okay to continue anticoagulation
- Some degree of chronic urinary retention is likely with thickened bladder wall and large diverticulum, which can contribute to infections and acute admissions like this
- Ideally recommend discharge with nichols catheter in place if patient can tolerate, however he forcibly removed the catheter requiring restraints and unlikely to tolerate
- UTI management per hospitalist
- Maintain nichols for now after traumatic removed to tamponade bleeding
- Can remove catheter for trial of void before discharge to assess emptyingpt with 800cc pvr unlikely to void but at risk for pulling nichols dilemma as to how to proceed even for nhp may have yoi pull nichols just to see if voids at all
Diagnosis
-
Date of Service: June 21, 2025
-
Patient Diagnosis:
Post Op Day:
Patient Diagnosis:
Post Op Day:
Patient Diagnosis:
Post Op Day:
Patient Diagnosis:
Post Op Day:
Patient Diagnosis:
Post Op Day:
Patient Diagnosis:
Post Op Day:
Patient Diagnosis:
urinary retention
UTI
Post Op Day:
Subjective
-
nichols dependen t inrestarns
Objective
-
Vital Signs
Temp Pulse Resp BP Pulse Ox
98.0 F 67 19 140/72 94
06/21/25 11:00 06/21/25 11:00 06/21/25 11:00 06/21/25 11:00 06/21/25 11:00
Intake and Output
06/20/25 06/21/25 06/22/25
06:59 06:59 06:59
Intake Total 240 / 240 600 / 600
Output Total 850 / 850 1050 / 1050
Balance -610 / -610 -450 / -450
Intake:
Oral fluids 240 / 240 600 / 600
Output:
Urine, Nichols 850 / 850 1050 / 1050
Laboratory Results
06/20/25 12:33
06/21/25 05:51
Review of Systems
-
: Difficulty Voiding
Physical Exam
-
General - well developed, well nourished, no acute distress
Chest - clear bilaterally
Abdomen - soft, non-tender, positive bowel sounds, no CVAT, no incisional pain or distention
Genitalia - normal
Rectal - normal
Skin - warm & dry with no rash
Neuro - AOx3, no motor deficits
Extremities - no clubbing, no cyanosis, no edema
Incision - clean, dry
Dressing - clean, dry, intact
Counseling
-
darcie discusss nichols cath removal
--- NOTE | 2025-06-21 14:15 | W.DCSUMMARY ---
Discharge Summary
Discharge Data
Date of Admission: 06/08/25
Date of Discharge: 06/21/25
-
Pending Results: No
Discharge Plan
-
Patient Disposition: Snf/SNF
Discharge Diagnosis/Procedures: Acute Kidney Injury due to Urinary Retention since improved with Mcdonald Placement
Bacteremia
Dementia
Mild Hypernatremia
Chronic venous stasis Lower Extremities
Chronic anemia
Diabetes w neuropathy
Constipation
Chronic Heart Failure with Preserved Ejection Fraction
HTN
BPH
Paroxysmal atrial fibrillation
Condition: Fair
Diet: Diabetic, Carb Controlled
Activity: With assistance
Driving Restrictions: No driving
Bathing Restrictions: None
Blood Work: repeat BMP with primary care provider in 1 week of discharge.
Activity Restrictions/Additional Instructions:
Wound Care Instructions
R great to blister-swab with Betadine daily. Cover with gauze as needed for protection.
L nguyen healing blisters-clean with saline, silicone border foam, change q 3 days and prn loosened dressing until healed.
Aquaphor ointment to dry skin daily.
Bilateral knee high Tubigrip as tolerated; remove q hs; reapply q am.
Miconazole powder to groin, bhakti, scrotal, penis, affected areas bid.
Air mattress
Turning schedule
Soft heel relief boots (i.e. TruVue lite boots) as tolerated; elevate heels off bed with pillow and air chair cushion while boots off.
Recommend follow up with fur operator.
Follow up at wound care center if needed, call for an appointment.
Eliquis reduced to 2.5 mg twice a day for renal dosing (age>80 and Cr>1.5)
Nystatin cream replaced with Miconazole powder
Metformin discontinued due to current kidney function eGFR<30
Glipizide discontinued as medication was not needed. Follow up with primary care provider and/or other healthcare provider involved in care before considering to resume.
For bacteremia, infection, you've been prescribed Augmentin 875 mg BID to continue through 06/24/25 then stop.
Please take medications as prescribed/recommended and follow up with primary care provider and /or other healthcare provider involved in your care for refills and/or further adjustment to your medication regimen as necessary
Follow up with primary care provider in 1 week of discharge and urology in 1-2 weeks of discharge for possible trial of void.
Referrals:
Tang Moy MD [Active, Urology] - in one to two weeks
Tl Purdy MD [Family Provider] - in one week
Prescriptions:
New
Eliquis 2.5 mg Tablet
2.5 mg PO BID Qty: 60 0RF
miconazole nitrate [Miconazorb AF] 2 % Powder
1 applic topical BID Qty: 85 0RF
Rx Instructions:
groin, bhakti, scrotal, penis, affected areas
amoxicillin-pot clavulanate 875-125 mg tablet
1 tab PO BID Qty: 7 0RF
Rx Instructions:
Continue through 06/24/25 then stop.
Continued
docusate sodium 100 MG capsule
200 mg PO DAILY
acetaminophen 325 MG tablet
650 mg PO Q4HPRN MDD 3000mg/24h PRN (Reason: mild pain/temp>100)
lovastatin 40 MG tablet
40 mg PO DAILY
tamsulosin 0.4 MG capsule
0.4 mg PO DAILY
gabapentin 300 MG capsule
300 mg PO DAILY
finasteride 5 MG tablet
5 mg PO DAILY
magnesium oxide 400 MG tablet
400 mg PO BID
dapagliflozin propanediol [Farxiga] 10 MG tablet
10 mg PO DAILY
bisacodyl [Dulcolax (bisacodyl)] 5 mg Tablet,Delayed Release (Dr/Ec)
5 mg PO DAILYPRN PRN (Reason: constipation)
insulin lispro [Admelog SoloStar U-100 Insulin] 100 unit/mL Insulin Pen
0 unit SC AC MDD sliding scale regimen
Rx Instructions:
150-200=3 units; 201-250=5unit, 251-300=7unit; 301-350=9 units; 351-400=10 units; call MD if <65 or> 400
insulin glargine [Basaglar KwikPen U-100 Insulin] 100 unit/mL (3 mL) Insulin Pen
7 unit SC DAILY
insulin glargine [Basaglar KwikPen U-100 Insulin] 100 unit/mL (3 mL) Insulin Pen
8 unit SC HS
white petrolatum [Hydrophor] 42 % ointment
1 applic topical DAILY
furosemide 40 mg tablet
40 mg PO DAILY
lisinopril 5 mg tablet
5 mg PO DAILY MDD hold for SBP<110
insulin lispro [Admelog SoloStar U-100 Insulin] 100 unit/mL Insulin Pen
3 unit SC AC MDD hold for BS<100
sertraline 100 mg Tablet
100 mg PO DAILY
Zegalogue Autoinjector
0.6 ml SC PRN PRN (Reason: symptomatic hypoglycemia if no response to PO)
metoprolol tartrate 100 mg Tablet
100 mg PO BID MDD hold for SBP<100 or HR<60
Discontinued
metformin 1,000 MG tablet
1,000 mg PO QPM
glipizide 5 mg Tablet
10 mg PO DAILY
apixaban 5 mg Tablet
5 mg PO BID
nystatin-triamcinolone 100,000-0.1 unit/g-% Cream
1 applic TOPICAL BID
Discharge Orders:
Discharge Patient (As Directed); Ordered 06/21/25
Ordered By: Jennifer Garland
Discharge Date and Time
Print Language: WELSH
[2025-06-21 15:00] VITALS: BP 171/85
[2025-06-21] MEDS: FLUZONE HIGH-DOSE 2025-26 0.5 ML IM (17:08)
[2025-06-21 17:09] LABS: Glucose - Point of Care 182 mg/dl (70-99)
[2025-06-21] MEDS: NOVOLOG FLEXPEN-MODERATE RESISTANCE 1 UNITS SC (18:17)
== END 2025-06-21 18:36 | DRG 682 ==
LOC: 3 WEST ACU 11:25
PROVIDERS: Internal Medicine; Nurse Practitioner Family; Nurse Practitioner Gerontology; Physician Assistant; ADMITTING PHYSICIAN Internal Medicine; ATTENDING PHYSICIAN Internal Medicine; CONSULT PHYSICIAN Student in an Organized Health Care Education/Training Program; CONSULT PHYSICIAN Urology; EMERGENCY PHYSICIAN Emergency Medicine; FAMILY PHYSICIAN Internal Medicine
PROC: 3E02340 Introduction of Influenza Vaccine into Muscle, Percutaneous Approach (ICD-10-PCS; 2025-06-21)
DX: N17.0 Acute kidney failure with tubular necrosis (principal); G93.41 Metabolic encephalopathy; I50.33 Acute on chronic diastolic (congestive) heart failure; F03.94 Unspecified dementia, unspecified severity, with anxiety; F03.93 Unspecified dementia, unspecified severity, with mood disturbance; N39.0 Urinary tract infection, site not specified; N13.8 Other obstructive and reflux uropathy; L03.115 Cellulitis of right lower limb; L03.116 Cellulitis of left lower limb; E87.20 Acidosis, unspecified; R78.81 Bacteremia; E87.0 Hyperosmolality and hypernatremia; E11.649 Type 2 diabetes mellitus with hypoglycemia without coma; J44.9 Chronic obstructive pulmonary disease, unspecified; E11.40 Type 2 diabetes mellitus with diabetic neuropathy, unspecified; E11.51 Type 2 diabetes mellitus with diabetic peripheral angiopathy without gangrene; E78.00 Pure hypercholesterolemia, unspecified; I11.0 Hypertensive heart disease with heart failure; I25.10 Atherosclerotic heart disease of native coronary artery without angina pectoris; I48.0 Paroxysmal atrial fibrillation; I87.8 Other specified disorders of veins; N40.1 Benign prostatic hyperplasia with lower urinary tract symptoms; F32.9 Major depressive disorder, single episode, unspecified; D64.9 Anemia, unspecified; K80.20 Calculus of gallbladder without cholecystitis without obstruction; R09.02 Hypoxemia; R06.89 Other abnormalities of breathing; B96.89 Other specified bacterial agents as the cause of diseases classified elsewhere; K59.00 Constipation, unspecified; E83.42 Hypomagnesemia; E87.6 Hypokalemia; R31.9 Hematuria, unspecified; Z66 Do not resuscitate; Z60.3 Acculturation difficulty; Z79.84 Long term (current) use of oral hypoglycemic drugs; Z79.899 Other long term (current) drug therapy; Z87.891 Personal history of nicotine dependence; Z86.16 Personal history of COVID-19; Z79.4 Long term (current) use of insulin; Z78.1 Physical restraint status; Z23 Encounter for immunization
CPT/HCPCS: 51702; 70450; 70490; 71045; 71250; 74176; 80048; 80053; 81003; 81015; 82570; 82962; 83036; 83605; 83735; 83935; 84100; 84300; 85014; 85018; 85025; 85027; 87040; 87070; 87077; 87086; 87154; 87205; 93005; 93922; 93925; 96361; 96365; 96366; 96375; 99291

== ENCOUNTER 2025-07-15 17:04 | Inpatient (IN) | payer MEDICARE, OTHER, SELFPAY ==
[2025-07-15] VITALS (27 sets, daily range): BP systolic 56–145; BP diastolic 29–118; BMI 29.3
--- NOTE | 2025-07-15 11:55 | ED.GENMED ---
History of Present Illness
<Seb Lombardo PA-C - Last Filed: 07/15/25 15:12>
General
Chief Complaint: Abdominal Pain
Source: records and ambulance crew
Time Seen by Provider: 07/15/25 11:40
History of Present Illness
History of Present Illness:
84-year-old French-speaking male with past medical history of dementia, recent admission to this facility for a metabolic encephalopathy, bacteremia of unknown source, COPD, atrial fibrillation, CAD/CHF, insulin-dependent diabetes, CKD presenting
to the emergency department for evaluation of reported abdominal pain, chest pain and altered mental status from [facility]. Patient unable to provide any history due to his known dementia and current altered mental status. Based
off of recent discharge summary from June 21 of this year patient was found to have urinary retention with a Mcdonald catheter placed and urinalysis concerning for UTI. Patient pulled his catheter out, patient was thought to have possible
gangrenous cholecystitis and polymicrobial bacteremia with Bifidobacterium species and second anaerobic GNR (unable to isolate for identification). Patient was treated with IV Unasyn at the time and switched to oral Augmentin and Flagyl. Patient
was reportedly back to baseline at his discharge
Past History
<Seb Lombardo PA-C - Last Filed: 07/15/25 15:12>
Past History
ED Past Medical History: Arrthythmia (Atrial fib), CAD, CHF, COPD, HTN, Hypercholesterolemia, IDDM, Psychiatric and Other (COVID positive 2 weeks ago, PVD,)
ED Past Surgical History: None
Social History
Tobacco: Former smoker
Alcohol: Occasional
Drug: None
Personal:
Living: shelter ([facility])
Review of Systems
<Seb Lombardo PA-C - Last Filed: 07/15/25 15:12>
Review of Systems
All Other Systems: ROS reviewed and negative except as documented in HPI and ROS
Phy Exam
<Seb Lombardo PA-C - Last Filed: 07/15/25 15:12>
Physical Exam
Physical Exam:
GENERAL: Awake but not answering questions, sickly, somewhat pale
HEAD: Normocephalic atraumatic
EYE: Clear conjunctiva
NECK: Supple, no significant adenopathy.
ENT: o/p clr, dry mucous membranes
CARDIAC: Regular rate and rhythm .
LUNGS: Clear breath sounds bilaterally, no acute respiratory distress, no wheezes/rales/rhonchi
ABDOMEN: Soft, without focal tenderness, no r/g, no cvat
NEUROLOGICAL: Alert but not able to answer questions, intermittently moaning
SKIN: Hot to the touch and dry, skin intact. Dried gangrenous ulcer to the right great toe which appears similar compared to previous note where he had wound care. non-weeping
MUSCULOSKELETAL: No edema, well perfused.
PSYCH: Unable to assess
Scores
<Seb Lombardo PA-C - Last Filed: 07/15/25 15:12>
Heart Failure Risk
Heart Failure Risk Score: Not Applicable
Heart Score for Chest Pain Patients
STEMI patient?: Not applicable
Withdrawal Assessment of Alcohol
Withdrawal Assessment Completed?: Not applicable
Sepsis
<TUTU Cintron Last Filed: 07/15/25 15:12>
Sepsis Screening
Sepsis Assessment: Septic Shock
Sepsis Screening: Lactate >/=4mmol/L and ARF-Creatinine >2.0
Sepsis Screen
Sepsis Screen: Septic Shock
Date: 07/15/25
Time: 15:11
Course
<TUTU Cintron Last Filed: 07/15/25 15:12>
Orders/Labs/Results
Orders:
Orders
07/15/25 11:46
CT Head W/o Iv Contrast Urgent
Comment:
Reason For Exam: AMS, on eliquis
07/15/25 11:54
Electrocardiogram (*1) Urgent
Reason for Study: Chest Pain
CT Abd/pel Without Iv Or Oral Urgent
Comment:
Reason For Exam: chest pain/abdominal pain, AMS
EKG- Treatment ONCE
07/15/25 11:57
Complete Blood Count/With Diff Urgent
Comprehensive Metabolic Panel Urgent
Lactic Acid Q4H
Comment: CANCEL 2nd LACTIC ACID IF 1st LACTIC ACID IS LESS THAN 2
Magnesium Urgent
PTT Urgent
Prothrombin Time Urgent
Troponin I Urgent
Urinalysis Reflex To Culture Urgent
Date Specimen was Collected: 07/15/25
Time Specimen was Collected: 11:52
Urine Microscopic Reflex Cult Urgent
Blood Culture Q30M
JB Source: Blood/Venous
Specimen Description:
Blood Culture Q30M
JB Source: Blood/Venous
Specimen Description:
Influenza A+B Rapid Molecular Urgent
JB Source: Nasal Swab
Specimen Description:
Urine Culture Urgent
JB Source: U
Specimen Description:
Date Specimen was Collected: 07/15/25
Time Specimen was Collected: 11:52
07/15/25 12:02
0.9% Sodium Chloride 1000 ml [Nss] 2,800 ml IV NOW STA
07/15/25 12:26
Cefepime HCl [Maxipime] 2,000 mg IV NOW STA
07/15/25 12:39
Vancomycin [Vancocin] 1,500 mg 0.9% Sodium Chloride 500 ml [Nss] 500 ml IV NOW
07/15/25 13:17
COVID-19 Antigen Urgent
Source: Nasal Swab
07/15/25 14:03
Lorazepam [Ativan] 1 mg IV NOW STA
07/15/25 14:04
Lorazepam [Ativan] 2 mg .ROUTE .STK-MED ONE
07/15/25 15:05
Lactic Acid Q4H
Comment: CANCEL 2nd LACTIC ACID IF 1st LACTIC ACID IS LESS THAN 2
07/15/25 15:06
Troponin I Urgent
Abnormal Lab Results
07/15/25
11:57
WBC 19.1 H 10^3/uL
(4.8-10.8)
RBC 3.96 L 10^6/uL
(4.70-6.10)
Hgb 12.4 L g/dL
(13.0-18.0)
Hct 38.1 L %
(39.0-52.0)
MCV 96.2 H fL
(80.0-94.0)
MCH 31.3 H pg
(27.0-31.0)
MCHC 32.5 L g/dL
(33.0-37.0)
RDW 15.2 H %
(11.5-14.5)
MPV 11.1 H fL
(7.4-10.4)
Abs Immat Gran (auto) 0.1 H 10^3/uL
(0-0.05)
Absolute Neuts (auto) 17.2 H 10^3/uL
(1.4-6.5)
Absolute Lymphs (auto) 1.1 L 10^3/uL
(1.2-3.4)
Absolute Monos (auto) 0.7 H 10^3/uL
(0.1-0.6)
Neutrophils % 89.9 H %
(42.2-75.2)
Lymphocytes % 5.6 L %
(20.5-51.1)
Sodium 131 L mmol/L
(135-145)
Carbon Dioxide 21 L mmol/L
(22-30)
BUN 80 H mg/dl
(9-20)
Creatinine 2.8 H mg/dL
(0.7-1.3)
Glucose 202 H mg/dl
(70-99)
Lactic Acid 4.2 H* mmol/L
(0.7-2.0)
Troponin I 0.063 H* ng/ml
Albumin 3.4 L g/dl
(3.5-5.0)
Ur Occult Blood Reflex 4+ A
(Negative)
Leukocyte Esterase Rfl 3+ A
(Negative)
Urine WBC (Reflex) 11-15 A /HPF
(0-5)
Urine Bacteria (Reflex) Many A
(Negative)
Urine Glucose 3+ A
(Negative)
Urine Albumin (Reflex) 3+ A
(Neg - Trace)
07/15/25 11:57
07/15/25 11:57
Vital Signs
Initial and Last Documented VS:
Initial Vital Signs
Temp Pulse Resp BP
101.4 F H 90 18 126/64
07/15/25 11:38 07/15/25 11:38 07/15/25 11:38 07/15/25 11:38
Last Documented Vital Signs
Temp Pulse Resp BP Pulse Ox
101.4 F H 105 19 111/53 95
07/15/25 11:38 07/15/25 15:00 07/15/25 15:00 07/15/25 14:00 07/15/25 12:04
<Keron Sánchez, DO - Last Filed: 07/15/25 12:35>
Orders/Labs/Results
Orders:
Orders
07/15/25 11:46
CT Head W/o Iv Contrast Urgent
Comment:
Reason For Exam: AMS, on eliquis
07/15/25 11:54
Electrocardiogram (*1) Urgent
Reason for Study: Chest Pain
CT Abd/pel Without Iv Or Oral Urgent
Comment:
Reason For Exam: chest pain/abdominal pain, AMS
EKG- Treatment ONCE
07/15/25 11:57
Complete Blood Count/With Diff Urgent
Comprehensive Metabolic Panel Urgent
Lactic Acid Q4H
Comment: CANCEL 2nd LACTIC ACID IF 1st LACTIC ACID IS LESS THAN 2
Magnesium Urgent
PTT Urgent
Prothrombin Time Urgent
Troponin I Urgent
Urinalysis Reflex To Culture Urgent
Date Specimen was Collected: 07/15/25
Time Specimen was Collected: 11:52
Urine Microscopic Reflex Cult Urgent
Blood Culture Q30M
JB Source: Blood/Venous
Specimen Description:
Blood Culture Q30M
JB Source: Blood/Venous
Specimen Description:
Influenza A+B Rapid Molecular Urgent
JB Source: Nasal Swab
Specimen Description:
Urine Culture Urgent
JB Source: U
Specimen Description:
Date Specimen was Collected: 07/15/25
Time Specimen was Collected: 11:52
07/15/25 12:02
0.9% Sodium Chloride 1000 ml [Nss] 2,800 ml IV NOW STA
07/15/25 12:26
Cefepime HCl [Maxipime] 2,000 mg IV NOW STA
07/15/25 12:39
Vancomycin [Vancocin] 1,500 mg 0.9% Sodium Chloride 500 ml [Nss] 500 ml IV NOW
07/15/25 13:17
COVID-19 Antigen Urgent
Source: Nasal Swab
07/15/25 14:03
Lorazepam [Ativan] 1 mg IV NOW STA
07/15/25 14:04
Lorazepam [Ativan] 2 mg .ROUTE .STK-MED ONE
07/15/25 15:05
Lactic Acid Q4H
Comment: CANCEL 2nd LACTIC ACID IF 1st LACTIC ACID IS LESS THAN 2
07/15/25 15:06
Troponin I Urgent
Abnormal Lab Results
07/15/25
11:57
WBC 19.1 H 10^3/uL
(4.8-10.8)
RBC 3.96 L 10^6/uL
(4.70-6.10)
Hgb 12.4 L g/dL
(13.0-18.0)
Hct 38.1 L %
(39.0-52.0)
MCV 96.2 H fL
(80.0-94.0)
MCH 31.3 H pg
(27.0-31.0)
MCHC 32.5 L g/dL
(33.0-37.0)
RDW 15.2 H %
(11.5-14.5)
MPV 11.1 H fL
(7.4-10.4)
Abs Immat Gran (auto) 0.1 H 10^3/uL
(0-0.05)
Absolute Neuts (auto) 17.2 H 10^3/uL
(1.4-6.5)
Absolute Lymphs (auto) 1.1 L 10^3/uL
(1.2-3.4)
Absolute Monos (auto) 0.7 H 10^3/uL
(0.1-0.6)
Neutrophils % 89.9 H %
(42.2-75.2)
Lymphocytes % 5.6 L %
(20.5-51.1)
Sodium 131 L mmol/L
(135-145)
Carbon Dioxide 21 L mmol/L
(22-30)
BUN 80 H mg/dl
(9-20)
Creatinine 2.8 H mg/dL
(0.7-1.3)
Glucose 202 H mg/dl
(70-99)
Lactic Acid 4.2 H* mmol/L
(0.7-2.0)
Troponin I 0.063 H* ng/ml
Albumin 3.4 L g/dl
(3.5-5.0)
Ur Occult Blood Reflex 4+ A
(Negative)
Leukocyte Esterase Rfl 3+ A
(Negative)
Urine WBC (Reflex) 11-15 A /HPF
(0-5)
Urine Bacteria (Reflex) Many A
(Negative)
Urine Glucose 3+ A
(Negative)
Urine Albumin (Reflex) 3+ A
(Neg - Trace)
07/15/25 11:57
07/15/25 11:57
Vital Signs
Initial and Last Documented VS:
Initial Vital Signs
Temp Pulse Resp BP
101.4 F H 90 18 126/64
07/15/25 11:38 07/15/25 11:38 07/15/25 11:38 07/15/25 11:38
Last Documented Vital Signs
Temp Pulse Resp BP Pulse Ox
101.4 F H 105 19 111/53 95
07/15/25 11:38 07/15/25 15:00 07/15/25 15:00 07/15/25 14:00 07/15/25 12:04
<Seb Lombardo PA-C - Last Filed: 07/15/25 15:12>
MDM/Problems Addressed
Differential Diagnosis Includes:
Sepsis
Bacteremia
UTI
Viral syndrome
Pneumonia
TAO upon CKD
Medication side-effects
ICH
Diverticulitis/Colitis
Atypical ACS
MDM/Problems Addressed:
84-year-old male presenting to the ER for evaluation of reported altered mental status at his shelter, recent complicated admission here with multiple factors contributing to his change in mental status. Has a indwelling Mcdonald catheter
presently, clear darker yellow urine noted. Patient French-speaking and unable to provide any history due to dementia. Found to have a rectal temperature here of 101.4. Sepsis workup initiated. Ultimately anticipate admission pending workup
results. I did order sepsis fluid bolus given his suspected sepsis/bacteremia however given patient's known CKD will run fluids slower than quick bolus
Chronic conditions affecting care: Neurological disorder
Acute Exacerbation and/or Progression of Chronic Illness: Neurological disorder
<Seb Lombardo PA-C - Last Filed: 07/15/25 15:12>
*Radiology
Radiology exam reviewed: radiology read reviewed
*Pulse Oximetry
SaO2: 95
Oxygen Mode of Delivery: Room air
Patient hypoxic: no
*[employer] Machine Setter Interpretation
Rate: normal
Heart Rate: 96
Rhythm: sinus
*Critical Care Note
Total Time (30-74mins, 75-104mins- exclusive of procedures): 30
comment:
Critical care statement: A total of 30 minutes of critical care time was provided for this patient. This includes management of unstable vital signs, evaluation of the patient at bedside, reviewing the patient's pertinent medical records, discussion
with consultants, review of old EKGs and review of pertinent medical records. This time with separate from time utilized to perform the aforementioned documented procedures
Data Reviewed
Review of Other/Old Records Reveals: Labs, Records and Discharge Summary
Source: records, family and ambulance crew
<Seb Lombardo PA-C - Last Filed: 07/15/25 15:12>
Patient Management
Discussion with other providers: Hospitalist
Escalation/DeEscalation of care consider admission/obs:
Patient's labs show a leukocytosis with leftward shift, lactic acid greater than 4, significant prerenal azotemia with acute kidney injury, urinalysis consistent with UTI. CT scan of the head without any acute intracranial pathology, CT scan of the
abdomen pelvis showing bilateral hydronephrosis, mostly unchanged from previous. Will continue with antibiotics. Hospitalist team notified and accepts for continued evaluation and treatment.
ED Attending Note
<TUTU Cintron Last Filed: 07/15/25 15:12>
-
Portions of this chart may have been created with voice recognition software.� Occasional wrong word or��sound alike� substitutions may have occurred due to the inherent limitations of voice recognition software.
<Keron Sánchez DO - Last Filed: 07/15/25 12:35>
ED Attending Note
Patient seen and examined by attending physician: Yes
ED Attending Note:
I reviewed and agree with history treatment plan by Arnie Lombardo. My exam revealed
Physical Exam
General: Fever 101.4
Neck: supple. no meningeal signs. normal posterior pharynx
Heart: s1/s2 regular rate and rhythm, no murmur. equal radial
pulses.
HEENT: Pupils equal round reactive to light, EOMI
Lungs: no acute respiratory distress. clear bilaterally
Abdomen: normal bowel sounds. not tender. no CVAT
Neuro: alert and oriented to person and place. no focal neurological deficits cranial nerves II through XII intact
Skin: no rash
Psychiatric: well kept. interactive and cooperative
Extremities: no edema. no calf tenderness. negative homans. good distal pulses
84-year-old male with fever, concern for sepsis. Patient planes of chronic back pain. Unclear etiology of fever, but will check for source of infection, treat with cefepime and vancomycin and admit to hospitalist. CT abdomen pelvis, urinalysis
pending.
Discharge Plan
Departure
Patient Disposition: Admit
Date of Disposition: 07/15/25
Time of Disposition: 14:52
Presentation/result/management discussed w/ accepting MD/DO: Hospitalist
Discharge Problem:
Sepsis, UTI (urinary tract infection), TAO (acute kidney injury)
Prescriptions:
No Action
docusate sodium 100 MG capsule
200 mg PO QPM
acetaminophen 325 MG tablet
650 mg PO Q4HPRN PRN (Reason: mild pain/temp>100)
lovastatin 40 MG tablet
40 mg PO DAILY
tamsulosin 0.4 MG capsule
0.4 mg PO QPM
gabapentin 300 MG capsule
300 mg PO DAILY
finasteride 5 MG tablet
5 mg PO DAILY
magnesium oxide 400 MG tablet
400 mg PO BID
dapagliflozin propanediol [Farxiga] 10 MG tablet
10 mg PO DAILY
bisacodyl [Dulcolax (bisacodyl)] 5 mg Tablet,Delayed Release (Dr/Ec)
5 mg PO DAILYPRN PRN (Reason: constipation)
insulin lispro [Admelog SoloStar U-100 Insulin] 100 unit/mL Insulin Pen
5 unit SC ACHS
Rx Instructions:
150-200=3 units; 201-250=5unit, 251-300=7unit; 301-350=9 units; 351-400=10 units; call MD if <65 or> 400
insulin glargine [Basaglar KwikPen U-100 Insulin] 100 unit/mL (3 mL) Insulin Pen
10 unit SC HS
furosemide 40 mg tablet
40 mg PO DAILY
lisinopril 5 mg tablet
5 mg PO DAILY
sertraline 100 mg Tablet
100 mg PO DAILY
Zegalogue Autoinjector 0.6 mg/0.6 mL Auto-Injector
0.6 mg SC DAILYPRN PRN (Reason: hypoglycemia) Qty: 0
metoprolol tartrate 100 mg Tablet
100 mg PO BID
miconazole nitrate [Miconazorb AF] 2 % powder
1 applic topical BID
Eliquis 2.5 mg tablet
2.5 mg PO BID
Referrals:
Tl Purdy MD [Family Provider]
Interventions
Interventions:
*Risk Screen - Suicide Last Done: 07/15/25 11:38
*General Assessment Last Done: 07/15/25 11:38
*Neglect/Abuse Screening Last Done: 07/15/25 11:38
*ED- Fall Risk Assessment Last Done: 07/15/25 11:38
*ED COVID-19 Vaccine History Last Done: 07/15/25 11:38
*ED Influenza Vaccine History Last Done: 07/15/25 11:38
KA-Mglmrf-Qqhswbjydg Assessment Last Done: 07/15/25 11:53
Discharge Date and Time
Print Language: IVORIAN
[2025-07-15 12:19] LABS: Hematocrit 38.1 % (39.0-52.0); Hemoglobin 12.4 g/dL (13.0-18.0); Mean Corp Hgb Conc. 32.5 g/dL (33.0-37.0); Mean Corpuscular Volume 96.2 fL (80.0-94.0); Nucleated Red Blood Cells % 0 % (-); Platelet Count 196 10^3/uL (130-400); Red Cell Dist. Width 15.2 % (11.5-14.5)
[2025-07-15] MEDS: NSS 2800 ML IV (12:24)
[2025-07-15 12:31] LABS: AST (SGOT) 21 U/L (17-59); Albumin 3.4 g/dl (3.5-5.0); Alkaline Phosphatase 101 U/L (38-126); Blood Urea Nitrogen 80 mg/dl (9-20); Calcium 9.1 mg/dl (8.4-10.2); Carbon Dioxide 21 mmol/L (22-30); Chloride 98 mmol/L (98-107); Glucose 202 mg/dl (70-99); Magnesium 2.0 mg/dl (1.6-2.3); Potassium 4.7 mmol/L (3.5-5.1); Sodium 131 mmol/L (135-145); Total Protein 6.9 g/dl (6.3-8.2); eGFR 21.31
[2025-07-15] MEDS: MAXIPIME 2000 MG IV (12:32)
[2025-07-15 12:34] LABS: INR 1.02; PT 13.7 Sec (11.4-14.6); Urine Character Cloudy (Clear)
[2025-07-15 12:35] LABS: APTT 32.4 Sec (23.4-35.0)
[2025-07-15 12:47] LABS: ALT (SGPT) 21 U/L (0-50)
[2025-07-15 12:51] LABS: Troponin I 0.063 ng/ml
[2025-07-15] MEDS: VANCOCIN 530 MG IV (13:09)
[2025-07-15 13:37] LABS: COVID-19 Antigen Negative (Negative)
[2025-07-15 14:11] LABS: Urine Squamous Cell 0-2 /LPF (Few)
[2025-07-15 14:12] LABS: Urine Red Blood Cell 0-2 /HPF (0-2)
[2025-07-15] MEDS: ATIVAN 1 MG IV (14:22)
--- NOTE | 2025-07-15 15:17 | HPS.HSE ---
Family Physician
-
Family Physician: Tl Purdy MD
Chief Complaint
-
Fever and abdominal pain
History of Present Illness
This is a 84 years old male came in from long term. Chief complaint on admission was abdominal pain, chest pain, fever. Temperature was 101.4 on admission. Patient had Mcdonald on admission. Scan of the abdomen and pelvis showed bladder wall
thickening with indwelling Mcdonald catheter, bilateral moderate hydronephrosis that was unchanged. Patient was given IV cefepime, IV vancomycin for presumed urosepsis. Lactic acid was elevated. Creatinine was elevated from baseline. He was given
IV 1 mg of lorazepam for agitation. Patient has underlying dementia. Was unable to provide history to medicine service for admission.
Medical History
Past Medical History
Past Medical History: Reports Other (Dementia, kidney disease, C. difficile infection, bacteremia, metabolic encephalopathy, cellulitis, atrial fibrillation, diabetes, respiratory insufficiency, anxiety, BPH, chronic Mcdonald, hyperlipidemia)
Past Surgical History: Reports Other (No recent major surgery)
Social History
Unable to obtain full social history at this time due to: Dementia
Family History
Family History: Not pertinent
Allergies / Home Medications
Allergies reflects when Allergies were last updated in [employer].
Home Medications with original date entered in [employer]
Allergy/Medication List:
Allergies
Allergy/AdvReac Type Severity Reaction Status Date / Time
No Known Allergies Allergy Verified 12/21/24 08:50
Home Medications
docusate sodium 100 mg capsule 200 mg PO QPM Constipation 06/27/20
acetaminophen 325 mg tablet 650 mg PO Q4HPRN PRN mild pain/temp>100 09/08/20
finasteride 5 mg tablet 5 mg PO DAILY Urinary issue 09/08/20
gabapentin 300 mg capsule 300 mg PO DAILY mild Pain 09/08/20
lovastatin 40 mg tablet 40 mg PO DAILY High cholesterol 09/08/20
magnesium oxide 400 mg PO BID Supplement 09/08/20
tamsulosin 0.4 mg capsule 0.4 mg PO QPM Urinary issue 09/08/20
dapagliflozin propanediol 10 mg tablet (Farxiga) 10 mg PO DAILY Diabetes 02/08/22
bisacodyl 5 mg tablet,delayed release (Dulcolax (bisacodyl)) 5 mg PO DAILYPRN PRN constipation 07/27/22
insulin glargine 100 unit/mL (3 mL) subcutaneous pen (Basaglar KwikPen U-100 Insulin) 10 unit SC HS Diabetes 12/21/24
insulin lispro 100 unit/mL subcutaneous pen (Admelog SoloStar U-100 Insulin lispro) 5 unit SC ACHS Diabetes 12/21/24
furosemide 40 mg tablet 40 mg PO DAILY Fluid Retention/Swelling 12/23/24
lisinopril 5 mg tablet 5 mg PO DAILY Blood Pressure 06/09/25
dasiglucagon 0.6 mg/0.6 mL subcutaneous auto-injector (Zegalogue) 0.6 mg SC DAILYPRN PRN hypoglycemia ##0 06/14/25
metoprolol tartrate 100 mg tablet 100 mg PO BID Blood Pressure 06/14/25
sertraline 100 mg tablet 100 mg PO DAILY depression/anxiety 06/14/25
apixaban 2.5 mg tablet (Eliquis) 2.5 mg PO BID Blood Clot Prevention/Tx 07/15/25
miconazole nitrate 2 % topical powder (Miconazorb AF) 1 applic topical BID groin,penis 07/15/25
Review of Systems
-
Unable to obtain full review of systems at this time due to: Dementia
Physical Exam
Vital Signs
Vital Signs
Temp Pulse Resp BP Pulse Ox
101.4 F H 105 19 111/53 95
07/15/25 11:38 07/15/25 15:00 07/15/25 15:00 07/15/25 14:00 07/15/25 12:04
Physical Exam
General: No Apparent Distress, Comfortable (Seems comfortable/calm after IV Ativan ) and Respiratory Distress
HEENT: Atraumatic
Respiratory: Decreased Breath Sounds; No Wheezes
Cardiac: S1/S2 and Tachycardia
GI: Non Tender
Genito-urinary: Mcdonald
Musculoskeletal: No Cyanosis
Skin: Other (Chronic venous stasis discoloration bilateral lower extremity with deformed toe nails)
Neuro: Sedated
Psych: Calm and Apparent Dementia
Laboratory Results
-
07/15/25 11:57
07/15/25 11:57
Laboratory Results
PT 13.7 Sec (11.4-14.6) 07/15/25 11:57
INR 1.02 07/15/25 11:57
APTT 32.4 Sec (23.4-35.0) 07/15/25 11:57
Lactic Acid 4.2 mmol/L (0.7-2.0) H* 07/15/25 11:57
Total Bilirubin 0.9 mg/dl (0.2-1.3) 07/15/25 11:57
AST 21 U/L (17-59) 07/15/25 11:57
ALT 21 U/L (0-50) 07/15/25 11:57
Alkaline Phosphatase 101 U/L (38-126) 07/15/25 11:57
Troponin I 0.063 ng/ml H* 07/15/25 11:57
Impression/Plan
-
84 male presented with fever, abdominal pain and chest pain was found to have urosepsis with high fever and lactic acidosis
# Sepsis/severe sepsis with lactic acidosis, not have hypotension detected so far
Patient presented with fever, leukocytosis, encephalopathy, acute kidney injury
Admit the patient to high-level care
Start the patient on intravenous fluid
Continue with Mcdonald catheter, monitor weight and I/O
Start the patient on broad-spectrum antibiotic with cefepime and vancomycin
Follow-up with the blood and urine culture
Trend lactic acid
Vasopressors as needed. The blood pressure stable and responding to IV fluid. Monitor on telemetry
# Acute kidney injury on chronic kidney disease stage IIIb
Maintain Mcdonald. Treat the infection. Give hydration. Hold lisinopril and Lasix for now.
Monitor renal function closely, avoid nephrotoxic.
# Hyponatremia. Continue with IV hydration, likely hypovolemic
# Lactic acidosis, trending down. Continue with medical treatment for sepsis
# Elevated troponin seems consistent with nonischemic myocardial injury secondary to sepsis. EKG, no significant ischemic changes from prior. Per ER staff, no chest pain,. Only abdominal discomfort. Will monitor on telemetry. Continue with
Eliquis. Trend troponin.
#Chronic HFpEF
#Essential HTN
Holding blood pressure medication while given IV fluid to avoid hypotension holding lisinopril due to acute kidney injury
#B/L Chronic venous stasis
-no evidence of cellulitis
#Chronic anemia
-no acute blood loss anemia
#DM type 2 with neuropathy
Continue with insulin sign scale, close monitoring every 6 hours. Maintain long-acting insulin.
# History of constipation
Laxatives
# History of dementia with agitation, unspecified dementia type. Continue with sertraline.
Only give benzodiazepine for severe agitation. Protective hand mitts and soft restraint if needed to avoid losing essential infusion
#BPH
#Anxiety
#HLD
#Afib, paroxysmal
Patient with known HX to refuse drugs
Eliquis 2.5mg as per Age and Cr adjustment
DVT Prophylaixs: Eliquis
DNR/DNI
# Failure to thrive. Patient has history of recurrent hospitalization/sepsis and infection. Progressive dementia with poor functional status. Goal of care was discussed with POA/daughter on different occasions per records. Recommended hospice
care. Family had opted to do noninvasive/no aggressive treatment. Okay to give antibiotics and pressure support if needed.
Total critical time spent to see the patient, examine the patient, review data lab result, discuss treatment plan with patient and his daughter over the phone, ER doctor, nursing staff around 85 minutes
--- NOTE | 2025-07-15 15:34 | CM ---
Chart reviewed and cm went to see patient at ED bedside
Patient was asleep but arousable. But he was unable to speak with CM at this time
Spoke with Lane nurse
PLOF Total care out of bed via haris lift
needs assistance with all ADLs
forgetful and oriented to person only
Mcdonald catheter
Right nguyen blisters
He is a LTC resident there
Nursing staff called his dtr Sanjana about his transfer to ED
When ready the report can be sent to
Brandy Mcnair Report: [phone]
Branyd Mcnair
CM will continue to follow up with any dcp needs
[2025-07-15 15:49] LABS: Troponin I 0.057 ng/ml
--- NOTE | 2025-07-15 18:08 | PHA.VAN.IN ---
Assessment
- Assessment
Renal Function: SCR Appears Elevated from baseline (2.8 from 1.6)
Maximum Temperature: 101.4F
Concomitant Antimicrobials: Cefepime
Plan
- Plan
Initial / Loading Dose: 1500MG
Maintenance Regimen: Dosing by level
Monitoring: Random vancomycin 07/16/25 @0600 (approximately 17 hours post-dose)
Pharmacokinetics Vancomycin I
- -
Patient Age: 84
Patient Sex: Male
Vancomycin Day #: 1
Indication: Genito-Urinary Tract
Requesting Provider: Ramandeep
Pertinent Antimicrobial Allergies:
NKDA
Height / Weight:
Height 5 ft 10 in
Actual Weight 94.3 kg
Pertinent Past Medical History: Indwelling Mcdonald, recent admission for UTI
- Vital Signs / Lab Results
Temp Pulse Resp BP Pulse Ox
101.4 F H 113 20 91/73 95
07/15/25 11:38 07/15/25 17:30 07/15/25 17:30 07/15/25 17:00 07/15/25 12:04
Lab Results - Hematology
07/15/25
11:57
WBC 19.1 H
Lab Results - Chemistry
07/15/25
11:57
BUN 80 H
Creatinine 2.8 H
Albumin 3.4 L
07/15/25 07/15/25
11:57 15:05
Lactic Acid 4.2 H* 3.1 H
Lab Results - Urine
07/15/25
11:57
Urine Nitrite (Reflex) Negative
Leukocyte Esterase Rfl 3+ A
Urine WBC (Reflex) 11-15 A
Ur Squamous Epith Cells 0-2
Urine Bacteria (Reflex) Many A
Microbiology Results
07/15/25 11:57 Influenza Types A & B (CARRIE) - Final
Nasal Swab Negative for Influenza A & B, NAAT
Negative results must be combined with clinical observations
and patient history.
Nucleic Acid Amplification test (NAAT)performed on the
[employer] platform.
[2025-07-15 18:30] LABS: Glucose - Point of Care 253 mg/dl (70-99)
--- NOTE | 2025-07-15 18:44 | PTCARENOTE ---
Pt received from ED via stretcher. Aox0, difficult to assess orientation d/t language barrier. CHG bath and bhakti care completed.
[2025-07-15] MEDS: NSS 1000 IV (19:37)
[2025-07-15] MEDS: NOVOLOG FLEXPEN-HIGH RESISTANCE 7 UNITS SC (19:38)
--- NOTE | 2025-07-15 20:14 | W.PN.UPDATE ---
Update Note
Progress Note Update
Patient is hypotensive with bp 66/30 and map of 41. Patient currently on IVF / NSS 150/hr.
Levophed ordered.
[2025-07-15] MEDS: OFIRMEV 100 IV (20:30)
[2025-07-15] MEDS: LEVOPHED 250 IV (20:30)
[2025-07-15 21:37] LABS: Glucose - Point of Care 192 mg/dl (70-99)
[2025-07-15 22:16] LABS: Troponin I 0.069 ng/ml
[2025-07-15] MEDS: LANTUS 0.1 UNITS SC (23:05)
[2025-07-15] MEDS: MAXIPIME 1000 MG IV (23:05)
[2025-07-15] MEDS: STERILE WATER FOR INJECTION 10 ML IV (23:06)
[2025-07-16] VITALS (80 sets, daily range): BP systolic 69–157; BP diastolic 35–129; BMI 29.6
--- NOTE | 2025-07-16 01:38 | PTCARENOTE ---
received patient from previous RN. this rn hung iv fluids that were ordered for 1758 as well as gave 1758 insulin. upon assessment patient's pupils are sluggish and patient is responsive to touch. 1999 bp was 60s/50s. TT EAP SPECIALIST and levo ordered and
hung. IV acetaminophen also ordered and hung for a temp of 100.8. Patient at 8 ml/hr of levo, order for map greater then 65. EAP SPECIALIST at bedside and assessed patient as well. assessment and vitals charted. continuing to monitor.
[2025-07-16] MEDS: NSS 1000 IV ×2 (02:51→09:13)
[2025-07-16 03:56] LABS: Hematocrit 37.4 % (39.0-52.0); Hemoglobin 11.4 g/dL (13.0-18.0); Mean Corp Hgb Conc. 30.5 g/dL (33.0-37.0); Mean Corpuscular Volume 101.4 fL (80.0-94.0); Platelet Count 160 10^3/uL (130-400); Red Cell Dist. Width 15.2 % (11.5-14.5)
[2025-07-16 04:19] LABS: Blood Urea Nitrogen 76 mg/dl (9-20); Calcium 8.4 mg/dl (8.4-10.2); Carbon Dioxide 18 mmol/L (22-30); Chloride 106 mmol/L (98-107); Estimated Creatinine Clearance 18 ml/min; Glucose 211 mg/dl (70-99); Potassium 4.6 mmol/L (3.5-5.1); Sodium 135 mmol/L (135-145); eGFR 19.61
[2025-07-16 04:38] LABS: Troponin I 0.075 ng/ml
[2025-07-16] MEDS: SODIUM BICARBONATE 50 MEQ IV (04:57)
[2025-07-16] MEDS: LEVOPHED 250 IV ×3 (05:02→20:56)
[2025-07-16 05:16] LABS: Magnesium 1.8 mg/dl (1.6-2.3)
[2025-07-16 07:46] LABS: Glucose - Point of Care 232 mg/dl (70-99)
--- NOTE | 2025-07-16 08:40 | CON.ID ---
Consultation
-
Date/Time Consultation Requested: July 15, 2025 1759
Date/Time Consultation Performed: July 16, 2025 0840
Requesting Provider: Dr. Nery Sabillon
Performing Provider: Dr. Erlinda Rachel
Reason for Consultation: Sepsis
Chief Complaint / Past History
Chief Complaint
Abd pain, fever
History of Present Illness
History obtained from review medical records since patient has dementia and unable to provide a meaningful history. 84-year-old male with history of vascular dementia, diabetes mellitus, heart failure, chronic bladder outlet obstruction with
chronic indwelling Nichols catheter, history of gallbladder perforation conservative management only, recent hospitalization June for 06 June 2017 with lactobacillus and anaerobic gram-negative kayla bacteremia with extensive workup without source
,thought to be possibly contaminants and treated empirically with 14 days of IV Unasyn through 06/24/25 as patient refused p.o. meds at the time. He returned from SNF 07/15 for fever, reported abdominal pain and chest pain. In the ER temperature
101.4, white count 19.1, lactic acid 4.2, and TAO on CKD, hypotensive. CT scan without contrast showed mildly increased bladder distention despite Nichols. Admission blood cultures are now positive for gram-negative rods. Patient has been agitated
overnight receiving Ativan.
Past History
Additional Past Medical History:
Diabetes mellitus
Vascular dementia
Hypertension
COPD
A-fib
CAD
Heart failure with reduced EF
PVD
BPH
Bladder outlet obstruction with chronic hydronephrosis, chronic Nichols
hx DVT
hx emphysematous cholecystitis, GB perforation (12/2024), declined surgical intervention.
R THR
Ankle surgery
long-term resident
Allergy History:
No Known Allergies Allergy (Verified 12/21/24 08:50)
Medications Reviewed: Yes
Current Antibiotics:
Vancomycin
Cefepime
Social History
Tobacco: Former Smoker
Alcohol: None
Drug: None
Living: Assisted
Review of Systems
Review of Systems
Unable to obtain due to vascular dementia.
Vital Signs
Temp Pulse Resp BP Pulse Ox
99.6 F 94 22 128/60 97
07/16/25 07:00 07/16/25 06:00 07/16/25 06:00 07/16/25 06:00 07/16/25 06:00
Selected Entries
07/15/25
11:38 07/15/25
21:10
Temp 101.4 F H 100.8 F H
Physical Exam
Physical Exam
Constitutional: Chronically Ill
Eyes: No Conjunctival Hemorrhage and Sclera Anicteric
Cardiovascular: S1/S2 (Tachycardic)
Pulmonary: Clear
Gastrointestinal: Soft, Non Tender and Non Distended
Extremities: Edema and Venous Insufficiency (Bilateral lower extremity)
Wound: Other (Right great toe tip dry black wound)
Neurological: Other (Lethargic)
Lab / Diagnostic Study Results
07/16/25 03:34
07/16/25 03:34
Abs Immat Gran (auto) 0.1 10^3/uL (0-0.05) H 07/15/25 11:57
Absolute Neuts (auto) 17.2 10^3/uL (1.4-6.5) H 07/15/25 11:57
Absolute Lymphs (auto) 1.1 10^3/uL (1.2-3.4) L 07/15/25 11:57
Absolute Monos (auto) 0.7 10^3/uL (0.1-0.6) H 07/15/25 11:57
Absolute Basos (auto) 0.0 10^3/uL (0-0.2) 07/15/25 11:57
Immature Gran % 0.5 % (0-0.5) 07/15/25 11:57
Neutrophils % 89.9 % (42.2-75.2) H 07/15/25 11:57
Lymphocytes % 5.6 % (20.5-51.1) L 07/15/25 11:57
Monocytes % 3.7 % (1.7-9.3) 07/15/25 11:57
Eosinophils % 0.1 % (0-6) 07/15/25 11:57
Basophils % 0.2 % (0-2) 07/15/25 11:57
PT 13.7 Sec (11.4-14.6) 07/15/25 11:57
INR 1.02 07/15/25 11:57
Lactic Acid 3.8 mmol/L (0.7-2.0) H 07/16/25 03:34
Ur Squamous Epith Cells 0-2 /LPF (Few) 07/15/25 11:57
Microbiology Results
Micro:
07/15/25 11:57 Blood Culture - Preliminary
Blood/Venous Positive culture in progress
Gram Stain - Final
07/15/25 11:57 Blood Culture - Preliminary
Blood/Venous Positive culture in progress
Gram Stain - Final
07/15/25 21:33 MRSA Screen - Pending
Nose
07/15/25 11:57 Influenza Types A & B (CARRIE) - Final
Nasal Swab Negative for Influenza A & B, NAAT
Negative results must be combined with clinical observations
and patient history.
Nucleic Acid Amplification test (NAAT)performed on the
[employer] platform.
07/15/25 11:57 Urine Culture - Pending
Urine
07/15/25 CT A/p wo contrast: Mild distention of the urinary bladder despite indwelling Nichols catheter. There is diffuse urinary bladder wall thickening which is decreased as compared with the prior study. There is bilateral moderate hydronephrosis
which is either unchanged or slightly increased as compared to prior. Mild compression deformity of L4, new as compared to June 2025.
11/10/[address]: No acute intracranial abnormality identified. 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
Assessment / Plan
# Recurrent bacteremia - GNR 4/4 bottles
# Recent Lactobacillus+anaerobic GNR bacteremia unclear source s/p 14d Unasyn through 06/24
# Severe sepsis: fever, leukocytosis, elevated lactic acid, TAO
# CANTRELL, chronic hydronephrosis, chronic nichols
# Vascular dementia
- Review of medicar record. pt hx of emphyematous cholecystitis with GB perforation; declined surgical intervention, declined perc florian (12/2024)
Suspect gallbladder source for recurrent bacteremia of GI organisms, without source control
- ED CT scan without contrast-unremarkable. However, CT with contrast will be more helpful to assess for gallbladder small perforation. Unfortunately patient with TAO and should avoid IV CT contrast for now.
- Will start with right upper quadrant ultrasound.
- Consider MRI of the abdomen with contrast if ultrasound unrevealing.
- Add metronidazole to cefepime
- DC vancomycin
- Repeat blood cultures in AM.
# Conditions present on admission
Diabetes mellitus
Vascular dementia
Hypertension
COPD
A-fib
CAD
Heart failure with reduced EF
PVD
BPH
Bladder outlet obstruction with chronic hydronephrosis, chronic Nichols
hx DVT
hx emphysematous cholecystitis, GB perforation (12/2024), declined surgical intervention.
R THR
Ankle surgery
long-term resident
Care Review
Plan reviewed with: Nurse and Physician (Dr. Sabillon)
[2025-07-16] MEDS: NSS (PRESERVATIVE FREE) 10 ML IV (09:13)
[2025-07-16] MEDS: PROTONIX IV 40 MG IV (09:13)
[2025-07-16] MEDS: NOVOLOG FLEXPEN-HIGH RESISTANCE 4 UNITS SC ×2 (09:32→11:27)
[2025-07-16] MEDS: FLAGYL 500 MG 100 IV (09:36)
--- NOTE | 2025-07-16 10:00 | W.PN.HOSP.TC ---
Addendum entered and electronically signed by Blaise Sabillon MD 07/16/25 10:48:
R buttock with stage 2 PI POA with scant drainage. Per wound care : lateral edge of ulcer with dark maroon discolored skin, suspect evolving PI. +MASD groin, penis and scrotal skin, incontinent of soft stool during assessment.
Original Note:
Today's Communication/Plan
-
will update daughter
Assessment / Plan
Assessment / Plan
Physical Exam
General: No Apparent Distress, Comfortable, not in Respiratory Distress
HEENT: Atraumatic
Respiratory: Decreased Breath Sounds; No Wheezes
Cardiac: S1/S2 and Tachycardia
GI: Non Tender
Genito-urinary: Mcdonald ( no hematuria)
Musculoskeletal: No Cyanosis
Skin: Other (Chronic venous stasis discoloration bilateral lower extremity with deformed toe nails)
Neuro: Sedated
Psych: Calm and Apparent Dementia
84 male presented with fever, abdominal pain and chest pain was found to have urosepsis with high fever and lactic acidosis
# Sepsis/severe sepsis with lactic acidosis,
Septic shock
Bacteremia
Patient presented with fever, leukocytosis, encephalopathy, acute kidney injury.
Continue care in high-level care
c/w IVF & IV Levophed
Continue with Mcdonald catheter, monitor weight and I/O
Started on broad-spectrum antibiotic with cefepime and vancomycin, now on Cefepime & Flagyl
Follow-up with the blood and urine culture
Trend lactic acid is down but still positive - related to TAO
Vasopressors as needed. The blood pressure stable and responding to IV fluid. Monitor on telemetry
# Acute kidney injury on chronic kidney disease stage IIIb
metabolic acidosis
Maintain Mcdonald. Treat the infection. Give hydration. Held lisinopril and Lasix for now.
Monitor renal function closely, avoid nephrotoxic.
Consulted nephrology
# Hyponatremia. Continue with IV hydration,
# Toxic metabolic encephalopathy
# Lactic acidosis, trending down. Continue with medical treatment for sepsis
# Elevated troponin seems consistent with nonischemic myocardial injury secondary to sepsis. EKG, no significant ischemic changes from prior. Per ER staff, no chest pain,. Only abdominal discomfort. Will monitor on telemetry. Continue with
Eliquis. Trend troponin.
#Chronic HFpEF
#Essential HTN
Holding blood pressure medication while given IV fluid to avoid hypotension holding lisinopril due to acute kidney injury
#B/L Chronic venous stasis
-no evidence of cellulitis
#Chronic anemia
-no acute blood loss anemia
#DM type 2 with neuropathy
Continue with insulin sign scale, close monitoring every 6 hours. Maintain long-acting insulin.
# History of constipation
Laxatives PRN
# History of dementia with agitation, unspecified dementia type. Continue with sertraline.
Only give benzodiazepine for severe agitation. Protective hand mitts and soft restraint if needed to avoid losing essential infusion
#BPH
#Anxiety
#HLD
#Afib, paroxysmal
Patient with known HX to refuse drugs
Unable to give oral meds due to lethargy and risk of aspiration
DVT Prophylaixs: Eliquis
DNR/DNI
# Failure to thrive. Patient has history of recurrent hospitalization/sepsis and infection. Progressive dementia with poor functional status. Goal of care was discussed with POA/daughter on different occasions per records. Recommended hospice
care. Family had opted to do noninvasive/no aggressive treatment. Okay to give antibiotics and pressure support if needed.
Will call again today to update and ask if she is willing to pursue comfort measures VS c/w current plan with IV ABx, IVF
Total critical time spent to see the patient, examine the patient, review data lab result, discuss treatment plan with patient and his daughter over the phone, ER doctor, nursing staff around 85 minutes
Anticipated Discharge: > 48 hours
Subjective/Interval History
-
Date of Service: July 16, 2025
lethargy alternating with confusion over night
Started on pressure support
Objective Data
-
Labs:
Laboratory Results
07/16/25
03:34
WBC 14.4 H
Hgb 11.4 L
Hct 37.4 L
Plt Count 160
Sodium 135
Potassium 4.6
Chloride 106
Carbon Dioxide 18 L
BUN 76 H
Creatinine 3.0 H
Glucose 211 H
Calcium 8.4
Vital Signs:
Vital Signs
Temp Pulse Resp BP Pulse Ox
99.6 F 94 22 128/60 97
07/16/25 07:00 07/16/25 06:00 07/16/25 06:00 07/16/25 06:00 07/16/25 06:00
I&O
07/15/25 07/16/25 07/17/25
06:59 06:59 06:59
Output Total 250 / 250
Balance -250 / -250
--- NOTE | 2025-07-16 10:14 | WOUNDNOTE ---
R GREAT TOE TIP
--- NOTE | 2025-07-16 10:20 | WOUNDNOTE ---
WON RN note: Patient admitted with UTI Sepsis.
See H&P for complete history. Patient resides at [facility].
PMH: DM, HF, neuropathy, BPH, anxiety, dementia, ambulation dysfunction, constipation, HTN, obesity.
Wound Location and type/assessment: Patient known to service,last seen 06/10/25. Now admitted with: R great toe tip dried up blood blister, black eschar at tip, no drainage. Suspect diabetic mixed with arterial. Legs very dry and flaky, previous
abrasions have healed, scar visible. Heels are intact. Sacrum is intact, turned with assist of student nurse. R buttock with stage 2 PI, pink base, scant drainage. Lateral edge of ulcer with dark maroon discolored skin, suspect evolving PI. +MASD
groin, penis and scrotal skin, incontinent of soft stool during assessment.
Appetite: good.
Pressure redistribution devices in place: Air mattress, turning schedule, pillow under calves. Keep on air mattress if transferred off floor.
Plan: Betadine applied to R great toe tip. Will order mineral oil for dry skin on legs. Guerita care given and assessed ulcer under R buttock foam. Foam adhesive applied to heels to protect, pillow under calves.
Will confirm orders with Dr. thakkar and updated RN.
Care plan to be updated and will follow as needed.
Note to case management of equipment requested for discharge: Air mattress at SNF if not already in place.
Recommend follow up with winch runner.
[2025-07-16 10:37] LABS: Glucose - Point of Care 245 mg/dl (70-99)
[2025-07-16 10:48] LABS: Troponin I 0.078 ng/ml
--- NOTE | 2025-07-16 11:00 | PTCARENOTE ---
Assumed care of patient at beginning of this shift from previous RN with levophed infusing at 7mcg/min. MAP 68. Cannot verify accuracy of vital signs prior to 0700. Patient remains lethargic for the most part; he does respond to pain, pulling away
his arm when attempting blood draw and trying to grab arm of staff when turning/repositioning patient. R hand swollen +2 edema; per report was swollen and purple, but not discolored now. Dr Sabillon in to see the patient and made aware. NSS infusing at
150ml/hr. Blood cultures preliminary results sent to Dr Sabillon and Dr Gandhi via TT. Daughter called and asked to speak with physician; TT sent to Dr Sabillon. See worklist for full assessment and vital signs.
--- NOTE | 2025-07-16 11:19 | W.CON.NEPH ---
Consultation
-
Date/Time Consultation Requested: 07/16/25 0715
Date/Time Consultation Performed: 07/16/25 1140
Requesting Provider: Blaise Reynoso
Performing Provider: Alison Stahl
Reason for Consultation: TAO
Medical History
-
Chief Complaint: Fever and abd pain
History of Present Illness:
83 y/o male, Puerto Rican speaking, with PMHx of HFmrEF on lasix, DM on insulin, Farxiga, neuropathy on Gabapentin, HTN on lisinopril, HLD on Lovastatin, BPH on flomax, anxiety, Afib on AC with Eliquis, dementia, chronic ambulatory deficiency, Hx of
gangrenous cholecystitis in January 2025, Obst uropathy( creatinine peak at 5.2 improved to 1.6 on 06/21/25, baseline creatinine at 0.8-1.2), possible gangrenous cholecystitis and polymicrobial bacteremia with Bifidobacterium species and second
anaerobic GNR (unable to isolate for identification). Patient was treated with IV Unasyn at the time and switched to oral Augmentin and Flagyl in June who was brought from [facility] with With abdominal pain, chest pain and fever on 07/15.
Patient is a poor historian due to significant dementia, hence most of the history is opted to the chart. He noted to be in septic shock, hypotension requiring pressors. CT Scan of the abdomen and pelvis showed bladder wall thickening with
indwelling Nichols catheter, bilateral moderate hydronephrosis that was unchanged. Patient was started on broad abx for presumed urosepsis. Lactic acid was elevated too 4.2. Creatinine was elevated from baseline at 2.8, however increased up to 3
today despite IV fluids hence nephrology consultation. He only produced 250 cc of urine in the Nichols. He had fever last night, currently afebrile. On Levophed at 8.
Past Medical History
Dementia, kidney disease, C. difficile infection, bacteremia, metabolic encephalopathy, cellulitis, atrial fibrillation, diabetes, respiratory insufficiency, anxiety, BPH, chronic Nichols, hyperlipidemia
Social History
Unable to obtain full social history at this time due to Dementia
Family History
Unable to obtain full social history at this time due to: Dementia
Allergies / Home Medications
Allergy/AdvReac Type Severity Reaction Status Date / Time
No Known Allergies Allergy Verified 12/21/24 08:50
�Medication �Instructions �Recorded �Confirmed �Type
docusate sodium 100 mg capsule 200 mg PO QPM Constipation 06/27/20 07/15/25 History
acetaminophen 325 mg tablet 650 mg PO Q4HPRN PRN mild 09/08/20 07/15/25 History
pain/temp>100
finasteride 5 mg tablet 5 mg PO DAILY Urinary issue 09/08/20 07/15/25 History
gabapentin 300 mg capsule 300 mg PO DAILY mild Pain 09/08/20 07/15/25 History
lovastatin 40 mg tablet 40 mg PO DAILY High cholesterol 09/08/20 07/15/25 History
magnesium oxide 400 mg PO BID Supplement 09/08/20 07/15/25 History
tamsulosin 0.4 mg capsule 0.4 mg PO QPM Urinary issue 09/08/20 07/15/25 History
dapagliflozin propanediol 10 mg 10 mg PO DAILY Diabetes 02/08/22 07/15/25 History
tablet (Farxiga)
bisacodyl 5 mg tablet,delayed 5 mg PO DAILYPRN PRN constipation 07/27/22 07/15/25 History
release (Dulcolax (bisacodyl))
insulin glargine 100 unit/mL (3 10 unit SC HS Diabetes 12/21/24 07/15/25 History
mL) subcutaneous pen (Basaglar
KwikPen U-100 Insulin)
insulin lispro 100 unit/mL 5 unit SC ACHS Diabetes 12/21/24 07/15/25 History
subcutaneous pen (Admelog SoloStar
U-100 Insulin lispro)
furosemide 40 mg tablet 40 mg PO DAILY Fluid 12/23/24 07/15/25 History
Retention/Swelling
lisinopril 5 mg tablet 5 mg PO DAILY Blood Pressure 06/09/25 07/15/25 History
dasiglucagon 0.6 mg/0.6 mL 0.6 mg SC DAILYPRN PRN 06/14/25 07/15/25 History
subcutaneous auto-injector hypoglycemia ##0
(Zegalogue)
metoprolol tartrate 100 mg tablet 100 mg PO BID Blood Pressure 06/14/25 07/15/25 History
sertraline 100 mg tablet 100 mg PO DAILY depression/anxiety 06/14/25 07/15/25 History
apixaban 2.5 mg tablet (Eliquis) 2.5 mg PO BID Blood Clot 07/15/25 07/15/25 History
Prevention/Tx
miconazole nitrate 2 % topical 1 applic topical BID groin,penis 07/15/25 07/15/25 History
powder (Miconazorb AF)
Review of Systems
-
Unable to obtain full review of systems at this time due to: Dementia
Physical Exam
Vital Signs
Vital Signs
Temp Pulse Resp BP Pulse Ox
97.7 F 81 23 131/53 97
07/16/25 11:45 07/16/25 13:30 07/16/25 13:30 07/16/25 13:30 07/16/25 13:30
Lab Results
WBC 14.4 10^3/uL (4.8-10.8) H 07/16/25 03:34
RBC 3.69 10^6/uL (4.70-6.10) L 07/16/25 03:34
Hgb 11.4 g/dL (13.0-18.0) L 07/16/25 03:34
Hct 37.4 % (39.0-52.0) L 07/16/25 03:34
Plt Count 160 10^3/uL (130-400) 07/16/25 03:34
Sodium 135 mmol/L (135-145) 07/16/25 03:34
Potassium 4.6 mmol/L (3.5-5.1) 07/16/25 03:34
Chloride 106 mmol/L (98-107) 07/16/25 03:34
Carbon Dioxide 18 mmol/L (22-30) L 07/16/25 03:34
BUN 76 mg/dl (9-20) H 07/16/25 03:34
Creatinine 3.0 mg/dL (0.7-1.3) H 07/16/25 03:34
eGFR 19.61 07/16/25 03:34
Glucose 211 mg/dl (70-99) H 07/16/25 03:34
Calcium 8.4 mg/dl (8.4-10.2) 07/16/25 03:34
Albumin 3.4 g/dl (3.5-5.0) L 07/15/25 11:57
Physical Exam
General: Awake, No Distress and Nontoxic
HEENT: Facial Symmetry and No JVD
Respiratory: Clear (decreased BS), Normal Excursion and Nonlabored Respirations
Cardiac: S1/S2, Regular Rate/Rhythm and Murmur
Breast: Deferred by me
Abdomen: Soft, Nontender and Nondistended
Musculoskeletal: Edema (1+chr skin changes)
Skin: Other (chr skin changes of LEs)
Neuro: Other (Unable to obtain full social history at this time due to Dementia)
Psych: Other (Unable to obtain full social history at this time due to Dementia)
Assessment/Plan
-
IMP:
Sepsis/severe sepsis with lactic acidosis,
Septic shock
GN Bacteremia
Acute kidney injury-baseline cr 0.8-1.2 in January,
Obst uropathy TAO in Jun cr adair 1.6
metabolic acidosis , L acid
Hyponatremia
Toxic metabolic encephalopathy
Elevated troponin seems consistent with nonischemic myocardial injury secondary to sepsis.
Chronic HFpEF
Essential HTN
B/L Chronic venous stasis
Chronic anemia
DM type 2 with neuropathy
History of constipation
History of dementia with agitation,
BPH
Anxiety
HLD
Afib, paroxysmal
PLan:
A/w septic shock with UTI
TAO-suspect prerenal +obst as still with bilat hydro despite nichols
oliguric, keep nichols
cotn IVF but change to bicarb IVF for met aciodisis, L acid improving
cont pressors to keep MAP>65
given multiple comorbidities, poor QOL not candidate for dialysis
cotn abx per primary
dose meds renally
he is DNR
poor prognosis
--- NOTE | 2025-07-16 11:25 | PTCARENOTE ---
Addendum entered by Riri Alvarado RN 07/16/25 12:05:
Labs cancelled as per Dr Sabillon.
Original Note:
Lactic acid 2.3, Troponin 0.078. Repeat for both entered as per protocol. Dr Sabillon notified via TT.
[2025-07-16] MEDS: MERREM 500 MG IV (12:19)
[2025-07-16] MEDS: STERILE WATER FOR INJECTION 10 ML IV (12:19)
--- NOTE | 2025-07-16 15:49 | WOUNDNOTE ---
WON RN NOTE ADDENDUM: With assist of nurse Little, turned patient to R side, assessed tumor wound on L ischium. No other wounds noted on L buttock. Silicone foam applied to site. Patient incontinent of large stool, skin care given and changed
Ultrasorb pads. R buttock dressing soiled, changed silicone foam and applied sacral silicone foam also to protect. R lateral foot with non blanchable red markings, suspect stage 1 PI vs evolving DTI. Patient tends to want to sleep on L side,
combative with staff. Offloading fiber filled boots ordered, called [facility] for supply. Nurse Riri made aware and will apply when arrives. Goals of care being discussed with family reports nurse. Repositioned patient for comfort, will follow as
needed.
[2025-07-16] MEDS: NSS IV (16:25)
[2025-07-16] MEDS: SODIUM BICARBONATE 1075 MEQ IV (16:29)
[2025-07-16] MEDS: HEPARIN 5000 UNITS SC (16:40)
[2025-07-16 17:55] LABS: Glucose - Point of Care 141 mg/dl (70-99)
[2025-07-16] MEDS: NOVOLOG FLEXPEN-HIGH RESISTANCE SC (17:55)
--- NOTE | 2025-07-16 18:12 | PTCARENOTE ---
Addendum entered by Riri Alvarado RN 07/16/25 18:26:
Dr Sabillon also aware via TT.
Original Note:
Patient's HR 130s-140s while sleeping. Weaning off of levophed (currently off). TT sent to Dr Sabillon but had gone for the day. TT sent to Dr Duval. Instructed to continue to wean levophed and see if HR improves. He stated to have next shift follow
HR. He was up to the bedside to see patient. Daughter was in right before Dr Duval came to see patient but had left prior. She stated she understands patient is sick but would like to speak with physician prior to making the decision for comfort or
hospice. Levophed off, IVF infusing. Patient did state,' get out of here' and 'I want to sleep.'
[2025-07-16] MEDS: TYLENOL/FEVERALL 650 MG RECTAL (19:39)
[2025-07-16] MEDS: DESENEX/MITRAZOL/ZEASORB 1 APPLIC TOPICAL (19:39)
--- NOTE | 2025-07-16 22:03 | PTCARENOTE ---
Assumed care of pt who is Moroccan speaking with history of dementia and agitation. Heart rate Afib in 140s, pt temp. had 101.4, rectal tylenol given. Pt tachypneic with 26/min, pulse ox 97% on room air. IVF with sodium bicarb infusing at 125ml/hr.
Levophed had been weaned during day. Levophed restarted and titrating to maintain MAP>65. Pt rests with eyes closed, but responds with verbal at times as he grabs for staffs hands and arms to push away during care. He settles back to rest with eyes
closed once care is completed.
[2025-07-16 23:37] LABS: Glucose - Point of Care 176 mg/dl (70-99)
[2025-07-17] VITALS (36 sets, daily range): BP systolic 90–156; BP diastolic 49–95; BMI 30.7
[2025-07-17] MEDS: LANTUS 0.05 UNITS SC (00:37)
[2025-07-17] MEDS: HEPARIN 5000 UNITS SC ×2 (00:37→08:17)
[2025-07-17] MEDS: MERREM 500 MG IV (00:38)
[2025-07-17] MEDS: STERILE WATER FOR INJECTION 10 ML IV (00:38)
[2025-07-17] MEDS: SODIUM BICARBONATE 1075 MEQ IV ×2 (00:45→09:23)
--- NOTE | 2025-07-17 04:35 | PTCARENOTE ---
Patient with periods of wakefulness and moaning as if he is bearing down to pass a bowel movement. During these episodes his resp rate and heart rate are elevated and then return to baseline. Pt is afebrile at this time
--- NOTE | 2025-07-17 06:20 | PTCARENOTE ---
Patient tapered off Levophed infusion per protocol. Pt more alert this am, tells staff 'I want to sleep'
[2025-07-17 07:08] LABS: Glucose - Point of Care 247 mg/dl (70-99)
[2025-07-17] MEDS: NSS (PRESERVATIVE FREE) 10 ML IV (08:17)
[2025-07-17] MEDS: NOVOLOG FLEXPEN-HIGH RESISTANCE 4 UNITS SC (08:17)
[2025-07-17] MEDS: HYDROPHOR 1 APPLIC TOPICAL (08:18)
[2025-07-17] MEDS: DESENEX/MITRAZOL/ZEASORB 1 APPLIC TOPICAL (08:18)
[2025-07-17] MEDS: PROTONIX IV 40 MG IV (08:18)
--- NOTE | 2025-07-17 09:49 | W.PN.ID1 ---
Date of Service
Date of Service: July 17, 2025
Today's Communication
Continue meropenem.
Assessment / Plan
# ESBL-Proteus complicated UTI - present on admission
# ESBL-Proteus bacteremia - 4/4 bottles
# Severe sepsis. Fever persists. Leukocytosis improving
# CANTRELL, chronic hydronephrosis, chronic nichols
# Recent Lactobacillus+anaerobic GNR bacteremia unclear source s/p 14d Unasyn through 06/24
# hx emphysematous cholecystitis, GB perforation (12/2024), declined surgical intervention/declined perc florian.
# Vascular dementia
- CT scan without contrast-unremarkable.
- Right upper quadrant ultrasound - no GB fluid
- Repeat bcx's pending
- Continue meropenem (d2), renally adjusted
- Trend temps/wbc
- Contact precaution
# Conditions present on admission
Diabetes mellitus
Vascular dementia
Hypertension
COPD
A-fib
CAD
Heart failure with reduced EF
PVD
BPH
Bladder outlet obstruction with chronic hydronephrosis, chronic Nichols
hx DVT
hx emphysematous cholecystitis, GB perforation (12/2024), declined surgical intervention.
R THR
Ankle surgery
senior living resident
Chief Complaint
-: Bacteremia
Subjective / Review of Systems
Sleeping
Vital Signs / Physical Exam
Vital Signs
Vital Signs
Temp Pulse Resp BP Pulse Ox
99.0 F 116 27 131/73 94
07/17/25 07:53 07/17/25 03:45 07/17/25 03:45 07/17/25 03:30 07/17/25 06:19
Selected Entries
07/16/25
19:30
Temp 101.4 F H
Physical Exam
Constitutional: Comfortable
Cardiovascular: Irregular Rate and S1/S2 (tachycardic)
Pulmonary: Clear
Gastrointestinal: Soft and Non Distended
Genito-Urinary: Nichols and Clear Urine
Extremities: Edema (lymphedema) and Venous Insufficiency
Psychological: Calm
Objective Data
Lab Data
Lab Results
07/16/25 03:34
PT 13.7 Sec (11.4-14.6) 07/15/25 11:57
INR 1.02 07/15/25 11:57
APTT 32.4 Sec (23.4-35.0) 07/15/25 11:57
Estimated Creat Clear 18 ml/min 07/16/25 03:34
Lactic Acid Cancelled 07/16/25 14:00
Total Bilirubin 0.9 mg/dl (0.2-1.3) 07/15/25 11:57
AST 21 U/L (17-59) 07/15/25 11:57
ALT 21 U/L (0-50) 07/15/25 11:57
Alkaline Phosphatase 101 U/L (38-126) 07/15/25 11:57
Most recent labs reviewed.
Micro Results:
07/15/25 11:57 Blood Culture - Preliminary
Blood/Venous Proteus species
Gram Stain - Final
07/15/25 11:57 Urine Culture - Final
Urine Proteus Mirabilis-ESBL
07/15/25 21:33 MRSA Screen - Final
Nose No Methicillin Resistant Staphylococcus aureus isolated.
07/17/25 06:04 Blood Culture - Pending
Blood/Venous
07/17/25 06:11 Blood Culture - Pending
Blood/Venous
07/15/25 11:57 Blood Culture - Preliminary
Blood/Venous Positive culture in progress
Gram Stain - Final
07/15/25 11:57 Influenza Types A & B (CARRIE) - Final
Nasal Swab Negative for Influenza A & B, NAAT
Negative results must be combined with clinical observations
and patient history.
Nucleic Acid Amplification test (NAAT)performed on the
[employer] platform.
07/15/25 CT A/p wo contrast: Mild distention of the urinary bladder despite indwelling Nichols catheter. There is diffuse urinary bladder wall thickening which is decreased as compared with the prior study. There is bilateral moderate hydronephrosis
which is either unchanged or slightly increased as compared to prior. Mild compression deformity of L4, new as compared to June 2025.
07/15/[address]: No acute intracranial abnormality identified. 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
Care Review
Plan reviewed with: Physician (Dr. Sabillon)
[2025-07-17 09:59] LABS: Blood Urea Nitrogen 81 mg/dl (9-20); Calcium 7.8 mg/dl (8.4-10.2); Carbon Dioxide 21 mmol/L (22-30); Chloride 108 mmol/L (98-107); Estimated Creatinine Clearance 17 ml/min; Glucose 134 mg/dl (70-99); Potassium 4.0 mmol/L (3.5-5.1); Sodium 134 mmol/L (135-145); eGFR 15.76
--- NOTE | 2025-07-17 10:04 | W.PN.HOSP.TC ---
Today's Communication/Plan
-
dc planning under hospice care
Assessment / Plan
Assessment / Plan
Physical Exam
General: chronically ill looking, lethargic, not in Respiratory Distress
HEENT: Atraumatic
Respiratory: Decreased Breath Sounds; No Wheezes
Cardiac: S1/S2 and Tachycardia
GI: Non Tender, soft
Genito-urinary: Mcdonald ( no hematuria)
Musculoskeletal: No Cyanosis
Skin: Other (Chronic venous stasis discoloration bilateral lower extremity with deformed toe nails)
Neuro: lethargic, refuses to follow commands, at one point he became agitated.
Psych: Apparent Dementia
84 male presented with fever, abdominal pain and chest pain was found to have urosepsis with high fever and lactic acidosis
# GOC discussion.
I had updated daughter daily regarding progress. Goal of care discussed this admission again. Daughter felt that she was ready to accept hospice at this time although she was visibly emotional( her mother is ), and she is only child. Patient
did not show clinical improvement and continue to worsen and showing signs of agitation if forced to have nursing care or medications. Sometimes moaning. Per daughter, patient has history of progressive decline in recent months. Staff at nursing
home crushed his medications in food to be able to administer his medications.
Daughter would like to send him back to [facility] under hospice care after she spoke with staff there. Staff knew him well in [place]. Will consult hospice and case packer and sealer to evaluate the patient and coordinate transfer. Updated consultants.
Daughter agreed to use pain medicine, will use Dilaudid PRN.
# Sepsis/severe sepsis with lactic acidosis,
Septic shock
Bacteremia
TME on advanced dementia
No clinical improvement despite ABx and iVF
Levophed is off now but sometimes BP goes down
Oliguria with rising creatinine
d/w consultants
d/w daughter. Hospice consulted.
# Acute kidney injury on chronic kidney disease stage IIIb
metabolic acidosis
Chronic Mcdonald.
# Hyponatremia. Continue with IV hydration,
# Toxic metabolic encephalopathy
# Lactic acidosis,
# Elevated troponin seems consistent with nonischemic myocardial injury secondary to sepsis.
#Chronic HFpEF
#Essential HTN
#B/L Chronic venous stasis
-no evidence of cellulitis
#Chronic anemia
-no acute blood loss anemia
#DM type 2 with neuropathy
# History of constipation# History of dementia with agitation, likely vascular. He is unable to take oral medications due to lethargy. Per daughter, hx of refusing medications, staff at [place] crushed them in his food most times.
#BPH
#Anxiety
#HLD
#Afib, paroxysmal
DVT Prophylaixs: sq Heparin
DNR/DNI
# Failure to thrive. Patient has history of recurrent hospitalization/sepsis and infection. Progressive dementia with poor functional status.
Total time spent to see the patient, examine the patient, review data lab result, discuss treatment plan with case packer and sealer, hospice nurse, daughter of the pt , nursing staff around 59 minutes
Anticipated Discharge: Within 24 hours
Subjective/Interval History
-
Date of Service: July 17, 2025
He is lethargic most night and day but sometimes wakes up and refuses care/ treatments
Objective Data
-
Labs:
Laboratory Results
07/17/25
08:43
Sodium 134 L
Potassium 4.0
Chloride 108 H
Carbon Dioxide 21 L
BUN 81 H
Creatinine 3.6 H
Glucose 134 H
Calcium 7.8 L
Vital Signs:
Vital Signs
Temp Pulse Resp BP Pulse Ox
99.0 F 116 27 131/73 94
07/17/25 07:53 07/17/25 03:45 07/17/25 03:45 07/17/25 03:30 07/17/25 06:19
I&O
07/16/25 07/17/2507/18/25
06:59 06:59 06:59
Intake Total 1000 / 1000
Output Total 250 / 250 175 / 175
Balance -250 / -250 825 / 825
--- NOTE | 2025-07-17 11:58 | W.PN.NEPH.PH ---
Today's Communication / Plan
-
Signed off
Assessment/Plan
-
IMP:
Sepsis/severe sepsis with lactic acidosis,
Septic shock
GN Bacteremia
Acute kidney injury-baseline cr 0.8-1.2 in January,
Obst uropathy TAO in Jun cr adair 1.6
metabolic acidosis , L acid
Hyponatremia
Toxic metabolic encephalopathy
Elevated troponin seems consistent with nonischemic myocardial injury secondary to sepsis.
Chronic HFpEF
Essential HTN
B/L Chronic venous stasis
Chronic anemia
DM type 2 with neuropathy
History of constipation
History of dementia with agitation,
BPH
Anxiety
HLD
Afib, paroxysmal
PLan:
A/w septic shock with UTI
TAO-suspect prerenal +obst as still with bilat hydro despite nichols
oliguric, keep nichols
cotn IVF but change to bicarb IVF for met aciodisis, L acid improving
cont pressors to keep MAP>65
given multiple comorbidities, poor QOL not candidate for dialysis
cotn abx per primary
dose meds renally
he is DNR
poor prognosis
Discussed with daughter at the bedside is aware of his poor prognosis and since I had spoken with her she is concluded to proceed with comfort care.
I will sign off please call if needed
-
-
Date of Service: July 17, 2025
CC / HPI / ROS
-
Chief Complaint:
TAO
History of Present Illness:
Septic shock
Review of Systems:
Lethargic minimal response
Labs
-
Labs:
WBC 14.4 10^3/uL (4.8-10.8) H 07/16/25 03:34
RBC 3.69 10^6/uL (4.70-6.10) L 07/16/25 03:34
Hgb 11.4 g/dL (13.0-18.0) L 07/16/25 03:34
Hct 37.4 % (39.0-52.0) L 07/16/25 03:34
Plt Count 160 10^3/uL (130-400) 07/16/25 03:34
Sodium 134 mmol/L (135-145) L 07/17/25 08:43
Potassium 4.0 mmol/L (3.5-5.1) 07/17/25 08:43
Chloride 108 mmol/L (98-107) H 07/17/25 08:43
Carbon Dioxide 21 mmol/L (22-30) L 07/17/25 08:43
BUN 81 mg/dl (9-20) H 07/17/25 08:43
Creatinine 3.6 mg/dL (0.7-1.3) H 07/17/25 08:43
eGFR 15.76 07/17/25 08:43
Glucose 134 mg/dl (70-99) H 07/17/25 08:43
Calcium 7.8 mg/dl (8.4-10.2) L 07/17/25 08:43
Albumin 3.4 g/dl (3.5-5.0) L 07/15/25 11:57
Physical Exam
-
Vital Signs:
Vital Signs
Temp Pulse Resp BP Pulse Ox
99.0 F 88 20 104/57 97
07/17/25 07:53 07/17/25 11:45 07/17/25 11:45 07/17/25 11:30 07/17/25 11:45
Respiratory:: Bilateral: Coarse
Lung Excursion:: Normal
Abdomen:: Tender
Bowel Sounds:: Normal
Extremity Edema:: +1: Bilateral:
--- NOTE | 2025-07-17 12:45 | HOSPNOTE ---
Spoke with daughter and she would like patient to return to [facility] since he is very comfortable there and the daughter feels he will do better in a familiar environment with their preferred hospice provider. Attending and CM aware.
--- NOTE | 2025-07-17 12:47 | PTCARENOTE ---
Assumed care of patient at beginning of this shift from previous RN; cannot verify accuracy of vital signs prior to 0700. Levophed off prior to start of this shift; BP 111/74 MAP 82. Patient mostly sleeping but does arouse when attempting to turn or
do care; opens eyes and becomes agitated. Did not remain awake enough to eat. Dr Sabillon up to see patient proofreader then returned to meet with daughter. Decision was made for comfort care with hospice consult. Daughter and family in room to see
patient but have since left. Hospice nurse in to see patient and to contact daughter. See worklist for full assessment and vital signs.
--- NOTE | 2025-07-17 13:35 | PN.CDI ---
Addendum entered and electronically signed by Blaise Sabillon MD 07/17/25 14:25:
Yes, UTI is related to/associated with/due to indwelling nichols catheter, POA
Original Note:
CDI
- -
CDI:
Physician Documentation Request
Admit Date: 07/15/25 17:04
Dear Doctor Ramandeep,
Clinical Indicators:
Patient admitted with septic shock.
07/15 H & P, 'Patient had Nichols on admission.'
07/17 PN, '...was found to have urosepsis with high fever and lactic acidosis'
Please clarify the likely relationship between these conditions:
Yes, UTI is related to/associated with/due to indwelling nichols catheter, POA
No, UTI is not related to/associated with/due to indwelling nichols catheter but it is due to ___. (Please specify)
Unable to determine
Use of terms such as suspected, likely, concern for, or probable (associated with a specific diagnosis that is being evaluated, monitored, or treated as if it exists) are acceptable and can be coded in the inpatient setting, when documented at the
time of discharge.
Thank you,
LANDON Stanford RN
CDI Specialist
available via tiger text
Please use your independent medical judgment in providing your response.
--- NOTE | 2025-07-17 15:44 | CM ---
F/U: Attending met with the daughter (Dtr) Sanjana, Dtr decided on Hospice at [place]. Spoke to Liaison Keesha who said they will contact their Hospice Agency to call the Dtr, and CM sent Hospice order plus other clinical. Transport set for 5pm, Dtr
aware, IMM completed. Dtr aware OHDNR was signed.
Report: #[phone]
Fax: #[phone]
PLAN: To [facility] than Hospice.
--- NOTE | 2025-07-17 17:59 | W.DCSUMMARY ---
Discharge Summary
Discharge Data
Date of Admission: 07/15/25
Date of Discharge: 07/17/25
-
Pending Results: No
Hospital Course
84 years old male presented to the hospital with lethargy, fever and abdominal pain. Patient was recently hospitalized for polymicrobial bacteremia, kidney disease. Scan of the abdomen pelvis did not show acute intestinal problem but signs of
chronic bilateral hydronephrosis and cystitis. Patient was admitted to high-level care for treatment of presumed sepsis/bacteremia blood and urine culture came back positive with Proteus Mirabilis-ESBL. Patient received intravenous antibiotic.
Patient was followed by ID doctor. Patient was noted to have progressive kidney injury with oliguria. Patient had Mcdonald catheter. Patient was followed by family nurse and he received intravenous fluid for renal failure, electrolyte replacement
and metabolic acidosis. Patient had low blood pressure and was given pressure support medication. He was subsequently stabilized with weaning of Levophed. Patient's mentation did not improve and he remained lethargic. Patient showed signs of
agitation alternating with hypodelirium. He was not safe to take oral medications or diet with increasing risk of aspiration. Patient had history of recurrent hospitalization and worsening dementia. Goal of care discussed with daughter who
expressed her wishes to pursue hospice care. Daughter met with hospice nurse and case mgr. Plan was to discharge patient back to his family or environment at the skilled nursing under hospice care.
Discharge Plan
-
Patient Disposition: Home with Hospice
Discharge Diagnosis/Procedures: Sepsis/ dementia
Additional Diets: Comfort feeding as tolerated
Activity Restrictions/Additional Instructions:
Wound Care Instructions
L ischium (tumor wound) clean with soap and water, silicone foam change q 3 days and prn soilage.
R buttock: clean with soap and water, silicone foam change daily and prn soilage.
R great toe tip: paint with betadine daily
mineral oil to dry skin on legs daily
Fungal powder for scrotum and groin skin folds bid after cleaning
air mattress
offloading chair cushion
increase protein in diet
Follow up at wound care center call for an appointment.
Referrals:
Tl Purdy MD [Family Provider]
Prescriptions:
New
acetaminophen 650 mg Suppository
650 mg OH Q6HPRN PRN (Reason: fever) Qty: 10 0RF
Continued
bisacodyl [Dulcolax (bisacodyl)] 5 mg Tablet,Delayed Release (Dr/Ec)
5 mg PO DAILYPRN PRN (Reason: constipation)
Discontinued
docusate sodium 100 MG capsule
200 mg PO QPM
acetaminophen 325 MG tablet
650 mg PO Q4HPRN PRN (Reason: mild pain/temp>100)
lovastatin 40 MG tablet
40 mg PO DAILY
tamsulosin 0.4 MG capsule
0.4 mg PO QPM
gabapentin 300 MG capsule
300 mg PO DAILY
finasteride 5 MG tablet
5 mg PO DAILY
magnesium oxide 400 MG tablet
400 mg PO BID
dapagliflozin propanediol [Farxiga] 10 MG tablet
10 mg PO DAILY
insulin lispro [Admelog SoloStar U-100 Insulin] 100 unit/mL Insulin Pen
5 unit SC ACHS
Rx Instructions:
150-200=3 units; 201-250=5unit, 251-300=7unit; 301-350=9 units; 351-400=10 units; call MD if <65 or> 400
insulin glargine [Basaglar KwikPen U-100 Insulin] 100 unit/mL (3 mL) Insulin Pen
10 unit SC HS
furosemide 40 mg tablet
40 mg PO DAILY
lisinopril 5 mg tablet
5 mg PO DAILY
sertraline 100 mg Tablet
100 mg PO DAILY
Zegalogue Autoinjector 0.6 mg/0.6 mL Auto-Injector
0.6 mg SC DAILYPRN PRN (Reason: hypoglycemia) Qty: 0
metoprolol tartrate 100 mg Tablet
100 mg PO BID
miconazole nitrate [Miconazorb AF] 2 % powder
1 applic topical BID
Eliquis 2.5 mg tablet
2.5 mg PO BID
Discharge Orders:
Discharge Patient (As Directed); Ordered 07/17/25
Ordered By: Blaies Sabillon
Discharge Date and Time
Print Language: WOLOF
== END 2025-07-17 18:45 | DRG 698 ==
LOC: IMU 17:04
PROVIDERS: Physician Assistant Medical; ADMITTING PHYSICIAN Internal Medicine; CONSULT PHYSICIAN Internal Medicine; EMERGENCY PHYSICIAN Emergency Medicine; FAMILY PHYSICIAN Internal Medicine; OTHER PHYSICIAN Internal Medicine Infectious Disease
DX: T83.511A Infection and inflammatory reaction due to indwelling urethral catheter, initial encounter (principal); A41.59 Other Gram-negative sepsis; G92.8 Other toxic encephalopathy; R65.21 Severe sepsis with septic shock; I13.0 Hypertensive heart and chronic kidney disease with heart failure and stage 1 through stage 4 chronic kidney disease, or unspecified chronic kidney disease; N13.6 Pyonephrosis; E87.20 Acidosis, unspecified; E87.1 Hypo-osmolality and hyponatremia; F01.511 Vascular dementia, unspecified severity, with agitation; F01.54 Vascular dementia, unspecified severity, with anxiety; I50.32 Chronic diastolic (congestive) heart failure; N17.9 Acute kidney failure, unspecified; I5A Non-ischemic myocardial injury (non-traumatic); Z16.12 Extended spectrum beta lactamase (ESBL) resistance; Z51.5 Encounter for palliative care; J44.9 Chronic obstructive pulmonary disease, unspecified; I48.0 Paroxysmal atrial fibrillation; I25.10 Atherosclerotic heart disease of native coronary artery without angina pectoris; E11.51 Type 2 diabetes mellitus with diabetic peripheral angiopathy without gangrene; E11.40 Type 2 diabetes mellitus with diabetic neuropathy, unspecified; N40.0 Benign prostatic hyperplasia without lower urinary tract symptoms; E11.22 Type 2 diabetes mellitus with diabetic chronic kidney disease; N18.32 Chronic kidney disease, stage 3b; E78.00 Pure hypercholesterolemia, unspecified; E86.1 Hypovolemia; I87.8 Other specified disorders of veins; D64.9 Anemia, unspecified; F41.9 Anxiety disorder, unspecified; N32.0 Bladder-neck obstruction; N32.89 Other specified disorders of bladder; R62.7 Adult failure to thrive; Y84.6 Urinary catheterization as the cause of abnormal reaction of the patient, or of later complication, without mention of misadventure at the time of the procedure; Y92.9 Unspecified place or not applicable; Y73.2 Prosthetic and other implants, materials and accessory gastroenterology and urology devices associated with adverse incidents; Z66 Do not resuscitate; Z60.3 Acculturation difficulty; Z96.641 Presence of right artificial hip joint; Z87.891 Personal history of nicotine dependence; Z86.16 Personal history of COVID-19; Z79.01 Long term (current) use of anticoagulants; Z79.84 Long term (current) use of oral hypoglycemic drugs; Z79.4 Long term (current) use of insulin; Z86.718 Personal history of other venous thrombosis and embolism; Z86.19 Personal history of other infectious and parasitic diseases; Z79.899 Other long term (current) drug therapy; Z11.52 Encounter for screening for COVID-19
CPT/HCPCS: 70450; 74176; 76705; 80048; 80053; 80202; 81003; 81015; 82962; 83605; 83735; 84484; 85025; 85027; 85610; 85730; 87040; 87070; 87077; 87086; 87088; 87154; 87186; 87205; 87502; 87811; 93005; 93306; 96365; 96366; 99285; J7030